=== PATIENT | male | born 1965 | race Caucasian/White ===

== ENCOUNTER 2018-08-28 20:44 | Emergency (ER) | payer MEDICAID, SELFPAY ==
[2018-08-28 20:45] VITALS: BP 171/98; PULSE 80; RESP 18; TEMP 36.4; O2SAT 99
--- NOTE | 2018-08-28 20:50 | W.ED.GENAD ---
Discharge Plan Disposition Patient Disposition: [facility] Condition: Fair Discharge Details Chief Complaint: AMS/LOC Clinical Impression: Acute alcohol intoxication, Suicidal ideation, Abrasion of knee Reason For Visit: APOORVA Primary Care Provider: Don Draper ED Provider: Jyoti Basilio Discharge Instructions Instructions: Depression (ED), Alcohol Intoxication (ED), Suicide Prevention for Adults (ED) Additional Instructions: You will be transferred to correctional facility tonight. You will be evaluated by mental health tomorrow morning. Please discuss your suicidal ideations and wish to stop alcohol intake. Keep your knee wound clean, dry, covered. Please follow up with your primary care for your chronic weakness and neuropathy. If you develop new/worsening symptoms please return to the emergency department. Referrals: Don Draper [Primary Care Provider] - Discharge Data Discharge Date/Time-TO BE ENTERED AT DEPARTURE: 08/29/18 00:45 Medical Decision Making Patient is a 53 year old male, presenting today after fall. Patient brought in via EMS for evaluation for left knee after fall as well as multiple chronic complaints. EMS reports that he was found after falling in the middle of the road and landing on his left knee. He appears intoxicated, appears to be drinking mouthwash, has bottle with him currently. States he has had EToh prior to arrival. Due to his mental capacity at this time, I am unable to understand all of his complaints. His thought process is not linear, his answers change frequently. He is very angry and aggressive in his speech pattern and has quick movements suggestive of physical aggression. He states that he has been seen by his PCP for peripheral neuropathy in his bilateral lower extremities which I believe is his chief complaint tonight. States he has been on Lyrica for this. Reports that I have been taking a fuck ton of Lyrica but it does nothing, what are you going to do?. He reports that I cant walk. States he has not been able to walk for several years. 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 As history is so fragmented and difficult to obtain, will العلي scan patient and obtain laboratory evaluation as he had report of fall. Patient reports that he has history of stroke which affected his right side. Unable to tell me when his stroke occurred but believes it was several years ago. Unclear what type of care, if any, he received at that time. Endorses pain everywhere. Has abrasion to the left knee but reports that the knee is fine, thats not why I am here. This story has changed multiple times as he told EMS he wanted his knee evaluated as well as nursing staff. On exam, patient appears intoxicated. He has abrasion to the left knee, not actively bleeding. He has no other signs of trauma. Is able to stand at bedside and remove his clothes on request. Exam is limited as he is uncooperative but no focal area of weakness is observed as he is moving all limbs . [facility] Patient reports his last tetanus was within the last 2 years. EKG reviewed by Dr. Harper. Patient is normal sinus rhythm with a rate of 76. No acute ischemic changes noted per her report Laboratory evaluation without significant abnormality. Potassium is minimally low at 3.3. Reevaluated the patient once he came back from imaging. He is now reporting that he wants to hang himself. He reports, I have a belt and knives at home and I think about killing myself all the time. Will consult with mental health. Reports he has been thinking of hanging himself for several years. He denies any hallucinations or thoughts of harming others. Will also add on acetamenophen, salicilate and UDS. At this time, patient is more cooperative, is willing to preform neuroexam. He is noted to have weakness in the right upper and lower extremity, neuro exam otherwise intact. HE reports that this is chronic. Chest CT reviewed by radiologist. Advised the lungs are normal, no consolidation or masses. No pneumothorax or pleural effusion. Heart is normal with no cardiomegaly or pericardial effusion. No aortic aneurysm. Lymph nodes are unremarkable no enlargement. There are acute fractures of the posterior right sixth and seventh ribs. Soft tissues are unremarkable. Emphysematous changes most prominent at the apices. Motion artifact degrading the images. Reevaluated the patient once again after noting the sixth and seventh rib fractures on posterior right side. I palpated over this area multiple times and patient is not exhibiting any discomfort. There is no deformity palpated. There is no swelling, discoloration. Questioning if this may be from previous falls and non acute as he is having no pain. CT of the abdomen and pelvis reviewed by radiologist. Advised the liver is normal no masses. Follow-up gallbladder and bile ducts are normal with no calcified stones or ductal dilation. Pancreas is normal no no ductal dilation. No spinal megaly. Adrenals are normal no mass. Kidneys and ureters are normal with no hydronephrosis. Stomach and bowel is normal with no obstruction or mucosal thickening. No evidence of appendicitis. Bladder is unremarkable with reproductive system unremarkable as visualized. Intraperitoneal space is normal no free air, no significant fluid collection. Patient is noted to have grade 1 anterolisthesis of L5 over S1. Extensive degenerative changes at L5-S1. Spinal listhesis of bilateral pars at L5. Soft tissue unremarkable. Also sclerotic calcification of the aorta. Lymph nodes are normal. CT of the patient's head concerning for encephalomalacia of the left frontal lobe. There is moderate periventricular and subcortical lucencies consistent with chronic microvascular ischemic changes. Christopher-white differentiation is maintained. No hemorrhage. No ventriculomegaly. Bones and joints are normal no acute fracture. Sinuses are normal as visualized no acute sinusitis. Mastoid air cells are normal as visualized with no mastoid effusion. Soft tissues unremarkable CT of the cervical spine reviewed by radiologist. Advised no acute fracture. Grade 1 anterolisthesis of C2 over C3, C3 over C4, C4 over C5. Grade 1 retrolisthesis of C5 over C7. Soft tissues are unremarkable multilevel facet hypertrophy with neuroforaminal narrowing emphysematous changes at bilateral lung apices. Mild to moderate spinal canal stenosis at C5-6 level. Central disc protrusion at C6-C7 indenting the thecal sac. Patient does report that he has pinched nerve affecting his left shoulder X-ray of the patient's left knee without acute fracture dislocation. No joint effusion. Soft tissue unremarkable Abrasion to the left knee cleansed and dressed by myself. Patient UDS negative, other blood work without significant abnormality. Alysa with [facility] evaluated the patient. She knows the patient well and reports that he is not typically this aggressive. States he has a known alcohol dependence issue but that she has not seen him this intoxicated. ETOh 177. Reports that he typically ambulates with the limp, her story is consistent with patient's self reported history of right sided weakness and difficulty with ambulation for the past several years. She also reports that he has reported weakness in his right hand historically. She evaluated the patient, feels that he needs to be monitored in safe place overnight so that he may be evaluated for his suicidal ideation once he has been able to sober. She recommends placement over night in correctional facility as he is medically cleared at this time. Discussed plan with the patient. At this point, his primary concern is for his suicidal ideation. Is in agreement wiht reevaluation tomorrow morning once he has been able ot clear his ETOH. Alcohol was taken from the patient. In regard to his chronic weakness and gait difficulty, he reports he has upcoming appointment with PCP. I do not see evidence of acute change in this tonight, patient prefers to follow [facility] regarding his chronic issues. Has calmed down, is no longer aggressive with staff. When officers came to transport the patient to the correctional facility for detox, he instantly became aggressive. I had discussed with the patient the need for going to their facility. He was initially in agreement and had been cooperative. However, as soon as he saw the officers he began swearing and became verbally aggressive including threatening the officers. He reported that he was goingt o forcefully fall so that he could kate you. The officers helped the patient to the wheelchair and he began to become physically aggressive. He attempted to knee and kick the officers. Was fighting with both upper extremities, officers were needing to restrain him forcefully. They needed to put the patient on the floor to be able to handcuff the patient to keep him from harming himself or them. Patient was fighting aggressively with all limbs. Brought to cruiser in wheelchair. HPI General Mode of arrival: EMS. Date/Time Provider Initiated Documentation: 08/28/18 20:50. Limitations to Documentation: altered mental status (patient intoxicated). Information obtained by: patient and EMS. History of Present Illness 53 year old M presents to the emergency department with the chief complaint of left knee pain, described as moderate, Quality is described as aching, and is localized to the left and lower extremity. Patient reports no radiation. Patient started experiencing this hour(s) (1) and it has been constant. Immobilization improves symptom(s), Movement worsens symptoms . Patient notes weakness (reports he has chronic weakness in his lower extremities). Patient did receive the following treatments prior to arrival, none Related Data Allergies Allergy/AdvReac Type Severity Reaction Status Date / Time carbamazepine [From Tegretol] Allergy Mild Skin Rash Unverified 08/28/18 21:17 Review of Systems Constitutional Reports as per HPI, Denies chills, Denies fatigue, Denies fever(s), Reports frequent falls (attributes to his chronic lower extremity weakness. Has RLE weakness after stroke. ), Reports headache(s) and Reports weakness Eyes Denies change in vision and Denies loss of vision ENT Denies vertigo, Denies dizziness and Reports headache(s) Cardiovascular Denies chest pain, Denies chest pain at rest, Denies syncope, Denies dyspnea and Denies dyspnea on exertion Respiratory Denies chest congestion, Denies cough, Denies dyspnea and Denies dyspnea on exertion Gastrointestinal Reports abdominal pain (reports pain along the entire right side), Denies change in stool character, Denies diarrhea, Denies nausea and Denies vomiting Genitourinary Reports system reviewed and no additional complaints, except as docu (denies change in urinary habits) Musculoskeletal Reports as per HPI, Reports abnormal gait (chronic gait abnormality, associates with RLE weakness from stroke), Denies back pain and Reports muscle weakness (right upper and lower extrmeity weakness, chornic from reported stroke) Integumentary/Breasts Reports wounds (patient has abrasion to the left knee) Neurologic Reports abnormal gait (chronic gait abnormality, associates with RLE weakness from stroke), Denies confusion, Denies vertigo, Denies dizziness, Denies syncope, Reports frequent falls (attributes to his chronic lower extremity weakness. Has RLE weakness after stroke. ), Reports headache(s), Reports focal weakness (chronic), Denies loss of vision and Reports weakness Psychiatric Denies confusion Endocrine Denies fatigue [facility] Social History Smoking/Tobacco Use Status: Never Exam Const General: comfortable, no acute distress, well developed, combative (patient is swearing and yelling at team upon entrance to the department) and intoxicated appearing Nutritional Appearance: average body habitus and well nourished Orientation: alert, awake and oriented x3 HENMT Head: normal to inspection, no palpable skull fracture, normocephalic and atraumatic Ears: hearing grossly normal bilaterally, external ears normal and TM's normal bilaterally General nose exam: external nose normal Face and sinus: normal facial exam and scar (new appearing scar to the right upper forehead, appears to have healed well) Mouth: oral mucosae normal, lip normal and tongue normal Eyes General: appearance normal, both eyes and all related structures Visual Myles: normal visual myles by confrontation Alignment and Position: alignment normal Periorbital: periorbital findings normal Eyelids: eyelids normal Conjunctivae: conjunctivae normal Pupils: PERRL and normal by confrontation EOM: EOM intact bilaterally Neck Neck: normal visual inspection, full ROM, no lymphadenopathy and nontender Chest Chest: normal inspection of the chest, normal palpation of entire chest wall, no crepitus, no localized rib tenderness, no tenderness and No rash Resp Effort & Inspection: normal respiratory effort, able to speak in complete sentences and no respiratory distress Auscultation: clear to auscultation bilaterally, no rales, no rhonchi and no wheezes Cardio Rate: regular rate Rhythm: regular rhythm Heart Sounds: S1 normal and S2 normal GI Inspection: normal to inspection, no abdominal wall ecchymosis, non-distended and no large pannus Palpation: soft, no hepatosplenomegaly, not firm, no guarding, not rigid and nontender (patient had been endorsing right sided abdominal pain, none was elicited. Patient was distracted at the time of the exam) Auscultation: normal bowel sounds Back/Spine/Pelvis Back: no CVA tenderness Cervical Spine: normal cervical lordosis and cervical ROM normal Thoracic/Lumbar Spine: thoracic and lumbar spine normal to inspection, No thoracic spinal tenderness and No lumbar spinal tenderness Pelvis: no pain with anterior-posterior compression and no pain with lateral compression Skin Lesions: lesion noted (patient has abrasion to the left knee, triangular in shape, 1cm in diameter. No surrouding erythema, discharge. No soft tissue swelling) Neuro General: alert, awake and oriented x3 Cranial Nerves: CN's II-XI intact bilaterally, PERRL, accommodation normal, EOM intact bilaterally and no nystagmus Speech: speech normal Gait: antalgic (reports that RLE is typically weak and he ambulates with antalgic gait at baseline) Motor: tone not normal throughout (patient has 4/5 strength in the RUE, 3/5 in the RLE on exam compared to the contralateral side) Sensory Exam: no sensory deficits noted Extrem General: abnormal to inspection (abrasion to the left knee as above. ), full ROM, normal capillary refill, no joint enlargement (no ligamentous laxity noted of the left knee. No effusion. No signs of infection. ), no clubbing, cyanosis or edema, no pedal edema, no calf tenderness and abnormal gait (antalgic as above) Psych Appearance: disheveled Mental Status: mental status grossly normal Speech and Movement: agitated and restless Mood: anxious mood, angry and irritable mood Affect: labile affect, hostile and irritable affect Attitude: belligerent (attitude waxes and wanes)
[2018-08-28 20:53] VITALS: RESP 18
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
[2018-08-28 21:24] LABS: Abs Immature Grans 0.02 k/cumm (0.0-0.09); Absolute Basophil Count 0.14 k/cumm (0.0-0.2); Absolute Eosinophil Count 0.43 k/cumm (0.0-0.7); Absolute Lymphocyte Count 3.73 k/cumm (1.2-3.4); Absolute Monocyte Count 0.92 k/cumm (0.11-0.7); Basophils % 1.4; Eosinophils % 4.2; HCT 42.6 % (40.0-50.0); HGB 14.6 g/dL (13.5-17.5); Immature Grans % 0.2; Lymphocytes % 36.4; Mean Corp. HGB Concentration 34.3 g/dL (32.0-36.0); Mean Corpuscular Hemoglobin 31.2 pg (27.0-33.0); Mean Platelet Volume 10.8 fL (8.0-11.0); Neutrophils % 48.8; Platelet Count 183 x1000/uL (130-400); RBC 4.68 m/cumm (4.50-6.00); RBC Distribution Width 13.5 % (11.8-14.1); White Blood Cell Count 10.24 k/cumm (4.4-10.8)
--- NOTE | 2018-08-28 21:30 | DI.COMBO_ITS ---
SYMPTOM/DIAGNOSIS: FELL, INTOXICATED NONCONTRAST HEAD CT: A noncontrast cranial CT was performed. Note is made of an apparent area of encephalomalacia of the left frontal lobe. Mild cortical atrophy is noted, unusual in this age group. No evidence of acute intracranial hemorrhage, mass effect or midline shift. The orbital and temporal bone structures appear intact. There is mucoperiosteal thickening of ethmoid and maxillary sinuses on the left. No calvarial fracture identified. CONCLUSION: No evidence of acute intracranial injury. CERVICAL SPINE CT: CT examination of the cervical spine was performed utilizing multi slice acquisition and multi planar reconstruction. There are severe degenerative changes of the cervical spine, unusual in this age group. There is a moderate cervical kyphosis. No evidence of acute cervical fracture or dislocation. Tracheal laryngeal structures appear intact. Visualized lung apices show severe emphysema and scarring. CONCLUSION: No evidence of acute cervical injury. Severe degenerative changes. LEFT KNEE: Four views were obtained. No fracture is seen. CHEST/ABDOMEN AND PELVIC CT: CT examination of the chest, abdomen and pelvis was performed with a bolus infusion of 100 c's of Omnipaque 350. There are marked pulmonary emphysematous changes with mild bullous emphysema. Tracheobronchial tree appears grossly intact. Some areas of apparent atelectasis or scarring are present, particularly in the left lung base. There is a trace pericardial effusion. No evidence of acute pneumothorax, pulmonary contusion of hemothorax. No mediastinal hematoma. No gross vascular injury although evaluation of the vascular structures is limited due to severe motion artifact. Partially healed fractures of right sixth and seventh ribs are noted. No other fracture is seen involving the bones of the thorax. No fracture is seen involving the lumbar spine or pelvis. No evidence of solid organ trauma involving liver, spleen, kidneys, adrenals or pancreas. Gallbladder and bile ducts are CT normal. No evidence of intra-abdominal or pelvic vascular injury although evaluation of vascular structures is limited due to motion artifact. No gross bowel injury or bowel obstruction. No gross abdominal or pelvic adenopathy is seen. Urinary bladder is distended. CONCLUSION: No evidence of acute injury of the chest, abdomen or pelvis. Trace pericardial effusion noted. Old partially healed rib fractures right sixth and seventh ribs.
[2018-08-28 21:42] LABS: ALT 23 U/L (12-78); AST 18 U/L (15-37); Albumin 4.1 g/dL (3.4-5.0); Alkaline Phosphatase 72 U/L (46-116); Anion Gap 11.9 mmol/L (3-11); BUN 13 mg/dL (7-18); Bilirubin, Total 0.2 mg/dL (0.2-1.0); CO2 26.1 mmol/L (21.0-32.0); CREATININE 0.66 mg/dL (0.70-1.30); Calcium 8.7 mg/dL (8.5-10.1); Chloride 101 mmol/L (98-107); ETHANOL BLOOD 177.7 mg/dL (<3); Glucose 80 mg/dL (70-100); Potassium 3.3 mmol/L (3.5-5.1); Sodium 139 mmol/L (136-145); Total Protein 7.6 g/dL (6.4-8.2)
[2018-08-28 21:43] LABS: Troponin I < 0.02 ng/mL (0.00-0.06)
[2018-08-28] MEDS: Omnipaque 350 MG/ML 100 ML BTL IJ (21:52)
[2018-08-28] MEDS: Normal Saline 1,000 ML 1000 ML IV (22:05)
[2018-08-28] MEDS: Normal Saline Flush 10 ML SYR IVP (22:05)
[2018-08-28 22:29] LABS: Salicylate 4.7 mg/dL (2.8-20.0)
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
[2018-08-28 22:39] LABS: TSH 2.59 uIU/mL (0.358-3.74)
[2018-08-28 22:40] LABS: Acetaminophen < 2 ug/mL (10-30)
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
--- NOTE | 2018-08-28 23:26 | DI.VRAD_ITS ---
EXAM: XR Left Knee, 4 or more Views EXAM DATE/TIME: 08/28/2018 9:03 PM CLINICAL HISTORY: 53 years old, male; Pain; Knee; Left; Patient HX: Left knee pain after fell into road. ; Additional info: Best images obtained due to patient intoxicated unable to follow instructions. TECHNIQUE: XR Left knee 4 or more views. COMPARISON: No relevant prior studies available. FINDINGS: Bones/joints: No acute fracture or dislocation. No joint effusion. Soft tissues: Soft tissues unremarkable. IMPRESSION: No acute findings. Dictated and Authenticated by: Marlen Ruiz MD. Ordering:HAILEY BEARDEN MD
[2018-08-28 23:54] LABS: Bilirubin Negative (Negative); Blood Negative (Negative); Clarity Clear; Glucose Negative (Negative); Ketones Negative (Negative); Leukocyte Esterase Negative (Negative); Nitrite Negative (Negative); Specific Gravity <= 1.005 (1.005-1.025); Urobilinogen 0.2 EU/dL (Up TO 0.2); pH 6.5 (5-8)
[2018-08-29 00:06] LABS: *AMPHETAMINES SCREEN URINE Negative (Negative); *BARBITURATES SCREEN URINE Negative (Negative); *BENZODIAZEPINES SCREEN URINE Negative (Negative); Cannabinoids THC Negative (Negative); Cocaine Screen,Urine Negative (Negative); METHADONE URINE SCREEN Negative (Negative); OPIATES URINE SCREEN Negative (Negative)
[2018-08-29 00:08] LABS: Tricyclic Antidepressants Negative (Negative)
== END 2018-08-29 00:45 | disposition home or self-care (01) ==
PROVIDERS: Emergency Provider Physician Assistant; PCP Physician Assistant
DX: F10.120 Alcohol abuse with intoxication, uncomplicated (principal); R45.851 Suicidal ideations; S80.02XA Contusion of left knee, initial encounter; W01.0XXA Fall on same level from slipping, tripping and stumbling without subsequent striking against object, initial encounter
CPT/HCPCS: 36415; 74177; 80053; 80307; 93005; 96360; 99285; 70450; 71260; 72125; 73564; 80320; 80329; 81003; 83735; 84443; 84484; 85025; 93010; J3490

== ENCOUNTER 2018-08-31 20:34 | Emergency (ER) | payer MEDICAID, SELFPAY ==
[2018-08-31] VITALS (21 sets, daily range): BP systolic 130–168; BP diastolic 74–103; PULSE 77–104; RESP 13–23; TEMP 36.4–36.7; O2SAT 95–97
--- NOTE | 2018-08-31 20:35 | W.ED.GENAD ---
Discharge Plan Disposition Patient Disposition: [facility]ILITY Condition: Stable Discharge Details Chief Complaint: Seizure Clinical Impression: Alcohol intoxication Reason For Visit: [facility]VA Primary Care Provider: Don Draper ED Provider: Arie Summers Home Meds and New Rx's Prescriptions: Continue bupropion HCl 75 mg Tablet 75 mg PO TID RF: 0 levothyroxine [Synthroid] 200 mcg Tablet 200 mcg PO DAILY RF: 0 lurasidone [Latuda] 20 mg Tablet 20 mg PO DAILY RF: 0 Discharge Instructions Instructions: Alcohol Intoxication (ED) Discharge Data Discharge Physician: Arie Summers Medical Decision Making 53 yo male with hx of alcoholism, seizure disorder, who comes in requesting to speak to mental health for a care bed on my exam. Per ems bystanders noted [place] so [place] were [place]. They got a bgfs of 91. He is currently caox4 and does smell of alcohol and on breathalyzer is 0.15. He denies other drug use and has no complaints at this time. He states he just wants to speak to mental health about a care bed because he is homeless and has no where to go. Will have mental health speak with him. He does note vague SI earlier but denies any now and has no plan pt seen by mental health and he will go to a community care bed for the night, pt has no complaints at this time Differential Diagnosis alcohol intoxication, seizure disorder HPI General Mode of arrival: EMS. Date/Time Provider Initiated Documentation: 08/31/18 20:35. Limitations to Documentation: no limitations. Information obtained by: patient. History of Present Illness 53 year old M presents to the emergency department with the chief complaint of wants a care bed, No relieving factors improve symptom(s), No exacerbating factors reported . Patient notes no other symptoms.. Patient did receive the following treatments prior to arrival, none Related Data Home Medications Medication Instructions Recorded Confirmed bupropion HCl 75 mg PO TID 08/31/18 08/31/18 levothyroxine [Synthroid] 200 mcg PO DAILY 08/31/18 08/31/18 lurasidone [Latuda] 20 mg PO DAILY 08/31/18 08/31/18 Allergies Allergy/AdvReac Type Severity Reaction Status Date / Time carbamazepine [From Tegretol] Allergy Mild Skin Rash Unverified 08/31/18 20:37 General Stated Complaint: Seizure YURIDIA: 4 Review of Systems Review of Systems All systems reviewed & are unremarkable except as noted in HPI and below Constitutional Denies chills, Denies fever(s) and Denies weakness Eyes Denies loss of vision ENT Denies change in voice Cardiovascular Denies chest pain and Denies dyspnea Respiratory Denies dyspnea Gastrointestinal Denies abdominal pain, Denies nausea and Denies vomiting Genitourinary Denies dysuria Musculoskeletal Denies joint swelling Integumentary/Breasts Denies rash Neurologic Denies loss of vision and Denies weakness Psychiatric Denies depression Endocrine Denies cold intolerance and Denies heat intolerance [facility] Social History Smoking/Tobacco Use Status: Never Exam Const General: no acute distress Orientation: alert HENMT Head: normal to inspection Ears: external ears normal General nose exam: external nose normal Mouth: moist mucous membranes Eyes General: appearance normal, both eyes and all related structures Neck Neck: normal visual inspection Resp Effort & Inspection: normal respiratory effort and able to speak in complete sentences Cardio Rate: regular rate Skin General skin exam: no rashes or lesions noted Neuro General: alert and oriented x3 Extrem General: normal to inspection Psych Mental Status: mental status grossly normal Course Vital Signs Temperature 36.7 C 08/31/18 20:29 Pulse 86 08/31/18 20:29 Respiratory Rate 16 08/31/18 20:29 Blood Pressure 168/103 H 08/31/18 20:29 Pulse Oximetry 96 08/31/18 20:29 Temperature 36.7 C 08/31/18 20:29 Temperature Source Skin 08/31/18 20:29 Pulse 86 08/31/18 20:29 Respiratory Rate 16 08/31/18 20:29 Blood Pressure 168/103 H 08/31/18 20:29 Pulse Oximetry 96 08/31/18 20:29 Pain Level 6 08/31/18 20:29
--- NOTE | 2018-08-31 20:38 | ED.GENADUL_ITS ---
Discharge Plan Disposition Patient Disposition: [facility]ILITY Condition: Stable Discharge Details Chief Complaint: Seizure Clinical Impression: Alcohol intoxication Reason For Visit: [facility] Primary Care Provider: Don Draper ED Provider: Arie Summers Home Meds and New Rx's Prescriptions: Continue bupropion HCl 75 mg Tablet 75 mg PO TID RF: 0 levothyroxine [Synthroid] 200 mcg Tablet 200 mcg PO DAILY RF: 0 lurasidone [Latuda] 20 mg Tablet 20 mg PO DAILY RF: 0 Discharge Instructions Instructions: Alcohol Intoxication (ED) Discharge Data Discharge Physician: Arie Summers Medical Decision Making 53 yo male with hx of alcoholism, seizure disorder, who comes in requesting to speak to mental health for a care bed on my exam. Per ems bystanders noted [place] the [place] and so they were called. They got a bgfs of 91. He is currently caox4 and does smell of alcohol and on breathalyzer is 0.15. He denies other drug use and has no complaints at this time. He states he just wants to speak to mental health about a care bed because he is homeless and has no where to go. Will have mental health speak with him. He does note vague SI earlier but denies any now and has no plan pt seen by mental health and he will go to a community care bed for the night, pt has no complaints at this time Differential Diagnosis alcohol intoxication, seizure disorder HPI General Mode of arrival: EMS . Date/Time Provider Initiated Documentation: 08/31/18 20:35 . Limitations to Documentation: no limitations . Information obtained by: patient . History of Present Illness 53 year old M presents to the emergency department with the chief complaint of wants a care bed, No relieving factors improve symptom(s), No exacerbating factors reported . Patient notes no other symptoms.. Patient did receive the following treatments prior to arrival, none Related Data Home Medications Medication Instructions Recorded Confirmed bupropion HCl 75 mg PO TID 08/31/18 08/31/18 levothyroxine [Synthroid] 200 mcg PO DAILY 08/31/18 08/31/18 lurasidone [Latuda] 20 mg PO DAILY 08/31/18 08/31/18 Allergies Allergy/AdvReac Type Severity Reaction Status Date / Time carbamazepine [From Tegretol] Allergy Mild Skin Rash Unverified 08/31/18 20:37 General Stated Complaint: Seizure YURIDIA: 4 Review of Systems Review of Systems All systems reviewed & are unremarkable except as noted in HPI and below Constitutional Denies chills, Denies fever(s) and Denies weakness Eyes Denies loss of vision ENT Denies change in voice Cardiovascular Denies chest pain and Denies dyspnea Respiratory Denies dyspnea Gastrointestinal Denies abdominal pain, Denies nausea and Denies vomiting Genitourinary Denies dysuria Musculoskeletal Denies joint swelling Integumentary/Breasts Denies rash Neurologic Denies loss of vision and Denies weakness Psychiatric Denies depression Endocrine Denies cold intolerance and Denies heat intolerance [facility] Social History Smoking/Tobacco Use Status: Never Exam Const General: no acute distress Orientation: alert HENMT Head: normal to inspection Ears: external ears normal General nose exam: external nose normal Mouth: moist mucous membranes Eyes General: appearance normal, both eyes and all related structures Neck Neck: normal visual inspection Resp Effort & Inspection: normal respiratory effort and able to speak in complete sentences Cardio Rate: regular rate Skin General skin exam: no rashes or lesions noted Neuro General: alert and oriented x3 Extrem General: normal to inspection Psych Mental Status: mental status grossly normal Course Vital Signs Temperature 36.7 C 08/31/18 20:29 Pulse 86 08/31/18 20:29 Respiratory Rate 16 08/31/18 20:29 Blood Pressure 168/103 H 08/31/18 20:29 Pulse Oximetry 96 08/31/18 20:29 Temperature 36.7 C 08/31/18 20:29 Temperature Source Skin 08/31/18 20:29 Pulse 86 08/31/18 20:29 Respiratory Rate 16 08/31/18 20:29 Blood Pressure 168/103 H 08/31/18 20:29 Pulse Oximetry 96 08/31/18 20:29 Pain Level 6 08/31/18 20:29
--- NOTE | 2018-08-31 20:49 | NUR.NOTE ---
Nursing Note: mental health called, Mercedes calls back and states she will respond to evaluate pt. Pt agrees to evaluation of breathalyzer by , 0.15 at approx 2029.
--- NOTE | 2018-08-31 21:13 | NUR.NOTE ---
Nursing Note: Pt seen by mental health- they will be arranging care bed placement.
--- NOTE | 2018-08-31 22:16 | NUR.NOTE ---
Nursing Note: Pt resting in bed, remains alert and oriented.
== END 2018-08-31 22:58 | disposition designated cancer center or children's hospital (05) ==
PROVIDERS: Emergency Provider Emergency Medicine; PCP Physician Assistant
DX: F10.229 Alcohol dependence with intoxication, unspecified (principal); Z59.0 Homelessness; G43.909 Migraine, unspecified, not intractable, without status migrainosus
CPT/HCPCS: 99285; 99284

== ENCOUNTER 2018-09-06 21:38 | Emergency (ER) | payer MEDICAID, SELFPAY ==
[2018-09-06 21:29] VITALS: PULSE 82; RESP 26
[2018-09-06 21:30] VITALS: PULSE 82; RESP 24
[2018-09-06 21:31] VITALS: BP 153/120; PULSE 82; RESP 14
[2018-09-06 21:32] VITALS: BP 127/99; PULSE 86; RESP 22; TEMP 36.5
--- NOTE | 2018-09-06 21:36 | ED.GENADUL_ITS ---
Discharge Plan Disposition Condition: Stable Discharge Details Chief Complaint: ETOHWithdr Clinical Impression: Alcohol intoxication Reason For Visit: APOORVA Primary Care Provider: Don Draper ED Provider: Juan Hickey Home Meds and New Rx's Prescriptions: Continue bupropion HCl 75 mg Tablet 75 mg PO TID RF: 0 levothyroxine [Synthroid] 200 mcg Tablet 200 mcg PO DAILY RF: 0 lurasidone [Latuda] 20 mg Tablet 20 mg PO DAILY RF: 0 Discharge Instructions Instructions: Alcohol Intoxication (ED) Additional Instructions: You are medically stable for discharge from the Emergency Room. Continue regular medications. Please do not abuse alcohol. Medical Decision Making 53-year-old male alcoholic who was found trying to sleep on a bench outside local bru. We will admit distant concomitant use of street pills. He currently appears clinically to be predominantly intoxicated from alcohol. He is not a danger to himself or others. Normal vital signs and no evidence of trauma. He requests placement at respite bed. [facility] contacted HPI General Mode of arrival: EMS . Date/Time Provider Initiated Documentation: 09/06/18 22:05 . Limitations to Documentation: no limitations . Information obtained by: patient and EMS . HPI Narrative: Alcohol intoxication: 53-year-old male states he is currently living in [place]. He was found [place] local [place] trying to sleep on a bench. He admits to using vodka, some mouthwash, and snorting pills on a daily basis. He does not want to kill himself or harm other people. He denies to me any acute pain or injury. Related Data Home Medications Medication Instructions Recorded Confirmed bupropion HCl 75 mg PO TID 08/31/18 08/31/18 levothyroxine [Synthroid] 200 mcg PO DAILY 08/31/18 08/31/18 lurasidone [Latuda] 20 mg PO DAILY 08/31/18 08/31/18 Allergies Allergy/AdvReac Type Severity Reaction Status Date / Time carbamazepine [From Tegretol] Allergy Mild Skin Rash Unverified 08/31/18 20:37 General YURIDIA: 4 Review of Systems Review of Systems 6 systems reviewed and otherwise negative [facility] Social History Smoking/Tobacco Use Status: Never Exam Narrative Exam Narrative: GEN: awake, alert, conversant, odor of alcohol HEAD: Normocephalic, atraumatic ENT: Mucous membranes moist, oropharynx unremarkable, External ear exam unremarkable EYES: PERRL, EOMI NECK: Full ROM, no RONIT, no menigismus CHEST/RESP: Nontender, clear to auscultation bilateral, no wheeze/rhonchi/rales CARDIOVASCULAR: RRR, no murmur, rub laila. 2+ Rad pulse bilateral ABDOMEN: Soft, nontender, no mass. +Bowel sounds EXT: Full ROM, no edema, no rash Neuro: Grossly normal neurologic exam, conversant, interactive. Psych: Speech fluent, thoughts congruent
[2018-09-06 21:40] VITALS: PULSE 98; RESP 26
== END 2018-09-06 23:01 | disposition other institution (70) ==
PROVIDERS: Emergency Provider Emergency Medicine; PCP Physician Assistant
DX: F10.229 Alcohol dependence with intoxication, unspecified (principal)
CPT/HCPCS: 99285; 99282

== ENCOUNTER 2019-08-18 16:46 | Emergency (ER) | payer MEDICAID, SELFPAY ==
[2019-08-18 16:47] VITALS: BP 127/75; PULSE 71; RESP 18; TEMP 36.3; O2SAT 98
--- NOTE | 2019-08-18 16:49 | ED.GENADUL_ITS ---
Discharge Plan Disposition Patient Disposition: [facility] Discharge Details Chief Complaint: ETOHWithdr Clinical Impression: Alcohol intoxication Primary Care Provider: Don Draper ED Provider: Mata Campos Home Meds and New Rx's Prescriptions: No Action levothyroxine [Synthroid] 200 mcg Tablet 175 mcg PO DAILY RF: 0 Latuda 20 mg Tablet 80 mg PO DAILY RF: 0 bupropion HCl 150 mg Tablet Sustained-Release 12 Hr 150 mg PO BID RF: 0 gabapentin 600 mg Tablet 1,200 mg PO TID RF: 0 metoprolol succinate 50 mg Tablet Extended Release 24 Hr 50 mg PO DAILY RF: 0 cyanocobalamin (vitamin B-12) [Vitamin B-12] 1,000 mcg Tablet 1,000 mcg PO DAILY RF: 0 amlodipine 5 mg Tablet 5 mg PO DAILY RF: 0 tramadol 50 mg Tablet 50 mg PO Q6H PRNRF: 0 folic acid 1 mg Tablet 1 mg PO DAILY RF: 0 duloxetine [Cymbalta] 30 mg Capsule,Delayed Release(Dr/Ec) 30 mg PO DAILY RF: 0 Vyvanse 50 mg Capsule 50 mg PO DAILY RF: 0 Discharge Instructions Instructions: Alcohol Intoxication (ED) Additional Instructions: Please take your medications as prescribed. Unfortunately an official medication reconciliation could not be performed today. Be sure to confirm your medications and dosing with your doctor. Please stop abusing alcohol. Please contact your primary care physician to arrange follow-up. Return to the ER for any worsening or new concerning symptoms. Referrals: Don Draper [Primary Care Provider] - Discharge Data Discharge Date/Time-TO BE ENTERED AT DEPARTURE: 08/18/19 19:30 Medical Decision Making 54-year-old male here with altered mental status secondary to alcohol intoxication. No signs of trauma. Screening labs reviewed: Ethyl alcohol level of 189. Other than intoxication, no acute medical condition identified. Patient suicidality seems conditional. I have discussed case with crisis screener who will evaluate the patient for public inebriation holding facility placement. HPI General Mode of arrival: ambulatory . Date/Time Provider Initiated Documentation: 08/18/19 16:49 . Limitations to Documentation: no limitations . Information obtained by: patient . HPI Narrative: 54-year-old male arrives with EMS and law enforcement [place]. Patient admits to drinking a few pints of mouthwash today. He was recently discharged from alcohol rehab at [facility]. Patient also notes that he is been feeling suicidal. He has no active plan. Patient denies toxic ingestion. History limited secondary to intoxication. No history of trauma. Related Data Home Medications Medication Instructions Recorded Confirmed Latuda 80 mg PO DAILY 08/31/18 08/19/19 levothyroxine [Synthroid] 175 mcg PO DAILY 08/31/18 08/19/19 amlodipine 5 mg PO DAILY 08/18/19 08/19/19 bupropion HCl 150 mg PO BID 08/18/19 08/19/19 cyanocobalamin (vitamin B-12) 1,000 mcg PO DAILY 08/18/19 08/19/19 [Vitamin B-12] duloxetine [Cymbalta] 30 mg PO DAILY 08/18/19 08/19/19 folic acid 1 mg PO DAILY 08/18/19 08/19/19 gabapentin 1,200 mg PO TID 08/18/19 08/19/19 lisdexamfetamine [Vyvanse] 50 mg PO DAILY 08/18/19 08/19/19 metoprolol succinate 50 mg PO DAILY 08/18/19 08/19/19 tramadol 50 mg PO Q6H PRN 08/18/19 08/19/19 Allergies Allergy/AdvReac Type Severity Reaction Status Date / Time carbamazepine [From Tegretol] Allergy Mild Skin Rash Unverified 08/19/19 05:44 General YURIDIA: 4 Review of Systems Constitutional Constitutional: Denies headache(s) ENT Ears, Nose, Mouth, and Throat: Denies headache(s) Cardiovascular Cardiovascular: Denies chest pain and Denies dyspnea Respiratory Respiratory: Denies dyspnea Gastrointestinal Gastrointestinal: Denies abdominal pain Neurologic Neurologic: Denies headache(s) [facility] Social History Smoking/Tobacco Use Status: Current every day Alcohol Intake: current Alcohol Intake frequency: 3 or more drinks per day Alcohol type: other Drug use: Never Substance use type: does not use Do you feel safe in your relationship?: Yes Exam Const General: cooperative and no acute distress HENMO Head: normocephalic and atraumatic Mouth: moist mucous membranes Eyes Conjunctivae: normal conjunctivae Sclera: normal sclerae Neck Neck: trachea midline and supple Resp Auscultation: clear to auscultation bilaterally, no rales, no rhonchi and no wheezes Cardio Jugular venous pressure: no JVD Rate: regular rate and not tachycardic Rhythm: regular rhythm GI Palpation: soft, not firm, no guarding, no masses, not rigid and nontender Skin General skin exam: no rashes or lesions noted Neuro General: alert, awake, tone normal and other (intoxicated) Speech: abnormal speech slurred Extrem General: no edema Psych Appearance: grossly normal Mental Status: mental status grossly normal
--- NOTE | 2019-08-18 17:22 | NUR.NOTE ---
Nursing Note: lab at bedside to draw blood
[2019-08-18 17:28] LABS: Abs Immature Grans 0.02 k/cumm (0.0-0.09); Absolute Basophil Count 0.09 k/cumm (0.0-0.2); Absolute Eosinophil Count 0.42 k/cumm (0.0-0.7); Absolute Lymphocyte Count 2.97 k/cumm (1.2-3.4); Absolute Monocyte Count 0.81 k/cumm (0.11-0.7); Absolute Neutrophil Count 4.48 k/cumm (1.2-6.7); Eosinophils % 4.8; HGB 15.1 g/dL (13.5-17.5); Immature Grans % 0.2; Lymphocytes % 33.8; Mean Corp. HGB Concentration 35.1 g/dL (32.0-36.0); Mean Corpuscular Hemoglobin 30.9 pg (27.0-33.0); Mean Corpuscular Volume 88.1 fL (80-95); Mean Platelet Volume 9.8 fL (8.0-11.0); Monocytes % 9.2; Platelet Count 212 x1000/uL (130-400); RBC 4.88 m/cumm (4.50-6.00); RBC Distribution Width 13.5 % (11.8-14.1); White Blood Cell Count 8.79 k/cumm (4.4-10.8)
[2019-08-18] MEDS: Normal Saline 1,000 ML 1000 ML IV (17:45)
[2019-08-18 17:48] LABS: ALT 10 U/L (16-63); AST 12 U/L (15-37); Albumin 4.5 g/dL (3.4-5.0); Alkaline Phosphatase 80 U/L (46-116); Anion Gap 12.6 mmol/L (3-11); BUN 7 mg/dL (7-18); Bilirubin, Total 0.3 mg/dL (0.2-1.0); CO2 23.4 mmol/L (21.0-32.0); CREATININE 0.75 mg/dL (0.70-1.30); Calcium 8.6 mg/dL (8.5-10.1); Chloride 97 mmol/L (98-107); ETHANOL BLOOD 189.8 mg/dL (<3); Glucose 83 mg/dL (70-100); Potassium 3.5 mmol/L (3.5-5.1); Sodium 133 mmol/L (136-145)
[2019-08-18 17:59] LABS: TSH (W/Ref FT4) 0.36 uIU/mL (0.36-3.74)
[2019-08-18 18:09] LABS: Salicylate 5.7 mg/dL (2.8-20.0)
[2019-08-18 18:10] LABS: Acetaminophen < 2 ug/mL (10-30)
[2019-08-18] MEDS: THIAMINE 100 MG in Normal Saline 100 ML 200 MG IVPB (18:23)
--- NOTE | 2019-08-18 18:55 | NUR.NOTE ---
Nursing Note: report given to Ron EMERY
[2019-08-18 19:17] VITALS: BP 127/75; PULSE 71; RESP 18; O2SAT 98
== END 2019-08-18 19:30 | disposition home or self-care (01) ==
PROVIDERS: Emergency Provider Student in an Organized Health Care Education/Training Program; PCP Physician Assistant
DX: F10.120 Alcohol abuse with intoxication, uncomplicated (principal)
CPT/HCPCS: 36415; 80053; 96361; 96365; 99285; 80320; 80329; 84443; 85025; 99284

== ENCOUNTER 2019-08-19 05:28 | Emergency (ER) | payer MEDICAID, SELFPAY ==
[2019-08-19 05:38] VITALS: BP 144/89; PULSE 85; RESP 16; TEMP 36.7; O2SAT 95
--- NOTE | 2019-08-19 05:50 | ED.GENADUL_ITS ---
Discharge Plan Disposition Patient Disposition: [facility] Condition: Stable Discharge Details Chief Complaint: PsychEval Clinical Impression: Depression, Suicidal ideations Primary Care Provider: Don Draper ED Provider: Catalina Harper Home Meds and New Rx's Prescriptions: No Action levothyroxine [Synthroid] 200 mcg Tablet 175 mcg PO DAILY RF: 0 Latuda 20 mg Tablet 80 mg PO DAILY RF: 0 bupropion HCl 150 mg Tablet Sustained-Release 12 Hr 150 mg PO BID RF: 0 gabapentin 600 mg Tablet 1,200 mg PO TID RF: 0 metoprolol succinate 50 mg Tablet Extended Release 24 Hr 50 mg PO DAILY RF: 0 cyanocobalamin (vitamin B-12) [Vitamin B-12] 1,000 mcg Tablet 1,000 mcg PO DAILY RF: 0 amlodipine 5 mg Tablet 5 mg PO DAILY RF: 0 tramadol 50 mg Tablet 50 mg PO Q6H PRNRF: 0 folic acid 1 mg Tablet 1 mg PO DAILY RF: 0 duloxetine [Cymbalta] 30 mg Capsule,Delayed Release(Dr/Ec) 30 mg PO DAILY RF: 0 Vyvanse 50 mg Capsule 50 mg PO DAILY RF: 0 Discharge Data Discharge Date/Time-TO BE ENTERED AT DEPARTURE: 08/19/19 15:30 Medical Decision Making <Axel Miller MD - Last Filed: 08/20/19 00:44> Patient here for mental health evaluation. Reporting alcohol problems as well as depression and suicidal thoughts. CPSO ordered. Repeat labs not performed as they were fine yesterday and he has been in custody overnight. Seen by mental health. He is here on a voluntary at this point. Medical Records Medical records reviewed: Yes I reviewed the patient's medical records. Lab Data Lab results reviewed: Yes I reviewed the patient's lab results. Lab results narrative: from yesterday's visit <Catalina Harper DO - Last Filed: 08/22/19 08:41> 0800 -- case endorsed to f/u with mental health this morning regarding final disposition and placement. 1245 -- case discussed with PA at [facility] - accepts pt for transfer - accepting physician Dr. Liu. No other acute events. Will give patient his morning medications. Pt to go by [facility]. HPI <Axel Miller MD - Last Filed: 08/20/19 00:44> General Mode of arrival: EMS . Date/Time Provider Initiated Documentation: 08/19/19 05:44 . Limitations to Documentation: no limitations . Information obtained by: patient, RN notes reviewed and old records reviewed . HPI Narrative: Patient is transported from holding cell where he was overnight sobering up for mental health eval. He had been seen here yesterday for alcohol intoxication. He was transported to the holding cell overnight to sober up. Subsequently evaluated by mental health and is complaining of being suicidal. Reports history of alcohol problems as well as psychiatric problems. Apparently was recently at [facility] for similar issues. Tells me that he is suicidal, I guess. Seems a little vague on his plan. Has no real physical complaint other than body aches. Related Data Home Medications Medication Instructions Recorded Confirmed Latuda 80 mg PO DAILY 08/31/18 08/19/19 levothyroxine [Synthroid] 175 mcg PO DAILY 08/31/18 08/19/19 amlodipine 5 mg PO DAILY 08/18/19 08/19/19 bupropion HCl 150 mg PO BID 08/18/19 08/19/19 cyanocobalamin (vitamin B-12) 1,000 mcg PO DAILY 08/18/19 08/19/19 [Vitamin B-12] duloxetine [Cymbalta] 30 mg PO DAILY 08/18/19 08/19/19 folic acid 1 mg PO DAILY 08/18/19 08/19/19 gabapentin 1,200 mg PO TID 08/18/19 08/19/19 lisdexamfetamine [Vyvanse] 50 mg PO DAILY 08/18/19 08/19/19 metoprolol succinate 50 mg PO DAILY 08/18/19 08/19/19 tramadol 50 mg PO Q6H PRN 08/18/19 08/19/19 Allergies Allergy/AdvReac Type Severity Reaction Status Date / Time carbamazepine [From Tegretol] Allergy Mild Skin Rash Unverified 08/19/19 05:44 General Stated Complaint: PsychEval YURIDIA: 2 Review of Systems <Axel Miller MD - Last Filed: 08/20/19 00:44> Review of Systems Narrative: 08/24 Review of Systems completed and is negative except as stated above in HPI (Systems reviewed: Const, ENT, Resp, CV, GI, , MSK, Skin, Neuro, Psych) PFSH <Axel Miller MD - Last Filed: 08/20/19 00:44> Medical History ADHD (Chronic) Alcoholism /alcohol abuse (Chronic) Bipolar disorder (Chronic) HTN (hypertension) (Chronic) Hypothyroid (Chronic) Surgical History H/O cervical spine surgery (Chronic) Social History Smoking/Tobacco Use Status: Current every day Alcohol Intake: current Alcohol Intake frequency: 3 or more drinks per day Alcohol type: other Drug use: Never Substance use type: does not use Do you feel safe in your relationship?: Yes Exam <Axel Miller MD - Last Filed: 08/20/19 00:44> Narrative Exam Narrative: Vitals: Afebrile. Mildly hypertensive. Otherwise normal vitals pulse oximetry. Const: WDWN male in NAD. HEENT: NC/AT. Normal facial exam. Eyes: Normal conjunctiva and sclera. Neck: Supple. Trachea midline. Lungs: Normal respiratory effort. Lungs are clear. Cor: RRR without murmur/gallop. Good radial pulses. GI: Soft. NT/ND. No guarding or rebound. Neuro: A+O x 3. CN grossly in tact. Good strength and no focal deficit. Ext: No C/C/E. Skin: Warm and dry without rash. Psych: Calm and cooperative here. Reports suicidal thoughts. No HI. Course <Axel Miller MD - Last Filed: 08/20/19 00:44> Vital Signs Vital signs: Vital Signs Temperature 98.1 F 08/19/19 05:38 Pulse 85 08/19/19 05:38 Respiratory Rate 16 08/19/19 05:38 Blood Pressure 144/89 H 08/19/19 05:38 Pulse Oximetry 95 08/19/19 05:38 Temperature 98.1 F 08/19/19 05:38 Temperature Source Skin 08/19/19 05:38 Pulse 85 08/19/19 05:38 Respiratory Rate 16 08/19/19 05:38 Respiratory Effort 08/19/19 05:43 Blood Pressure 144/89 H 08/19/19 05:38 Blood Pressure Position Supine 08/19/19 05:38 Pulse Oximetry 95 08/19/19 05:38 Oxygen Delivery Method Room Air 08/19/19 05:38 Oxygen Flow Rate 0 08/19/19 05:38 Pain Level 7 08/19/19 05:38 Comment 08/19/19 05:38 Sign Out <Axel Miller MD - Last Filed: 08/20/19 00:44> Sign Out Data: Sign Out Comment: Pending psych placement. Last updated by Axel Miller MD at 08/19/19 07:59
[2019-08-19 07:32] VITALS: BP 163/88; PULSE 78; RESP 16; TEMP 37.5; O2SAT 94
--- NOTE | 2019-08-19 07:36 | CMSP_ITS ---
- If Service Date Differs Date of service: 08/19/19 Time of Service: 07:36 Care Management Safety Plan CM met with Harshal at the bedside he states that he was discouraged yesterday and went out and used alcohol. He has been staying at [facility] and would like to return there after a short stay at [facility]. CM offered a investment recovery technician which Harshal agrees to meet with a support person. Harshal does not have local support per his report he states he has struggled with Alcohol use since he was 18 years old. He currently does not have therapy services. His family lives in out of state. He states that he wants to be sober but often self destructs and returns to alcohol. Harshal agrees with the safety plan reviewed with patient and huddle completed with and Primary nurse YULY Garcia. [facility], CM requested [facility] to come in to evaluate and look for placement. Bed update pending until [facility] arrives and updates. Anticipate Harshal will remain in the ED until placement can be identified per provider. VOLUNTARY FOR INPATIENT PSYCHIATRIC STABILIZATION. Patient is appropriate in all interactions since arriving at [facility]; Pt has demonstrated appropriate coping and communication skills, has articulated his or her needs and concerns and is fully engaged during staff interactions. Safety plan has been established with patient, and care team, to adhere to patient goals, identify restrictions based on behavioral status, address nutrition, and determine allowed personal belongings, tools for hygiene and personal care. Determine level of activity including ambulation, level of supervision, visitors, and determine privileges based on behaviors and level of engagement by pt. SAFETY PLAN: 1. Will remain on suicide precautions. In Paper Clothes 2. Will remain in room under direct supervision of one-on-one staff at all times provided by [employer]; LAKIA, CHANNEL BUSINESS MANAGER construction management instructor. 3. May have paper cups, plates, finger foods as well as a metal spoon with which to eat meals. [facility] staff will be responsible for accounting of utensils after meals. 4. Follow [facility] Management of the Admitted Behavioral Health Patient policy. 5. Comfort bath system only. 6. No personal belongings 7. Visitors-No visitors at this time 8. Activities: books, crayons and television if available. 9. Bathroom privileges accompanied by [employer] 10. Phone: No phone at this time 11. Due to VOLUNTARY status, if patient wishes to leave [facility], the [facility] pastoral worker must be contacted to re-evaluate patient prior to patient exiting the building. Patient is currently voluntarily at [facility] and seeking inpatient admission when a bed becomes available. [facility] [employer] will continue seeking placement. Please contact the [employer] Painter Manager [employer] ([phone]) and [facility] Drafter [employer] ([phone]) for any needed changes in the Safety Plan. Safety plan has been provided to interdepartmental care team.
[2019-08-19] MEDS: Acetaminophen 325 MG TAB (10:29)
--- NOTE | 2019-08-19 12:06 | PDOC.MHCN_ITS ---
Mental Health Crisis Note Presenting Issue How did you arrive at the ED and why did you come: Medina came to the ED after being housed [facility] for alcohol detox. The clt reported having SI and was transported to the [facility]. Precipitating Factors Client states that he has ongoing SI without any HI. Client feels he'll be safe in a supervised inpatient setting. If left unsupervised, he fears he'll try to overdose on medication and alcohol. The client was staying at the [facility] for SA but left and went out and started consuming alcohol again resulting in him being held in protective custody in [facility] for detox. Disposition BEHAVIOR: Cooperative EYE CONTACT: Good but did look away a lot. MOOD: Downcast AFFECT: Sad APPETITE: Good SLEEP(trouble falling/staying asleep: He has been using self-medication options to get sleep. Plan Client to go to psych unit as a voluntary admission.
--- NOTE | 2019-08-19 12:42 | NUR.NOTE ---
Nursing Note: pillowcase turner at bedside.
[2019-08-19] MEDS: amLODIPine 5 MG TAB PO (13:08)
[2019-08-19] MEDS: Metoprolol CR 50 MG TABCR PO (13:08)
[2019-08-19] MEDS: buPROPion 75 MG TAB 150 MG PO (13:10)
[2019-08-19] MEDS: Levothyroxine 175 MCG TAB PO (13:10)
[2019-08-19] MEDS: Gabapentin 600 MG TAB 1200 MG PO (13:10)
[2019-08-19 13:13] VITALS: BP 133/72; PULSE 86; RESP 16; O2SAT 96
--- NOTE | 2019-08-19 14:29 | NUR.NOTE ---
Nursing Note: report given to Deepa godoy [facility]
--- NOTE | 2019-08-19 15:24 | NUR.NOTE ---
Nursing Note: Nursing Techn at bedside to transport patient to [facility]. pt transported in blue scrubs with possessions given to ceo [place] at bedside.
== END 2019-08-19 15:30 | disposition short-term general hospital (02) ==
PROVIDERS: Emergency Provider Physician Assistant; PCP Physician Assistant
DX: F32.9 Major depressive disorder, single episode, unspecified (principal); R45.851 Suicidal ideations; I10 Essential (primary) hypertension
CPT/HCPCS: 99285; 99284

== ENCOUNTER 2019-09-17 06:09 | Inpatient (IN) | payer MEDICAID, SELFPAY ==
[2019-09-17] VITALS (126 sets, daily range): BP systolic 92–163; BP diastolic 55–98; PULSE 66–129; RESP 11–27; TEMP 34.4–38.4; O2SAT 86–100
[2019-09-17] MEDS: Lactated Ringers 1,000 ML 1000 ML IV ×3 (06:41→16:44)
[2019-09-17 06:45] LABS: BE (Venous) 1.8 mmol/L (-3-3); HCO3 (Venous) 28 mmol/L (22-28); O2 Sat (Venous) 43 % (70-80); TCO2 (Venous) 25 mmol/L (22-29); pCO2 (Venous) 58 mm/Hg (34-47); pO2 (Venous) 26 mm/Hg (28-44)
--- NOTE | 2019-09-17 06:47 | W.ED.GENAD ---
Discharge Plan Disposition Patient Disposition: [facility] INPATIENT Condition: Stable Discharge Details Chief Complaint: AMS/LOC Clinical Impression: Hypothermia, Diuresis excessive, Alcohol intoxication, Fall Primary Care Provider: Don Draper ED Provider: Ned Johnston Home Meds and New Rx's Prescriptions: No Action levothyroxine [Synthroid] 200 mcg Tablet 175 mcg PO DAILY RF: 0 Latuda 20 mg Tablet 80 mg PO DAILY RF: 0 bupropion HCl 150 mg Tablet Sustained-Release 12 Hr 150 mg PO BID RF: 0 gabapentin 600 mg Tablet 1,200 mg PO TID RF: 0 metoprolol succinate 50 mg Tablet Extended Release 24 Hr 50 mg PO DAILY RF: 0 cyanocobalamin (vitamin B-12) [Vitamin B-12] 1,000 mcg Tablet 1,000 mcg PO DAILY RF: 0 amlodipine 5 mg Tablet 5 mg PO DAILY RF: 0 tramadol 50 mg Tablet 50 mg PO Q6H PRNRF: 0 folic acid 1 mg Tablet 1 mg PO DAILY RF: 0 duloxetine [Cymbalta] 30 mg Capsule,Delayed Release(Dr/Ec) 30 mg PO DAILY RF: 0 Vyvanse 50 mg Capsule 50 mg PO DAILY RF: 0 Medical Decision Making This is a 54-year-old male with a notable past medical history of hypertension bipolar ADHD hypothyroidism and alcoholism. He was found outside to the [employer] mall this morning. EMS got there and his temperature was 90 ?F. He was brought to the ER for further evaluation. On arrival he was questioned and he stated that he did fall. He was immediately placed in c-collar. Extremities are extremely cool to the touch, core temperature appears to be 90 ?F. Notable bruising and contusion over the knees bilaterally. No other signs of significant trauma. There was both alcohol and Listerine bottle at bedside. We will order send out serum osmole's. We will vigorously rewarmed, rehydrate, CT scan of the head neck, x-ray of the knees, placed him Skinner, give banana bag, monitor closely. 8:17 AM Patient's laboratory work-up is returned, normal CBC, VBG pH is 7.3, anion gap is minimal at 11.5, electrolytes unremarkable. Renal function stable, troponin normal, alcohol 242, urine drug screen negative. Signs and symptoms appear clinically inconsistent with toxic alcohol syndrome. He is warming well. He is having evidence of hypothermic diuresis and has diuresed 1 L from the urine at this time. We will continue lactated Ringer boluses. He has 2 large-bore IVs bilaterally. CT scan of the head neck is negative per Dr. Stephenson. X-ray of the knees bilaterally is negative for acute process. Patient appears to demonstrate continued stability. I discussed the case with the hospitalist , she agrees with the assessment and plan. I have extensively reviewed the treatment plan with the patient. I have addressed all patient concerns at this time. I have also discussed the plan with the admitting physician and they agree with the current assessment and plan and have agreed to assume responsibility for the patient. All parties demonstrate verbal understanding and agreement with our assessment and plan at this time. EKG 6: 53 Rate 80, NE 189, QTc 448, QRS 95, sinus rhythm, no significant ST elevations or depressions, no Coates waves. No evidence of STEMI, notable artifact. FINDINGS: Brain: Left frontal enchephalomalacia No hemorrhage.Unremarkable white matter. No mass effect. Ventricles: Normal. No ventriculomegaly. Bones/joints: Chronic nasal bone fractures.No acute fracture. Sinuses: Mild mucosal thickening. No fluid levels. Mastoid air cells: Visualized mastoid air cells are well aerated. Soft tissues: Unremarkable. IMPRESSION: No acute intracranial abnormality. FINDINGS: Vertebrae: No acute fracture. Anterolisthesis of C4-C5 Discs/Spinal canal/Neural foramina: No spinal stenosis. Multivel neural foraminal narrowing. Soft tissues: Unremarkable. Lungs: Emphysema and scarring. IMPRESSION: No acute cervical fracture Thank you for allowing us to participate in the care of your patient. Dictated and Authenticated by: Keith Mcclain MD 09/17/2019 7:05 AM Eastern Time ([place] & [place]) HPI General Date/Time Provider Initiated Documentation: 09/17/19 06:14. HPI Narrative: This is a 54-year-old male with a past medical history of ADHD, bipolar, and chronic alcoholism who presents today for evaluation of intoxication. The patient was found outside to the [employer] earlier this morning surrounded by alcohol bottles and Listerine bottles. EMS was contacted, upon their arrival he was noted to be intoxicated, temperature was 90 ?F. Blood sugar was stable. He was brought to the ER for further evaluation. Upon evaluation he is intoxicated, however he does state that there were some falls. He states that he hit his head a few times. He is immediately placed in c-collar precautions. Patient is a notably poor historian, but otherwise does have surprisingly good insight. He denies any IV or illicit drug use. He denies any blood thinner use. He has no other complaints at this time. Related Data Home Medications Medication Instructions Recorded Confirmed Latuda 80 mg PO DAILY 08/31/18 09/17/19 levothyroxine [Synthroid] 175 mcg PO DAILY 08/31/18 09/17/19 amlodipine 5 mg PO DAILY 08/18/19 09/17/19 bupropion HCl 150 mg PO BID 08/18/19 09/17/19 cyanocobalamin (vitamin B-12) 1,000 mcg PO DAILY 08/18/19 09/17/19 [Vitamin B-12] duloxetine [Cymbalta] 30 mg PO DAILY 08/18/19 09/17/19 folic acid 1 mg PO DAILY 08/18/19 09/17/19 gabapentin 1,200 mg PO TID 08/18/19 09/17/19 lisdexamfetamine [Vyvanse] 50 mg PO DAILY 08/18/19 09/17/19 metoprolol succinate 50 mg PO DAILY 08/18/19 09/17/19 tramadol 50 mg PO Q6H PRN 08/18/19 09/17/19 Allergies Allergy/AdvReac Type Severity Reaction Status Date / Time carbamazepine [From Tegretol] Allergy Mild Skin Rash Unverified 09/17/19 07:23 General YURIDIA: 2 Review of Systems All systems reviewed & are unremarkable except as noted in HPI and below PFSH Social History Smoking/Tobacco Use Status: Current every day Tobacco Type: cigarettes Alcohol Intake: current Alcohol Intake frequency: 3 or more drinks per day Alcohol type: other Drug use: Never Substance use type: does not use Do you feel safe at home: Yes Do you feel safe in your relationship?: Yes Exam Narrative Exam Narrative: 1.Const: Well-nourished, Well-developed, appearing stated age 2.Eyes: PERRL, no conjunctival injection, and symmetrical lids. 3.ENT: Atraumatic external nose and ears. Moist MM. Neck: Symmetric, trachea midline, No thyromegaly. There is no evidence of raccoon eyes, murrieta sign, CSF rhinorrhea, mastoid tenderness, cranial crepitus, hemotympanum, exophthalmos, or hyphema. Patient demonstrates intact dentition with no signs of tooth avulsion or fracture, no signs of jaw deformity, no evidence of a LeFort's fracture, with an intact palate, nose and orbital region. There is no evidence of a nasal septal hematoma. No proptosis. Jaw closes symmetrically. Airway is clear. 4.CVS: +S1/S2, No murmurs or gallops. Peripheral pulses 2+ and equal in all extremities. Brisk capillary refill in all extremities. 5.RESP: Unlabored respiratory effort. Clear to auscultation bilaterally. No wheezes rales or rhonchi 6.GI: Soft, Nontender/Nondistended, No hepatosplenomegaly. No guarding or rebound. 7.MSK: Normocephalic, notable bruises and contusions over the knees bilaterally. Extremities w/o deformity or ttp. No cyanosis or clubbing. Extremely cool to touch throughout. Capillary refill delayed in all fingers and toes. However pulses are +2 for dorsalis pedis and radial pulses bilaterally. No gross deformities or discolorations or lesions. All compartments of upper and lower extremities are soft with no tenderness. Vascular exam demonstrates intact pulses in all extremities. Pelvic exam demonstrates a stable pelvis, nontender to lateral compression and palpation of symphysis pubis.. No clinical evidence of significant musculoskeletal trauma. 8.Skin: Notably cold to the touch in all extremities, contusions over the knees bilaterally. No evidence of other significant trauma or lacerations. 9.Neuro: sweat band sewer II-XII grossly intact. Sensation grossly intact, no focal neurologic deficits. 10.Psych: (AAO) x3. However the patient is notably intoxicated.
--- NOTE | 2019-09-17 06:50 | DI.CT_ITS ---
EXAM: CT HEAD CERVICAL SPINE WO CLINICAL HISTORY: hit head, altered mental status COMPARISON: CT HEAD CERVICAL SPINE WO from 08/28/2018 FINDINGS: Cranial CT was performed without contrast administration. Note is made of mucoperiosteal thickening of maxillary and ethmoid sinuses and to a minimal degree frontal sinuses. Mastoid air cells are luz r. The orbital and temporal bone structures appear intact. No calvarial fracture identified. Regio ns of right frontal encephalomalacia are noted consistent with old insult. No acute intracranial hem orrhage, mass effect or midline shift seen. Moderate generalized cerebral atrophy noted. CT examination of the cervical spine was performed utilizing multi slice acquisition and multiplanar reconstruction. Note is made of Suresh rods in place bilaterally in the posterior elements from C3 through T1. There is a laminectomy noted extending from C3 through C7. Cervical kyphosis noted. No acute fracture or dislocation identified. Severe degenerative changes noted, particularly in the mid cervical region. Hardware appears intact as visualized. Tracheolaryngeal structures appear inta ct. No cervical mass or adenopathy. IMPRESSION: No evidence of acute intracranial process. No evidence of acute cervical fracture or dislocation.
[2019-09-17 06:56] LABS: Lactate 2.7 mmol/L (0.6-1.4)
[2019-09-17 06:58] LABS: Abs Immature Grans 0.04 k/cumm (0.0-0.09); Absolute Basophil Count 0.08 k/cumm (0.0-0.2); Absolute Eosinophil Count 0.22 k/cumm (0.0-0.7); Absolute Lymphocyte Count 2.51 k/cumm (1.2-3.4); Absolute Monocyte Count 0.67 k/cumm (0.11-0.7); Absolute Neutrophil Count 6.41 k/cumm (1.2-6.7); Ammonia 14 umol/L (11-32); Basophils % 0.8; Eosinophils % 2.2; HCT 48.8 % (40.0-50.0); HGB 16.9 g/dL (13.5-17.5); INR 1.1 (0.9-1.1); Immature Grans % 0.4; Lymphocytes % 25.3; Mean Corp. HGB Concentration 34.6 g/dL (32.0-36.0); Mean Corpuscular Hemoglobin 30.9 pg (27.0-33.0); Mean Corpuscular Volume 89.2 fL (80-95); Monocytes % 6.7; Neutrophils % 64.6; PTT Activated 29.2 sec (21.0-31.4); Platelet Count 251 x1000/uL (130-400); RBC 5.47 m/cumm (4.50-6.00); RBC Distribution Width 13.3 % (11.8-14.1); White Blood Cell Count 9.93 k/cumm (4.4-10.8)
--- NOTE | 2019-09-17 07:05 | DI.VRAD_ITS ---
PROCEDURE INFORMATION: Exam: CT Head Without Contrast Exam date and time: 09/17/2019 6:19 AM Clinical history: 54 years old, male; Injury or trauma; Injury history: Possible fall trauma, PT unresponsive; Initial encounter; Blunt trauma (contusions or hematomas); With loss of consciousness; Injury date: 09/17/2019; Prior surgery; Surgery type: C-spine fusion TECHNIQUE: Imaging protocol: Computed tomography of the head without contrast. Radiation optimization: All CT scans at this facility use at least one of these dose optimization techniques: automated exposure control; mA and/or kV adjustment per patient size (includes targeted exams where dose is matched to clinical indication); or iterative reconstruction. COMPARISON: CT HEAD CERVICAL SPINE WO 08/28/2018 9:15 PM FINDINGS: Brain: Left frontal enchephalomalacia No hemorrhage.Unremarkable white matter. No mass effect. Ventricles: Normal. No ventriculomegaly. Bones/joints: Chronic nasal bone fractures.No acute fracture. Sinuses: Mild mucosal thickening. No fluid levels. Mastoid air cells: Visualized mastoid air cells are well aerated. Soft tissues: Unremarkable. IMPRESSION: No acute intracranial abnormality. PROCEDURE INFORMATION: Exam: CT Cervical Spine Without Contrast Exam date and time: 09/17/2019 6:19 AM Clinical history: 54 years old, male; Injury or trauma; Injury history: Possible fall trauma, PT unresponsive; Initial encounter; Blunt trauma (contusions or hematomas); With loss of consciousness; Injury date: 09/17/2019; Prior surgery; Surgery type: C-spine fusion TECHNIQUE: Imaging protocol: Computed tomography images of the cervical spine without contrast. Radiation optimization: All CT scans at this facility use at least one of these dose optimization techniques: automated exposure control; mA and/or kV adjustment per patient size (includes targeted exams where dose is matched to clinical indication); or iterative reconstruction. COMPARISON: CT HEAD CERVICAL SPINE WO 08/28/2018 9:15 PM FINDINGS: Vertebrae: No acute fracture. Anterolisthesis of C4-C5 Discs/Spinal canal/Neural foramina: No spinal stenosis. Multivel neural foraminal narrowing. Soft tissues: Unremarkable. Lungs: Emphysema and scarring. IMPRESSION: No acute cervical fracture Dictated and Authenticated by: Keith Mcclain MD. Ordering:WARREN Marino MD
[2019-09-17 07:08] LABS: ALT 23 U/L (16-63); AST 19 U/L (15-37); Albumin 4.6 g/dL (3.4-5.0); Alkaline Phosphatase 78 U/L (46-116); Anion Gap 11.5 mmol/L (3-11); BUN 8 mg/dL (7-18); Bilirubin, Total 0.2 mg/dL (0.2-1.0); CO2 26.5 mmol/L (21.0-32.0); CREATININE 0.56 mg/dL (0.70-1.30); Calcium 8.5 mg/dL (8.5-10.1); Chloride 96 mmol/L (98-107); ETHANOL BLOOD 242.7 mg/dL (<3); Glucose 108 mg/dL (70-100); Potassium 3.8 mmol/L (3.5-5.1); Sodium 134 mmol/L (136-145); TSH (W/Ref FT4) 0.21 uIU/mL (0.36-3.74); Total Protein 8.5 g/dL (6.4-8.2)
[2019-09-17 07:09] LABS: Troponin I < 0.05 ng/mL (0.00-0.06)
--- NOTE | 2019-09-17 07:13 | DI.RAD_ITS ---
EXAM: XR KNEE LT 2V AP,LAT CLINICAL HISTORY: multiple bruises on knees, trauma TECHNIQUE: COMPARISON: XR KNEE RT 2V AP,LAT from 09/17/2019 FINDINGS: Two portable views were obtained. No fracture identified on this limited series. IMPRESSION:
--- NOTE | 2019-09-17 07:13 | DI.RAD_ITS ---
EXAM: XR KNEE RT 2V AP,LAT CLINICAL HISTORY: multiple bruises on knees, trauma TECHNIQUE: COMPARISON: No exams were available for comparison FINDINGS: Two portable views of the knee were obtained. No fracture is seen on this limited series. IMPRESSION:
--- NOTE | 2019-09-17 07:21 | NUR.NOTE ---
cervical collar cleared/removed by Dr Johnston. Nursing Note:
[2019-09-17 07:26] LABS: FREE T4 1.63 ng/dL (0.76-1.46)
[2019-09-17 07:35] LABS: Bilirubin Negative (Negative); Blood Small (Negative); Clarity Clear (Clear); Glucose Negative (Negative); Ketones Negative (Negative); Leukocyte Esterase Negative (Negative); Nitrite Negative (Negative); Specific Gravity 1.015 (1.005-1.025); Urobilinogen 0.2 EU/dL (Up TO 0.2)
[2019-09-17 07:39] LABS: WBC Negative HPF (0-5)
[2019-09-17 07:40] LABS: Bacteria Rare HPF (Negative); C & S Indicated? No; Casts Negative LPF (Negative); Crystals Negative HPF (Negative); Epithelial Cells Few HPF (Negative); Mucus Negative (Negative)
[2019-09-17 07:52] LABS: *AMPHETAMINES SCREEN URINE Negative (Negative); *BARBITURATES SCREEN URINE Negative (Negative); *BENZODIAZEPINES SCREEN URINE Negative (Negative); Cannabinoids THC Negative (Negative); Cocaine Screen,Urine Negative (Negative); METHADONE URINE SCREEN Negative (Negative); OPIATES URINE SCREEN Negative (Negative)
[2019-09-17 08:01] LABS: Tricyclic Antidepressants Negative (Negative)
[2019-09-17] MEDS: MAGNESIUM SULFATE 8.12 MEQ, MULTIVITAMIN 10 ML, THIAMINE 100 MG, FOLIC ACID 1 MG in Nor... 168.867 MG IV (08:08)
--- NOTE | 2019-09-17 08:22 | NUR.NOTE ---
patient using bedside commode, scant amount of urine, reports 10/10 abdomen, requesting pain medication Nursing Note:
[2019-09-17] MEDS: Lactated Ringers 1,000 ML 125 ML IV ×2 (10:33→20:21)
[2019-09-17] MEDS: Heparin 5,000 UNITS/ML VIAL 5000 UNITS SC ×2 (10:40→18:41)
--- NOTE | 2019-09-17 10:55 | W.PM.HP.N ---
Date of service: 09/17/19 Time of Service: 08:30 Assessment and Plan Assessment and plan (1) Hypothermia: Status: Acute Assessment and plan: Mild. Will continue warming with elan hugger and warm IVF. Will monitor in ICU with serial labs including lactate and CPK. Monitor UOP, Cr, CPK, BP - may become hypotensive. No evidence of frostbite yet, but we will have to carefully monitor his extremities/ears, etc. (2) Alcohol intoxication: Status: Acute Assessment and plan: Banana bag cannot be warmed, and the patient can take PO - will provide MVI, thiamine. Check B12/folate levels. Meanwhile, give warm IVF in ICU. Monitor on CIWA with prn ativan. May require scheduled librium. (3) Hypothyroid: Status: Chronic Assessment and plan: The patient cannot tell us doses of his medications at the time of my exam - will clarify with his pharmacy. TSH was 0.21, but could be due to acute stress - we will recheck in am. (4) HTN (hypertension): Status: Chronic Assessment and plan: Hold antihypertensives at this time due to high risk of reflex hypotension during warming. Will verify meds with outpatient pharmacy. (5) Bipolar disorder: Status: Chronic Assessment and plan: Verify meds with outpatient pharmacy. Does not appear to be either manic or depressed at this time - monitor behaviors. (6) Closed head injury: Status: Acute Assessment and plan: Monitor for mental status changes in the ICU. CT head negative, but could develop post-concussive syndrome. (7) DVT prophylaxis: Status: Acute Assessment and plan: Heparin SC (8) Discharge planning issues: Status: Acute Assessment and plan: Full code Total critical care time 45 minutes. History of Present Illness History of Present Illness Chief Complaint: found unresponsive in the [facility] parking lot Narrative: Mr Juarez is a 54 year old male with PMHx of alcohol abuse with history of DTs and alcohol withdrawal seizures in the past, as well as bipolar d/o, hypertension, hypothyroidism, who was found unresponsive and hypothermic in the parking lot of the [facility]. His core temperature was 90.0 degrees F (32 celcius). The patient is not the best history provider and falls asleep after every sentences he speaks. He does appear to be under influence of alcohol. He admits to falling and hitting his head, but cannot tell me the details of the event and does not know how long he spent on the ground. He was drinking and apparently had a bottle of Listerine in his hand. His alcohol level was 242.7 in the ED, and UDS was negative. He was placed in a bear hugger and given warmed LR with temperature improvement to 35.6 at the time of me seeing the patient. He complained of a headache and bilateral leg pain. He was not noted to have any injuries that appeared like robins-bite and had +1 pedal pulses. He does not have any loss of sensation in either UE or LE's. Denies chest pain, shortness of breath, nausea. We were asked to admit the patient for further treatment of his hypothermia and likely impending alcohol withdrawal. Review of Systems Narrative: 12 systems attempted to be reviewed. Pertinent positives and negatives are as per HPI. [facility] Family History (Updated 09/17/19 @ 11:02 by Bobbi Tilley MD) Other Family history unobtainable due to patient's condition Social History Smoking/Tobacco Use Status: Current every day Tobacco Type: cigarettes Alcohol Intake: current Alcohol Intake frequency: 3 or more drinks per day Alcohol type: other Drug use: Never Substance use type: does not use Do you feel safe at home: Yes Do you feel safe in your relationship?: Yes Meds Home Medications and Allergies Home Medications Medication Instructions Recorded Confirmed Type Latuda 80 mg PO DAILY 08/31/18 09/17/19 History levothyroxine [Synthroid] 175 mcg PO DAILY 08/31/18 09/17/19 History amlodipine 5 mg PO DAILY 08/18/19 09/17/19 History bupropion HCl 150 mg PO BID 08/18/19 09/17/19 History cyanocobalamin (vitamin B-12) 1,000 mcg PO DAILY 08/18/19 09/17/19 History [Vitamin B-12] duloxetine [Cymbalta] 30 mg PO DAILY 08/18/19 09/17/19 History folic acid 1 mg PO DAILY 08/18/19 09/17/19 History gabapentin 1,200 mg PO TID 08/18/19 09/17/19 History lisdexamfetamine [Vyvanse] 50 mg PO DAILY 08/18/19 09/17/19 History metoprolol succinate 50 mg PO DAILY 08/18/19 09/17/19 History tramadol 50 mg PO Q6H PRN 08/18/19 09/17/19 History Allergies Allergy/AdvReac Type Severity Reaction Status Date / Time carbamazepine [From Tegretol] Allergy Mild Skin Rash Unverified 09/17/19 07:23 Exam Narrative Exam Narrative: General: Middle-aged male, awake, A&Ox2, answering most questions, but falls asleep after 1-2 sentences. Appears to be under influence of alcohol. Blood on right hand noted - dried. In a elan hugger. Not visibly shivering. Neurological: A&OX2, slurring words, able to move all extremities, sensation preserved in BLE and BUE's Psychiatric: exam limited based on patient's condition - appears to be anxious when awake, but falls asleep after 1-2 sentences Skin: Dried blood as described over R hand - what looks like a scabbed over abrasion on 2nd digit RUE. BLE with contusions over knees; B feet without lesions, warm, toes pink, not red. HEENT: Atraumatic, normocephalic; well healed old posterior cervical scar from spine surgery, EOMI, dry MM, clear oropharynx, no submandibular or cervical lymphadenopathy Cardiovascular: RRR, tachycardic to 90's, no m/r/g Lungs: subtle rhonchi B Gastrointestinal: abdomen is soft, nontender, nondistended Genitourinary: has a black - urine is light yellow Extremities: trace edema BLE's, warm BLE, no c/c; toes pink/not red, sensation preserved; knee contusions Results Imaging Additional studies: CT head/c-spine: No evidence of acute intracranial process. No evidence of acute cervical fracture or dislocation. XR R knee: Two portable views of the knee were obtained. No fracture is seen on this limited series. XR L knee: Two portable views were obtained. No fracture identified on this limited series. EKG: HR 80, NSR, coarse baseline - ?shivering Labs Result diagrams: 09/17/19 06:30 09/17/19 06:30 Labs: Laboratory Results - last 24 hr 09/17/19 09/17/1909/17/19 06:30 06:30 06:30 WBC RBC Hgb Hct MCV MCH MCHC RDW Plt Count MPV Immature Gran % Neutrophils % Lymphocytes % Monocytes % Eosinophils % Basophils % Absolute Neutrophils Absolute Lymphocytes Absolute Monocytes Absolute Eosinophils Absolute Basophils PT INR APTT VBG pH VBG pCO2 VBG pO2 VBG HCO3 VBG Total CO2 VBG O2 Saturation VBG Base Excess Sodium 134 L Potassium 3.8 Chloride 96 L Carbon Dioxide 26.5 Anion Gap 11.5 H BUN 8 Creatinine 0.56 L Estimated GFR/1.73 m2 >= 60.00 Glucose 108 H Lactate 2.7 H* Calcium 8.5 Total Bilirubin 0.2 AST 19 ALT 23 Alkaline Phosphatase 78 Ammonia 14 Troponin I < 0.05 Total Protein 8.5 H Albumin 4.6 TSH Free T4 Urine Color Urine Clarity Urine pH Ur Specific [place] Urine Protein Urine Ketones Urine Blood Urine Nitrite Urine Bilirubin Urine Urobilinogen Ur Leukocyte Esterase Urine RBC Urine WBC Ur Epithelial Cells Urine Crystals Urine Bacteria Urine Casts Urine Mucus Ur Culture Indicated? Urine Glucose Urine Opiates Screen Urine Methadone Screen Ur Barbiturates Screen Ur Tricyclics Screen Ur Amphetamines Screen U Benzodiazepines Scrn Urine Cocaine Screen Ur THC Screen Ethyl Alcohol 242.7 09/17/19 09/17/19 09/17/19 06:30 06:30 06:30 WBC 9.93 RBC 5.47 Hgb 16.9 Hct 48.8 MCV 89.2 MCH 30.9 MCHC 34.6 RDW 13.3 Plt Count 251 MPV 10.0 Immature Gran % 0.4 Neutrophils % 64.6 Lymphocytes % 25.3 Monocytes % 6.7 Eosinophils % 2.2 Basophils % 0.8 Absolute Neutrophils 6.41 Absolute Lymphocytes 2.51 Absolute Monocytes 0.67 Absolute Eosinophils 0.22 Absolute Basophils 0.08 PT INR APTT VBG pH 7.30 L VBG pCO2 58 H VBG pO2 26 L VBG HCO3 28 VBG Total CO2 25 VBG O2 Saturation 43 L VBG Base Excess 1.8 Sodium Potassium Chloride Carbon Dioxide Anion Gap BUN Creatinine Estimated GFR/1.73 m2 Glucose Lactate Calcium Total Bilirubin AST ALT Alkaline Phosphatase Ammonia Troponin I Total Protein Albumin TSH 0.21 L Free T4 1.63 H Urine Color Urine Clarity Urine pH Ur Specific [place] Urine Protein Urine Ketones Urine Blood Urine Nitrite Urine Bilirubin Urine Urobilinogen Ur Leukocyte Esterase Urine RBC Urine WBC Ur Epithelial Cells Urine Crystals Urine Bacteria Urine Casts Urine Mucus Ur Culture Indicated? Urine Glucose Urine Opiates Screen Urine Methadone Screen Ur Barbiturates Screen Ur Tricyclics Screen Ur Amphetamines Screen U Benzodiazepines Scrn Urine Cocaine Screen Ur THC Screen Ethyl Alcohol 09/17/19 09/17/19 09/17/19 06:30 07:20 07:20 WBC RBC Hgb Hct MCV MCH MCHC RDW Plt Count MPV Immature Gran % Neutrophils % Lymphocytes % Monocytes % Eosinophils % Basophils % Absolute Neutrophils Absolute Lymphocytes Absolute Monocytes Absolute Eosinophils Absolute Basophils PT 11.0 INR 1.1 APTT 29.2 VBG pH VBG pCO2 VBG pO2 VBG HCO3 VBG Total CO2 VBG O2 Saturation VBG Base Excess Sodium Potassium Chloride Carbon Dioxide Anion Gap BUN Creatinine Estimated GFR/1.73 m2 Glucose Lactate Calcium Total Bilirubin AST ALT Alkaline Phosphatase Ammonia Troponin I Total Protein Albumin TSH Free T4 Urine Color Yellow Urine Clarity Clear Urine pH 6.0 Ur Specific [place] 1.015 Urine Protein 100 H Urine Ketones Negative Urine Blood Small H Urine Nitrite Negative Urine Bilirubin Negative Urine Urobilinogen 0.2 Ur Leukocyte Esterase Negative Urine RBC 3-5 H Urine WBC Negative Ur Epithelial Cells Few Urine Crystals Negative Urine Bacteria Rare Urine Casts Negative Urine Mucus Negative Ur Culture Indicated? No Urine Glucose Negative Urine Opiates Screen Negative Urine Methadone Screen Negative Ur Barbiturates Screen Negative Ur Tricyclics Screen Negative Ur Amphetamines Screen Negative U Benzodiazepines Scrn Negative Urine Cocaine Screen Negative Ur THC Screen Negative Ethyl Alcohol Last Vital Signs Temp 36.2 C L 09/17/19 09:20 Pulse 78 09/17/19 10:16 Resp 15 09/17/19 10:16 BP 120/75 09/17/19 10:16 Pulse Ox 93 L 09/17/19 10:16
[2019-09-17] MEDS: Acetaminophen 325 MG TAB PO ×2 (10:57→14:23)
[2019-09-17] MEDS: Multivitamin TAB 1 TAB PO (10:58)
[2019-09-17] MEDS: Folic Acid 1 MG TAB PO (10:58)
[2019-09-17] MEDS: THIAMINE 100 MG in Normal Saline 100 ML 200 MG IVPB (10:58)
[2019-09-17] MEDS: Thiamine 100 MG TAB PO (10:58)
[2019-09-17] MEDS: LORazepam 1 MG TAB PO/SL ×3 (11:06→20:19)
[2019-09-17 11:59] LABS: Abs Immature Grans 0.02 k/cumm (0.0-0.09); Absolute Basophil Count 0.05 k/cumm (0.0-0.2); Absolute Eosinophil Count 0.17 k/cumm (0.0-0.7); Absolute Lymphocyte Count 2.21 k/cumm (1.2-3.4); Absolute Monocyte Count 1.03 k/cumm (0.11-0.7); Absolute Neutrophil Count 7.28 k/cumm (1.2-6.7); Basophils % 0.5; Eosinophils % 1.6; HCT 41.4 % (40.0-50.0); HGB 14.4 g/dL (13.5-17.5); Immature Grans % 0.2; Lymphocytes % 20.5; Mean Corp. HGB Concentration 34.8 g/dL (32.0-36.0); Mean Platelet Volume 9.6 fL (8.0-11.0); Monocytes % 9.6; Neutrophils % 67.6; Platelet Count 221 x1000/uL (130-400); RBC 4.65 m/cumm (4.50-6.00); RBC Distribution Width 13.3 % (11.8-14.1); White Blood Cell Count 10.76 k/cumm (4.4-10.8)
[2019-09-17 12:04] LABS: Lactate 2.7 mmol/L (0.6-1.4)
[2019-09-17 12:12] LABS: ALT 22 U/L (16-63); AST 20 U/L (15-37); Albumin 3.9 g/dL (3.4-5.0); Alkaline Phosphatase 63 U/L (46-116); Anion Gap 9.6 mmol/L (3-11); BUN 6 mg/dL (7-18); Bilirubin, Direct 0.09 mg/dL (0.00-0.20); Bilirubin, Total 0.2 mg/dL (0.2-1.0); CO2 25.4 mmol/L (21.0-32.0); CREATININE 0.59 mg/dL (0.70-1.30); Calcium 8.6 mg/dL (8.5-10.1); Chloride 102 mmol/L (98-107); Creatine Kinase 520 U/L (39-308); Glucose 98 mg/dL (70-100); Magnesium 1.6 mg/dL (1.8-2.4); Potassium 3.9 mmol/L (3.5-5.1); Sodium 137 mmol/L (136-145); Total Protein 6.9 g/dL (6.4-8.2)
[2019-09-17] MEDS: Normal Saline Flush 10 ML SYR ×3 (12:43→16:49)
[2019-09-17] MEDS: LORazepam 2 MG/ML VIAL IVP ×2 (16:39→22:37)
[2019-09-17 16:44] LABS: Abs Immature Grans 0.03 k/cumm (0.0-0.09); Absolute Basophil Count 0.07 k/cumm (0.0-0.2); Absolute Eosinophil Count 0.16 k/cumm (0.0-0.7); Absolute Lymphocyte Count 3.24 k/cumm (1.2-3.4); Absolute Monocyte Count 0.96 k/cumm (0.11-0.7); Absolute Neutrophil Count 7.69 k/cumm (1.2-6.7); Basophils % 0.6; Eosinophils % 1.3; HCT 41.6 % (40.0-50.0); HGB 14.5 g/dL (13.5-17.5); Immature Grans % 0.2; Lymphocytes % 26.7; Mean Corp. HGB Concentration 34.9 g/dL (32.0-36.0); Mean Corpuscular Hemoglobin 31.1 pg (27.0-33.0); Mean Corpuscular Volume 89.3 fL (80-95); Mean Platelet Volume 9.8 fL (8.0-11.0); Monocytes % 7.9; Neutrophils % 63.3; Platelet Count 231 x1000/uL (130-400); RBC 4.66 m/cumm (4.50-6.00); RBC Distribution Width 13.4 % (11.8-14.1); White Blood Cell Count 12.15 k/cumm (4.4-10.8)
[2019-09-17] MEDS: Pantoprazole 40 MG VIAL IVP (16:48)
[2019-09-17] MEDS: MAGNESIUM SULFATE 2 GM/50 ML BAG IVPB (16:50)
--- NOTE | 2019-09-17 17:01 | PHARADMIT ---
Addendum entered by Milka Hale 09/29/19 17:01: Pharmacy Note Subjective per CM patient is homeless, will need rehab, possibly SWINGBED, reported 2 falls in last 48 hours here, disconnects his own wheelchair alarm Had elective back surgery @[facility] [place] was cancelled by them because he didn't make pre-op appointment Objective VS good, CIWA 2, pain 7/10, lytes good Assessment Librium decreased to TID no other med changes Pt's own Larry is on HOLD Plan Watch for continued Librium taper Addendum entered by Sung Stern III 09/28/19 15:18: Pharmacy Note Subjective Was due to have surgery on L5-S1 at [facility] [place] today, (it was elective). rescheduled. Getting MRI today for right side weakness, (acute on chronic condition) Objective VS-OK CIWA-6 Labs-OK, Assessment Librium taper continues, still on Lorazepam. Patient was on Vraylaar as outpatient, (unavailable here) and Latuda was reinstituted here. Will switch back to Vraylar when available. Plan Patient will require a rehab stay upon discharge. Addendum entered by Marya Hammond 09/25/19 15:17: Pharmacy Note Subjective not back at baseline but improved per morning report Objective BP-114/96 other VS okay mag-1.9 tmax-38 overnight Assessment PO magnesium replacement ordered amlodipine and IVP lorazepam Q10M PRN discontinued afebrile so far today, urinalysis negative, chest xray done to check for infiltrate Plan watch for weaning of chlordiazepoxide and some med changes from IV to PO Addendum entered by Sung Stern III 09/24/19 15:09: Pharmacy Note Subjective MD reports patient not at baseline yet, still requiring significant doses of Lorazepam over night, due to worsening agitation & hallucinations. (CIWA: 10-11) Objective VS-OK current CIWA-5, Mag-1.6 (bolused) Labs-WNL, Wgt-65 kg BM today Assessment Mag & Potassium boluses, no other changes Plan Plan is to transfer to floor once at baseline. Addendum entered by Milka Hale 09/23/19 11:26: Pharmacy Note Subjective Objective VS ok, weight up 1.5kg overnight, K+ 3.7, Mag 1.7, CIWA 6 Assessment Oral Mag and Potassium replacement Taking oral Lorazepam now, starting to reach end of detox competed 7 days of Thiamine, Folic Acid, MVI...will need to ask MD if he wants to continue Plan Will need housing arrangements made prior to discharge Addendum entered by Marya Hammond 09/21/19 16:51: Pharmacy Note Subjective actively withdrawing today per morning report Objective BP-157/104 CIWA- 7 (was max 19) mag-1.6 Assessment magnesium and potassium replacement given lorazepam changed to large multidose vial due to amount being used vyvanse still on hold (interaction with chlordiazepoxide) Plan continue to watch VS, labs and for med changes. Addendum entered by Sung Stern III 09/19/19 10:33: Pharmacy Note Subjective CIWA Scores decreasing 12 to 6 now. Home meds ordered. Nursing reported patient had a bad night. Objective VS-OK K+3.4 Mag-1.5 Labs-WNL Wgt- dropped 10 kg ??? 64.5Kg now No BM Assessment Potassium & Magnesium replaced with IV Boluses. REQUIRING SCHEDULD LIBRIUM INCREASED FROM 25MG TO 50MG PO TID ATIVAN 1 MG PO Q15min prn ordered Plan Original Note: Admission Pharmacy Clinical Review Code Status Full Code Current Weight 74.8 kg Renally Cleared and Narrow Therapeutic Index Meds CrCl ~99 ml/min QTc Value / Action Taken QTc 448 BP Control, Fever BP 135/86 Electrolytes reviewed Na 137, K+ 3.9, Mag 1.6 DVT Prophylaxis Heparin SC q8 Opiate Usage / Scheduled Bowel Regimen Ordered Plt/SCr for Heparin / Enoxaparin Plt 231, Scr 0.59 INR for Warfarin H/H stable, WBC/Bands H/H 14.5/41.6 Antibiotic appropriateness Cultures and Sensitivities Surgical ABX d/c within 24 hr DM control / Insulin Dosing Heart Failure (Check EF%) (RUPALI's, B-Block, Diuretics) amlodipine, metoprolol IV to PO Switch Home Meds Reviewed Yes, multiple serotonergic agents Home Meds Not Ordered amlodipine, bupropion, vit b12, duloxetine, folic acid, gabapentin, levothyroxine, vyvanse, latuda, metoprolol, tramadol Comments Warm IV fluids, monitor BP - may become hypotensive
[2019-09-17 17:08] LABS: ALT 23 U/L (16-63); AST 27 U/L (15-37); Alkaline Phosphatase 70 U/L (46-116); Anion Gap 12.5 mmol/L (3-11); BUN 6 mg/dL (7-18); Bilirubin, Direct 0.11 mg/dL (0.00-0.20); Bilirubin, Total 0.4 mg/dL (0.2-1.0); CO2 23.5 mmol/L (21.0-32.0); CREATININE 0.74 mg/dL (0.70-1.30); Chloride 101 mmol/L (98-107); Creatine Kinase 653 U/L (39-308); Glucose 76 mg/dL (70-100); Magnesium 1.4 mg/dL (1.8-2.4); Sodium 137 mmol/L (136-145); Total Protein 7.1 g/dL (6.4-8.2)
[2019-09-17 17:31] LABS: Osmolality, Urine 303 mos/kg (150-1150)
[2019-09-17 18:09] LABS: Osmolality Serum 329 mos/kg (275-295)
[2019-09-17 18:17] LABS: Lactate 1.9 mmol/L (0.6-1.4)
[2019-09-17] MEDS: Normal Saline Flush 10 ML SYR IVP ×2 (23:13→23:38)
[2019-09-17] MEDS: ACETAMINOPHEN 1,000 MG/100 ML BTL 400 MG IVPB (23:39)
[2019-09-18] VITALS (38 sets, daily range): BP systolic 126–171; BP diastolic 70–142; PULSE 75–118; RESP 17–31; TEMP 36.9–37.4; O2SAT 90–97
[2019-09-18] MEDS: LORazepam 2 MG/ML VIAL IVP ×7 (00:30→13:47)
[2019-09-18 00:49] LABS: Abs Immature Grans 0.03 k/cumm (0.0-0.09); Absolute Basophil Count 0.09 k/cumm (0.0-0.2); Absolute Eosinophil Count 0.22 k/cumm (0.0-0.7); Absolute Lymphocyte Count 3.02 k/cumm (1.2-3.4); Absolute Monocyte Count 1.08 k/cumm (0.11-0.7); Absolute Neutrophil Count 5.97 k/cumm (1.2-6.7); Basophils % 0.9; Eosinophils % 2.1; HCT 39.4 % (40.0-50.0); HGB 13.8 g/dL (13.5-17.5); Immature Grans % 0.3; Mean Corpuscular Hemoglobin 31.2 pg (27.0-33.0); Mean Corpuscular Volume 89.1 fL (80-95); Mean Platelet Volume 9.9 fL (8.0-11.0); Monocytes % 10.4; Neutrophils % 57.3; Platelet Count 213 x1000/uL (130-400); RBC 4.42 m/cumm (4.50-6.00); RBC Distribution Width 13.3 % (11.8-14.1); White Blood Cell Count 10.41 k/cumm (4.4-10.8)
[2019-09-18 01:03] LABS: ALT 20 U/L (16-63); AST 26 U/L (15-37); Albumin 3.5 g/dL (3.4-5.0); Alkaline Phosphatase 66 U/L (46-116); Anion Gap 10.8 mmol/L (3-11); BUN 8 mg/dL (7-18); Bilirubin, Direct 0.16 mg/dL (0.00-0.20); Bilirubin, Total 0.7 mg/dL (0.2-1.0); CO2 26.2 mmol/L (21.0-32.0); CREATININE 0.75 mg/dL (0.70-1.30); Calcium 8.8 mg/dL (8.5-10.1); Chloride 101 mmol/L (98-107); Creatine Kinase 603 U/L (39-308); Glucose 90 mg/dL (70-100); Magnesium 1.8 mg/dL (1.8-2.4); Potassium 3.7 mmol/L (3.5-5.1); Sodium 138 mmol/L (136-145); Total Protein 6.4 g/dL (6.4-8.2)
[2019-09-18] MEDS: Normal Saline Flush 10 ML SYR IVP ×7 (02:56→20:17)
[2019-09-18] MEDS: Heparin 5,000 UNITS/ML VIAL 5000 UNITS SC ×3 (02:56→16:35)
[2019-09-18] MEDS: Lactated Ringers 1,000 ML 125 ML IV ×3 (04:50→21:17)
[2019-09-18] MEDS: ACETAMINOPHEN 1,000 MG/100 ML BTL 400 MG IVPB (05:25)
[2019-09-18 07:16] LABS: Lactate 0.9 mmol/L (0.6-1.4)
[2019-09-18 07:40] LABS: ALT 21 U/L (16-63); AST 26 U/L (15-37); Albumin 3.4 g/dL (3.4-5.0); Alkaline Phosphatase 64 U/L (46-116); Anion Gap 8.7 mmol/L (3-11); BUN 8 mg/dL (7-18); Bilirubin, Direct 0.15 mg/dL (0.00-0.20); Bilirubin, Total 0.8 mg/dL (0.2-1.0); CO2 26.3 mmol/L (21.0-32.0); CREATININE 0.75 mg/dL (0.70-1.30); Calcium 8.6 mg/dL (8.5-10.1); Chloride 102 mmol/L (98-107); Creatine Kinase 566 U/L (39-308); Glucose 98 mg/dL (70-100); Magnesium 1.8 mg/dL (1.8-2.4); Potassium 3.7 mmol/L (3.5-5.1); Sodium 137 mmol/L (136-145); Total Protein 6.2 g/dL (6.4-8.2)
--- NOTE | 2019-09-18 08:17 | PGE_ITS ---
Date of Service Date of service: 09/18/19 Time of Service: 15:01 Assessment and Plan Assessment and plan (1) Alcohol withdrawal: Status: Acute Assessment and plan: Requiring IV ativan; started on scheduled librium. Continue to monitor in ICU on CIWA, IVF, vitamins/thiamine. (2) Hypothermia: Status: Resolved Assessment and plan: Mild, resolved. Mild elevation of CPK is improving. I think we are out of danger window as far as arrhythmias or frostbite. (3) Alcohol intoxication: Status: Acute Assessment and plan: Continue IVF; patient can take PO - provide MVI, thiamine. Replete B12. As above (4) Hypothyroid: Status: Chronic Assessment and plan: Repeat TSH still low - will hold levothyroxine. (5) HTN (hypertension): Status: Chronic Assessment and plan: Hold antihypertensives at this time. (6) Bipolar disorder: Status: Chronic Assessment and plan: Continue outpatien therapy (cymbalta, GPN, latuda) (7) Closed head injury: Status: Acute Assessment and plan: Monitor for mental status changes (8) DVT prophylaxis: Status: Acute Assessment and plan: Heparin SC (9) Discharge planning issues: Status: Acute Assessment and plan: Full code Keep in ICU Subjective Subjective Interval history since last seen: Tc 37.0, T min in last 24 hrs 36.5, T max 38.4 (x1) Asleep right now - did recently require another dose of 3 mg of IV ativan. Desaturated overnight to 88% on while asleep - 1 L got him to 94%. Received 25 mg of IV ativan in 24 hr period - CIWA's have been in the range of 15. Agitated, confused, keeps trying to get out of bed when awake - initiated on scheduled librium. No signs of frostbite. Exam Narrative Exam Narrative: General: Middle-aged male, asleep when I came to blair luate him, having recently been medicated with ativan. I did not wake the patient up. HEENT: Atraumatic, normocephalic; eyes closed, MMM Cardiovascular: RRR, mildly tachycardic, no e/c/c Lungs: CTAB Gastrointestinal: abdomen is soft, nontender, nondistended Genitourinary: has a black - slightly pinkish tinged Extremities: trace edema BLE's, warm BLE, no c/c; toes pink, warm, pulses preserved, no robins bite Objective Objective Clinical Data: Abnormal lab results 09/17/19 09/17/19 09/17/19 Range/Units 06:30 11:57 11:57 WBC (4.4-10.8) k/cumm RBC (4.50-6.00) m/cumm Hct (40.0-50.0) % Absolute Neutrophils (1.2-6.7) k/cumm Absolute Monocytes (0.11-0.7) k/cumm Anion Gap (3-11) mmol/L BUN 6 L (7-18) mg/dL Creatinine 0.59 L (0.70-1.30) mg/dL Serum Osmolality 329 H (275-295) mOsm/kg Lactate 2.7 H* (0.6-1.4) mmol/L Magnesium 1.6 L (1.8-2.4) mg/dL Creatine Kinase 520 H (39-308) U/L Total Protein (6.4-8.2) g/dL TSH (0.36-3.74) uIU/mL 09/17/19 09/17/19 09/17/19 Range/Units 11:57 16:30 16:30 WBC 12.15 H (4.4-10.8) k/cumm RBC (4.50-6.00) m/cumm Hct (40.0-50.0) % Absolute Neutrophils 7.28 H 7.69 H (1.2-6.7) k/cumm Absolute Monocytes 1.03 H 0.96 H (0.11-0.7) k/cumm Anion Gap 12.5 H (3-11) mmol/L BUN 6 L (7-18) mg/dL Creatinine (0.70-1.30) mg/dL Serum Osmolality (275-295) mOsm/kg Lactate (0.6-1.4) mmol/L Magnesium 1.4 L (1.8-2.4) mg/dL Creatine Kinase 653 H (39-308) U/L Total Protein (6.4-8.2) g/dL TSH (0.36-3.74) uIU/mL 09/17/19 09/18/19 09/18/19 Range/Units 17:58 00:24 00:24 WBC (4.4-10.8) k/cumm RBC 4.42 L (4.50-6.00) m/cumm Hct 39.4 L (40.0-50.0) % Absolute Neutrophils (1.2-6.7) k/cumm Absolute Monocytes 1.08 H (0.11-0.7) k/cumm Anion Gap (3-11) mmol/L BUN (7-18) mg/dL Creatinine (0.70-1.30) mg/dL Serum Osmolality (275-295) mOsm/kg Lactate 1.9 H (0.6-1.4) mmol/L Magnesium (1.8-2.4) mg/dL Creatine Kinase 603 H (39-308) U/L Total Protein (6.4-8.2) g/dL TSH (0.36-3.74) uIU/mL 09/18/19 Range/Units 07:00 WBC (4.4-10.8) k/cumm RBC (4.50-6.00) m/cumm Hct (40.0-50.0) % Absolute Neutrophils (1.2-6.7) k/cumm Absolute Monocytes (0.11-0.7) k/cumm Anion Gap (3-11) mmol/L BUN (7-18) mg/dL Creatinine (0.70-1.30) mg/dL Serum Osmolality (275-295) mOsm/kg Lactate (0.6-1.4) mmol/L Magnesium (1.8-2.4) mg/dL Creatine Kinase 566 H (39-308) U/L Total Protein 6.2 L (6.4-8.2) g/dL TSH 0.10 L (0.36-3.74) uIU/mL Vital Signs Temperature 37.0 C 09/18/19 03:30 Temperature Source Tympanic 09/17/19 23:26 Pulse 90 09/18/19 07:48 Pulse 97 H 09/18/19 07:48 Respiratory Rate 24 09/18/19 07:48 Respiratory Effort 09/18/19 03:30 Respiratory Depth Normal 09/18/19 03:30 Respiratory Pattern Normal 09/18/19 03:30 Blood Pressure 155/82 H 09/18/19 07:48 Blood Pressure Mean 101 09/18/19 07:48 Blood Pressure Position Supine 09/17/19 20:28 Pulse Oximetry 95 09/18/19 07:48 Oxygen Delivery Method Nasal Cannula 09/18/19 03:30 Oxygen Flow Rate 1 09/18/19 03:30 Pain Level 0 09/17/19 20:28 Comment 09/17/19 14:02 Intake & Output 09/17/19 09/17/19 09/18/19 11:59 23:59 11:59 Intake Total 1999 / 4531 2531 / 4531 1150 / 1150 Output Total 1800 / 4050 2250 / 4050 750 / 750 Balance 200 / 481 281 / 481 400 / 400 Weight 74.8 kg 74.8 kg 74.8 kg Intake: IV 1999 / 4201 2201 / 4201 1000 / 1000 Oral 330 / 330 150 / 150 Output: Urine 1800 / 4050 2250 / 4050 750 / 750 Other: Urine Color Yellow Pale Yellow Yellow Urine Appearance Clear Clear Clear Comment black is patent and draining pale yellow urine black is patent and draining yellow urine Laboratory Results WBC 10.41 k/cumm (4.4-10.8) 09/18/19 00:24 RBC 4.42 m/cumm (4.50-6.00) L 09/18/19 00:24 Hgb 13.8 g/dL (13.5-17.5) 09/18/19 00:24 Hct 39.4 % (40.0-50.0) L 09/18/19 00:24 MCV 89.1 fL (80-95) 09/18/19 00:24 MCH 31.2 pg (27.0-33.0) 09/18/19 00:24 MCHC 35.0 g/dL (32.0-36.0) 09/18/19 00:24 RDW 13.3 % (11.8-14.1) 09/18/19 00:24 Plt Count 213 x1000/uL (130-400) 09/18/19 00:24 MPV 9.9 fL (8.0-11.0) 09/18/19 00:24 Immature Gran % 0.3 09/18/19 00:24 Neutrophils % 57.3 09/18/19 00:24 Lymphocytes % 29.0 09/18/19 00:24 Monocytes % 10.4 09/18/19 00:24 Eosinophils % 2.1 09/18/19 00:24 Basophils % 0.9 09/18/19 00:24 Absolute Neutrophils 5.97 k/cumm (1.2-6.7) 09/18/19 00:24 Absolute Lymphocytes 3.02 k/cumm (1.2-3.4) 09/18/19 00:24 Absolute Monocytes 1.08 k/cumm (0.11-0.7) H 09/18/19 00:24 Absolute Eosinophils 0.22 k/cumm (0.0-0.7) 09/18/19 00:24 Absolute Basophils 0.09 k/cumm (0.0-0.2) 09/18/19 00:24 PT 11.0 sec (9.3-11.0) 09/17/19 06:30 INR 1.1 (0.9-1.1) 09/17/19 06:30 APTT 29.2 sec (21.0-31.4) 09/17/19 06:30 VBG pH 7.30 (7.32-7.43) L 09/17/19 06:30 VBG pCO2 58 mm/Hg (34-47) H 09/17/19 06:30 VBG pO2 26 mm/Hg (28-44) L 09/17/19 06:30 VBG HCO3 28 mmol/L (22-28) 09/17/19 06:30 VBG Total CO2 25 mmol/L (22-29) 09/17/19 06:30 VBG O2 Saturation 43 % (70-80) L 09/17/19 06:30 VBG Base Excess 1.8 mmol/L (-3-3) 09/17/19 06:30 Sodium 137 mmol/L (136-145) 09/18/19 07:00 Potassium 3.7 mmol/L (3.5-5.1) 09/18/19 07:00 Chloride 102 mmol/L (98-107) 09/18/19 07:00 Carbon Dioxide 26.3 mmol/L (21.0-32.0) 09/18/19 07:00 Anion Gap 8.7 mmol/L (3-11) 09/18/19 07:00 BUN 8 mg/dL (7-18) 09/18/19 07:00 Creatinine 0.75 mg/dL (0.70-1.30) 09/18/19 07:00 Estimated GFR/1.73 m2 >= 60.00 (mL/min/1.73m2) 09/18/19 07:00 Glucose 98 mg/dL (70-100) 09/18/19 07:00 Serum Osmolality 329 mOsm/kg (275-295) H 09/17/19 06:30 Lactate 0.9 mmol/L (0.6-1.4) 09/18/19 07:00 Calcium 8.6 mg/dL (8.5-10.1) 09/18/19 07:00 Magnesium 1.8 mg/dL (1.8-2.4) 09/18/19 07:00 Total Bilirubin 0.8 mg/dL (0.2-1.0) 09/18/19 07:00 Conjugated Bilirubin 0.15 mg/dL (0.00-0.20) 09/18/19 07:00 AST 26 U/L (15-37) 09/18/19 07:00 ALT 21 U/L (16-63) 09/18/19 07:00 Alkaline Phosphatase 64 U/L (46-116) 09/18/19 07:00 Ammonia 14 umol/L (11-32) 09/17/19 06:30 Creatine Kinase 566 U/L (39-308) H 09/18/19 07:00 Troponin I < 0.05 ng/mL (0.00-0.06) 09/17/19 06:30 Total Protein 6.2 g/dL (6.4-8.2) L 09/18/19 07:00 Albumin 3.4 g/dL (3.4-5.0) 09/18/19 07:00 TSH 0.10 uIU/mL (0.36-3.74) L 09/18/19 07:00 Free T4 1.63 ng/dL (0.76-1.46) H 09/17/19 06:30 Urine Color Yellow (Yellow) 09/17/19 07:20 Urine Clarity Clear (Clear) 09/17/19 07:20 Urine pH 6.0 (5-8) 09/17/19 07:20 Ur Specific [place] 1.015 (1.005-1.025) 09/17/19 07:20 Urine Protein 100 mg/dL (Negative) H 09/17/19 07:20 Urine Ketones Negative mg/dL (Negative) 09/17/19 07:20 Urine Blood Small (Negative) H 09/17/19 07:20 Urine Nitrite Negative (Negative) 09/17/19 07:20 Urine Bilirubin Negative (Negative) 09/17/19 07:20 Urine Urobilinogen 0.2 EU/dL (Up TO 0.2) 09/17/19 07:20 Ur Leukocyte Esterase Negative (Negative) 09/17/19 07:20 Urine RBC 3-5 (0-2) H 09/17/19 07:20 Urine WBC Negative HPF (0-5) 09/17/19 07:20 Ur Epithelial Cells Few HPF (Negative) 09/17/19 07:20 Urine Crystals Negative HPF (Negative) 09/17/19 07:20 Urine Bacteria Rare HPF (Negative) 09/17/19 07:20 Urine Casts Negative LPF (Negative) 09/17/19 07:20 Urine Mucus Negative (Negative) 09/17/19 07:20 Ur Culture Indicated? No 09/17/19 07:20 Urine Osmolality 303 mosm/Kg (150-1150) 09/17/19 07:20 Urine Glucose Negative mg/dL (Negative) 09/17/19 07:20 Urine Opiates Screen Negative (Negative) 09/17/19 07:20 Urine Methadone Screen Negative (Negative) 09/17/19 07:20 Ur Barbiturates Screen Negative (Negative) 09/17/19 07:20 Ur Tricyclics Screen Negative (Negative) 09/17/19 07:20 Ur Amphetamines Screen Negative (Negative) 09/17/19 07:20 U Benzodiazepines Scrn Negative (Negative) 09/17/19 07:20 Urine Cocaine Screen Negative (Negative) 09/17/19 07:20 Ur THC Screen Negative (Negative) 09/17/19 07:20 Ethyl Alcohol 242.7 mg/dL (<3) 09/17/19 06:30
[2019-09-18 08:19] LABS: Folate 18.8 ng/mL (8.6-20.0); Vitamin B12 584 pg/mL (193-986)
[2019-09-18 08:44] LABS: FREE T4 1.29 ng/dL (0.76-1.46)
[2019-09-18] MEDS: buPROPion-CR 150 MG TABCR PO ×2 (09:14→20:10)
[2019-09-18] MEDS: Multivitamin TAB 1 TAB PO (09:14)
[2019-09-18] MEDS: Cyanocobalamin 500 MCG TAB 1000 MCG PO (09:14)
[2019-09-18] MEDS: Lurasidone 40 MG TAB 80 MG PO (09:15)
[2019-09-18] MEDS: LORazepam 1 MG TAB PO/SL ×3 (09:15→20:10)
[2019-09-18] MEDS: DULoxetine 30 MG CAP PO (09:16)
[2019-09-18] MEDS: Gabapentin 600 MG TAB 1200 MG PO ×3 (09:16→20:10)
[2019-09-18] MEDS: Metoprolol CR 50 MG TABCR PO (09:16)
[2019-09-18] MEDS: Thiamine 100 MG TAB PO (09:17)
[2019-09-18] MEDS: Folic Acid 1 MG TAB PO (09:17)
[2019-09-18] MEDS: chlordiazePOXIDE 25 MG CAP PO ×3 (10:31→20:10)
--- NOTE | 2019-09-18 10:37 | INITIAL_ITS ---
- If Service Date Differs Date of service: 09/18/19 Time of Service: 10:37 Care Management Initial Assess REASON FOR HOSPITALIZATION:: Hypothermia, alcohol intoxication. PAST MEDICAL HISTORY/PAST SURGICAL HISTORY:: Medical History: Hx of alcohol abuse with history of DTs and alcohol withdrawal seizures, bipolar disorder, hypertension, hypothyroidism. No surgical history of record and patient is unable to provide history at this time due to condition. PREVIOUS FUNCTIONAL STATUS/SOCIAL/FAMILY SUPPORTS:: Harshal is a 54 year old male with a long history of alcohol use. He has had intermittent periods of homelessness but has recently been living at [facility], a sober living facility in [facility]. Amairlys Hickey of [facility] has been providing Harshal with case management services for the past couple of months. Harshal is also receiving services through [facility]. Meghna Merlos is his [facility] medication provider and Moody (last name unknown) is his [facility] counselor. Harshal has no family supports in [place]. CURRENT FUNCTIONAL STATUS:: Harshal is lying in bed when CM meets with him. He appears confused, tries to get out of bed and mumbles something about making some coffee and going to the [place]. ADVANCE DIRECTIVES:: None on file. Has patient been provided with information about the portal?: No Did the patient sign up for the portal?: No CODE STATUS:: Full Code INSURANCE COVERAGE / FINANCIAL ISSUES:: [place] Medicaid. CURRENT HOME/COMMUNITY SERVICES/EQUIPMENT:: Harshal is receiving services through [facility] and his case investigator is Amarilys Hickey. He is also connected with [facility] for medication management and therapy. It is unknown if he uses any medical equipment at this time. PRIMARY CARE PHYSICIAN:: PRISCILLA Peterson, [facility] POTENTIAL DISCHARGE NEEDS:: Follow-up appointment with primary care physician. Other potential discharge needs to be determined once patient is alert. PATIENT/FAMILY EDUCATION NEEDS:: Discharge plan, limitations, follow up plan, Ask Me Three. ANTICIPATED BARRIERS TO DISCHARGE:: None identified at this time but will need to assess housing status once patient is alert and coherent. TRANSPORTATION:: Unknown at this time. PLAN:: Harshal will be discharged when medically cleared by provider. Need for services will be assessed once patient is alert. CM will continue to provide support and ongoing discharge planning.
[2019-09-18] MEDS: Pantoprazole 40 MG VIAL IVP (16:19)
[2019-09-19] VITALS (30 sets, daily range): BP systolic 116–161; BP diastolic 68–104; PULSE 63–111; RESP 14–29; TEMP 36.6–37; O2SAT 88–97
[2019-09-19] MEDS: Heparin 5,000 UNITS/ML VIAL 5000 UNITS SC ×3 (01:12→17:55)
[2019-09-19] MEDS: LORazepam 2 MG/ML VIAL IVP ×4 (01:30→22:59)
[2019-09-19] MEDS: Lactated Ringers 1,000 ML 125 ML IV ×3 (05:09→20:57)
[2019-09-19 06:58] LABS: Absolute Basophil Count 0.13 k/cumm (0.0-0.2); Absolute Eosinophil Count 0.42 k/cumm (0.0-0.7); Absolute Lymphocyte Count 2.55 k/cumm (1.2-3.4); Absolute Monocyte Count 0.82 k/cumm (0.11-0.7); Basophils % 1.5; HCT 39.1 % (40.0-50.0); HGB 13.4 g/dL (13.5-17.5); Lymphocytes % 30.3; Mean Corp. HGB Concentration 34.3 g/dL (32.0-36.0); Mean Corpuscular Hemoglobin 30.8 pg (27.0-33.0); Mean Corpuscular Volume 89.9 fL (80-95); Mean Platelet Volume 10.3 fL (8.0-11.0); Monocytes % 9.7; Neutrophils % 53.5; Platelet Count 194 x1000/uL (130-400); RBC 4.35 m/cumm (4.50-6.00); White Blood Cell Count 8.42 k/cumm (4.4-10.8)
[2019-09-19 07:17] LABS: Anion Gap 13.5 mmol/L (3-11); BUN 7 mg/dL (7-18); CO2 24.5 mmol/L (21.0-32.0); Calcium 8.7 mg/dL (8.5-10.1); Chloride 102 mmol/L (98-107); Creatine Kinase 324 U/L (39-308); Glucose 91 mg/dL (70-100); Magnesium 1.5 mg/dL (1.8-2.4); Potassium 3.4 mmol/L (3.5-5.1); Sodium 140 mmol/L (136-145)
[2019-09-19] MEDS: chlordiazePOXIDE 25 MG CAP PO ×2 (08:28→20:32)
[2019-09-19] MEDS: Gabapentin 600 MG TAB 1200 MG PO ×3 (08:28→20:32)
[2019-09-19] MEDS: DULoxetine 30 MG CAP PO (08:28)
[2019-09-19] MEDS: Multivitamin TAB 1 TAB PO (08:29)
[2019-09-19] MEDS: Cyanocobalamin 500 MCG TAB 1000 MCG PO (08:29)
[2019-09-19] MEDS: Thiamine 100 MG TAB PO (08:29)
[2019-09-19] MEDS: buPROPion-CR 150 MG TABCR PO ×2 (08:29→20:32)
[2019-09-19] MEDS: Metoprolol CR 50 MG TABCR PO (08:30)
[2019-09-19] MEDS: Acetaminophen 325 MG TAB PO (08:30)
[2019-09-19] MEDS: Folic Acid 1 MG TAB PO (08:31)
[2019-09-19] MEDS: LORazepam 1 MG TAB PO/SL ×3 (08:53→15:37)
[2019-09-19] MEDS: MAGNESIUM SULFATE 2 GM/50 ML BAG IVPB (11:01)
[2019-09-19] MEDS: Normal Saline Flush 10 ML SYR IVP ×5 (11:52→20:33)
[2019-09-19] MEDS: Normal Saline 500 ML 50 ML IV (11:55)
[2019-09-19] MEDS: POTASSIUM CHLORIDE 20 MEQ/100 ML BAG 50 MEQ IVPB ×2 (11:55→14:02)
--- NOTE | 2019-09-19 12:01 | PT.INIE ---
Date of service: 09/19/19 Time of Service: 08:33 PT Notes Inpatient Physical Therapy Evaluation Date: 09/19/2019 Referring Doctor: Bobbi Tilley MD PT Orders: PT CONSULT: Limited ability Precautions: Fall. Standard. Activity as tolerated. Patient Profile/Admitting Diagnosis: Patient is a 54-year-old male who was found outside the [facility] parking lot in the morning of 09/17/2019 due to a fall. Patient is diagnosed with hypothermia, alcohol intoxication, and closed head injury. CT of the head/neck showed no acute intracranial process and no acute cervical fracture. X-ray of the knee showed no bony abnormality/fracture. PMHX: Unobtainable at this time Social History/Home Situation: Patient lives with a group of people which he refers to as the covered [place] people and in a house with no stairs to enter. He has not used any assistive ambulatory device previously. He states that his family is in [place]. Equipment Owned/DME: None Subjective: Patient reports being fatigued from his recent fall. He is agreeable to a PT consult. Objective: General Observation: Patient seen lying in bed upon arrival of this PT. Telemetry monitoring in place. Skinner catheter in place. Contusion seen on bilateral knees. Mental Status: Decreased level of alertness, patient appeared to be mildly lethargic but was able to answer questions during this evaluation Pain: 0/10 ROM: Right Upper Extremity: Shoulder Flexion WFL. Shoulder abduction WFL. Elbow flexion WFL. Wrist flexion WFL. Opening and closing of hand WFL. Left Upper Extremity: Shoulder Flexion WFL. Shoulder abduction WFL. Elbow flexion WFL. Wrist flexion WFL. Opening and closing of hand WFL. Right Lower Extremity: Hip flexion WFL. Hip abduction WFL. Knee flexion WFL. Ankle dorsiflexion WFL. Ankle plantarflexion WFL. Left Lower Extremity: Hip flexion WFL. Hip abduction WFL. Knee flexion WFL. Ankle dorsiflexion WFL. Ankle plantarflexion WFL. Strength: Right Upper Extremity: Shoulder flexors 4/5. Shoulder abductors 4/5. Elbow flexors 4/5. Elbow extensors 4/5. Loom Technician strong. Left Upper Extremity: Shoulder flexors 4/5. Shoulder abductors 4/5. Elbow flexors 4/5. Elbow extensors 4/5. Loom Technician strong. Right Lower Extremity: Hip flexors 35. Hip abductors 3/5. Knee flexors 3/5. Knee extensors 3/5. Ankle dorsiflexors 3/5. Ankle plantarflexors 3/5. Left Lower Extremity: Hip flexors 35. Hip abductors 3/5. Knee flexors 3/5. Knee extensors 3/5. Ankle dorsiflexors 3/5. Ankle plantarflexors 3/5. Sensation: Intact as to pain and pressure on bilateral lower extremities. Bed Mobility/Transfers: Rolling CGA Supine to sit CGA Sit to supine CGA Sit to stand minimal assist Stand to sit minimal assist Bed to chair minimal assist Chair to bed minimal assist Gait: Patient was only able to tolerate short distance ambulation to transfer from bedside to chair inside his room only doing 3 steps +2 side steps +2 step backs using his front wheeled walker and minimal assist of this PT. Verbal cueing required as patient tends to be impulsive. Balance: Static Sitting: Good Dynamic Sitting: Good Static Standing: Fair Dynamic Standing: Fair Special Tests: Mobility Limitations Standardized Measure [facility] 6 clicks Basic Mobility Inpatient Short Form: Raw Score: 16 CMS Score: 54% deficit Informed Consent/Education: Patient instructed in purpose of PT consult and plan of care. Assessment: Patient is a 54-year-old male who was found outside the [facility] parking lot in the morning of 09/17/2019 due to a fall. Patient is diagnosed with hypothermia, alcohol intoxication, and closed head injury. Level of motivation is low with patient requiring encouragement to participate in therapy. Prognosis for achievement of mobility level is fair at this time. Patient may benefit from skilled home health physical therapy services in order to assess for safety at home. Patient presents with clinical signs and symptoms consistent with current/admitting diagnoses that have resulted to mobility limitations, gait instability, generalized weakness, and impairment of motor control as demonstrated by the following impairment level findings: 1. Decreased strength to B LE major muscle groups 2. Impaired sitting/standing balance 3. Impaired activity tolerance Impairments are contributing to the following functional limitations: 1. Dependent bed mobility skills 2. Increased dependence with transfers 3. Inability to safely ambulate without assistive device and physical assistance 4. Increase completion time for mobility ADL performance 5. Increased fall risk 6. Inability to negotiate steps alone safely Patient is assessed as a 94232 moderate complexity based on the following: History: Patient is a 54-year-old male who was found outside the [facility] parking lot in the morning of 09/17/2019 due to a fall. Patient is diagnosed with hypothermia, alcohol intoxication, and closed head injury. Examination: Demonstrable impairment in strength, balance, and range of motion with underlying impairments and functional limitations as documented above Presentation:Evolving Decision Makin moderate complexity Goals: Goals X1 week 1. Supine-Sit independent 2. Sit-Supine independent 3. Sit-Stand independent 4. Stand-Sit independent 5. Bed-Chair independent 6. Chair-Bed independent 7. Independent gait on level surface with use of least restrictive device for at least 300 feet without report of pain nor dyspnea 8. Independent with home exercise program 9. Good static and dynamic standing balance/tolerance Plan of Care/Treatment Plan: 1-2x/day, 7 days/week x 1 week. Plan of care has been reviewed with the [employer]URN ASSOCIATE providing the service under Physical Therapy direction. Initiate Physical Therapy intervention for strengthening, bed mobility, transfers, gait, stairs, balance training, use of assistive device. DISCHARGE RECOMMENDATIONS: Patient will benefit from home health PT services in order to progress mobility level using least restrictive assistive ambulatory device, assess home safety, identify additional equipment needs, and establish a functional maintenance program that will increase ability of patient to remain at home. TREATMENT CODE/TIME: 97298 x 20 minutes beginning at 8:33 AM. Thank you very much for this referral. Keisha Bar PT, DPT, CLT [facility]
[2019-09-19] MEDS: LORazepam 2 MG/ML VIAL 1 MG IVP (12:21)
[2019-09-19] MEDS: chlordiazePOXIDE 25 MG CAP 50 MG PO (14:02)
--- NOTE | 2019-09-19 14:04 | CMPROGNOTE_ITS ---
Care Management Progress Note S/O: Harshal was lying in bed and had received medication to ease his withdrawal symptoms that made him drowsy and interview could not take place at this time. Appeared comfortable and had several IV lines in place to receive fluids and medications. A: 54 y.o. male currently receiving ICU level of care. Admitted for hypothermia and alcohol intoxication. Actively withdrawing from alcohol. P: Housing status will need to be assessed before he is medically cleared for discharge. He had been staying at the [facility] sober living facility in [facility]. Not clear if he can return there at this time.
--- NOTE | 2019-09-19 14:42 | PGE_ITS ---
Date of Service Date of service: 09/19/19 Time of Service: 14:42 Assessment and Plan Assessment and plan (1) Alcohol withdrawal: Status: Acute Assessment and plan: Hx EtOH abuse - reports abstinence for a number of months, relapsed due to increased stressors. - Continue to maintain on CIWA protocol. - Additional IV Lorazepam if needed. - Continue MVI, thiamine, FA. - Currently without objective evidence of any significant withdrawl. Will continue to monitor closely. (2) Alcohol intoxication: Status: Acute Assessment and plan: Appears resolved. (3) Hypothermia: Status: Resolved Assessment and plan: Resolved. Mildly elevated CPK improving with hydration. (4) Hypothyroid: Status: Chronic Assessment and plan: TSH low at admission. Patient is on relatively high dose replacement therapy, with Levothyroxine on hold currently. Plan on resuming soon with lower dosage, and repeat TSH in the near future as an outpatient. (5) HTN (hypertension): Status: Chronic Assessment and plan: Continue BB therapy, and reinitiate CCB as well. (6) Bipolar disorder: Status: Chronic Assessment and plan: Continue home regimen of LatudaLora. Also on therapy for depression with SNRI and Bupropion. (7) DVT prophylaxis: Status: Acute Assessment and plan: Continue SC Heparin, PPI for GI Prophylaxis. Subjective Subjective Interval history since last seen: 54 year old alcohol man admitted from [facility] Emergency Department on 09/17 with a diagnosis of Hypothermia and altered mental status. Mr. Juarez has a past Medical History significant for EtOH Abuse with prior withdrawl and seizures, bipolar disorder, HTN, and Hypothyroidism. The patient was found unresponsive in a local parking lot, with bottles of alcohol and listerine in his possession. Work-up in the ED was significant for initial evidence of hypothermia, mildly elevated Lactate (2.7), mild hyponatremia, mildly elevated CPK (500-600 range), and a BAL of 242. UDS was also checked and negative, as were CT of the head and neck and knee xrays. He was admitted for fu rther evaluation and treatment. This morning Mr. Juarez appears oriented and appropriate - no evidence of hallucinations, non-diaphoretic, and non-tachycardic, with reported subjective tremor that is minimal on exam. No overnight events reported. Patient remains afebrile. Exam Narrative Exam Narrative: General: Patient appears comfortable, AAOX3, NAD Neck: Supple CV: Regular, nontachycardic, S1S2, No rubs, murmurs, or gallops. Pulmonary: Clear to auscultation bilaterally, no crackles, wheezing, or rhonchi Abdomen: + Bowel Sounds, soft, nontender, nondistended Vascular: No lower extremity edema Neuro: Minimal tremors of the outstretched hands Psych: Normal mood and affect. Objective Objective Clinical Data: Abnormal lab results 09/19/19 09/19/19 Range/Units 06:08 06:08 RBC 4.35 L (4.50-6.00) m/cumm Hgb 13.4 L (13.5-17.5) g/dL Hct 39.1 L (40.0-50.0) % Absolute Monocytes 0.82 H (0.11-0.7) k/cumm Potassium 3.4 L (3.5-5.1) mmol/L Anion Gap 13.5 H (3-11) mmol/L Creatinine 0.60 L (0.70-1.30) mg/dL Magnesium 1.5 L (1.8-2.4) mg/dL Creatine Kinase 324 H (39-308) U/L Vital Signs Temperature 37.0 C 09/19/19 07:45 Temperature Source Temporal Artery Scan 09/19/19 07:45 Pulse 88 09/19/19 07:45 Pulse 111 H 09/19/19 05:00 Respiratory Rate 24 09/19/19 07:45 Respiratory Effort Non-Labored 09/19/19 07:45 Respiratory Depth Normal 09/19/19 07:45 Respiratory Pattern Normal 09/19/19 07:45 Blood Pressure 149/99 H 09/19/19 07:45 Blood Pressure Mean 115 09/19/19 07:45 Blood Pressure Position Supine 09/19/19 07:45 Pulse Oximetry 96 09/19/19 07:45 Oxygen Delivery Method Room Air 09/19/19 07:45 Oxygen Flow Rate 0 09/19/19 07:45 Pain Level 4 09/19/19 08:30 Comment 09/17/19 14:02 Intake & Output 09/18/19 09/19/19 09/19/19 23:59 11:59 23:59 Intake Total 2370 / 4320 1383.333 / 1683.333 300 / 1683.333 Output Total 1300 / 4450 2049 Balance 1070 / -130 -666.667 / -366.667 300 / -366.667 Weight 64.5 kg Intake: IV 2000 / 3100 983.333 / 1083.333 100 / 1083.333 Oral 370 / 1220 400 / 600 200 / 600 Output: Urine 1300 / 4450 1800 / 1800 Stool 250 / 250 Other: Urine Color Yellow Chisana Dark Malaika Urine Appearance Clear Cloudy Comment indwelling black cath black Stool Occult Blood Negative Stool Size Large Stool Characteristics Liquid Laboratory Results WBC 8.42 k/cumm (4.4-10.8) 09/19/19 06:08 RBC 4.35 m/cumm (4.50-6.00) L 09/19/19 06:08 Hgb 13.4 g/dL (13.5-17.5) L 09/19/19 06:08 Hct 39.1 % (40.0-50.0) L 09/19/19 06:08 MCV 89.9 fL (80-95) 09/19/19 06:08 MCH 30.8 pg (27.0-33.0) 09/19/19 06:08 MCHC 34.3 g/dL (32.0-36.0) 09/19/19 06:08 RDW 13.0 % (11.8-14.1) 09/19/19 06:08 Plt Count 194 x1000/uL (130-400) 09/19/19 06:08 MPV 10.3 fL (8.0-11.0) 09/19/19 06:08 Immature Gran % 0.0 09/19/19 06:08 Neutrophils % 53.5 09/19/19 06:08 Lymphocytes % 30.3 09/19/19 06:08 Monocytes % 9.7 09/19/19 06:08 Eosinophils % 5.0 09/19/19 06:08 Basophils % 1.5 09/19/19 06:08 Absolute Neutrophils 4.50 k/cumm (1.2-6.7) 09/19/19 06:08 Absolute Lymphocytes 2.55 k/cumm (1.2-3.4) 09/19/19 06:08 Absolute Monocytes 0.82 k/cumm (0.11-0.7) H 09/19/19 06:08 Absolute Eosinophils 0.42 k/cumm (0.0-0.7) 09/19/19 06:08 Absolute Basophils 0.13 k/cumm (0.0-0.2) 09/19/19 06:08 PT 11.0 sec (9.3-11.0) 09/17/19 06:30 INR 1.1 (0.9-1.1) 09/17/19 06:30 APTT 29.2 sec (21.0-31.4) 09/17/19 06:30 VBG pH 7.30 (7.32-7.43) L 09/17/19 06:30 VBG pCO2 58 mm/Hg (34-47) H 09/17/19 06:30 VBG pO2 26 mm/Hg (28-44) L 09/17/19 06:30 VBG HCO3 28 mmol/L (22-28) 09/17/19 06:30 VBG Total CO2 25 mmol/L (22-29) 09/17/19 06:30 VBG O2 Saturation 43 % (70-80) L 09/17/19 06:30 VBG Base Excess 1.8 mmol/L (-3-3) 09/17/19 06:30 Sodium 140 mmol/L (136-145) 09/19/19 06:08 Potassium 3.4 mmol/L (3.5-5.1) L 09/19/19 06:08 Chloride 102 mmol/L (98-107) 09/19/19 06:08 Carbon Dioxide 24.5 mmol/L (21.0-32.0) 09/19/19 06:08 Anion Gap 13.5 mmol/L (3-11) H 09/19/19 06:08 BUN 7 mg/dL (7-18) 09/19/19 06:08 Creatinine 0.60 mg/dL (0.70-1.30) L 09/19/19 06:08 Estimated GFR/1.73 m2 >= 60.00 (mL/min/1.73m2) 09/19/19 06:08 Glucose 91 mg/dL (70-100) 09/19/19 06:08 Serum Osmolality 329 mOsm/kg (275-295) H 09/17/19 06:30 Lactate 0.9 mmol/L (0.6-1.4) 09/18/19 07:00 Calcium 8.7 mg/dL (8.5-10.1) 09/19/19 06:08 Magnesium 1.5 mg/dL (1.8-2.4) L 09/19/19 06:08 Total Bilirubin 0.8 mg/dL (0.2-1.0) 09/18/19 07:00 Conjugated Bilirubin 0.15 mg/dL (0.00-0.20) 09/18/19 07:00 AST 26 U/L (15-37) 09/18/19 07:00 ALT 21 U/L (16-63) 09/18/19 07:00 Alkaline Phosphatase 64 U/L (46-116) 09/18/19 07:00 Ammonia 14 umol/L (11-32) 09/17/19 06:30 Creatine Kinase 324 U/L (39-308) H 09/19/19 06:08 Troponin I < 0.05 ng/mL (0.00-0.06) 09/17/19 06:30 Total Protein 6.2 g/dL (6.4-8.2) L 09/18/19 07:00 Albumin 3.4 g/dL (3.4-5.0) 09/18/19 07:00 Vitamin B12 584 pg/mL (193-986) 09/18/19 07:00 Folate 18.8 ng/mL (8.6-20.0) 09/18/19 07:00 TSH 0.10 uIU/mL (0.36-3.74) L 09/18/19 07:00 Free T4 1.29 ng/dL (0.76-1.46) 09/18/19 07:00 Urine Color Yellow (Yellow) 09/17/19 07:20 Urine Clarity Clear (Clear) 09/17/19 07:20 Urine pH 6.0 (5-8) 09/17/19 07:20 Ur Specific [place] 1.015 (1.005-1.025) 09/17/19 07:20 Urine Protein 100 mg/dL (Negative) H 09/17/19 07:20 Urine Ketones Negative mg/dL (Negative) 09/17/19 07:20 Urine Blood Small (Negative) H 09/17/19 07:20 Urine Nitrite Negative (Negative) 09/17/19 07:20 Urine Bilirubin Negative (Negative) 09/17/19 07:20 Urine Urobilinogen 0.2 EU/dL (Up TO 0.2) 09/17/19 07:20 Ur Leukocyte Esterase Negative (Negative) 09/17/19 07:20 Urine RBC 3-5 (0-2) H 09/17/19 07:20 Urine WBC Negative HPF (0-5) 09/17/19 07:20 Ur Epithelial Cells Few HPF (Negative) 09/17/19 07:20 Urine Crystals Negative HPF (Negative) 09/17/19 07:20 Urine Bacteria Rare HPF (Negative) 09/17/19 07:20 Urine Casts Negative LPF (Negative) 09/17/19 07:20 Urine Mucus Negative (Negative) 09/17/19 07:20 Ur Culture Indicated? No 09/17/19 07:20 Urine Osmolality 303 mosm/Kg (150-1150) 09/17/19 07:20 Urine Glucose Negative mg/dL (Negative) 09/17/19 07:20 Urine Opiates Screen Negative (Negative) 09/17/19 07:20 Urine Methadone Screen Negative (Negative) 09/17/19 07:20 Ur Barbiturates Screen Negative (Negative) 09/17/19 07:20 Ur Tricyclics Screen Negative (Negative) 09/17/19 07:20 Ur Amphetamines Screen Negative (Negative) 09/17/19 07:20 U Benzodiazepines Scrn Negative (Negative) 09/17/19 07:20 Urine Cocaine Screen Negative (Negative) 09/17/19 07:20 Ur THC Screen Negative (Negative) 09/17/19 07:20 Ethyl Alcohol 242.7 mg/dL (<3) 09/17/19 06:30
[2019-09-19] MEDS: Pantoprazole 40 MG VIAL IVP (15:28)
[2019-09-19] MEDS: Potassium Chloride 20 MEQ TABCR PO (17:55)
[2019-09-20] VITALS (21 sets, daily range): BP systolic 121–150; BP diastolic 72–89; PULSE 57–90; RESP 13–30; TEMP 36.2–36.8; O2SAT 92–99
[2019-09-20] MEDS: LORazepam 2 MG/ML VIAL IVP ×10 (01:15→10:20)
[2019-09-20] MEDS: LORazepam 2 MG/ML VIAL 1 MG IVP ×4 (01:45→04:33)
[2019-09-20] MEDS: Heparin 5,000 UNITS/ML VIAL 5000 UNITS SC ×3 (01:56→17:53)
[2019-09-20] MEDS: Normal Saline Flush 10 ML SYR IVP ×10 (02:21→07:44)
[2019-09-20] MEDS: Lactated Ringers 1,000 ML 125 ML IV (03:32)
[2019-09-20] MEDS: LORazepam 1 MG TAB PO/SL ×2 (05:32→20:20)
[2019-09-20] MEDS: Normal Saline Flush 10 ML SYR (06:44)
[2019-09-20 06:56] LABS: Abs Immature Grans 0.01 k/cumm (0.0-0.09); Absolute Basophil Count 0.08 k/cumm (0.0-0.2); Absolute Eosinophil Count 0.57 k/cumm (0.0-0.7); Absolute Lymphocyte Count 2.26 k/cumm (1.2-3.4); Absolute Monocyte Count 0.88 k/cumm (0.11-0.7); Absolute Neutrophil Count 4.62 k/cumm (1.2-6.7); Eosinophils % 6.8; HCT 39.8 % (40.0-50.0); HGB 13.8 g/dL (13.5-17.5); Immature Grans % 0.1; Lymphocytes % 26.8; Mean Corp. HGB Concentration 34.7 g/dL (32.0-36.0); Mean Corpuscular Hemoglobin 31.1 pg (27.0-33.0); Mean Corpuscular Volume 89.6 fL (80-95); Mean Platelet Volume 10.1 fL (8.0-11.0); Monocytes % 10.5; Neutrophils % 54.8; Platelet Count 202 x1000/uL (130-400); RBC 4.44 m/cumm (4.50-6.00); RBC Distribution Width 13.2 % (11.8-14.1); White Blood Cell Count 8.42 k/cumm (4.4-10.8)
[2019-09-20 07:05] LABS: Anion Gap 9.9 mmol/L (3-11); BUN 9 mg/dL (7-18); CO2 26.1 mmol/L (21.0-32.0); CREATININE 0.73 mg/dL (0.70-1.30); Calcium 9.2 mg/dL (8.5-10.1); Chloride 106 mmol/L (98-107); Glucose 108 mg/dL (70-100); Magnesium 1.8 mg/dL (1.8-2.4); Potassium 4.2 mmol/L (3.5-5.1); Sodium 142 mmol/L (136-145)
[2019-09-20] MEDS: Lurasidone 40 MG TAB 80 MG PO (07:47)
[2019-09-20] MEDS: Cyanocobalamin 500 MCG TAB 1000 MCG PO (07:48)
[2019-09-20] MEDS: Folic Acid 1 MG TAB PO (07:48)
[2019-09-20] MEDS: Multivitamin TAB 1 TAB PO (07:48)
[2019-09-20] MEDS: Metoprolol CR 50 MG TABCR PO (07:48)
[2019-09-20] MEDS: DULoxetine 30 MG CAP PO (07:48)
[2019-09-20] MEDS: Gabapentin 600 MG TAB 1200 MG PO ×3 (07:48→23:30)
[2019-09-20] MEDS: amLODIPine 5 MG TAB PO (07:48)
[2019-09-20] MEDS: chlordiazePOXIDE 25 MG CAP 50 MG PO ×3 (07:49→23:30)
[2019-09-20] MEDS: Thiamine 100 MG TAB PO (07:49)
[2019-09-20] MEDS: buPROPion-CR 150 MG TABCR PO ×2 (07:49→23:30)
--- NOTE | 2019-09-20 10:20 | PT.INNT ---
Date of service: 09/20/19 Time of Service: 10:20 PT Notes 09/20/19 Patient unable to participate today, per nsg. Will attempt to resume PT services tomorrow morning.
[2019-09-20] MEDS: Magnesium Oxide 400 MG TAB PO (10:58)
--- NOTE | 2019-09-20 13:04 | CMPROGNOTE_ITS ---
Care Management Progress Note S/O: Harshal was sitting us in his bedside chait. Confused and agitated. Removed all of his clothing and required a patient observer to be at his side. Interview could not take place at this time. Appeared calm and still had several IV lines in place to receive fluids and medications. A: 54 y.o. male currently receiving ICU level of care. Admitted for hypothermia and alcohol intoxication. Actively withdrawing from alcohol. P: Housing status will need to be assessed before he is discharged. He had been staying at the [facility] sober living facility in [facility]. Not clear if he can return there at this time.
--- NOTE | 2019-09-20 13:13 | CMPROGNOTE_ITS ---
Care Management Progress Note S/O: Brian was resting. Still actively withdrawing from alcohol. Worked with PT today and stated to them he is starting to feel better. Did not engage in conversation at this time. A: 59 y.o. male admitted for Alcohol withdrawal and seizure activity. Remains at ICU Level of care today. P: Brian will return home when medically cleared for discharge. He does have a instructional coach in the community who will continue to follow him.
--- NOTE | 2019-09-20 13:14 | NUR.NOTE ---
Continues to awaken becoming restless. Removes monitoring equipmen. hospital gowns and sheets off of bed. Assumes a position of comfort sideways on bed with legs hanging over side rail. Up to chair at 11:15 with difficulty. Fed self 50% of lunch. Attempts to put on pillow case insisting it is his shirt. Assisted back to bed. sleeping at present.Nursing Note:
--- NOTE | 2019-09-20 15:20 | PGE_ITS ---
Date of Service Date of service: 09/20/19 Time of Service: 15:20 Assessment and Plan Assessment and plan (1) Alcohol withdrawal: Status: Acute Assessment and plan: Hx EtOH abuse - reports abstinence for a number of months, relapsed due to increased recent stressors. - Continue to maintain on CIWA protocol. - Additional IV Lorazepam if needed. - Continue MVI, thiamine, FA. - Previously without objective evidence of any significant withdrawl. Unsure if patient's altered status this morning reflects withdrawl symptoms or oversedation from high dose Lorazepam. Continue to monitor closely, with treatment as above. Also on standing Chlordiazepoxide. (2) Alcohol intoxication: Status: Acute Assessment and plan: Appears resolved. (3) Hypothermia: Status: Resolved Assessment and plan: Resolved. Mildly elevated CPK improved with hydration. (4) Hypothyroid: Status: Chronic Assessment and plan: TSH low at admission. Patient is on relatively high dose replacement therapy, with Levothyroxine on hold currently. Plan on resuming soon with lower dosage, and repeat TSH in the near future as an outpatient. (5) HTN (hypertension): Status: Chronic Assessment and plan: Continue BB therapy, and reinitiated CCB as well. Blood Pressure appears ideal. (6) Bipolar disorder: Status: Chronic Assessment and plan: Continue home regimen of Latuda, Vyvance. Also on therapy for depression with SNRI and Bupropion. (7) DVT prophylaxis: Status: Acute Assessment and plan: Continue SC Heparin, PPI for GI Prophylaxis. Subjective Subjective Interval history since last seen: 54 year old alcohol man admitted from [facility] Emergency Department on 09/17 with a diagnosis of Hypothermia and altered mental status. Mr. Juarez has a past Medical History significant for EtOH Abuse with prior withdrawl and seizures, bipolar disorder, HTN, and Hypothyroidism. The patient was found unresponsive in a local parking lot, with bottles of alcohol and listerine in his possession. Work-up in the ED was significant for initial evidence of hypothermia, mildly elevated Lactate (2.7), mild hyponatremia, mildly elevated CPK (500-600 range), and a BAL of 242. UDS was also checked and negative, as were CT of the head and neck and knee xrays. He was admitted for further evaluation and treatment. On prior exam Mr. Juarez had appeared oriented and appropriate - however, was noted to score high on CIWA overnight and received a significant amount of IV A tivan. Was found to be somnolent and confused this morning. Patient remains afebrile. Exam Narrative Exam Narrative: General: Patient appears somnolent, lying in bed, minimally responsive. Found later sitting out of bed and more awake. Neck: Supple CV: Regular, nontachycardic, S1S2, No rubs, murmurs, or gallops. Pulmonary: Clear to auscultation bilaterally, no crackles, wheezing, or rhonchi Abdomen: + Bowel Sounds, soft, nontender, nondistended Vascular: No lower extremity edema Psych: Normal mood and affect. Objective Objective Clinical Data: Abnormal lab results 09/20/19 09/20/19 Range/Units 06:25 06:25 RBC 4.44 L (4.50-6.00) m/cumm Hct 39.8 L (40.0-50.0) % Absolute Monocytes 0.88 H (0.11-0.7) k/cumm Glucose 108 H (70-100) mg/dL Vital Signs Temperature 36.2 C L 09/20/19 12:42 Temperature Source Temporal Artery Scan 09/20/19 12:42 Pulse 69 09/20/19 12:42 Pulse 66 09/20/19 11:00 Respiratory Rate 18 09/20/19 12:42 Respiratory Effort 09/20/19 12:42 Respiratory Depth Normal 09/20/19 08:00 Respiratory Pattern Normal 09/20/19 12:42 Blood Pressure 121/87 09/20/19 12:42 Blood Pressure Mean 98 09/20/19 12:42 Blood Pressure Position Supine 09/20/19 08:00 Pulse Oximetry 99 09/20/19 12:42 Oxygen Delivery Method Room Air 09/20/19 12:42 Oxygen Flow Rate 0 09/20/19 12:42 Pain Level 0 09/20/19 12:42 Comment 09/17/19 14:02 Intake & Output 09/19/19 09/20/19 09/20/19 23:59 11:59 23:59 Intake Total 2673.750 / 4057.083 1337.500 / 1337.500 Output Total 4050 / 6100 2300 / 2300 Balance -1376.250 / -2042.917 -962.500 / -962.500 Weight 64.5 kg Intake: IV 2223.750 / 3207.083 1137.500 / 1137.500 Oral 450 / 850 200 / 200 Output: Urine 4050 / 5850 2300 / 2300 Other: Urine Color Dark Malaika Light Malaika Urine Appearance Hematuria Cloudy Comment black is patent and draining. Urinary urgency with black. F. C. Stool Size Small Stool Characteristics Soft Brown Laboratory Results WBC 8.42 k/cumm (4.4-10.8) 09/20/19 06:25 RBC 4.44 m/cumm (4.50-6.00) L 09/20/19 06:25 Hgb 13.8 g/dL (13.5-17.5) 09/20/19 06:25 Hct 39.8 % (40.0-50.0) L 09/20/19 06:25 MCV 89.6 fL (80-95) 09/20/19 06:25 MCH 31.1 pg (27.0-33.0) 09/20/19 06:25 MCHC 34.7 g/dL (32.0-36.0) 09/20/19 06:25 RDW 13.2 % (11.8-14.1) 09/20/19 06:25 Plt Count 202 x1000/uL (130-400) 09/20/19 06:25 MPV 10.1 fL (8.0-11.0) 09/20/19 06:25 Immature Gran % 0.1 09/20/19 06:25 Neutrophils % 54.8 09/20/19 06:25 Lymphocytes % 26.8 09/20/19 06:25 Monocytes % 10.5 09/20/19 06:25 Eosinophils % 6.8 09/20/19 06:25 Basophils % 1.0 09/20/19 06:25 Absolute Neutrophils 4.62 k/cumm (1.2-6.7) 09/20/19 06:25 Absolute Lymphocytes 2.26 k/cumm (1.2-3.4) 09/20/19 06:25 Absolute Monocytes 0.88 k/cumm (0.11-0.7) H 09/20/19 06:25 Absolute Eosinophils 0.57 k/cumm (0.0-0.7) 09/20/19 06:25 Absolute Basophils 0.08 k/cumm (0.0-0.2) 09/20/19 06:25 PT 11.0 sec (9.3-11.0) 09/17/19 06:30 INR 1.1 (0.9-1.1) 09/17/19 06:30 APTT 29.2 sec (21.0-31.4) 09/17/19 06:30 VBG pH 7.30 (7.32-7.43) L 09/17/19 06:30 VBG pCO2 58 mm/Hg (34-47) H 09/17/19 06:30 VBG pO2 26 mm/Hg (28-44) L 09/17/19 06:30 VBG HCO3 28 mmol/L (22-28) 09/17/19 06:30 VBG Total CO2 25 mmol/L (22-29) 09/17/19 06:30 VBG O2 Saturation 43 % (70-80) L 09/17/19 06:30 VBG Base Excess 1.8 mmol/L (-3-3) 09/17/19 06:30 Sodium 142 mmol/L (136-145) 09/20/19 06:25 Potassium 4.2 mmol/L (3.5-5.1) D 09/20/19 06:25 Chloride 106 mmol/L (98-107) 09/20/19 06:25 Carbon Dioxide 26.1 mmol/L (21.0-32.0) 09/20/19 06:25 Anion Gap 9.9 mmol/L (3-11) 09/20/19 06:25 BUN 9 mg/dL (7-18) 09/20/19 06:25 Creatinine 0.73 mg/dL (0.70-1.30) 09/20/19 06:25 Estimated GFR/1.73 m2 >= 60.00 (mL/min/1.73m2) 09/20/19 06:25 Glucose 108 mg/dL (70-100) H 09/20/19 06:25 Serum Osmolality 329 mOsm/kg (275-295) H 09/17/19 06:30 Lactate 0.9 mmol/L (0.6-1.4) 09/18/19 07:00 Calcium 9.2 mg/dL (8.5-10.1) 09/20/19 06:25 Magnesium 1.8 mg/dL (1.8-2.4) 09/20/19 06:25 Total Bilirubin 0.8 mg/dL (0.2-1.0) 09/18/19 07:00 Conjugated Bilirubin 0.15 mg/dL (0.00-0.20) 09/18/19 07:00 AST 26 U/L (15-37) 09/18/19 07:00 ALT 21 U/L (16-63) 09/18/19 07:00 Alkaline Phosphatase 64 U/L (46-116) 09/18/19 07:00 Ammonia 14 umol/L (11-32) 09/17/19 06:30 Creatine Kinase 324 U/L (39-308) H 09/19/19 06:08 Troponin I < 0.05 ng/mL (0.00-0.06) 09/17/19 06:30 Total Protein 6.2 g/dL (6.4-8.2) L 09/18/19 07:00 Albumin 3.4 g/dL (3.4-5.0) 09/18/19 07:00 Vitamin B12 584 pg/mL (193-986) 09/18/19 07:00 Folate 18.8 ng/mL (8.6-20.0) 09/18/19 07:00 TSH 0.10 uIU/mL (0.36-3.74) L 09/18/19 07:00 Free T4 1.29 ng/dL (0.76-1.46) 09/18/19 07:00 Urine Color Yellow (Yellow) 09/17/19 07:20 Urine Clarity Clear (Clear) 09/17/19 07:20 Urine pH 6.0 (5-8) 09/17/19 07:20 Ur Specific [place] 1.015 (1.005-1.025) 09/17/19 07:20 Urine Protein 100 mg/dL (Negative) H 09/17/19 07:20 Urine Ketones Negative mg/dL (Negative) 09/17/19 07:20 Urine Blood Small (Negative) H 09/17/19 07:20 Urine Nitrite Negative (Negative) 09/17/19 07:20 Urine Bilirubin Negative (Negative) 09/17/19 07:20 Urine Urobilinogen 0.2 EU/dL (Up TO 0.2) 09/17/19 07:20 Ur Leukocyte Esterase Negative (Negative) 09/17/19 07:20 Urine RBC 3-5 (0-2) H 09/17/19 07:20 Urine WBC Negative HPF (0-5) 09/17/19 07:20 Ur Epithelial Cells Few HPF (Negative) 09/17/19 07:20 Urine Crystals Negative HPF (Negative) 09/17/19 07:20 Urine Bacteria Rare HPF (Negative) 09/17/19 07:20 Urine Casts Negative LPF (Negative) 09/17/19 07:20 Urine Mucus Negative (Negative) 09/17/19 07:20 Ur Culture Indicated? No 09/17/19 07:20 Urine Osmolality 303 mosm/Kg (150-1150) 09/17/19 07:20 Urine Glucose Negative mg/dL (Negative) 09/17/19 07:20 Urine Opiates Screen Negative (Negative) 09/17/19 07:20 Urine Methadone Screen Negative (Negative) 09/17/19 07:20 Ur Barbiturates Screen Negative (Negative) 09/17/19 07:20 Ur Tricyclics Screen Negative (Negative) 09/17/19 07:20 Ur Amphetamines Screen Negative (Negative) 09/17/19 07:20 U Benzodiazepines Scrn Negative (Negative) 09/17/19 07:20 Urine Cocaine Screen Negative (Negative) 09/17/19 07:20 Ur THC Screen Negative (Negative) 09/17/19 07:20 Ethyl Alcohol 242.7 mg/dL (<3) 09/17/19 06:30
[2019-09-20] MEDS: Pantoprazole 40 MG VIAL IVP (15:52)
--- NOTE | 2019-09-20 18:27 | NUR.NOTE ---
Improved cognition. Sat up in chair for supper and fed self. Following commands more consistantly with redirection. Continues to remove monitoring equipment and pull on IV line. IV fluids disconnected. PO fluids encouraged. Back to bed at 1830.Nursing Note:
[2019-09-21] VITALS (46 sets, daily range): BP systolic 85–172; BP diastolic 54–110; PULSE 54–88; RESP 13–24; TEMP 36.4–36.9; O2SAT 92–99
[2019-09-21] MEDS: LORazepam 2 MG/ML VIAL IVP ×25 (00:18→22:55)
[2019-09-21] MEDS: Normal Saline Flush 10 ML SYR IVP ×13 (00:18→21:02)
[2019-09-21] MEDS: traMADol 50 MG TAB PO ×2 (01:00→12:44)
[2019-09-21] MEDS: Lactated Ringers 1,000 ML 125 ML IV ×3 (01:29→20:59)
[2019-09-21 07:33] LABS: Abs Immature Grans 0.01 k/cumm (0.0-0.09); Absolute Eosinophil Count 0.56 k/cumm (0.0-0.7); Absolute Lymphocyte Count 2.69 k/cumm (1.2-3.4); Absolute Neutrophil Count 3.89 k/cumm (1.2-6.7); Basophils % 1.2; HCT 39.3 % (40.0-50.0); HGB 13.6 g/dL (13.5-17.5); Immature Grans % 0.1; Lymphocytes % 33.4; Mean Corp. HGB Concentration 34.6 g/dL (32.0-36.0); Mean Corpuscular Hemoglobin 31.3 pg (27.0-33.0); Mean Corpuscular Volume 90.3 fL (80-95); Monocytes % 9.9; Neutrophils % 48.4; Platelet Count 195 x1000/uL (130-400); RBC 4.35 m/cumm (4.50-6.00); RBC Distribution Width 13.3 % (11.8-14.1); White Blood Cell Count 8.05 k/cumm (4.4-10.8)
[2019-09-21 07:38] LABS: Anion Gap 7.7 mmol/L (3-11); BUN 6 mg/dL (7-18); CO2 28.3 mmol/L (21.0-32.0); CREATININE 0.65 mg/dL (0.70-1.30); Calcium 9.2 mg/dL (8.5-10.1); Chloride 104 mmol/L (98-107); Glucose 106 mg/dL (70-100); Magnesium 1.6 mg/dL (1.8-2.4); Potassium 3.9 mmol/L (3.5-5.1); Sodium 140 mmol/L (136-145)
[2019-09-21] MEDS: Lurasidone 40 MG TAB 80 MG PO (08:03)
[2019-09-21] MEDS: chlordiazePOXIDE 25 MG CAP 50 MG PO ×2 (08:03→14:23)
[2019-09-21] MEDS: Metoprolol CR 50 MG TABCR PO (08:03)
[2019-09-21] MEDS: Thiamine 100 MG TAB PO (08:04)
[2019-09-21] MEDS: buPROPion-CR 150 MG TABCR PO (08:04)
[2019-09-21] MEDS: Multivitamin TAB 1 TAB PO (08:04)
[2019-09-21] MEDS: Cyanocobalamin 500 MCG TAB 1000 MCG PO (08:04)
[2019-09-21] MEDS: Gabapentin 600 MG TAB 1200 MG PO ×2 (08:04→14:23)
[2019-09-21] MEDS: DULoxetine 30 MG CAP PO (08:04)
[2019-09-21] MEDS: amLODIPine 5 MG TAB PO (08:04)
[2019-09-21] MEDS: Folic Acid 1 MG TAB PO (08:05)
[2019-09-21] MEDS: Heparin 5,000 UNITS/ML VIAL 5000 UNITS SC ×2 (09:39→18:00)
[2019-09-21] MEDS: Potassium Chloride 10 MEQ TABCR PO (11:14)
[2019-09-21] MEDS: MAGNESIUM SULFATE 2 GM/50 ML BAG IVPB (11:34)
--- NOTE | 2019-09-21 11:38 | PT.INNT ---
Date of service: 09/21/19 Time of Service: 11:39 PT Notes 09/20/19 Patient unable to participate today, per nsg. Will attempt to resume PT services tomorrow morning.
[2019-09-21] MEDS: LORazepam 1 MG TAB PO/SL (13:12)
[2019-09-21] MEDS: LORazepam 20 MG/10 ML VIAL IVP ×7 (13:33→18:29)
--- NOTE | 2019-09-21 14:11 | W.PM.PROGNOT ---
Date of Service Date of service: 09/21/19 Time of Service: 14:12 Assessment and Plan Assessment and plan (1) Alcohol withdrawal: Status: Acute Assessment and plan: Hx EtOH abuse - reports abstinence for a number of months, relapsed due to increased recent stressors. - Continue to maintain on CIWA protocol. - Additional IV Lorazepam if needed. - Continue MVI, thiamine, FA. - Continue standing Chlordiazepoxide. - Consider benzo gtt if needed. - Continue to monitor closely, with treatment as above. Consider (2) Alcohol intoxication: Status: Acute Assessment and plan: Appears resolved. (3) Hypothermia: Status: Resolved Assessment and plan: Resolved. Mildly elevated CPK improved with hydration. (4) Hypothyroid: Status: Chronic Assessment and plan: TSH low at admission. Patient is on relatively high dose replacement therapy, with Levothyroxine on hold currently. Plan on resuming soon with lower dosage, and repeat TSH in the near future as an outpatient. (5) HTN (hypertension): Status: Chronic Assessment and plan: Continue BB therapy, and reinitiated CCB as well. Blood Pressure currently elevated in setting of acute withdrawl - initiate prn hydralazine. (6) Bipolar disorder: Status: Chronic Assessment and plan: Continue home regimen of Latuda, Vyvance. Also on therapy for depression with SNRI and Bupropion. (7) DVT prophylaxis: Status: Acute Assessment and plan: Continue SC Heparin, PPI for GI Prophylaxis. Subjective Subjective Interval history since last seen: 54 year old alcohol man admitted from [facility] Emergency Department on 09/17 with a diagnosis of Hypothermia and altered mental status. Mr. Juarez has a past Medical History significant for EtOH Abuse with prior withdrawl and seizures, bipolar disorder, HTN, and Hypothyroidism. The patient was found unresponsive in a local parking lot, with bottles of alcohol and listerine in his possession. Work-up in the ED was significant for initial evidence of hypothermia, mildly elevated Lactate (2.7), mild hyponatremia, mildly elevated CPK (500-600 range), and a BAL of 242. UDS was also checked and negative, as were CT of the head and neck and knee xrays. He was admitted for further evaluation and treatment. On prior exam Mr. Juarez had appeared oriented and appropriate - however, began having elevated CIWA scoring, worsening agitation, and hallucinations overnight on 11/10, and has required increasing doses of Ativan. He continues to exhibits signs of withdrawl this morning. Patient remains afebrile. Exam Narrative Exam Narrative: General: Patient appears somnolent, lying in bed, responsive to verbal stimuli but inappropriate. Neck: Supple CV: Regular, nontachycardic, S1S2, No rubs, murmurs, or gallops. Pulmonary: Clear to auscultation bilaterally, no crackles, wheezing, or rhonchi Abdomen: + Bowel Sounds, soft, nontender, nondistended Vascular: No lower extremity edema. Objective Objective Clinical Data: Abnormal lab results 09/21/19 09/21/19 Range/Units 06:29 06:29 RBC 4.35 L (4.50-6.00) m/cumm Hct 39.3 L (40.0-50.0) % Absolute Monocytes 0.80 H (0.11-0.7) k/cumm BUN 6 L (7-18) mg/dL Creatinine 0.65 L (0.70-1.30) mg/dL Glucose 106 H (70-100) mg/dL Magnesium 1.6 L (1.8-2.4) mg/dL Vital Signs Temperature 36.5 C 09/21/19 13:36 Temperature Source Temporal Artery Scan 09/21/19 13:36 Pulse 73 09/21/19 13:36 Pulse 68 09/21/19 13:26 Respiratory Rate 20 09/21/19 13:36 Respiratory Effort 09/21/19 13:09 Respiratory Depth Normal 09/21/19 13:09 Respiratory Pattern Normal 09/21/19 08:25 Blood Pressure 172/84 H 09/21/19 13:36 Blood Pressure Mean 103 09/21/19 13:26 Blood Pressure Position Sitting 09/21/19 08:25 Pulse Oximetry 97 09/21/19 13:36 Oxygen Delivery Method Room Air 09/21/19 13:36 Oxygen Flow Rate 0 09/21/19 13:36 Pain Level 0 09/21/19 11:03 Comment 09/17/19 14:02 Intake & Output 09/20/19 09/21/19 09/21/19 23:59 11:59 23:59 Intake Total 800 / 2137.500 1944.167 / 1993.167 50 1993.167 Output Total 480 / 2910 2560 / 3760 1200 / 3760 Balance 320 / -772.500 -615.833 / -1765.833 -1150 / -1765.833 Weight 61.8 kg Intake: IV 0 / 2206.630 2074.167 / 1704.167 Oral 800 / 1000 240 / 290 50 / 290 Output: Urine 480 / 2910 2560 / 3760 1200 / 3760 Other: Urine Color Yellow Pale Pale Yellow Straw Urine Appearance Hematuria Clear Clear Clots Comment Traumatic hematuria d/t patient pulling on black Traumatic hematuria d/t patient pulling on black Voiding Methods Urinal Indwelling Catheter Laboratory Results WBC 8.05 k/cumm (4.4-10.8) 09/21/19 06:29 RBC 4.35 m/cumm (4.50-6.00) L 09/21/19 06:29 Hgb 13.6 g/dL (13.5-17.5) 09/21/19 06:29 Hct 39.3 % (40.0-50.0) L 09/21/19 06:29 MCV 90.3 fL (80-95) 09/21/19 06:29 MCH 31.3 pg (27.0-33.0) 09/21/19 06:29 MCHC 34.6 g/dL (32.0-36.0) 09/21/19 06:29 RDW 13.3 % (11.8-14.1) 09/21/19 06:29 Plt Count 195 x1000/uL (130-400) 09/21/19 06:29 MPV 11.0 fL (8.0-11.0) 09/21/19 06:29 Immature Gran % 0.1 09/21/19 06:29 Neutrophils % 48.4 09/21/19 06:29 Lymphocytes % 33.4 09/21/19 06:29 Monocytes % 9.9 09/21/19 06:29 Eosinophils % 7.0 09/21/19 06:29 Basophils % 1.2 09/21/19 06:29 Absolute Neutrophils 3.89 k/cumm (1.2-6.7) 09/21/19 06:29 Absolute Lymphocytes 2.69 k/cumm (1.2-3.4) 09/21/19 06:29 Absolute Monocytes 0.80 k/cumm (0.11-0.7) H 09/21/19 06:29 Absolute Eosinophils 0.56 k/cumm (0.0-0.7) 09/21/19 06:29 Absolute Basophils 0.10 k/cumm (0.0-0.2) 09/21/19 06:29 PT 11.0 sec (9.3-11.0) 09/17/19 06:30 INR 1.1 (0.9-1.1) 09/17/19 06:30 APTT 29.2 sec (21.0-31.4) 09/17/19 06:30 VBG pH 7.30 (7.32-7.43) L 09/17/19 06:30 VBG pCO2 58 mm/Hg (34-47) H 09/17/19 06:30 VBG pO2 26 mm/Hg (28-44) L 09/17/19 06:30 VBG HCO3 28 mmol/L (22-28) 09/17/19 06:30 VBG Total CO2 25 mmol/L (22-29) 09/17/19 06:30 VBG O2 Saturation 43 % (70-80) L 09/17/19 06:30 VBG Base Excess 1.8 mmol/L (-3-3) 09/17/19 06:30 Sodium 140 mmol/L (136-145) 09/21/19 06:29 Potassium 3.9 mmol/L (3.5-5.1) 09/21/19 06:29 Chloride 104 mmol/L (98-107) 09/21/19 06:29 Carbon Dioxide 28.3 mmol/L (21.0-32.0) 09/21/19 06:29 Anion Gap 7.7 mmol/L (3-11) 09/21/19 06:29 BUN 6 mg/dL (7-18) L 09/21/19 06:29 Creatinine 0.65 mg/dL (0.70-1.30) L 09/21/19 06:29 Estimated GFR/1.73 m2 >= 60.00 (mL/min/1.73m2) 09/21/19 06:29 Glucose 106 mg/dL (70-100) H 09/21/19 06:29 Serum Osmolality 329 mOsm/kg (275-295) H 09/17/19 06:30 Lactate 0.9 mmol/L (0.6-1.4) 09/18/19 07:00 Calcium 9.2 mg/dL (8.5-10.1) 09/21/19 06:29 Magnesium 1.6 mg/dL (1.8-2.4) L 09/21/19 06:29 Total Bilirubin 0.8 mg/dL (0.2-1.0) 09/18/19 07:00 Conjugated Bilirubin 0.15 mg/dL (0.00-0.20) 09/18/19 07:00 AST 26 U/L (15-37) 09/18/19 07:00 ALT 21 U/L (16-63) 09/18/19 07:00 Alkaline Phosphatase 64 U/L (46-116) 09/18/19 07:00 Ammonia 14 umol/L (11-32) 09/17/19 06:30 Creatine Kinase 324 U/L (39-308) H 09/19/19 06:08 Troponin I < 0.05 ng/mL (0.00-0.06) 09/17/19 06:30 Total Protein 6.2 g/dL (6.4-8.2) L 09/18/19 07:00 Albumin 3.4 g/dL (3.4-5.0) 09/18/19 07:00 Vitamin B12 584 pg/mL (193-986) 09/18/19 07:00 Folate 18.8 ng/mL (8.6-20.0) 09/18/19 07:00 TSH 0.10 uIU/mL (0.36-3.74) L 09/18/19 07:00 Free T4 1.29 ng/dL (0.76-1.46) 09/18/19 07:00 Urine Color Yellow (Yellow) 09/17/19 07:20 Urine Clarity Clear (Clear) 09/17/19 07:20 Urine pH 6.0 (5-8) 09/17/19 07:20 Ur Specific [place] 1.015 (1.005-1.025) 09/17/19 07:20 Urine Protein 100 mg/dL (Negative) H 09/17/19 07:20 Urine Ketones Negative mg/dL (Negative) 09/17/19 07:20 Urine Blood Small (Negative) H 09/17/19 07:20 Urine Nitrite Negative (Negative) 09/17/19 07:20 Urine Bilirubin Negative (Negative) 09/17/19 07:20 Urine Urobilinogen 0.2 EU/dL (Up TO 0.2) 09/17/19 07:20 Ur Leukocyte Esterase Negative (Negative) 09/17/19 07:20 Urine RBC 3-5 (0-2) H 09/17/19 07:20 Urine WBC Negative HPF (0-5) 09/17/19 07:20 Ur Epithelial Cells Few HPF (Negative) 09/17/19 07:20 Urine Crystals Negative HPF (Negative) 09/17/19 07:20 Urine Bacteria Rare HPF (Negative) 09/17/19 07:20 Urine Casts Negative LPF (Negative) 09/17/19 07:20 Urine Mucus Negative (Negative) 09/17/19 07:20 Ur Culture Indicated? No 09/17/19 07:20 Urine Osmolality 303 mosm/Kg (150-1150) 09/17/19 07:20 Urine Glucose Negative mg/dL (Negative) 09/17/19 07:20 Urine Opiates Screen Negative (Negative) 09/17/19 07:20 Urine Methadone Screen Negative (Negative) 09/17/19 07:20 Ur Barbiturates Screen Negative (Negative) 09/17/19 07:20 Ur Tricyclics Screen Negative (Negative) 09/17/19 07:20 Ur Amphetamines Screen Negative (Negative) 09/17/19 07:20 U Benzodiazepines Scrn Negative (Negative) 09/17/19 07:20 Urine Cocaine Screen Negative (Negative) 09/17/19 07:20 Ur THC Screen Negative (Negative) 09/17/19 07:20 Ethyl Alcohol 242.7 mg/dL (<3) 09/17/19 06:30
[2019-09-21] MEDS: Pantoprazole 40 MG VIAL IVP (15:44)
--- NOTE | 2019-09-21 22:24 | CMPROGNOTE_ITS ---
- If Service Date Differs Date of service: 09/21/19 Time of Service: 09:30 Care Management Progress Note S/O: Harshal was agitated and confused when CM attempted t visit. Harshal continues to be treated for withdrawal symptoms, he has been introduced to a disaster recovery consultant at previous ED visit. CM will continue to assess and when he is able to engage contact the disaster recovery consultant to meet with him again. A: 54 y.o. male currently receiving ICU level of care. Admitted for hypothermia and alcohol intoxication. Actively withdrawing from alcohol. P: Housing status will need to be assessed before he is discharged Harshal may need [facility]. He had been staying at the [facility] sober living facility in [facility].Once he is able CM will assist in contacting Daryl the coordinator at [facility] to determine if this continues to be an option.
[2019-09-22] VITALS (41 sets, daily range): BP systolic 102–176; BP diastolic 62–117; PULSE 55–82; RESP 10–22; TEMP 36.5–37; O2SAT 18–98
[2019-09-22] MEDS: LORazepam 2 MG/ML VIAL IVP ×9 (00:10→05:31)
[2019-09-22] MEDS: Normal Saline Flush 10 ML SYR IVP ×15 (01:22→23:31)
[2019-09-22] MEDS: Heparin 5,000 UNITS/ML VIAL 5000 UNITS SC ×3 (01:23→17:29)
[2019-09-22] MEDS: Lactated Ringers 1,000 ML 125 ML IV ×3 (04:49→22:57)
[2019-09-22] MEDS: LORazepam 1 MG TAB PO/SL ×3 (05:38→10:25)
[2019-09-22] MEDS: LORazepam 20 MG/10 ML VIAL IVP ×15 (05:57→23:29)
[2019-09-22 06:25] LABS: Abs Immature Grans 0.02 k/cumm (0.0-0.09); Absolute Basophil Count 0.13 k/cumm (0.0-0.2); Absolute Eosinophil Count 0.56 k/cumm (0.0-0.7); Absolute Lymphocyte Count 2.46 k/cumm (1.2-3.4); Absolute Monocyte Count 0.83 k/cumm (0.11-0.7); Absolute Neutrophil Count 4.88 k/cumm (1.2-6.7); Basophils % 1.5; Eosinophils % 6.3; HCT 41.6 % (40.0-50.0); HGB 14.2 g/dL (13.5-17.5); Immature Grans % 0.2; Lymphocytes % 27.7; Mean Corp. HGB Concentration 34.1 g/dL (32.0-36.0); Mean Corpuscular Hemoglobin 30.9 pg (27.0-33.0); Mean Corpuscular Volume 90.6 fL (80-95); Mean Platelet Volume 10.4 fL (8.0-11.0); Monocytes % 9.3; Platelet Count 197 x1000/uL (130-400); RBC 4.59 m/cumm (4.50-6.00); RBC Distribution Width 13.3 % (11.8-14.1); White Blood Cell Count 8.88 k/cumm (4.4-10.8)
[2019-09-22 06:32] LABS: Anion Gap 9.3 mmol/L (3-11); BUN 5 mg/dL (7-18); CO2 28.7 mmol/L (21.0-32.0); Calcium 9.1 mg/dL (8.5-10.1); Chloride 103 mmol/L (98-107); Glucose 100 mg/dL (70-100); Magnesium 1.8 mg/dL (1.8-2.4); Potassium 3.9 mmol/L (3.5-5.1); Sodium 141 mmol/L (136-145)
--- NOTE | 2019-09-22 08:09 | PT.INNT ---
Date of service: 09/22/19 Time of Service: 08:09 PT Notes 09/22/19 Patient continues to be unable to participate in PT, and continues to be placed on a medical hold from PT. Patient will likely be discharged from PT services at this point.
[2019-09-22] MEDS: Multivitamin TAB 1 TAB PO (08:20)
[2019-09-22] MEDS: chlordiazePOXIDE 25 MG CAP 50 MG PO ×4 (08:20→23:23)
[2019-09-22] MEDS: buPROPion-CR 150 MG TABCR PO ×2 (08:20→22:57)
[2019-09-22] MEDS: Folic Acid 1 MG TAB PO (08:21)
[2019-09-22] MEDS: Metoprolol CR 50 MG TABCR PO (08:21)
[2019-09-22] MEDS: Lurasidone 40 MG TAB 80 MG PO (08:21)
[2019-09-22] MEDS: Cyanocobalamin 500 MCG TAB 1000 MCG PO (08:21)
[2019-09-22] MEDS: amLODIPine 5 MG TAB PO (08:21)
[2019-09-22] MEDS: Thiamine 100 MG TAB PO (08:22)
[2019-09-22] MEDS: Gabapentin 600 MG TAB 1200 MG PO ×2 (08:22→22:57)
[2019-09-22] MEDS: DULoxetine 30 MG CAP PO (08:22)
--- NOTE | 2019-09-22 08:54 | PT.INDS ---
Date of service: 09/22/19 Time of Service: 08:54 PT Notes Inpatient Physical Therapy Discharge Summary Dates: 09/22/2019 Dates of Service: 09/19/2019 only This is a clinical summary of care provided on the duration of dates listed above. No charge was made in the completion of this documentation. Referring Doctor: Bobbi Tilley MD PT Orders: PT CONSULT: Limited ability Precautions: Fall. Standard. Activity as tolerated. Patient Profile/Admitting Diagnosis:Patient has been withdrawing from alcohol intoxication and has been put on hold for physical therapy services since 09/20/2019 until today. Patient will be re-evaluated once he becomes appropriate for skilled services. Patient is a 54-year-old male who was found outside the [employer] parking lot in the morning of 09/17/2019 due to a fall. Patient is diagnosed with hypothermia, alcohol intoxication, and closed head injury. CT of the head/neck showed no acute intracranial process and no acute cervical fracture. X-ray of the knee showed no bony abnormality/fracture. PMHX: Unobtainable at this time Social History/Home Situation: Patient lives with a group of people which he refers to as the [place] people and in a house with no stairs to enter. He has not used any assistive ambulatory device previously. He states that his family is in [place]. Equipment Owned/DME: None Subjective: NT Objective: General Observation: NT Mental Status: NT Pain: NT ROM: As of time of evaluation only Right Upper Extremity: Shoulder Flexion WFL. Shoulder abduction WFL. Elbow flexion WFL. Wrist flexion WFL. Opening and closing of hand WFL. Left Upper Extremity: Shoulder Flexion WFL. Shoulder abduction WFL. Elbow flexion WFL. Wrist flexion WFL. Opening and closing of hand WFL. Right Lower Extremity: Hip flexion WFL. Hip abduction WFL. Knee flexion WFL. Ankle dorsiflexion WFL. Ankle plantarflexion WFL. Left Lower Extremity: Hip flexion WFL. Hip abduction WFL. Knee flexion WFL. Ankle dorsiflexion WFL. Ankle plantarflexion WFL. Strength: As of time of evaluation only Right Upper Extremity: Shoulder flexors 4/5. Shoulder abductors 4/5. Elbow flexors 4/5. Elbow extensors 4/5. [employer] strong. Left Upper Extremity: Shoulder flexors 4/5. Shoulder abductors 4/5. Elbow flexors 4/5. Elbow extensors 4/5. [employer] strong. Right Lower Extremity: Hip flexors 35. Hip abductors 3/5. Knee flexors 3/5. Knee extensors 3/5. Ankle dorsiflexors 3/5. Ankle plantarflexors 3/5. Left Lower Extremity: Hip flexors 35. Hip abductors 3/5. Knee flexors 3/5. Knee extensors 3/5. Ankle dorsiflexors 3/5. Ankle plantarflexors 3/5. Sensation: Intact as to pain and pressure on bilateral lower extremities. Bed Mobility/Transfers: As of time of evaluation only Rolling CGA Supine to sit CGA Sit to supine CGA Sit to stand minimal assist Stand to sit minimal assist Bed to chair minimal assist Chair to bed minimal assist Gait: On the day of evaluation, patient was only able to tolerate short distance ambulation to transfer from bedside to chair inside his room only doing 3 steps +2 side steps +2 step backs using his front wheeled walker and minimal assist of this PT. Verbal cueing required as patient tends to be impulsive. Balance: Static Sitting: Good Dynamic Sitting: Good Static Standing: Fair Dynamic Standing: Fair Assessment: Patient is a 54-year-old male who was found outside the [facility] parking lot in the morning of 09/17/2019 due to a fall. Patient is diagnosed with hypothermia, alcohol intoxication, and closed head injury. Level of motivation is low with patient requiring encouragement to participate in therapy. Patient has been withdrawing from alcohol intoxication and has been put on hold for physical therapy services since 09/20/2019 until today. Patient will be re-evaluated once he becomes appropriate for skilled services. Patient continues to present with clinical signs and symptoms consistent with current/admitting diagnoses that have resulted to mobility limitations, gait instability, generalized weakness, and impairment of motor control as demonstrated by the following impairment level findings: 1. Decreased strength to B LE major muscle groups 2. Impaired sitting/standing balance 3. Impaired activity tolerance Impairments continue to contribute to the following functional limitations: 1. Dependent bed mobility skills 2. Increased dependence with transfers 3. Inability to safely ambulate without assistive device and physical assistance 4. Increase completion time for mobility ADL performance 5. Increased fall risk 6. Inability to negotiate steps alone safely Goals: Goals X1 week 1. Supine-Sit independent NOT MET 2. Sit-Supine independent NOT MET 3. Sit-Stand independent NOT MET 4. Stand-Sit independent NOT MET 5. Bed-Chair independent NOT MET 6. Chair-Bed independent NOT MET 7. Independent gait on level surface with use of least restrictive device for at least 300 feet without report of pain nor dyspnea NOT MET 8. Independent with home exercise program NOT MET 9. Good static and dynamic standing balance/tolerance NOT MET DISCHARGE RECOMMENDATIONS: Patient will be re-evaluated once he becomes appropriate for session participation. Patient will benefit from home health PT services in order to progress mobility level using least restrictive assistive ambulatory device, assess home safety, identify additional equipment needs, and establish a functional maintenance program that will increase ability of patient to remain at home. TREATMENT CODE/TIME: NC. Thank you very much for this referral. Keisha Bar PT, DPT, CLT [facility]
--- NOTE | 2019-09-22 09:30 | CMPROGNOTE_ITS ---
Care Management Progress Note S/O: Harshal continues to be treated for withdrawal symptoms, he has been introduced to a silver recovery operator previously. CM will continue to assess and when he is able to engage contact the silver recovery operator to meet with him again. Julissa ARMSTRONG RN called to report she is scheduled to see him tomorrow at 1300. CM agreed to update Erika with Harshal's ability to meaningfully engage in the morning. Erika reported V[facility]ctor Viera was willing to have a conversation with Harshal prior to his discharge regarding the possibility of his returning; but are non-committal at this point. CM continues to follow. A: 54 y.o. male currently receiving ICU level of care. Admitted for hypothermia and alcohol intoxication. Actively withdrawing from alcohol. P: Housing status will be attended to prior to discharge. Harshal may need to utilize the warming custodial upon discharge. He had been staying at the [facility] sober living facility in [facility]; hopefully this can be revisited prior to discharge as NATHANIEL James RN reports returning may be an option. CM will assist in contacting [facility] Brito coordinator to determine if this continues to be an option.
--- NOTE | 2019-09-22 16:11 | PGE_ITS ---
Date of Service Date of service: 09/22/19 Time of Service: 16:11 Assessment and Plan Assessment and plan (1) Alcohol withdrawal: Status: Acute Assessment and plan: Hx EtOH abuse - reports abstinence for a number of months, relapsed due to increased recent stressors. - Continue to maintain on CIWA protocol. - Additional IV Lorazepam if needed. - Continue MVI, thiamine, FA. - Continue standing Chlordiazepoxide. - Consider benzo gtt if needed. - Continue to monitor closely, with treatment as above. Consider (2) Alcohol intoxication: Status: Acute Assessment and plan: Initial presentation - resolved. (3) Hypothermia: Status: Resolved Assessment and plan: Resolved. Mildly elevated CPK improved with hydration. (4) Hypothyroid: Status: Chronic Assessment and plan: TSH low at admission. Patient is on relatively high dose replacement therapy, with Levothyroxine on hold currently. Plan on resuming soon with lower dosage, and repeat TSH in the near future as an outpatient. (5) HTN (hypertension): Status: Chronic Assessment and plan: Continue BB therapy, and reinitiated CCB as well. Blood Pressure currently elevated in setting of acute withdrawl - initiated prn hydralazine as well. (6) Bipolar disorder: Status: Chronic Assessment and plan: Continue home regimen of Latuda, Vyvance. Also on therapy for depression with SNRI and Bupropion. (7) DVT prophylaxis: Status: Acute Assessment and plan: Continue SC Heparin, PPI for GI Prophylaxis. Subjective Subjective Interval history since last seen: 54 year old alcohol man admitted from [facility] Emergency Department on 09/17 with a diagnosis of Hypothermia and altered mental status. Mr. Juarez has a past Medical History significant for EtOH Abuse with prior withdrawl and seizures, bipolar disorder, HTN, and Hypothyroidism. The patient was found unresponsive in a local parking lot, with bottles of alcohol and listerine in his possession. Work-up in the ED was significant for initial evidence of hypothermia, mildly elevated Lactate (2.7), mild hyponatremia, mild ly elevated CPK (500-600 range), and a BAL of 242. UDS was also checked and negative, as were CT of the head and neck and knee xrays. He was admitted for further evaluation and treatment. On prior exam Mr. Juarez had appeared oriented and appropriate - however, began having elevated CIWA scoring, worsening agitation, and hallucinations overnight on 09/20, and has required increasing doses of Ativan. He is currently comfortable appearing, sedated but easily arousable - however requiring high doses of Ativan. Patient remains afebrile. Exam Narrative Exam Narrative: General: Patient appears somnolent, lying in bed, responsive to verbal stimuli. Vascular: No lower extremity edema. Objective Objective Clinical Data: Abnormal lab results 09/22/19 09/22/19 Range/Units 05:49 05:49 Absolute Monocytes 0.83 H (0.11-0.7) k/cumm BUN 5 L (7-18) mg/dL Vital Signs Temperature 37.0 C 09/22/19 11:45 Temperature Source Temporal Artery Scan 09/22/19 11:45 Pulse 64 09/22/19 12:01 Pulse 65 09/22/19 12:01 Respiratory Rate 18 09/22/19 12:01 Respiratory Effort 09/22/19 11:45 Respiratory Depth Normal 09/22/19 11:45 Respiratory Pattern Normal 09/22/19 07:45 Blood Pressure 127/74 09/22/19 12:01 Blood Pressure Mean 86 09/22/19 12:01 Blood Pressure Position Sitting 09/21/19 08:25 Pulse Oximetry 94 L 09/22/19 11:25 Oxygen Delivery Method Room Air 09/22/19 11:45 Oxygen Flow Rate 0 09/22/19 11:45 Pain Level 0 09/22/19 08:54 Comment 09/17/19 14:02 Intake & Output 09/21/19 09/22/19 09/22/19 23:59 11:59 23:59 Intake Total 1050 / 2994.167 1814.584 / 1814.584 0 / 1814.584 Output Total 1750 / 4310 2350 / 2575 225 / 2575 Balance -700 / -1315.833 -535.416 / -760.416 -225 / -760.416 Weight 64 kg Intake: IV 1000 / 2704.167 1814.584 / 1814.584 0 / 1814.584 Oral 50 / 290 Output: Urine 1750 / 4310 2350 / 2575 225 / 2575 Other: Urine Color Pale Yellow Yellow Yellow Urine Appearance Clear Clear Clear Comment black to gravity with light colored yellow urine Black in place Laboratory Results WBC 8.88 k/cumm (4.4-10.8) 09/22/19 05:49 RBC 4.59 m/cumm (4.50-6.00) 09/22/19 05:49 Hgb 14.2 g/dL (13.5-17.5) 09/22/19 05:49 Hct 41.6 % (40.0-50.0) 09/22/19 05:49 MCV 90.6 fL (80-95) 09/22/19 05:49 MCH 30.9 pg (27.0-33.0) 09/22/19 05:49 MCHC 34.1 g/dL (32.0-36.0) 09/22/19 05:49 RDW 13.3 % (11.8-14.1) 09/22/19 05:49 Plt Count 197 x1000/uL (130-400) 09/22/19 05:49 MPV 10.4 fL (8.0-11.0) 09/22/19 05:49 Immature Gran % 0.2 09/22/19 05:49 Neutrophils % 55.0 09/22/19 05:49 Lymphocytes % 27.7 09/22/19 05:49 Monocytes % 9.3 09/22/19 05:49 Eosinophils % 6.3 09/22/19 05:49 Basophils % 1.5 09/22/19 05:49 Absolute Neutrophils 4.88 k/cumm (1.2-6.7) 09/22/19 05:49 Absolute Lymphocytes 2.46 k/cumm (1.2-3.4) 09/22/19 05:49 Absolute Monocytes 0.83 k/cumm (0.11-0.7) H 09/22/19 05:49 Absolute Eosinophils 0.56 k/cumm (0.0-0.7) 09/22/19 05:49 Absolute Basophils 0.13 k/cumm (0.0-0.2) 09/22/19 05:49 PT 11.0 sec (9.3-11.0) 09/17/19 06:30 INR 1.1 (0.9-1.1) 09/17/19 06:30 APTT 29.2 sec (21.0-31.4) 09/17/19 06:30 VBG pH 7.30 (7.32-7.43) L 09/17/19 06:30 VBG pCO2 58 mm/Hg (34-47) H 09/17/19 06:30 VBG pO2 26 mm/Hg (28-44) L 09/17/19 06:30 VBG HCO3 28 mmol/L (22-28) 09/17/19 06:30 VBG Total CO2 25 mmol/L (22-29) 09/17/19 06:30 VBG O2 Saturation 43 % (70-80) L 09/17/19 06:30 VBG Base Excess 1.8 mmol/L (-3-3) 09/17/19 06:30 Sodium 141 mmol/L (136-145) 09/22/19 05:49 Potassium 3.9 mmol/L (3.5-5.1) 09/22/19 05:49 Chloride 103 mmol/L (98-107) 09/22/19 05:49 Carbon Dioxide 28.7 mmol/L (21.0-32.0) 09/22/19 05:49 Anion Gap 9.3 mmol/L (3-11) 09/22/19 05:49 BUN 5 mg/dL (7-18) L 09/22/19 05:49 Creatinine 0.80 mg/dL (0.70-1.30) 09/22/19 05:49 Estimated GFR/1.73 m2 >= 60.00 (mL/min/1.73m2) 09/22/19 05:49 Glucose 100 mg/dL (70-100) 09/22/19 05:49 Serum Osmolality 329 mOsm/kg (275-295) H 09/17/19 06:30 Lactate 0.9 mmol/L (0.6-1.4) 09/18/19 07:00 Calcium 9.1 mg/dL (8.5-10.1) 09/22/19 05:49 Magnesium 1.8 mg/dL (1.8-2.4) 09/22/19 05:49 Total Bilirubin 0.8 mg/dL (0.2-1.0) 09/18/19 07:00 Conjugated Bilirubin 0.15 mg/dL (0.00-0.20) 09/18/19 07:00 AST 26 U/L (15-37) 09/18/19 07:00 ALT 21 U/L (16-63) 09/18/19 07:00 Alkaline Phosphatase 64 U/L (46-116) 09/18/19 07:00 Ammonia 14 umol/L (11-32) 09/17/19 06:30 Creatine Kinase 324 U/L (39-308) H 09/19/19 06:08 Troponin I < 0.05 ng/mL (0.00-0.06) 09/17/19 06:30 Total Protein 6.2 g/dL (6.4-8.2) L 09/18/19 07:00 Albumin 3.4 g/dL (3.4-5.0) 09/18/19 07:00 Vitamin B12 584 pg/mL (193-986) 09/18/19 07:00 Folate 18.8 ng/mL (8.6-20.0) 09/18/19 07:00 TSH 0.10 uIU/mL (0.36-3.74) L 09/18/19 07:00 Free T4 1.29 ng/dL (0.76-1.46) 09/18/19 07:00 Urine Color Yellow (Yellow) 09/17/19 07:20 Urine Clarity Clear (Clear) 09/17/19 07:20 Urine pH 6.0 (5-8) 09/17/19 07:20 Ur Specific [place] 1.015 (1.005-1.025) 09/17/19 07:20 Urine Protein 100 mg/dL (Negative) H 09/17/19 07:20 Urine Ketones Negative mg/dL (Negative) 09/17/19 07:20 Urine Blood Small (Negative) H 09/17/19 07:20 Urine Nitrite Negative (Negative) 09/17/19 07:20 Urine Bilirubin Negative (Negative) 09/17/19 07:20 Urine Urobilinogen 0.2 EU/dL (Up TO 0.2) 09/17/19 07:20 Ur Leukocyte Esterase Negative (Negative) 09/17/19 07:20 Urine RBC 3-5 (0-2) H 09/17/19 07:20 Urine WBC Negative HPF (0-5) 09/17/19 07:20 Ur Epithelial Cells Few HPF (Negative) 09/17/19 07:20 Urine Crystals Negative HPF (Negative) 09/17/19 07:20 Urine Bacteria Rare HPF (Negative) 09/17/19 07:20 Urine Casts Negative LPF (Negative) 09/17/19 07:20 Urine Mucus Negative (Negative) 09/17/19 07:20 Ur Culture Indicated? No 09/17/19 07:20 Urine Osmolality 303 mosm/Kg (150-1150) 09/17/19 07:20 Urine Glucose Negative mg/dL (Negative) 09/17/19 07:20 Urine Opiates Screen Negative (Negative) 09/17/19 07:20 Urine Methadone Screen Negative (Negative) 09/17/19 07:20 Ur Barbiturates Screen Negative (Negative) 09/17/19 07:20 Ur Tricyclics Screen Negative (Negative) 09/17/19 07:20 Ur Amphetamines Screen Negative (Negative) 09/17/19 07:20 U Benzodiazepines Scrn Negative (Negative) 09/17/19 07:20 Urine Cocaine Screen Negative (Negative) 09/17/19 07:20 Ur THC Screen Negative (Negative) 09/17/19 07:20 Ethyl Alcohol 242.7 mg/dL (<3) 09/17/19 06:30
[2019-09-22] MEDS: Pantoprazole 40 MG VIAL IVP (17:27)
[2019-09-23] VITALS (32 sets, daily range): BP systolic 97–146; BP diastolic 68–109; PULSE 59–94; RESP 12–20; TEMP 36.6–38.6; O2SAT 94–98
[2019-09-23] MEDS: LORazepam 1 MG TAB PO/SL ×3 (00:48→23:15)
[2019-09-23] MEDS: Heparin 5,000 UNITS/ML VIAL 5000 UNITS SC ×3 (04:50→18:54)
[2019-09-23] MEDS: Lactated Ringers 1,000 ML 200 ML IV (05:24)
[2019-09-23 06:58] LABS: Abs Immature Grans 0.03 k/cumm (0.0-0.09); Absolute Basophil Count 0.09 k/cumm (0.0-0.2); Absolute Eosinophil Count 0.56 k/cumm (0.0-0.7); Absolute Lymphocyte Count 2.66 k/cumm (1.2-3.4); Absolute Neutrophil Count 5.79 k/cumm (1.2-6.7); Basophils % 0.9; Eosinophils % 5.5; HGB 14.1 g/dL (13.5-17.5); Immature Grans % 0.3; Lymphocytes % 26.3; Mean Corp. HGB Concentration 34.4 g/dL (32.0-36.0); Mean Corpuscular Hemoglobin 31.2 pg (27.0-33.0); Mean Corpuscular Volume 90.7 fL (80-95); Mean Platelet Volume 10.5 fL (8.0-11.0); Monocytes % 9.9; Neutrophils % 57.1; Platelet Count 196 x1000/uL (130-400); RBC 4.52 m/cumm (4.50-6.00); RBC Distribution Width 13.6 % (11.8-14.1); White Blood Cell Count 10.13 k/cumm (4.4-10.8)
[2019-09-23 07:11] LABS: Anion Gap 7.6 mmol/L (3-11); BUN 7 mg/dL (7-18); CO2 30.4 mmol/L (21.0-32.0); Calcium 8.9 mg/dL (8.5-10.1); Chloride 103 mmol/L (98-107); Glucose 93 mg/dL (70-100); Magnesium 1.7 mg/dL (1.8-2.4); Potassium 3.7 mmol/L (3.5-5.1); Sodium 141 mmol/L (136-145)
--- NOTE | 2019-09-23 07:23 | NUR.NOTE ---
Judy has roused during 6:30am rounds by this RN. He is restless and talkative. He has intent to get out of bed. He is slow to accept redirection. This RN chose to permit the pt to go without any sedating medications with regards to the expressed wishes of Dr. Escobar during his incoming phone call to the ICU at 2120 last night. Reported to oncoming nurses in the pt's room this am. The pt has been remaining pleasant and cooperative during report. The time is now 0720; the pt is now sleeping calmly. Note:
[2019-09-23] MEDS: Lurasidone 40 MG TAB 80 MG PO (08:16)
[2019-09-23] MEDS: chlordiazePOXIDE 25 MG CAP 50 MG PO ×3 (08:16→19:41)
[2019-09-23] MEDS: buPROPion-CR 150 MG TABCR PO ×2 (08:16→19:40)
[2019-09-23] MEDS: Gabapentin 600 MG TAB 1200 MG PO ×3 (08:16→19:40)
[2019-09-23] MEDS: DULoxetine 30 MG CAP PO (08:16)
[2019-09-23] MEDS: Thiamine 100 MG TAB PO (08:16)
[2019-09-23] MEDS: Multivitamin TAB 1 TAB PO (08:16)
[2019-09-23] MEDS: amLODIPine 5 MG TAB PO (08:17)
[2019-09-23] MEDS: Metoprolol CR 50 MG TABCR PO (08:17)
[2019-09-23] MEDS: Folic Acid 1 MG TAB PO (08:17)
[2019-09-23] MEDS: Cyanocobalamin 500 MCG TAB 1000 MCG PO (08:17)
[2019-09-23] MEDS: Magnesium Oxide 400 MG TAB 800 MG PO (09:51)
[2019-09-23] MEDS: POTASSIUM CHLORIDE 20 MEQ, POTASSIUM CHLORIDE 10 MEQ 30 MEQ PO (09:51)
[2019-09-23] MEDS: Docusate Sodium 100 MG CAP PO (10:36)
[2019-09-23] MEDS: Normal Saline Flush 10 ML SYR IVP ×2 (11:11→16:58)
[2019-09-23] MEDS: Lactated Ringers 1,000 ML 100 ML IV (13:09)
--- NOTE | 2019-09-23 13:12 | PGE_ITS ---
Date of Service Date of service: 09/23/19 Time of Service: 13:12 Assessment and Plan Assessment and plan (1) Alcohol withdrawal: Status: Acute Assessment and plan: Hx EtOH abuse - reports abstinence for a number of months, relapsed due to increased recent stressors. Reported history of withdrawl and seizures. - Continue to maintain on CIWA protocol. - Additional IV Lorazepam if needed. - Continue MVI, thiamine, FA. - Continue standing Chlordiazepoxide. - Consider benzo gtt if needed. - Continue to monitor closely, with treatment as above. Appears to be improving, with goals for lightening his benzo therapy through the day today for evaluation of mental status and withdrawl severity. (2) Alcohol intoxication: Status: Acute Assessment and plan: Initial presentation - resolved. (3) Hypothermia: Status: Resolved Assessment and plan: Resolved. Mildly elevated CPK improved with hydration. (4) Hypothyroid: Status: Chronic Assessment and plan: TSH low at admission. Patient is on relatively high dose replacement therapy, with Levothyroxine on hold currently. Plan on resuming soon with lower dosage, and repeat TSH in the near future as an outpatient. (5) HTN (hypertension): Status: Chronic Assessment and plan: Continue BB therapy, and reinitiated CCB as well. Blood Pressure previously elevated in setting of acute withdrawl, vastly improved. (6) Bipolar disorder: Status: Chronic Assessment and plan: Continue home regimen of Lora [place]. Also on therapy for depression with SNRI and Bupropion. (7) DVT prophylaxis: Status: Acute Assessment and plan: Continue SC Heparin, PPI for GI Prophylaxis. Subjective Subjective Interval history since last seen: 54 year old alcohol man admitted from [facility] Emergency Department on 09/17 with a diagnosis of Hypothermia and altered mental status. Mr. Juarez has a past Medical History significant for EtOH Abuse with prior withdrawl and seizures, bipolar disorder, HTN, and Hypothyroidism. The patient was found unresponsive in a local parking lot, with bottles of alcohol and listerine in his possession. Work-up in the ED was significant for initial evidence of hypothermia, mildly elevated Lactate (2.7), mild hyponatremia, mildly elevated CPK (500-600 range), and a BAL of 242. UDS was also checked and negative, as were CT of the head and neck and knee xrays. He was admitted for further evaluation and treatment. The patient had begun scoring high on CIWA, with worsening agitation and hallucinations overnight on 09/20. He required increasing and significant doses of Ativan, and was gently sedated to the point of appearing comfortable but remaining easily arousable - was able to tolerate his oral meds as well as some food per nursing. His blood pressure has improved significantly this morning, and he has not required further benzo therapy since last night. No overnight events reported. He remains afebrile. Exam Narrative Exam Narrative: General: Patient is awake, sitting up OOB in chair, eating breakfast. Not yet back to baseline, but answering questions appropriately. Neck: Supple CV: Regular, nontachycardic, S1S2, No rubs, murmurs, or gallops. Pulmonary: Clear to auscultation bilaterally, no crackles, wheezing, or rhonchi on exam limited by patient cooperation Abdomen: + Bowel Sounds, soft, nontender, nondistended Vascular: No lower extremity edema. Objective Objective Clinical Data: Abnormal lab results 09/23/19 09/23/19 Range/Units 06:18 06:18 Absolute Monocytes 1.00 H (0.11-0.7) k/cumm Magnesium 1.7 L (1.8-2.4) mg/dL Vital Signs Temperature 36.8 C 09/23/19 11:34 Temperature Source Temporal Artery Scan 09/23/19 11:34 Pulse 77 09/23/19 11:34 Pulse 63 09/23/19 09:01 Respiratory Rate 17 09/23/19 11:34 Respiratory Effort Incrsd Work of Breathing 09/23/19 11:34 Respiratory Depth Normal 09/23/19 08:54 Respiratory Pattern Normal 09/23/19 11:34 Blood Pressure 116/85 09/23/19 11:34 Blood Pressure Mean 95 09/23/19 11:34 Blood Pressure Position Sitting 09/23/19 11:34 Pulse Oximetry 96 09/23/19 11:34 Oxygen Delivery Method Room Air 09/23/19 11:34 Oxygen Flow Rate 0 09/23/19 11:34 Pain Level 0 09/23/19 08:54 Comment 09/17/19 14:02 Intake & Output 09/22/19 09/23/19 09/23/19 23:59 11:59 23:59 Intake Total 1137.916 / 2952.500 2600.0 / 2600.0 Output Total 225 / 2575 1730 / 1730 Balance 912.916 / 377.500 870.0 / 870.0 Weight 65.5 kg Intake: IV 897.916 / 2712.500 2000.0 / 2000.0 Oral 240 / 240 600 / 600 Output: Urine 225 / 2575 1730 / 1730 Other: Urine Color Yellow Pale Yellow Urine Appearance Clear Clear Comment Skinner is patent and draining clear yellow urine. Pump rate increased to 200ml/hr Laboratory Results WBC 10.13 k/cumm (4.4-10.8) 09/23/19 06:18 RBC 4.52 m/cumm (4.50-6.00) 09/23/19 06:18 Hgb 14.1 g/dL (13.5-17.5) 09/23/19 06:18 Hct 41.0 % (40.0-50.0) 09/23/19 06:18 MCV 90.7 fL (80-95) 09/23/19 06:18 MCH 31.2 pg (27.0-33.0) 09/23/19 06:18 MCHC 34.4 g/dL (32.0-36.0) 09/23/19 06:18 RDW 13.6 % (11.8-14.1) 09/23/19 06:18 Plt Count 196 x1000/uL (130-400) 09/23/19 06:18 MPV 10.5 fL (8.0-11.0) 09/23/19 06:18 Immature Gran % 0.3 09/23/19 06:18 Neutrophils % 57.1 09/23/19 06:18 Lymphocytes % 26.3 09/23/19 06:18 Monocytes % 9.9 09/23/19 06:18 Eosinophils % 5.5 09/23/19 06:18 Basophils % 0.9 09/23/19 06:18 Absolute Neutrophils 5.79 k/cumm (1.2-6.7) 09/23/19 06:18 Absolute Lymphocytes 2.66 k/cumm (1.2-3.4) 09/23/19 06:18 Absolute Monocytes 1.00 k/cumm (0.11-0.7) H 09/23/19 06:18 Absolute Eosinophils 0.56 k/cumm (0.0-0.7) 09/23/19 06:18 Absolute Basophils 0.09 k/cumm (0.0-0.2) 09/23/19 06:18 PT 11.0 sec (9.3-11.0) 09/17/19 06:30 INR 1.1 (0.9-1.1) 09/17/19 06:30 APTT 29.2 sec (21.0-31.4) 09/17/19 06:30 VBG pH 7.30 (7.32-7.43) L 09/17/19 06:30 VBG pCO2 58 mm/Hg (34-47) H 09/17/19 06:30 VBG pO2 26 mm/Hg (28-44) L 09/17/19 06:30 VBG HCO3 28 mmol/L (22-28) 09/17/19 06:30 VBG Total CO2 25 mmol/L (22-29) 09/17/19 06:30 VBG O2 Saturation 43 % (70-80) L 09/17/19 06:30 VBG Base Excess 1.8 mmol/L (-3-3) 09/17/19 06:30 Sodium 141 mmol/L (136-145) 09/23/19 06:18 Potassium 3.7 mmol/L (3.5-5.1) 09/23/19 06:18 Chloride 103 mmol/L (98-107) 09/23/19 06:18 Carbon Dioxide 30.4 mmol/L (21.0-32.0) 09/23/19 06:18 Anion Gap 7.6 mmol/L (3-11) 09/23/19 06:18 BUN 7 mg/dL (7-18) 09/23/19 06:18 Creatinine 0.80 mg/dL (0.70-1.30) 09/23/19 06:18 Estimated GFR/1.73 m2 >= 60.00 (mL/min/1.73m2) 09/23/19 06:18 Glucose 93 mg/dL (70-100) 09/23/19 06:18 Serum Osmolality 329 mOsm/kg (275-295) H 09/17/19 06:30 Lactate 0.9 mmol/L (0.6-1.4) 09/18/19 07:00 Calcium 8.9 mg/dL (8.5-10.1) 09/23/19 06:18 Magnesium 1.7 mg/dL (1.8-2.4) L 09/23/19 06:18 Total Bilirubin 0.8 mg/dL (0.2-1.0) 09/18/19 07:00 Conjugated Bilirubin 0.15 mg/dL (0.00-0.20) 09/18/19 07:00 AST 26 U/L (15-37) 09/18/19 07:00 ALT 21 U/L (16-63) 09/18/19 07:00 Alkaline Phosphatase 64 U/L (46-116) 09/18/19 07:00 Ammonia 14 umol/L (11-32) 09/17/19 06:30 Creatine Kinase 324 U/L (39-308) H 09/19/19 06:08 Troponin I < 0.05 ng/mL (0.00-0.06) 09/17/19 06:30 Total Protein 6.2 g/dL (6.4-8.2) L 09/18/19 07:00 Albumin 3.4 g/dL (3.4-5.0) 09/18/19 07:00 Vitamin B12 584 pg/mL (193-986) 09/18/19 07:00 Folate 18.8 ng/mL (8.6-20.0) 09/18/19 07:00 TSH 0.10 uIU/mL (0.36-3.74) L 09/18/19 07:00 Free T4 1.29 ng/dL (0.76-1.46) 09/18/19 07:00 Urine Color Yellow (Yellow) 09/17/19 07:20 Urine Clarity Clear (Clear) 09/17/19 07:20 Urine pH 6.0 (5-8) 09/17/19 07:20 Ur Specific [place] 1.015 (1.005-1.025) 09/17/19 07:20 Urine Protein 100 mg/dL (Negative) H 09/17/19 07:20 Urine Ketones Negative mg/dL (Negative) 09/17/19 07:20 Urine Blood Small (Negative) H 09/17/19 07:20 Urine Nitrite Negative (Negative) 09/17/19 07:20 Urine Bilirubin Negative (Negative) 09/17/19 07:20 Urine Urobilinogen 0.2 EU/dL (Up TO 0.2) 09/17/19 07:20 Ur Leukocyte Esterase Negative (Negative) 09/17/19 07:20 Urine RBC 3-5 (0-2) H 09/17/19 07:20 Urine WBC Negative HPF (0-5) 09/17/19 07:20 Ur Epithelial Cells Few HPF (Negative) 09/17/19 07:20 Urine Crystals Negative HPF (Negative) 09/17/19 07:20 Urine Bacteria Rare HPF (Negative) 09/17/19 07:20 Urine Casts Negative LPF (Negative) 09/17/19 07:20 Urine Mucus Negative (Negative) 09/17/19 07:20 Ur Culture Indicated? No 09/17/19 07:20 Urine Osmolality 303 mosm/Kg (150-1150) 09/17/19 07:20 Urine Glucose Negative mg/dL (Negative) 09/17/19 07:20 Urine Opiates Screen Negative (Negative) 09/17/19 07:20 Urine Methadone Screen Negative (Negative) 09/17/19 07:20 Ur Barbiturates Screen Negative (Negative) 09/17/19 07:20 Ur Tricyclics Screen Negative (Negative) 09/17/19 07:20 Ur Amphetamines Screen Negative (Negative) 09/17/19 07:20 U Benzodiazepines Scrn Negative (Negative) 09/17/19 07:20 Urine Cocaine Screen Negative (Negative) 09/17/19 07:20 Ur THC Screen Negative (Negative) 09/17/19 07:20 Ethyl Alcohol 242.7 mg/dL (<3) 09/17/19 06:30
--- NOTE | 2019-09-23 13:55 | NUR.NOTE ---
1353: Pt found on floor lying on his left side in front of his chair where he had been sitting in just prior. No visible injuries. No complaints of pain. Pt denies any pain. Pt reports he was attempting to leave and his feet got tangled. 2 RNs assisted patient to stand without difficulty and assisted patient back to his chair. Dr Escobar and Maria Elena Mcpherson RN boat cleaning supervisor updated via text message. Maria Elena Mcpherson RN checked in with this RN and patient in his room 220. Temp 37.1, Hr 81, RR 18, 02 sat 98% BP 104/68 OMAR.
--- NOTE | 2019-09-23 14:07 | NUR.NOTE ---
1407: Neuro's assessed. Pupils 4mm equal and reactive. Pt was questioned if any hurts pt reports his head hurts he locates in the back of his head. Pt reports his left elbow hurts. Pt reports his left wrist hurts. Pt also reports his right hand hurts. Pt has equal movements in all extremities. Pt is otherwise sitting up in his chair quietly.
--- NOTE | 2019-09-23 14:23 | NUR.NOTE ---
1420: Ate 1/2 egg salad sandwich and 240cc of milk with some assistance. Scheduled Gabapentin and Librium given as ordered. No complaints or signs of discomfort while sitting up eating lunch with RN assist. Asking to take an walk to smoke a cigarette. Able to redirect, although patient does not retain redirection given. RN has remained in the room since incident of patient being found on the floor.
--- NOTE | 2019-09-23 14:37 | NUR.NOTE ---
1437: Text sent to Dr. Escobar requesting him to call this RN regarding patient. Currently patient is sitting up in a chair without any complaints and no signs of distress. Pt is alert to self and occasionally remembers he is in the hospital, continues to ask to leave for a smoke and or a beer.
--- NOTE | 2019-09-23 15:45 | DI.CT_ITS ---
EXAM: CT HEAD WO CLINICAL HISTORY: Found on floor in his room 220 TECHNIQUE: WO CONTRAST COMPARISON: CT HEAD AND CERVICAL SPINE WO from 09/17/2019 FINDINGS: There is patient motion artifact. No acute intracranial hemorrhage or skull fracture is present. The ventricles are intact. The basilar cisterns are patent. There is an area of encephalomalacia involving the left frontal lobe. There is mucosal thickening in the maxillary sinuses. The remaining visualized paranasal sinuses are clear. No fluid levels are seen in the sinuses. The mastoid air cells are well pneumatized. IMPRESSION: No acute intracranial process.
[2019-09-23] MEDS: Pantoprazole 40 MG VIAL IVP (16:58)
--- NOTE | 2019-09-23 17:18 | CMPROGNOTE_ITS ---
Care Management Progress Note S/O: Harshal continues to be treated for withdrawal symptoms, and will have work up for a fall in the ICU today. CM will continue to assess and when Harshal is able to engage, CM will contact reading recovery teacher to meet with him again. Julissa ARMSTRONG RN called to report she plans to follow him in the community. CM agreed to update Erika with Harshal's ability to meaningfully engage in the morning. Erika reported Víctor Viera was willing to have a conversation with Harshal prior to his discharge regarding the possibility of his returning; but are non-committal at this point. CM continues to follow. A: 54 y.o. male currently receiving ICU level of care. Admitted for hypothermia and alcohol intoxication. Actively withdrawing from alcohol. P: Housing status will be attended to prior to discharge. Harshal may need to utilize the warming long term upon discharge. He had been staying at the [facility] facility in [facility]; hopefully this can be revisited prior to discharge as NATHANIEL James RN reports returning may be an option. CM will assist in contacting Víctor Brito coordinator to determine if this continues to be an option.
[2019-09-23] MEDS: traMADol 50 MG TAB PO (19:40)
[2019-09-24] VITALS (32 sets, daily range): BP systolic 104–161; BP diastolic 59–103; PULSE 71–100; RESP 14–25; TEMP 36.9–38; O2SAT 91–96
[2019-09-24] MEDS: Lactated Ringers 1,000 ML 100 ML IV ×3 (00:15→20:08)
[2019-09-24] MEDS: LORazepam 1 MG TAB PO/SL ×2 (04:49→21:43)
[2019-09-24] MEDS: Heparin 5,000 UNITS/ML VIAL 5000 UNITS SC ×3 (04:50→17:46)
[2019-09-24 06:57] LABS: Abs Immature Grans 0.02 k/cumm (0.0-0.09); Absolute Basophil Count 0.09 k/cumm (0.0-0.2); Absolute Eosinophil Count 0.46 k/cumm (0.0-0.7); Absolute Neutrophil Count 5.28 k/cumm (1.2-6.7); Basophils % 0.9; Eosinophils % 4.8; HCT 38.1 % (40.0-50.0); HGB 12.9 g/dL (13.5-17.5); Immature Grans % 0.2; Lymphocytes % 27.2; Mean Corp. HGB Concentration 33.9 g/dL (32.0-36.0); Mean Corpuscular Hemoglobin 30.9 pg (27.0-33.0); Mean Corpuscular Volume 91.4 fL (80-95); Mean Platelet Volume 10.7 fL (8.0-11.0); Monocytes % 11.5; Neutrophils % 55.4; Platelet Count 205 x1000/uL (130-400); RBC 4.17 m/cumm (4.50-6.00); RBC Distribution Width 13.4 % (11.8-14.1); White Blood Cell Count 9.55 k/cumm (4.4-10.8)
[2019-09-24 07:06] LABS: Anion Gap 8.3 mmol/L (3-11); BUN 8 mg/dL (7-18); CO2 28.7 mmol/L (21.0-32.0); CREATININE 0.85 mg/dL (0.70-1.30); Calcium 8.7 mg/dL (8.5-10.1); Chloride 103 mmol/L (98-107); Glucose 93 mg/dL (70-100); Magnesium 1.6 mg/dL (1.8-2.4); Potassium 3.8 mmol/L (3.5-5.1); Sodium 140 mmol/L (136-145)
[2019-09-24] MEDS: Lurasidone 40 MG TAB 80 MG PO (07:44)
[2019-09-24] MEDS: buPROPion-CR 150 MG TABCR PO ×2 (07:45→19:40)
[2019-09-24] MEDS: DULoxetine 30 MG CAP PO (07:45)
[2019-09-24] MEDS: Cyanocobalamin 500 MCG TAB 1000 MCG PO (07:45)
[2019-09-24] MEDS: chlordiazePOXIDE 25 MG CAP 50 MG PO ×3 (07:45→19:40)
[2019-09-24] MEDS: Gabapentin 600 MG TAB 1200 MG PO ×3 (07:45→19:40)
[2019-09-24] MEDS: Metoprolol CR 50 MG TABCR PO (07:48)
[2019-09-24] MEDS: amLODIPine 5 MG TAB PO (07:48)
[2019-09-24] MEDS: Folic Acid 1 MG TAB PO (07:48)
--- NOTE | 2019-09-24 08:38 | PDOC.CMPRO ---
- If Service Date Differs Date of service: 09/24/19 Time of Service: 08:38 Care Management Progress Note S/O: Harshal is currently receiving ICU level of care as he continues to actively withdraw from alcohol. 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 His level of alertness is improving but he remains confused, requiring frequent re-orientation to location. CM will continue to follow. A: Harshal is a 54 year old male who was admitted to [facility] on 09/17/2019 for hypothermia and alcohol intoxication. P: Harshal will be discharged when medically cleared by provider. He will resume case management services with NATHANIEL James RN, upon discharge. His housing status will be addressed prior to his discharge from [facility]. Harshal had been staying at the [facility] sober living facility but it is currently unclear if he will be able to return. - MH Services (Omit if N/A) Current MH Services: [facility] (Psychiatric medication management and therapy.)
[2019-09-24] MEDS: Potassium Chloride 20 MEQ TABCR PO ×2 (10:49→11:30)
[2019-09-24] MEDS: MAGNESIUM SULFATE 2 GM/50 ML BAG IVPB (11:10)
--- NOTE | 2019-09-24 14:22 | PGE_ITS ---
Date of Service Date of service: 09/24/19 Time of Service: 14:22 Assessment and Plan Assessment and plan (1) Alcohol withdrawal: Status: Acute Assessment and plan: Hx EtOH abuse - reports abstinence for a number of months, relapsed due to increased recent stressors. Reported history of withdrawl and seizures. Alcohol intake prior to admission was significant. - Continue to maintain on CIWA protocol. - Additional IV Lorazepam if needed, but attempting to decrease dosing. - Continue MVI, thiamine, FA. - Continue standing Chlordiazepoxide. - Continue to monitor closely, with treatment as above. Appears to be improving, with goals for lightening his benzo therapy through the day today for evaluation of mental status and withdrawl severity. Not back to baseline currently. (2) Alcohol intoxication: Status: Acute Assessment and plan: Initial presentation - resolved. (3) Hypothermia: Status: Resolved Assessment and plan: Resolved. Mildly elevated CPK improved with hydration. (4) Hypothyroid: Status: Chronic Assessment and plan: TSH low at admission. Patient is on relatively high dose replacement therapy, with Levothyroxine on hold since time of admission. Resume at lower dose today, and repeat TSH in the near future as an outpatient. (5) HTN (hypertension): Status: Chronic Assessment and plan: Continue BB therapy, and reinitiated CCB as well. Blood Pressure previously elevated in setting of acute withdrawl, vastly improved. (6) Bipolar disorder: Status: Chronic Assessment and plan: Continue home regimen of Latuda, Vyvance. Also on therapy for depression with SNRI and Bupropion. (7) DVT prophylaxis: Status: Acute Assessment and plan: Continue SC Heparin, PPI for GI Prophylaxis. Subjective Subjective Interval history since last seen: 54 year old alcohol man admitted from [facility] Emergency Department on 09/17 with a diagnosis of Hypothermia and altered mental status. Mr. Juarez has a past Medical History significant for EtOH Abuse with prior withdrawl and seizures, bipolar disorder, HTN, and Hypothyroidism. The patient was found unresponsive in a local parking lot, with bottles of alcohol and listerine in his possession. Work-up in the ED was significant for initial evidence of hypothermia, mildly elevated Lactate (2.7), mild hyponatremia, mildly elevated CPK (500-600 range), and a BAL of 242. UDS was also checked and negative, as were CT of the head and neck and knee xrays. He was admitted for further evaluation and treatment. The patient had begun scoring high on CIWA, with worsening agitation and hallucinations overnight on 09/20. He required increasing and significant doses of Ativan, and was gently sedated to the point of appearing comfortable but remaining easily arousable - was able to tolerate his oral meds as well as intake of food during that time per nursing. His blood pressure has improved significantly, and he has not required as high of benzo therapy as previously. He does continue to appear altered and not at baseline, but is awake, interactive, and without diaphoresis, significant tremors, or hypertension. He suffered a fall yesterday, with a negative CT Head. No overnight events reported. He remains afebrile. Exam Narrative Exam Narrative: General: Patient is awake, sitting up in bed,. Mental status not back to baseline, but answering questions appropriately. Neck: Supple CV: Regular, nontachycardic, S1S2, No rubs, murmurs, or gallops. Pulmonary: Clear to auscultation bilaterally, no crackles, wheezing, or rhonchi on exam limited by patient cooperation Abdomen: + Bowel Sounds, soft, nontender, nondistended Vascular: No lower extremity edema. Objective Objective Clinical Data: Abnormal lab results 09/24/19 09/24/19 Range/Units 06:10 06:10 RBC 4.17 L (4.50-6.00) m/cumm Hgb 12.9 L (13.5-17.5) g/dL Hct 38.1 L (40.0-50.0) % Absolute Monocytes 1.10 H (0.11-0.7) k/cumm Magnesium 1.6 L (1.8-2.4) mg/dL Vital Signs Temperature 36.9 C 09/24/19 11:41 Temperature Source Temporal Artery Scan 09/24/19 11:41 Pulse 73 09/24/19 11:00 Pulse 73 09/24/19 11:00 Respiratory Rate 14 09/24/19 11:00 Respiratory Effort 09/24/19 11:41 Respiratory Depth Normal 09/24/19 11:41 Respiratory Pattern Normal 09/24/19 11:41 Blood Pressure 117/73 09/24/19 11:00 Blood Pressure Mean 83 09/24/19 11:00 Blood Pressure Position Supine 09/24/19 07:36 Pulse Oximetry 95 11/14/19 07:36 Oxygen Delivery Method Room Air 09/24/19 11:41 Oxygen Flow Rate 0 09/24/19 11:41 Pain Level 0 09/24/19 06:51 Comment 09/17/19 14:02 Intake & Output 09/23/19 09/24/19 09/24/19 23:59 11:59 23:59 Intake Total 1390 / 3990.0 1500 / 1500 Output Total 800 / 2530 2200 / 2200 Balance 590 / 1460.0 -700 / -700 Weight 65 kg Intake: IV 1000 / 3000.0 1000 / 1000 Oral 390 / 990 500 / 500 Output: Urine 800 / 2530 2200 / 2200 Other: Urine Color Pale Yellow Yellow Urine Appearance Clear Clear Comment Indwelling Skinner catheter. Skinner draining clear, yellow urine Stool Occult Blood Negative Stool Size Large Stool Characteristics Soft Formed Brown Laboratory Results WBC 9.55 k/cumm (4.4-10.8) 09/24/19 06:10 RBC 4.17 m/cumm (4.50-6.00) L 09/24/19 06:10 Hgb 12.9 g/dL (13.5-17.5) L 09/24/19 06:10 Hct 38.1 % (40.0-50.0) L 09/24/19 06:10 MCV 91.4 fL (80-95) 09/24/19 06:10 MCH 30.9 pg (27.0-33.0) 09/24/19 06:10 MCHC 33.9 g/dL (32.0-36.0) 09/24/19 06:10 RDW 13.4 % (11.8-14.1) 09/24/19 06:10 Plt Count 205 x1000/uL (130-400) 09/24/19 06:10 MPV 10.7 fL (8.0-11.0) 09/24/19 06:10 Immature Gran % 0.2 09/24/19 06:10 Neutrophils % 55.4 09/24/19 06:10 Lymphocytes % 27.2 09/24/19 06:10 Monocytes % 11.5 09/24/19 06:10 Eosinophils % 4.8 09/24/19 06:10 Basophils % 0.9 09/24/19 06:10 Absolute Neutrophils 5.28 k/cumm (1.2-6.7) 09/24/19 06:10 Absolute Lymphocytes 2.60 k/cumm (1.2-3.4) 09/24/19 06:10 Absolute Monocytes 1.10 k/cumm (0.11-0.7) H 09/24/19 06:10 Absolute Eosinophils 0.46 k/cumm (0.0-0.7) 09/24/19 06:10 Absolute Basophils 0.09 k/cumm (0.0-0.2) 09/24/19 06:10 PT 11.0 sec (9.3-11.0) 09/17/19 06:30 INR 1.1 (0.9-1.1) 09/17/19 06:30 APTT 29.2 sec (21.0-31.4) 09/17/19 06:30 VBG pH 7.30 (7.32-7.43) L 09/17/19 06:30 VBG pCO2 58 mm/Hg (34-47) H 09/17/19 06:30 VBG pO2 26 mm/Hg (28-44) L 09/17/19 06:30 VBG HCO3 28 mmol/L (22-28) 09/17/19 06:30 VBG Total CO2 25 mmol/L (22-29) 09/17/19 06:30 VBG O2 Saturation 43 % (70-80) L 09/17/19 06:30 VBG Base Excess 1.8 mmol/L (-3-3) 09/17/19 06:30 Sodium 140 mmol/L (136-145) 09/24/19 06:10 Potassium 3.8 mmol/L (3.5-5.1) 09/24/19 06:10 Chloride 103 mmol/L (98-107) 09/24/19 06:10 Carbon Dioxide 28.7 mmol/L (21.0-32.0) 09/24/19 06:10 Anion Gap 8.3 mmol/L (3-11) 09/24/19 06:10 BUN 8 mg/dL (7-18) 09/24/19 06:10 Creatinine 0.85 mg/dL (0.70-1.30) 09/24/19 06:10 Estimated GFR/1.73 m2 >= 60.00 (mL/min/1.73m2) 09/24/19 06:10 Glucose 93 mg/dL (70-100) 09/24/19 06:10 Serum Osmolality 329 mOsm/kg (275-295) H 09/17/19 06:30 Lactate 0.9 mmol/L (0.6-1.4) 09/18/19 07:00 Calcium 8.7 mg/dL (8.5-10.1) 09/24/19 06:10 Magnesium 1.6 mg/dL (1.8-2.4) L 09/24/19 06:10 Total Bilirubin 0.8 mg/dL (0.2-1.0) 09/18/19 07:00 Conjugated Bilirubin 0.15 mg/dL (0.00-0.20) 09/18/19 07:00 AST 26 U/L (15-37) 09/18/19 07:00 ALT 21 U/L (16-63) 09/18/19 07:00 Alkaline Phosphatase 64 U/L (46-116) 09/18/19 07:00 Ammonia 14 umol/L (11-32) 09/17/19 06:30 Creatine Kinase 324 U/L (39-308) H 09/19/19 06:08 Troponin I < 0.05 ng/mL (0.00-0.06) 09/17/19 06:30 Total Protein 6.2 g/dL (6.4-8.2) L 09/18/19 07:00 Albumin 3.4 g/dL (3.4-5.0) 09/18/19 07:00 Vitamin B12 584 pg/mL (193-986) 09/18/19 07:00 Folate 18.8 ng/mL (8.6-20.0) 09/18/19 07:00 TSH 0.10 uIU/mL (0.36-3.74) L 09/18/19 07:00 Free T4 1.29 ng/dL (0.76-1.46) 09/18/19 07:00 Urine Color Yellow (Yellow) 09/17/19 07:20 Urine Clarity Clear (Clear) 09/17/19 07:20 Urine pH 6.0 (5-8) 09/17/19 07:20 Ur Specific [place] 1.015 (1.005-1.025) 09/17/19 07:20 Urine Protein 100 mg/dL (Negative) H 09/17/19 07:20 Urine Ketones Negative mg/dL (Negative) 09/17/19 07:20 Urine Blood Small (Negative) H 09/17/19 07:20 Urine Nitrite Negative (Negative) 09/17/19 07:20 Urine Bilirubin Negative (Negative) 09/17/19 07:20 Urine Urobilinogen 0.2 EU/dL (Up TO 0.2) 09/17/19 07:20 Ur Leukocyte Esterase Negative (Negative) 09/17/19 07:20 Urine RBC 3-5 (0-2) H 09/17/19 07:20 Urine WBC Negative HPF (0-5) 09/17/19 07:20 Ur Epithelial Cells Few HPF (Negative) 09/17/19 07:20 Urine Crystals Negative HPF (Negative) 09/17/19 07:20 Urine Bacteria Rare HPF (Negative) 09/17/19 07:20 Urine Casts Negative LPF (Negative) 09/17/19 07:20 Urine Mucus Negative (Negative) 09/17/19 07:20 Ur Culture Indicated? No 09/17/19 07:20 Urine Osmolality 303 mosm/Kg (150-1150) 09/17/19 07:20 Urine Glucose Negative mg/dL (Negative) 09/17/19 07:20 Urine Opiates Screen Negative (Negative) 09/17/19 07:20 Urine Methadone Screen Negative (Negative) 09/17/19 07:20 Ur Barbiturates Screen Negative (Negative) 09/17/19 07:20 Ur Tricyclics Screen Negative (Negative) 09/17/19 07:20 Ur Amphetamines Screen Negative (Negative) 09/17/19 07:20 U Benzodiazepines Scrn Negative (Negative) 09/17/19 07:20 Urine Cocaine Screen Negative (Negative) 09/17/19 07:20 Ur THC Screen Negative (Negative) 09/17/19 07:20 Ethyl Alcohol 242.7 mg/dL (<3) 09/17/19 06:30
[2019-09-24] MEDS: Pantoprazole 40 MG VIAL IVP (17:45)
[2019-09-24] MEDS: Normal Saline Flush 10 ML SYR IVP (17:46)
[2019-09-24] MEDS: traMADol 50 MG TAB PO (19:40)
[2019-09-24] MEDS: LORazepam 2 MG/ML VIAL IVP (19:51)
[2019-09-25] VITALS (61 sets, daily range): BP systolic 86–135; BP diastolic 57–96; PULSE 58–87; RESP 12–28; TEMP 36.4–36.9; O2SAT 92–98
[2019-09-25] MEDS: Lidocaine 2% Jelly 6 ML SYR (05:53)
[2019-09-25] MEDS: Levothyroxine 150 MCG TAB PO (06:04)
[2019-09-25 06:51] LABS: Abs Immature Grans 0.02 k/cumm (0.0-0.09); Absolute Basophil Count 0.12 k/cumm (0.0-0.2); Absolute Eosinophil Count 0.53 k/cumm (0.0-0.7); Absolute Lymphocyte Count 2.61 k/cumm (1.2-3.4); Absolute Monocyte Count 1.11 k/cumm (0.11-0.7); Absolute Neutrophil Count 4.82 k/cumm (1.2-6.7); Basophils % 1.3; Eosinophils % 5.8; HCT 41.2 % (40.0-50.0); HGB 13.9 g/dL (13.5-17.5); Immature Grans % 0.2; Lymphocytes % 28.3; Mean Corp. HGB Concentration 33.7 g/dL (32.0-36.0); Mean Corpuscular Hemoglobin 30.8 pg (27.0-33.0); Mean Corpuscular Volume 91.4 fL (80-95); Mean Platelet Volume 10.1 fL (8.0-11.0); Monocytes % 12.1; Neutrophils % 52.3; Platelet Count 232 x1000/uL (130-400); RBC 4.51 m/cumm (4.50-6.00); RBC Distribution Width 13.5 % (11.8-14.1); White Blood Cell Count 9.21 k/cumm (4.4-10.8)
[2019-09-25 06:56] LABS: Anion Gap 8.6 mmol/L (3-11); BUN 11 mg/dL (7-18); CO2 28.4 mmol/L (21.0-32.0); CREATININE 0.83 mg/dL (0.70-1.30); Calcium 9.4 mg/dL (8.5-10.1); Chloride 101 mmol/L (98-107); Glucose 98 mg/dL (70-100); Magnesium 1.9 mg/dL (1.8-2.4); Potassium 3.7 mmol/L (3.5-5.1); Sodium 138 mmol/L (136-145)
[2019-09-25] MEDS: POTASSIUM CHLORIDE 20 MEQ, POTASSIUM CHLORIDE 10 MEQ 30 MEQ PO (08:43)
[2019-09-25] MEDS: Metoprolol CR 50 MG TABCR PO (08:43)
[2019-09-25] MEDS: chlordiazePOXIDE 25 MG CAP 50 MG PO ×3 (08:43→19:58)
[2019-09-25] MEDS: Folic Acid 1 MG TAB PO (08:44)
[2019-09-25] MEDS: Gabapentin 600 MG TAB 1200 MG PO ×3 (08:44→19:57)
[2019-09-25] MEDS: DULoxetine 30 MG CAP PO (08:44)
[2019-09-25] MEDS: Lurasidone 40 MG TAB 80 MG PO (08:44)
[2019-09-25] MEDS: buPROPion-CR 150 MG TABCR PO ×2 (08:44→19:58)
[2019-09-25] MEDS: Cyanocobalamin 500 MCG TAB 1000 MCG PO (08:44)
[2019-09-25] MEDS: amLODIPine 5 MG TAB PO (08:45)
[2019-09-25] MEDS: Heparin 5,000 UNITS/ML VIAL 5000 UNITS SC ×2 (09:20→19:33)
--- NOTE | 2019-09-25 09:56 | CMPROGNOTE_ITS ---
- If Service Date Differs Date of service: 09/25/19 Time of Service: 09:56 Care Management Progress Note S/O: Harshal continues to require ICU level of care due to active alcohol withdrawal. His mental status is improving but is not back to baseline yet. He is also struggling with his fine motor skills. Harshal expresses concerns around an upcoming surgical appointment at the [facility] on Sunday, September 29, 2019. CM assists patient in confirming the status of that appointment which has been cancelled by the [facility]ine [facility] due to Harshal missing his pre-op appointments. CM will continue to follow. A: Harshal is a 54 year old male admitted to [facility] on 09/17/2019 for hypothermia and alcohol intoxication. P: Harshal will be discharged when medically cleared by provider. His housing status will be attended to prior to discharge. He had been staying at the [facility] in [facility] but whether he can return to the facility is unclear at this time. Harshal may need to utilize the warming fci upon discharge. CM will continue to follow.
[2019-09-25] MEDS: Lactated Ringers 1,000 ML 999 ML IV (11:15)
[2019-09-25 12:10] LABS: Bilirubin Small (Negative); Blood Moderate (Negative); Clarity Clear (Clear); Glucose Negative (Negative); Ketones Negative (Negative); Leukocyte Esterase Negative (Negative); Nitrite Negative (Negative); Specific Gravity >= 1.030 (1.005-1.025); Urobilinogen 0.2 EU/dL (Up TO 0.2); pH 5.5 (5-8)
[2019-09-25 12:24] LABS: Bacteria Rare HPF (Negative); C & S Indicated? No; Casts Negative LPF (Negative); Crystals Negative HPF (Negative); Epithelial Cells Rare HPF (Negative); Mucus Negative (Negative); WBC 0-2 HPF (0-5)
--- NOTE | 2019-09-25 12:46 | PGE_ITS ---
Date of Service Date of service: 09/25/19 Time of Service: 12:47 Assessment and Plan Assessment and plan (1) Fever: Status: Acute Assessment and plan: One time occurance of fever overnight, in patient with black in place and altered from a mental status standpoint. - No evidence of leukocytosis, and has remained afebrile so far today. - Urinalysis checked and negative for infection. - Check CXR to ensure lack of infiltrate. (2) Alcohol withdrawal: Status: Acute Assessment and plan: Hx EtOH abuse - reports abstinence for a number of months, relapsed due to increased recent stressors. Reported history of withdrawl and seizures. Alcohol intake prior to admission was significant. - Continue to maintain on CIWA protocol. - Additional IV Lorazepam now discontinued. - Continue MVI, thiamine, FA. - Continue standing Chlordiazepoxide, but wean as able. - Continue to monitor closely, with treatment as above. Appears to be improving, with goals for lightening his benzo therapy, and continued monitoring of mental status and withdrawl severity. Not back to baseline currently, but appears improved. (3) Alcohol intoxication: Status: Acute Assessment and plan: Initial presentation - resolved. (4) Hypothermia: Status: Resolved Assessment and plan: Resolved. Mildly elevated CPK improved with hydration. (5) Hypothyroid: Status: Chronic Assessment and plan: TSH low at admission. Patient was on relatively high dose replacement therapy, with Levothyroxine on hold since time of admission. Resume at lower dose yesterday, and repeat TSH in the near future as an outpatient. (6) HTN (hypertension): Status: Chronic Assessment and plan: Continue BB therapy, and reinitiated CCB as well. Blood Pressure previously elevated in setting of acute withdrawl, vastly improved, now mildly low. Will hold CCB again, and continue IVFs. (7) Bipolar disorder: Status: Chronic Assessment and plan: Continue home regimen of Latuda, Vyvance. Also on therapy for depression with SNRI and Bupropion. (8) DVT prophylaxis: Status: Acute Assessment and plan: Continue SC Heparin, PPI for GI Prophylaxis. Subjective Subjective Interval history since last seen: 54 year old alcohol man admitted from [facility] Emergency Department on 09/17 with a diagnosis of Hypothermia and altered mental status. Mr. Juarez has a past Medical History significant for EtOH Abuse with prior withdrawl and seizures, bipolar disorder, HTN, and Hypothyroidism. The patient was found unresponsive in a local parking lot, with bottles of alcohol and listerine in his possession. Work-up in the ED was significant for initial evidence of hypothermia, mildly elevated Lactate (2.7), mild hyponatremia, mildly elevated CPK (500-600 range), and a BAL of 242. UDS was also checked and negative, as were CT of the head and neck and knee xrays. He was admitted for further evaluation and treatment. The patient had begun scoring high on CIWA, with worsening agitation and hallucinations overnight on 09/20. He required increasing and significant doses of Ativan, and was gently sedated to the point of appearing comfortable but remaining easily arousable - was able to tolerate his oral meds as well as intake of food during that time per nursing. His blood pressure improved significantly, and he has not required as high of benzo therapy as previously. His ativan was decreased, and patient appears more awake and interactive this morning. He does continue to appear altered and not at baseline, but is awake, interactive, and without diaphoresis, significant tremors, or hypertension. He suffered a fall previously while in the ICU, with a negative CT Head. One time low grade fever of 38 overnight. No other events reported. Exam Narrative Exam Narrative: General: Patient is awake, sitting up in bed,. Mental status not back to baseline, but answering questions appropriately. Neck: Supple CV: Regular, nontachycardic, S1S2, No rubs, murmurs, or gallops. Pulmonary: Clear to auscultation bilaterally, no crackles, wheezing, or rhonchi on exam limited by patient cooperation Abdomen: + Bowel Sounds, soft, nontender, nondistended Vascular: No lower extremity edema. Objective Objective Clinical Data: Abnormal lab results 09/25/19 09/25/19 Range/Units 06:05 11:01 Absolute Monocytes 1.11 H (0.11-0.7) k/cumm Ur Specific [place] >= 1.030 H (1.005-1.025) Urine Protein 30 H (Negative) mg/dL Urine Blood Moderate H (Negative) Urine Bilirubin Small H (Negative) Urine RBC 10-20 H (0-2) HPF Vital Signs Temperature 36.6 C 09/25/19 11:30 Temperature Source Temporal Artery Scan 09/25/19 11:30 Pulse 66 09/25/19 11:19 Pulse 68 09/25/19 11:19 Respiratory Rate 15 09/25/19 11:19 Respiratory Effort Non-Labored 09/25/19 11:30 Respiratory Depth Normal 09/25/19 11:30 Respiratory Pattern Normal 09/25/19 11:30 Blood Pressure 92/59 L 09/25/19 11:19 Blood Pressure Mean 67 09/25/19 11:19 Blood Pressure Position Supine 09/24/19 07:36 Pulse Oximetry 97 09/25/19 08:20 Oxygen Delivery Method Room Air 09/25/19 08:20 Oxygen Flow Rate 0 09/25/19 08:20 Pain Level 0 09/24/19 23:40 Comment 09/17/19 14:02 Intake & Output 09/24/19 09/25/19 09/25/19 23:59 11:59 23:59 Intake Total 1513.334 / 3013.334 300 / 300 Output Total 3550 / 5750 750 / 750 Balance -2036.666 / -2736.666 -450 / -450 Weight 64.4 kg Intake: IV 898.334 / 1898.334 Oral 615 / 1115 300 / 300 Output: Urine 3550 / 5750 750 / 750 Other: Urine Color Pale Dark Malaika Urine Appearance Clear Clear Comment Black in place. Clear yellow urine Dr. Escobar notified of poor urine output (60ml in past 6 hours). Bladder scanner showed 15ml in bladder with black in place. U/A sent Laboratory Results WBC 9.21 k/cumm (4.4-10.8) 09/25/19 06:05 RBC 4.51 m/cumm (4.50-6.00) 09/25/19 06:05 Hgb 13.9 g/dL (13.5-17.5) 09/25/19 06:05 Hct 41.2 % (40.0-50.0) 09/25/19 06:05 MCV 91.4 fL (80-95) 09/25/19 06:05 MCH 30.8 pg (27.0-33.0) 09/25/19 06:05 MCHC 33.7 g/dL (32.0-36.0) 09/25/19 06:05 RDW 13.5 % (11.8-14.1) 09/25/19 06:05 Plt Count 232 x1000/uL (130-400) 09/25/19 06:05 MPV 10.1 fL (8.0-11.0) 09/25/19 06:05 Immature Gran % 0.2 09/25/19 06:05 Neutrophils % 52.3 09/25/19 06:05 Lymphocytes % 28.3 09/25/19 06:05 Monocytes % 12.1 09/25/19 06:05 Eosinophils % 5.8 09/25/19 06:05 Basophils % 1.3 09/25/19 06:05 Absolute Neutrophils 4.82 k/cumm (1.2-6.7) 09/25/19 06:05 Absolute Lymphocytes 2.61 k/cumm (1.2-3.4) 09/25/19 06:05 Absolute Monocytes 1.11 k/cumm (0.11-0.7) H 09/25/19 06:05 Absolute Eosinophils 0.53 k/cumm (0.0-0.7) 09/25/19 06:05 Absolute Basophils 0.12 k/cumm (0.0-0.2) 09/25/19 06:05 PT 11.0 sec (9.3-11.0) 09/17/19 06:30 INR 1.1 (0.9-1.1) 09/17/19 06:30 APTT 29.2 sec (21.0-31.4) 09/17/19 06:30 VBG pH 7.30 (7.32-7.43) L 09/17/19 06:30 VBG pCO2 58 mm/Hg (34-47) H 09/17/19 06:30 VBG pO2 26 mm/Hg (28-44) L 09/17/19 06:30 VBG HCO3 28 mmol/L (22-28) 09/17/19 06:30 VBG Total CO2 25 mmol/L (22-29) 09/17/19 06:30 VBG O2 Saturation 43 % (70-80) L 09/17/19 06:30 VBG Base Excess 1.8 mmol/L (-3-3) 09/17/19 06:30 Sodium 138 mmol/L (136-145) 09/25/19 06:05 Potassium 3.7 mmol/L (3.5-5.1) 09/25/19 06:05 Chloride 101 mmol/L (98-107) 09/25/19 06:05 Carbon Dioxide 28.4 mmol/L (21.0-32.0) 09/25/19 06:05 Anion Gap 8.6 mmol/L (3-11) 09/25/19 06:05 BUN 11 mg/dL (7-18) 09/25/19 06:05 Creatinine 0.83 mg/dL (0.70-1.30) 09/25/19 06:05 Estimated GFR/1.73 m2 >= 60.00 (mL/min/1.73m2) 09/25/19 06:05 Glucose 98 mg/dL (70-100) 09/25/19 06:05 Serum Osmolality 329 mOsm/kg (275-295) H 09/17/19 06:30 Lactate 0.9 mmol/L (0.6-1.4) 09/18/19 07:00 Calcium 9.4 mg/dL (8.5-10.1) 09/25/19 06:05 Magnesium 1.9 mg/dL (1.8-2.4) 09/25/19 06:05 Total Bilirubin 0.8 mg/dL (0.2-1.0) 09/18/19 07:00 Conjugated Bilirubin 0.15 mg/dL (0.00-0.20) 09/18/19 07:00 AST 26 U/L (15-37) 09/18/19 07:00 ALT 21 U/L (16-63) 09/18/19 07:00 Alkaline Phosphatase 64 U/L (46-116) 09/18/19 07:00 Ammonia 14 umol/L (11-32) 09/17/19 06:30 Creatine Kinase 324 U/L (39-308) H 09/19/19 06:08 Troponin I < 0.05 ng/mL (0.00-0.06) 09/17/19 06:30 Total Protein 6.2 g/dL (6.4-8.2) L 09/18/19 07:00 Albumin 3.4 g/dL (3.4-5.0) 09/18/19 07:00 Vitamin B12 584 pg/mL (193-986) 09/18/19 07:00 Folate 18.8 ng/mL (8.6-20.0) 09/18/19 07:00 TSH 0.10 uIU/mL (0.36-3.74) L 09/18/19 07:00 Free T4 1.29 ng/dL (0.76-1.46) 09/18/19 07:00 Urine Color Yellow (Yellow) 09/25/19 11:01 Urine Clarity Clear (Clear) 09/25/19 11:01 Urine pH 5.5 (5-8) 09/25/19 11:01 Ur Specific [place] >= 1.030 (1.005-1.025) H 09/25/19 11:01 Urine Protein 30 mg/dL (Negative) H 09/25/19 11:01 Urine Ketones Negative mg/dL (Negative) 09/25/19 11:01 Urine Blood Moderate (Negative) H 09/25/19 11:01 Urine Nitrite Negative (Negative) 09/25/19 11:01 Urine Bilirubin Small (Negative) H 09/25/19 11:01 Urine Urobilinogen 0.2 EU/dL (Up TO 0.2) 09/25/19 11:01 Ur Leukocyte Esterase Negative (Negative) 09/25/19 11:01 Urine RBC 10-20 HPF (0-2) H 09/25/19 11:01 Urine WBC 0-2 HPF (0-5) 09/25/19 11:01 Ur Epithelial Cells Rare HPF (Negative) 09/25/19 11:01 Urine Crystals Negative HPF (Negative) 09/25/19 11:01 Urine Bacteria Rare HPF (Negative) 09/25/19 11:01 Urine Casts Negative LPF (Negative) 09/25/19 11:01 Urine Mucus Negative (Negative) 09/25/19 11:01 Ur Culture Indicated? No 09/25/19 11:01 Urine Osmolality 303 mosm/Kg (150-1150) 09/17/19 07:20 Urine Glucose Negative mg/dL (Negative) 09/25/19 11:01 Urine Opiates Screen Negative (Negative) 09/17/19 07:20 Urine Methadone Screen Negative (Negative) 09/17/19 07:20 Ur Barbiturates Screen Negative (Negative) 09/17/19 07:20 Ur Tricyclics Screen Negative (Negative) 09/17/19 07:20 Ur Amphetamines Screen Negative (Negative) 09/17/19 07:20 U Benzodiazepines Scrn Negative (Negative) 09/17/19 07:20 Urine Cocaine Screen Negative (Negative) 09/17/19 07:20 Ur THC Screen Negative (Negative) 09/17/19 07:20 Ethyl Alcohol 242.7 mg/dL (<3) 09/17/19 06:30
[2019-09-25] MEDS: Normal Saline 1,000 ML 100 ML IV ×2 (13:00→22:12)
--- NOTE | 2019-09-25 13:19 | DI.RAD_ITS ---
EXAM: XR PORTABLE CHEST AP INDICATION: Fever. COMPARISON: No exams were available for comparison TECHNIQUE: 2D digital imaging was performed. FINDINGS: The heart size and pulmonary vasculature are within normal limits. The lungs are clear. No effusion or pneumothorax is identified. There is elevation of the left hemidiaphragm. Degenerative changes are seen in the spine. There are old right rib fractures. IMPRESSION: No acute pulmonary process.
[2019-09-25] MEDS: Magnesium Oxide 400 MG TAB PO (16:40)
[2019-09-25] MEDS: Pantoprazole 40 MG VIAL IVP (16:40)
[2019-09-25] MEDS: LORazepam 1 MG TAB PO/SL ×2 (16:40→19:56)
--- NOTE | 2019-09-25 19:47 | NUR.NOTE ---
Patient was scheduled to have a back fusion at [facility] on 09/29. However this was cancelled by [facility] because the patient did not have his pre-op done. The patient needs to have an appointment scheduled with his PCP at [facility]/C if he is of the [facility] to have the procedure done soon. Cami from the [facility] in [facility] will be in contact as to how the patient is doing at D/ for offering him housing. Nursing Note:
[2019-09-25] MEDS: traMADol 50 MG TAB PO (19:57)
[2019-09-25] MEDS: Nystatin 500000 UNITS/5 ML SUSP 5ML CUP PO (20:01)
[2019-09-26] VITALS (30 sets, daily range): BP systolic 88–127; BP diastolic 57–81; PULSE 55–82; RESP 12–19; TEMP 36.6–36.8; O2SAT 91–94
[2019-09-26] MEDS: Heparin 5,000 UNITS/ML VIAL 5000 UNITS SC ×3 (02:14→22:16)
[2019-09-26] MEDS: LORazepam 1 MG TAB PO/SL (02:24)
[2019-09-26] MEDS: Normal Saline 1,000 ML 125 ML IV ×3 (05:55→23:13)
[2019-09-26] MEDS: Levothyroxine 150 MCG TAB PO (06:00)
[2019-09-26 06:49] LABS: Abs Immature Grans 0.03 k/cumm (0.0-0.09); Absolute Basophil Count 0.08 k/cumm (0.0-0.2); Absolute Lymphocyte Count 2.68 k/cumm (1.2-3.4); Absolute Monocyte Count 1.04 k/cumm (0.11-0.7); Absolute Neutrophil Count 4.89 k/cumm (1.2-6.7); Basophils % 0.9; Eosinophils % 6.4; HGB 13.2 g/dL (13.5-17.5); Immature Grans % 0.3; Lymphocytes % 28.8; Mean Corpuscular Hemoglobin 30.7 pg (27.0-33.0); Mean Platelet Volume 10.4 fL (8.0-11.0); Monocytes % 11.2; Neutrophils % 52.4; Platelet Count 212 x1000/uL (130-400); RBC Distribution Width 13.7 % (11.8-14.1); White Blood Cell Count 9.32 k/cumm (4.4-10.8)
[2019-09-26 07:15] LABS: Anion Gap 8.3 mmol/L (3-11); BUN 12 mg/dL (7-18); CO2 28.7 mmol/L (21.0-32.0); CREATININE 0.98 mg/dL (0.70-1.30); Calcium 8.9 mg/dL (8.5-10.1); Chloride 104 mmol/L (98-107); Glucose 92 mg/dL (70-100); Magnesium 1.8 mg/dL (1.8-2.4); Potassium 4.6 mmol/L (3.5-5.1); Sodium 141 mmol/L (136-145)
--- NOTE | 2019-09-26 08:15 | CMPROGNOTE_ITS ---
- If Service Date Differs Date of service: 09/26/19 Time of Service: 08:15 Care Management Progress Note S/O: Harshal remains in ICU as he continues to actively withdraw from alcohol. He is sitting up in bed eating breakfast when CM meets with him. His speech is improved but he continues to struggle with fine motor skills. He shares that walking is also challenging for him and says he fell this morning but was not injured. He is oriented to person and place but is unable to say why he is in the hospital. CM continues to follow. A: Harshal is a 54 year old male admitted to [facility] on 09/17/2019 for hypothermia and alcohol intoxication. P: Harshal's housing status will need to be addressed prior to his discharge from [facility]. NATHANIEL Wood logistics engineering manager, can assist in exploring whether he can return to the [facility] facility in [facility] where he was staying prior to this hospitalization. If returning to [facility] is not an option, Harshal will need to utilize the warming longterm. CM continues to follow.
--- NOTE | 2019-09-26 08:24 | W.PM.PROGNOT ---
Date of Service Date of service: 09/26/19 Time of Service: 14:56 Assessment and Plan Assessment and plan (1) Spinal stenosis of lumbar region: Status: Acute Assessment and plan: My worry is that this problem has progressed to the point of requiring more urgent intervention - I am worried about cord impingement. Will obtain a STAT CT of the lumbar spine. Will discuss results with [facility] spine surgery. I suspect the patient would have to have his surgery on inpatient basis rather than routine outpatient. (2) Alcohol withdrawal: Status: Acute Assessment and plan: Not requiring any additional ativan on top of his scheduled librium today. If remains stable overnight as well, would start weaning librium. Continue thiamine, MVI (3) Alcohol intoxication: Status: Resolved Assessment and plan: Initial presentation - resolved. (4) Hypothermia: Status: Resolved Assessment and plan: Resolved. Mildly elevated CPK improved with hydration. No sign of frostbite. (5) Hypothyroid: Status: Chronic Assessment and plan: TSH low at admission. Continue lower dose synthroid. (6) HTN (hypertension): Status: Chronic Assessment and plan: Continue BB, CCB. D/c IVF. (7) Bipolar disorder: Status: Chronic Assessment and plan: Continue home regimen of Latuda, Vyvance. Also on therapy for depression with SNRI and Bupropion. (8) Discharge planning issues: Status: Acute Assessment and plan: Full code depending on workup of LE weakness/back pain, may require transfer to [facility] for inpatient back surgery. (9) DVT prophylaxis: Status: Acute Assessment and plan: Heparin SC Subjective Subjective Interval history since last seen: A&Ox2, semi controlled fall this morning when trying to get out of bed - sat on his buttocks on the floor. Describes severe lower back pain and BLE numbness/tingling. Now admits to having had difficulty with urination. Lower back problems are known to [facility] orthopedics and, in fact, he was supposed to have lower back surgery on 09/29/19, which got cancelled because he did not have PCP clearance. The symptoms are worse now, and he is requring 2 assist. He has a black, so we cannot confirm urinary retention. 3 mg of PO ativan since 8 pm; none since this morning. CIWA 8 - 10 - 14 overnight; 4 during the day, not requiring medication. No fevers x 24 hrs. On NS @ 125 cc/hr. 1300 cc out/8 hrs. Denies dizziness, chest pain, shortness of breath, nausea. Exam Narrative Exam Narrative: General: middle-aged male, A&Ox2, flat affect and hypotonic responses, awake, following commands HEENT: EOMI, MMM Heart: RRR, no m/r/g Lungs: CTAB GI: abdomen is soft, nontender, nondistended Extremities: 3/5 RLE strength, 4/5 LLE strength, no e/c/c Objective Objective Clinical Data: Abnormal lab results 09/25/19 09/26/19 Range/Units 11:01 06:00 RBC 4.30 L (4.50-6.00) m/cumm Hgb 13.2 L (13.5-17.5) g/dL Absolute Monocytes 1.04 H (0.11-0.7) k/cumm Ur Specific [place] >= 1.030 H (1.005-1.025) Urine Protein 30 H (Negative) mg/dL Urine Blood Moderate H (Negative) Urine Bilirubin Small H (Negative) Urine RBC 10-20 H (0-2) HPF Vital Signs Temperature 36.9 C 09/25/19 20:00 Temperature Source Temporal Artery Scan 09/25/19 20:00 Pulse 74 09/25/19 20:00 Pulse 70 09/25/19 19:00 Respiratory Rate 18 09/25/19 20:00 Respiratory Effort Non-Labored 09/25/19 20:00 Respiratory Depth Normal 09/25/19 20:00 Respiratory Pattern Normal 09/25/19 20:00 Blood Pressure 111/76 09/25/19 20:00 Blood Pressure Mean 87 09/25/19 20:00 Blood Pressure Position Sitting 09/25/19 20:00 Pulse Oximetry 98 09/25/19 20:00 Oxygen Delivery Method Room Air 09/25/19 20:00 Oxygen Flow Rate 0 09/25/19 20:00 Pain Level 0 09/25/19 20:00 Comment 09/17/19 14:02 Intake & Output 09/25/19 09/25/19 09/26/19 11:59 23:59 11:59 Intake Total 300 / 2620 2320 / 2620 771.667 / 771.667 Output Total 750 / 1500 750 / 1500 Balance -450 / 1120 1570 / 1120 771.667 / 771.667 Weight 64.4 kg Intake: IV 1920 / 1920 771.667 / 771.667 Oral 300 / 700 400 / 700 Output: Urine 750 / 1500 750 / 1500 Other: Urine Color Dark Malaika Light Malaika Urine Appearance Clear Clear Comment Dr. Escobar notified of poor urine output (60ml in past 6 hours). Bladder scanner showed 15ml in bladder with black in place. U/A sent pt has indweling black cath Laboratory Results WBC 9.32 k/cumm (4.4-10.8) 09/26/19 06:00 RBC 4.30 m/cumm (4.50-6.00) L 09/26/19 06:00 Hgb 13.2 g/dL (13.5-17.5) L 09/26/19 06:00 Hct 40.0 % (40.0-50.0) 09/26/19 06:00 MCV 93.0 fL (80-95) 09/26/19 06:00 MCH 30.7 pg (27.0-33.0) 09/26/19 06:00 MCHC 33.0 g/dL (32.0-36.0) 09/26/19 06:00 RDW 13.7 % (11.8-14.1) 09/26/19 06:00 Plt Count 212 x1000/uL (130-400) 09/26/19 06:00 MPV 10.4 fL (8.0-11.0) 09/26/19 06:00 Immature Gran % 0.3 09/26/19 06:00 Neutrophils % 52.4 09/26/19 06:00 Lymphocytes % 28.8 09/26/19 06:00 Monocytes % 11.2 09/26/19 06:00 Eosinophils % 6.4 09/26/19 06:00 Basophils % 0.9 09/26/19 06:00 Absolute Neutrophils 4.89 k/cumm (1.2-6.7) 09/26/19 06:00 Absolute Lymphocytes 2.68 k/cumm (1.2-3.4) 09/26/19 06:00 Absolute Monocytes 1.04 k/cumm (0.11-0.7) H 09/26/19 06:00 Absolute Eosinophils 0.60 k/cumm (0.0-0.7) 09/26/19 06:00 Absolute Basophils 0.08 k/cumm (0.0-0.2) 09/26/19 06:00 PT 11.0 sec (9.3-11.0) 09/17/19 06:30 INR 1.1 (0.9-1.1) 09/17/19 06:30 APTT 29.2 sec (21.0-31.4) 09/17/19 06:30 VBG pH 7.30 (7.32-7.43) L 09/17/19 06:30 VBG pCO2 58 mm/Hg (34-47) H 09/17/19 06:30 VBG pO2 26 mm/Hg (28-44) L 09/17/19 06:30 VBG HCO3 28 mmol/L (22-28) 09/17/19 06:30 VBG Total CO2 25 mmol/L (22-29) 09/17/19 06:30 VBG O2 Saturation 43 % (70-80) L 09/17/19 06:30 VBG Base Excess 1.8 mmol/L (-3-3) 09/17/19 06:30 Sodium 141 mmol/L (136-145) 09/26/19 06:00 Potassium 4.6 mmol/L (3.5-5.1) D 09/26/19 06:00 Chloride 104 mmol/L (98-107) 09/26/19 06:00 Carbon Dioxide 28.7 mmol/L (21.0-32.0) 09/26/19 06:00 Anion Gap 8.3 mmol/L (3-11) 09/26/19 06:00 BUN 12 mg/dL (7-18) 09/26/19 06:00 Creatinine 0.98 mg/dL (0.70-1.30) 09/26/19 06:00 Estimated GFR/1.73 m2 >= 60.00 (mL/min/1.73m2) 09/26/19 06:00 Glucose 92 mg/dL (70-100) 09/26/19 06:00 Serum Osmolality 329 mOsm/kg (275-295) H 09/17/19 06:30 Lactate 0.9 mmol/L (0.6-1.4) 09/18/19 07:00 Calcium 8.9 mg/dL (8.5-10.1) 09/26/19 06:00 Magnesium 1.8 mg/dL (1.8-2.4) 09/26/19 06:00 Total Bilirubin 0.8 mg/dL (0.2-1.0) 09/18/19 07:00 Conjugated Bilirubin 0.15 mg/dL (0.00-0.20) 09/18/19 07:00 AST 26 U/L (15-37) 09/18/19 07:00 ALT 21 U/L (16-63) 09/18/19 07:00 Alkaline Phosphatase 64 U/L (46-116) 09/18/19 07:00 Ammonia 14 umol/L (11-32) 09/17/19 06:30 Creatine Kinase 324 U/L (39-308) H 09/19/19 06:08 Troponin I < 0.05 ng/mL (0.00-0.06) 09/17/19 06:30 Total Protein 6.2 g/dL (6.4-8.2) L 09/18/19 07:00 Albumin 3.4 g/dL (3.4-5.0) 09/18/19 07:00 Vitamin B12 584 pg/mL (193-986) 09/18/19 07:00 Folate 18.8 ng/mL (8.6-20.0) 09/18/19 07:00 TSH 0.10 uIU/mL (0.36-3.74) L 09/18/19 07:00 Free T4 1.29 ng/dL (0.76-1.46) 09/18/19 07:00 Urine Color Yellow (Yellow) 09/25/19 11:01 Urine Clarity Clear (Clear) 09/25/19 11:01 Urine pH 5.5 (5-8) 09/25/19 11:01 Ur Specific [place] >= 1.030 (1.005-1.025) H 09/25/19 11:01 Urine Protein 30 mg/dL (Negative) H 09/25/19 11:01 Urine Ketones Negative mg/dL (Negative) 09/25/19 11:01 Urine Blood Moderate (Negative) H 09/25/19 11:01 Urine Nitrite Negative (Negative) 09/25/19 11:01 Urine Bilirubin Small (Negative) H 09/25/19 11:01 Urine Urobilinogen 0.2 EU/dL (Up TO 0.2) 09/25/19 11:01 Ur Leukocyte Esterase Negative (Negative) 09/25/19 11:01 Urine RBC 10-20 HPF (0-2) H 09/25/19 11:01 Urine WBC 0-2 HPF (0-5) 09/25/19 11:01 Ur Epithelial Cells Rare HPF (Negative) 09/25/19 11:01 Urine Crystals Negative HPF (Negative) 09/25/19 11:01 Urine Bacteria Rare HPF (Negative) 09/25/19 11:01 Urine Casts Negative LPF (Negative) 09/25/19 11:01 Urine Mucus Negative (Negative) 09/25/19 11:01 Ur Culture Indicated? No 09/25/19 11:01 Urine Osmolality 303 mosm/Kg (150-1150) 09/17/19 07:20 Urine Glucose Negative mg/dL (Negative) 09/25/19 11:01 Urine Opiates Screen Negative (Negative) 09/17/19 07:20 Urine Methadone Screen Negative (Negative) 09/17/19 07:20 Ur Barbiturates Screen Negative (Negative) 09/17/19 07:20 Ur Tricyclics Screen Negative (Negative) 09/17/19 07:20 Ur Amphetamines Screen Negative (Negative) 09/17/19 07:20 U Benzodiazepines Scrn Negative (Negative) 09/17/19 07:20 Urine Cocaine Screen Negative (Negative) 09/17/19 07:20 Ur THC Screen Negative (Negative) 09/17/19 07:20 Ethyl Alcohol 242.7 mg/dL (<3) 09/17/19 06:30
[2019-09-26] MEDS: DULoxetine 30 MG CAP PO (08:33)
[2019-09-26] MEDS: Metoprolol CR 50 MG TABCR PO (08:33)
[2019-09-26] MEDS: buPROPion-CR 150 MG TABCR PO ×2 (08:33→22:16)
[2019-09-26] MEDS: Folic Acid 1 MG TAB PO (08:34)
[2019-09-26] MEDS: Nystatin 500000 UNITS/5 ML SUSP 5ML CUP PO ×3 (08:34→22:16)
[2019-09-26] MEDS: Lurasidone 40 MG TAB 80 MG PO (08:34)
[2019-09-26] MEDS: Gabapentin 600 MG TAB 1200 MG PO ×3 (08:34→22:16)
[2019-09-26] MEDS: chlordiazePOXIDE 25 MG CAP 50 MG PO ×3 (08:34→22:16)
[2019-09-26] MEDS: Cyanocobalamin 500 MCG TAB 1000 MCG PO (08:34)
[2019-09-26] MEDS: Nicotine 14 MG/24 HR PATCH TD (08:35)
--- NOTE | 2019-09-26 11:51 | IN_ITS ---
Date of service: 09/26/19 Time of Service: 11:20 PT Notes Inpatient Physical Therapy Evaluation Date: 09/26/19 Referring Doctor: Dr. Escobar PT Orders: PT CONSULT: extended stay; weakness Precautions: fall Patient Profile/Admitting Diagnosis: Patient admitted for medical management of hypothermia and alcohol withdrawal. PMHX: Alcoholism; closed head injury; bipolar disorder; hypothyroidism; ADHD; spinal fusion C7-T1. Patient reports that he is awaiting fusion of L5-S1, which was supposed to be happening later this week Social History/Home Situation: Patient has been most recently been living at [facility]. He reports that he had been ambulating independently, although had suffered multiple falls in recent months. Denies utilization of assistive device at any point. Equipment Owned/DME: None Subjective: Patient provides limited subjective history. Reports low back pain, which he states is at his baseline. He personally reports that he has not ambulated during his hospital stay, although nursing reports that he was able to walk this morning with a walker and significant amount of help. He has apparently been able to sit up to the chair for brief periods. Objective: General Observation: Resting in bed with eyes closed. Skinner catheter in place. IV in LUE. Mental Status: Semi-alert. Patient provides limited responses, with quiet, slurred speech. He maintains eyes closed through the majority of the session. Pain: Chronic low back pain, unchanged from baseline ROM: Right Upper Extremity: Grossly WFL Left Upper Extremity: Grossly WFL Right Lower Extremity: WFL Left Lower Extremity: WFL Strength: Right Upper Extremity: Active shoulder flexion allows 80 degrees, with deviation into scapular plane. External rotation 3-/5. Biceps strength 4/5. Triceps 4- /5. Patient demonstrates only partial opening of the hand. I am able to fully open passively, although he is unable to maintain this position. Digit AB and adduction are each 3-/5. Left Upper Extremity: Active shoulder flexion allows 100 degrees, with deviation into scapular plane. External rotation 3-/5. Biceps strength 4/5. Triceps 4- /5. Patient demonstrates only partial opening of the hand. I am able to fully open passively, although he is unable to maintain this position. Digit AB and adduction are each 3-/5. Right Lower Extremity: Hip flexion 3-/5. Quads 3/5. Hamstrings 3-/5. Ankle dorsiflexion 3-/5. Left Lower Extremity: Hip flexion 3-/5. Quads 3/5. Hamstrings 3-/5. Ankle dorsiflexion 3-/5. Bed Mobility/Transfers: Supine?sit: Mod assist Sit?supine: Mod assist Sit?stand: Unable at this time, due to inability to demonstrate independent sitting balance (see below) Gait: Unable Neuro: Coordination significantly impaired for both upper and lower extremities. Patient is unable to perform rapid alternating movements of upper or lower extremities. Fine motor impaired, with patient unable to perform thumb to digit tapping. Balance: Static Sitting: Poor. Patient requires mod assist during static and dynamic sitting activities. He has multiple losses of balance both anteriorly and posteriorly directed. Dynamic Sitting: Poor Static Standing: Unable Dynamic Standing: Unable Special Tests: Mobility Limitations Standardized Measure [facility] AM-PAC 6 clicks Basic Mobility Inpatient Short Form: Raw Score: 8 CMS Score: 87% deficit Informed Consent/Education: Patient instructed in purpose of PT consult and plan of care. Patient was instructed in a supine and seated exercise program. He requires mod assist at the trunk for all seated exercises, and demonstrates increasingly forward flexed trunk positioning during completion. He requires cues to open eyes and participate throughout session. Assessment: Patient is a 54 year old male referred to physical therapy services with the diagnosis of weakness during extended hospital stay. Patient presents with clinical signs and symptoms consistent with diagnosis, with multiple contributing factors, including what appears to be a cervical myelopathy with significant upper and lower extremity weakness and balance and coordination impairments. It is difficult to assess at this time what exactly his baseline level of function is, however patient certainly requires PT intervention in acute care setting to address his marked limitations in mobility and safety. He currently demonstrates the following impairment level findings: 1. Decreased upper extremity strength 2. Decreased lower extremity strength 3. Decreased level of alertness 4. Decreased coordination 5. Chronic pain 6. History of falls Impairments are contributing to the following functional limitations: AMPAC score. 1. High fall risk 2. Unable to ambulate 3. Decreased independence with bed mobility 4. Decreased activity tolerance Patient is assessed [place] [id number] complexity based on the following: History: 54-year-old male with chronic alcoholism, currently in acute care for medical management of acute alcohol withdrawal and hypothermia. Complicating factors include unstable living situation, long-standing back and neck dysfunction, with what appears to be a cervical myelopathy, and limited ability to participate in PT intervention due to level of alertness. Examination: Functional limitations as noted above Presentation: Unstable as patient continues to acutely withdraw from alcohol Decision Making: High complexity Goals: Goals X1 week 1. Supine-Sit : Supervision 2. Sit-Supine: Supervision 3. Sit-Stand: Min assist 4. Stand-Sit : min A 5. Bed-Chair min A with FWW 6. Chair-Bed : min A with FW 7. Gait : min A with FWW x 50' Plan of Care/Treatment Plan: 1-2x/day, 7 days/week x 1 week. Plan of care has been reviewed with the HEAD CASHIER providing the service under Physical Therapy direction. Initiate Physical Therapy intervention for strengthening, bed mobility, transfers, gait, stairs, balance training, use of assistive device. DISCHARGE RECOMMENDATIONS: TBD as patient progresses. He may require short-term rehab versus long-term care due to his level of severe weakness and balance and coordination impairments. TREATMENT CODE/TIME: 11:20-11:50 ([id number]) Yessica Rene, PT, DPT [facility]
--- NOTE | 2019-09-26 15:00 | DI.CT_ITS ---
EXAM: CT LUMBAR SPINE WO CLINICAL HISTORY: concern for cord impingement; h/o spinal stenosis TECHNIQUE: Noncontrast. FINDINGS: There is sacralization of L5. There is again noted to be L4 spondylolysis and mild L4-5 spondylolist hesis as well as severe degenerative disc changes at L4-5. This causes severe bilateral neural zach inal narrowing. No acute fracture is identified. There are mild declivities in the inferior endplate s of T12 and L1, consistent with Schmorl's nodes. There is disc space narrowing at T11-12 and T12-L1 . There is a small left paracentral disc herniation at T11. This mildly narrows the AP dimension of the central canal. A catheter is noted in the bladder. The aorta shows calcification but is normal in diameter. IMPRESSION: No evidence of acute fracture. Degenerative disc changes in the lower thoracic spine. Chronic L4 sp ondylolysis, spondylolisthesis and degenerative disc changes causing severe bilateral neural foramina l narrowing.
[2019-09-26] MEDS: Normal Saline Flush 10 ML SYR IVP (15:57)
[2019-09-26] MEDS: Pantoprazole 40 MG VIAL IVP (15:57)
--- NOTE | 2019-09-26 17:40 | DI.VRAD_ITS ---
PROCEDURE INFORMATION: Exam: CT Lumbar Spine Without Contrast Exam date and time: 09/26/2019 4:52 PM Clinical history: 54 years old, male; Other: Concern for cord impingement; H/o spinal stenosis TECHNIQUE: Imaging protocol: Computed tomography images of the lumbar spine without contrast. Radiation optimization: All CT scans at this facility use at least one of these dose optimization techniques: automated exposure control; mA and/or kV adjustment per patient size (includes targeted exams where dose is matched to clinical indication); or iterative reconstruction. COMPARISON: No relevant prior studies available. FINDINGS: Tubes, catheters and devices: Skinner catheter in the bladder Vertebrae: There is a bilateral spondylolysis defect of the L5-S1 level, with grade I/II spondylolisthesis. Discs/Spinal canal/Neural foramina: Central Focal disc herniation at T12-L1 (3:17). Broad-based disc bulge, facet hypertrophy, and ligament hypertrophy at L3/L4 and L4/L5 consistent with spinal stenosis. Recommend MRI for further evaluation. Bladder: Mild distention of the bladder. Clinical correlation is recommended. Soft tissues: Unremarkable. IMPRESSION: 1. Central Focal disc herniation at T12-L1 (3:17). Recommend MRI if clinically indicated 2. Broad-based disc bulge, facet hypertrophy, and ligament hypertrophy at L3/L4 and L4/L5 consistent with spinal stenosis. Recommend MRI for further evaluation. 3. There is a bilateral spondylolysis defect of the L5-S1 level, with grade I/II spondylolisthesis. 4. Mild distention of the bladder. Clinical correlation is recommended. Dictated and Authenticated by: Main Mckeon MD. Ordering:FRANCOISE Martines MD
[2019-09-26] MEDS: Acetaminophen 325 MG TAB PO (17:55)
[2019-09-26] MEDS: traMADol 50 MG TAB PO (17:55)
[2019-09-27] VITALS (25 sets, daily range): BP systolic 92–153; BP diastolic 63–91; PULSE 55–74; RESP 11–19; TEMP 36.5–37.6; O2SAT 94–99
[2019-09-27] MEDS: Levothyroxine 150 MCG TAB PO (06:05)
[2019-09-27] MEDS: Heparin 5,000 UNITS/ML VIAL 5000 UNITS SC ×3 (06:06→22:48)
[2019-09-27 06:44] LABS: Abs Immature Grans 0.02 k/cumm (0.0-0.09); Absolute Basophil Count 0.12 k/cumm (0.0-0.2); Absolute Eosinophil Count 0.63 k/cumm (0.0-0.7); Absolute Lymphocyte Count 2.81 k/cumm (1.2-3.4); Absolute Monocyte Count 0.99 k/cumm (0.11-0.7); Absolute Neutrophil Count 3.06 k/cumm (1.2-6.7); Basophils % 1.6; Eosinophils % 8.3; HCT 38.4 % (40.0-50.0); HGB 12.7 g/dL (13.5-17.5); Immature Grans % 0.3; Lymphocytes % 36.8; Mean Corp. HGB Concentration 33.1 g/dL (32.0-36.0); Mean Corpuscular Hemoglobin 31.1 pg (27.0-33.0); Mean Corpuscular Volume 93.9 fL (80-95); Mean Platelet Volume 10.5 fL (8.0-11.0); Platelet Count 209 x1000/uL (130-400); RBC 4.09 m/cumm (4.50-6.00); RBC Distribution Width 13.9 % (11.8-14.1); White Blood Cell Count 7.63 k/cumm (4.4-10.8)
[2019-09-27 06:59] LABS: Anion Gap 4.9 mmol/L (3-11); BUN 11 mg/dL (7-18); CO2 30.1 mmol/L (21.0-32.0); CREATININE 0.91 mg/dL (0.70-1.30); Calcium 8.7 mg/dL (8.5-10.1); Chloride 106 mmol/L (98-107); Glucose 90 mg/dL (70-100); Magnesium 1.8 mg/dL (1.8-2.4); Potassium 4.5 mmol/L (3.5-5.1); Sodium 141 mmol/L (136-145)
--- NOTE | 2019-09-27 07:34 | CMPROGNOTE_ITS ---
- If Service Date Differs Date of service: 09/27/19 Time of Service: 07:35 Care Management Progress Note S/O: Harshal was sitting up in bed when CM met with him. He was lucid and stated that he was feeling better. He did have a controlled fall to the floor when working with PT as his lower extremities gave out. Harshal was moved out to the Medical surgical unit this afternoon. A: Harshal is a 54 year old male admitted to [facility] on 09/17/2019 for hypothermia and alcohol intoxication. P: Harshal's housing status will need to be addressed prior to his discharge from [facility]. Amarilys Hickey CARRIE sales communications manager, can assist in exploring whether he can return to the [facility] facility in [facility] where he was staying prior to this hospitalization. If returning to [facility] is not an option, Harshal will need to utilize the warming fpc. CM continues to follow.
[2019-09-27] MEDS: buPROPion-CR 150 MG TABCR PO ×2 (08:20→19:30)
[2019-09-27] MEDS: DULoxetine 30 MG CAP PO (08:21)
[2019-09-27] MEDS: Cyanocobalamin 500 MCG TAB 1000 MCG PO (08:21)
[2019-09-27] MEDS: Gabapentin 600 MG TAB 1200 MG PO ×3 (08:21→19:30)
[2019-09-27] MEDS: chlordiazePOXIDE 25 MG CAP 50 MG PO ×2 (08:21→14:11)
--- NOTE | 2019-09-27 08:21 | W.PM.PROGNOT ---
Date of Service Date of service: 09/27/19 Time of Service: 16:07 Assessment and Plan Assessment and plan (1) Spinal stenosis of lumbar region: Status: Acute Assessment and plan: Images [place] with [facility] [place] Seymour feels that the CT is unchanged from the one done on 09/03/19. Given development of new neurological symptoms, however, we will obtain an MRI. There is no evidence of cauda equina at this time, and MRI can wait until tomorrow. Previously scheduled surgery is was supposed to be for his L5-S1 spondylolisthesis, which is congenital, and the surgery he was supposed to have was deemed elective and nonurgent. Dr Seymour will discuss the case with Dr Mcdaniel, who knows the patient. MRI Thoracic and lumbar spine ordered for tomorrow. (2) Alcohol withdrawal: Status: Acute Assessment and plan: Not requiring any additional ativan. Start to taper librium. Transfer out of ICU. Keep on tele. Continue thiamine, MVI (3) Alcohol intoxication: Status: Resolved Assessment and plan: Initial presentation - resolved. (4) Hypothermia: Status: Resolved Assessment and plan: Resolved. Mildly elevated CPK improved with hydration. No sign of frostbite. (5) Hypothyroid: Status: Chronic Assessment and plan: TSH low at admission. Continue lower dose synthroid. (6) HTN (hypertension): Status: Chronic Assessment and plan: Continue BB, CCB. (7) Bipolar disorder: Status: Chronic Assessment and plan: Patient states he is no longer on latuda, but on vraylar as outpatient. We do not have this medication in our pharmacy, to my knowledge. Would not change current latuda until vraylar can be obtained. Also on therapy for depression with SNRI and Bupropion. (8) Discharge planning issues: Status: Acute Assessment and plan: Full code Transfer to med surg floor depending on workup of LE weakness/back pain, may require transfer [place] [facility]. (9) DVT prophylaxis: Status: Acute Assessment and plan: Heparin SC Subjective Subjective Interval history since last seen: Not requiring any ativan overnight or during the day. Cooperative, per nursing. Denies dizziness, chest pain, shortness of breath, nausea. Continues to report back pain. Exam Narrative Exam Narrative: General: middle-aged male, A&Ox2, more animated today, awake, following commands HEENT: EOMI, MMM Heart: RRR, no m/r/g Lungs: CTAB GI: abdomen is soft, nontender, nondistended Extremities: 3/5 RLE strength, 4/5 LLE strength, no e/c/c Objective Objective Clinical Data: Abnormal lab results 09/27/19 Range/Units 06:05 RBC 4.09 L (4.50-6.00) m/cumm Hgb 12.7 L (13.5-17.5) g/dL Hct 38.4 L (40.0-50.0) % Absolute Monocytes 0.99 H (0.11-0.7) k/cumm Vital Signs Temperature 36.8 C 09/27/19 03:44 Temperature Source Temporal Artery Scan 09/27/19 03:44 Pulse 66 09/27/19 04:01 Pulse 55 L 09/27/19 05:00 Respiratory Rate 14 09/27/19 05:00 Respiratory Effort Non-Labored 09/27/19 03:44 Respiratory Depth Normal 09/27/19 03:44 Respiratory Pattern Normal 09/27/19 03:44 Blood Pressure 92/73 L 09/27/19 04:01 Blood Pressure Mean 78 09/27/19 04:01 Blood Pressure Position Supine 09/27/19 03:44 Pulse Oximetry 94 L 09/26/19 20:10 Oxygen Delivery Method Room Air 09/27/19 03:44 Oxygen Flow Rate 0 09/27/19 03:44 Pain Level 7 09/27/19 03:44 Comment 09/17/19 14:02 Intake & Output 09/26/19 09/26/19 09/27/19 11:59 23:59 11:59 Intake Total 971.667 / 3391.667 2420.000 / 3391.667 Output Total 2775 / 2775 1000 / 1000 Balance 971.667 / 616.667 -355.000 / 616.667 -1000 / -1000 Weight 64.4 kg Intake: IV 771.667 / 2791.667 2020.000 / 2791.667 Oral 200 / 600 400 / 600 Output: Urine 2775 / 2775 1000 / 1000 Other: Urine Color Yellow Yellow Urine Appearance Clear Clear Comment Skinner catheter intact and draining clear yellow urine. Skinner catheter intact and draining clear yellow urine. Skinner catheter intact and draining clear yellow urine. Laboratory Results WBC 7.63 k/cumm (4.4-10.8) 09/27/19 06:05 RBC 4.09 m/cumm (4.50-6.00) L 09/27/19 06:05 Hgb 12.7 g/dL (13.5-17.5) L 09/27/19 06:05 Hct 38.4 % (40.0-50.0) L 09/27/19 06:05 MCV 93.9 fL (80-95) 09/27/19 06:05 MCH 31.1 pg (27.0-33.0) 09/27/19 06:05 MCHC 33.1 g/dL (32.0-36.0) 09/27/19 06:05 RDW 13.9 % (11.8-14.1) 09/27/19 06:05 Plt Count 209 x1000/uL (130-400) 09/27/19 06:05 MPV 10.5 fL (8.0-11.0) 09/27/19 06:05 Immature Gran % 0.3 09/27/19 06:05 Neutrophils % 40.0 09/27/19 06:05 Lymphocytes % 36.8 09/27/19 06:05 Monocytes % 13.0 09/27/19 06:05 Eosinophils % 8.3 09/27/19 06:05 Basophils % 1.6 09/27/19 06:05 Absolute Neutrophils 3.06 k/cumm (1.2-6.7) 09/27/19 06:05 Absolute Lymphocytes 2.81 k/cumm (1.2-3.4) 09/27/19 06:05 Absolute Monocytes 0.99 k/cumm (0.11-0.7) H 09/27/19 06:05 Absolute Eosinophils 0.63 k/cumm (0.0-0.7) 09/27/19 06:05 Absolute Basophils 0.12 k/cumm (0.0-0.2) 09/27/19 06:05 PT 11.0 sec (9.3-11.0) 09/17/19 06:30 INR 1.1 (0.9-1.1) 09/17/19 06:30 APTT 29.2 sec (21.0-31.4) 09/17/19 06:30 VBG pH 7.30 (7.32-7.43) L 09/17/19 06:30 VBG pCO2 58 mm/Hg (34-47) H 09/17/19 06:30 VBG pO2 26 mm/Hg (28-44) L 09/17/19 06:30 VBG HCO3 28 mmol/L (22-28) 09/17/19 06:30 VBG Total CO2 25 mmol/L (22-29) 09/17/19 06:30 VBG O2 Saturation 43 % (70-80) L 09/17/19 06:30 VBG Base Excess 1.8 mmol/L (-3-3) 09/17/19 06:30 Sodium 141 mmol/L (136-145) 09/27/19 06:05 Potassium 4.5 mmol/L (3.5-5.1) 09/27/19 06:05 Chloride 106 mmol/L (98-107) 09/27/19 06:05 Carbon Dioxide 30.1 mmol/L (21.0-32.0) 09/27/19 06:05 Anion Gap 4.9 mmol/L (3-11) 09/27/19 06:05 BUN 11 mg/dL (7-18) 09/27/19 06:05 Creatinine 0.91 mg/dL (0.70-1.30) 09/27/19 06:05 Estimated GFR/1.73 m2 >= 60.00 (mL/min/1.73m2) 09/27/19 06:05 Glucose 90 mg/dL (70-100) 09/27/19 06:05 Serum Osmolality 329 mOsm/kg (275-295) H 09/17/19 06:30 Lactate 0.9 mmol/L (0.6-1.4) 09/18/19 07:00 Calcium 8.7 mg/dL (8.5-10.1) 09/27/19 06:05 Magnesium 1.8 mg/dL (1.8-2.4) 09/27/19 06:05 Total Bilirubin 0.8 mg/dL (0.2-1.0) 09/18/19 07:00 Conjugated Bilirubin 0.15 mg/dL (0.00-0.20) 09/18/19 07:00 AST 26 U/L (15-37) 09/18/19 07:00 ALT 21 U/L (16-63) 09/18/19 07:00 Alkaline Phosphatase 64 U/L (46-116) 09/18/19 07:00 Ammonia 14 umol/L (11-32) 09/17/19 06:30 Creatine Kinase 324 U/L (39-308) H 09/19/19 06:08 Troponin I < 0.05 ng/mL (0.00-0.06) 09/17/19 06:30 Total Protein 6.2 g/dL (6.4-8.2) L 09/18/19 07:00 Albumin 3.4 g/dL (3.4-5.0) 09/18/19 07:00 Vitamin B12 584 pg/mL (193-986) 09/18/19 07:00 Folate 18.8 ng/mL (8.6-20.0) 09/18/19 07:00 TSH 0.10 uIU/mL (0.36-3.74) L 09/18/19 07:00 Free T4 1.29 ng/dL (0.76-1.46) 09/18/19 07:00 Urine Color Yellow (Yellow) 09/25/19 11:01 Urine Clarity Clear (Clear) 09/25/19 11:01 Urine pH 5.5 (5-8) 09/25/19 11:01 Ur Specific [place] >= 1.030 (1.005-1.025) H 09/25/19 11:01 Urine Protein 30 mg/dL (Negative) H 09/25/19 11:01 Urine Ketones Negative mg/dL (Negative) 09/25/19 11:01 Urine Blood Moderate (Negative) H 09/25/19 11:01 Urine Nitrite Negative (Negative) 09/25/19 11:01 Urine Bilirubin Small (Negative) H 09/25/19 11:01 Urine Urobilinogen 0.2 EU/dL (Up TO 0.2) 09/25/19 11:01 Ur Leukocyte Esterase Negative (Negative) 09/25/19 11:01 Urine RBC 10-20 HPF (0-2) H 09/25/19 11:01 Urine WBC 0-2 HPF (0-5) 09/25/19 11:01 Ur Epithelial Cells Rare HPF (Negative) 09/25/19 11:01 Urine Crystals Negative HPF (Negative) 09/25/19 11:01 Urine Bacteria Rare HPF (Negative) 09/25/19 11:01 Urine Casts Negative LPF (Negative) 09/25/19 11:01 Urine Mucus Negative (Negative) 09/25/19 11:01 Ur Culture Indicated? No 09/25/19 11:01 Urine Osmolality 303 mosm/Kg (150-1150) 09/17/19 07:20 Urine Glucose Negative mg/dL (Negative) 09/25/19 11:01 Urine Opiates Screen Negative (Negative) 09/17/19 07:20 Urine Methadone Screen Negative (Negative) 09/17/19 07:20 Ur Barbiturates Screen Negative (Negative) 09/17/19 07:20 Ur Tricyclics Screen Negative (Negative) 09/17/19 07:20 Ur Amphetamines Screen Negative (Negative) 09/17/19 07:20 U Benzodiazepines Scrn Negative (Negative) 09/17/19 07:20 Urine Cocaine Screen Negative (Negative) 09/17/19 07:20 Ur THC Screen Negative (Negative) 09/17/19 07:20 Ethyl Alcohol 242.7 mg/dL (<3) 09/17/19 06:30 CT lumbar spine 09/26/19: 1. Central Focal disc herniation at T12-L1 (3:17). Recommend MRI if clinically indicated 2. Broad-based disc bulge, facet hypertrophy, and ligament hypertrophy at L3/L4 and L4/L5 consistent with spinal stenosis. Recommend MRI for further evaluation. 3. There is a bilateral spondylolysis defect of the L5-S1 level, with grade I/II spondylolisthesis. 4. Mild distention of the bladder. Clinical correlation is recommended.
[2019-09-27] MEDS: Metoprolol CR 50 MG TABCR PO (08:22)
[2019-09-27] MEDS: Nicotine 14 MG/24 HR PATCH TD (08:22)
[2019-09-27] MEDS: Folic Acid 1 MG TAB PO (08:22)
[2019-09-27] MEDS: Nystatin 500000 UNITS/5 ML SUSP 5ML CUP PO ×3 (08:22→19:30)
--- NOTE | 2019-09-27 11:57 | PT.INTREAT ---
Date of service: 09/27/19 PT Notes Inpatient Physical Therapy Treatment Note [facility] Date: 09/27/19 SUBJECTIVE: I need to get out of this bed. Nurse thought he was transferring to [facility] for spine surgery which is set for the of this month. OBJECTIVE: [] BED MOBILITY/TRANSFERS Supine-sit: SBA Sit-stand: CGA Stand-sit: CGA GAIT Assistive Device: FWW Weight bearing: full Assist: CGA/min A Distance: 3' Deviation: LE gave out and I needed to assist to prevent fall. THEREX: global strengthening routine while seated. See flowsheet for details. ASSESSMENT: pt not safe on his feet due to LE giving way. His transfers and mvmt patterns are unsafe. I did explain to him the concerns about safety with him, however he felt he would be fine as long as he took it slowly. PLAN: continue to advance per established goals. TREATMENT CODE/TIME: 25 min. [id number], [id number].
[2019-09-27] MEDS: Pantoprazole 40 MG VIAL IVP (16:18)
--- NOTE | 2019-09-27 18:14 | NUR.NOTE ---
Nursing Note: Patient transfers from unit to floor at approximately 1700 via wheelchair. Patient alert and oriented x 2. Patient off date by 1 day. Positive pedal and radial pulses bilaterally. HR regular. Apical HR 72. Lungs diminished throughout. Normal bowel sounds. Patient unsteady with transferring. Ax2 for safety. Skinner in place and draining. Patient eats dinner sitting at bedside. Slightly delayed speech noted.
[2019-09-27] MEDS: Normal Saline Flush 10 ML SYR IVP (19:29)
[2019-09-27] MEDS: chlordiazePOXIDE 25 MG CAP PO (19:30)
[2019-09-27] MEDS: traMADol 50 MG TAB PO (22:48)
[2019-09-28] VITALS (11 sets, daily range): BP systolic 106–147; BP diastolic 72–84; PULSE 50–69; RESP 17–21; TEMP 36.1–37.1; O2SAT 94–96
[2019-09-28] MEDS: LORazepam 1 MG TAB PO/SL ×2 (03:17→10:09)
[2019-09-28] MEDS: Heparin 5,000 UNITS/ML VIAL 5000 UNITS SC ×3 (06:03→21:05)
[2019-09-28] MEDS: Levothyroxine 150 MCG TAB PO (06:03)
[2019-09-28 07:39] LABS: Abs Immature Grans 0.02 k/cumm (0.0-0.09); Absolute Basophil Count 0.14 k/cumm (0.0-0.2); Absolute Eosinophil Count 0.56 k/cumm (0.0-0.7); Absolute Lymphocyte Count 3.31 k/cumm (1.2-3.4); Absolute Monocyte Count 0.89 k/cumm (0.11-0.7); Basophils % 1.7; Eosinophils % 6.7; HCT 39.2 % (40.0-50.0); HGB 12.8 g/dL (13.5-17.5); Immature Grans % 0.2; Lymphocytes % 39.3; Mean Corp. HGB Concentration 32.7 g/dL (32.0-36.0); Mean Corpuscular Hemoglobin 30.6 pg (27.0-33.0); Mean Corpuscular Volume 93.8 fL (80-95); Mean Platelet Volume 10.6 fL (8.0-11.0); Monocytes % 10.6; Neutrophils % 41.5; Platelet Count 254 x1000/uL (130-400); RBC 4.18 m/cumm (4.50-6.00); RBC Distribution Width 13.9 % (11.8-14.1); White Blood Cell Count 8.42 k/cumm (4.4-10.8)
[2019-09-28 07:49] LABS: Anion Gap 7.8 mmol/L (3-11); BUN 11 mg/dL (7-18); CO2 32.2 mmol/L (21.0-32.0); Calcium 9.5 mg/dL (8.5-10.1); Chloride 100 mmol/L (98-107); Glucose 91 mg/dL (70-100); Magnesium 1.8 mg/dL (1.8-2.4); Potassium 4.5 mmol/L (3.5-5.1); Sodium 140 mmol/L (136-145)
--- NOTE | 2019-09-28 08:00 | DI.MRI_ITS ---
EXAM: MR LUMBAR SPINE WO CLINICAL HISTORY: progressive BLE weakness, spinal stenosis. TECHNIQUE: Multiplanar multisequence MRI was performed. XR PORTABLE CHEST AP from 09/25/2019 CT LUMBAR SPINE WO from 09/26/2019 FINDINGS: There is sacralization of L5. There are chronic bilateral L4 pars defects and L4-5 spondylolisthes is as well as severe degenerative disc changes. There is again noted be bony fragmentation anteriorl y at the L4-5 disc space. Findings appear stable when compared with the previous chest abdomen and p elvic CT from 2018. There is no significant central canal stenosis at this level however there is se wisam bilateral neural foraminal narrowing, right greater than left. The L2 3 and L3 levels are unrem arkable. There is moderate loss of disc height at L 1 2 and mild concentric disc bulging. There is no significant central canal stenosis or neural foraminal narrowing. At T12-L1 there are similar mil d degenerative disc changes. At T11, there is a left paracentral disc protrusion which effaces the a nterior CSF space but does not definitely impinge on the conus medullaris or exiting nerve root. The re is no neural foraminal narrowing. IMPRESSION: Left paracentral disc protrusion at T11-12 causing mild narrowing of the AP dimension of the central canal. Stable L4-5 spondylolisthesis, with chronic L4 spondylolysis and severe degenerative disc ch anges causing severe bilateral neural foraminal narrowing.
--- NOTE | 2019-09-28 08:40 | DI.MRI_ITS ---
EXAM: MR THORACIC SPINE WO CLINICAL HISTORY: spinal stenosis, progressive weakness. TECHNIQUE: Multiplanar multisequence MRI was performed. CT LUMBAR SPINE WO from 09/26/2019 FINDINGS: Hardware is again noted in the lower cervical spine. There is an upper to midthoracic scoliosis. There are stable mild anterior wedging of the T6 and T7 vertebral bodies. There is no abnormal segme nts to indicate an acute or subacute fracture. There are minimal endplate osteophytes at C6-7. The small left paracentral disc protrusion is seen at T11-12. Mild concentric disc bulging is seen at T1 2-L1. The cord signal appears normal. IMPRESSION: Small left paracentral disc protrusion at T11-12 and mild disc bulging at T12-L1.
--- NOTE | 2019-09-28 09:58 | OT.INNT ---
Date of service: 09/28/19 Time of Service: 07:45 Occupational Therapy Notes 09/28/19 OT consult received and pt's chart was reviewed. Pt was leaving to go for an MRI, OT will attempt consult tomorrow morning. Adriana Ozuna OTR/[facility]
[2019-09-28] MEDS: Nystatin 500000 UNITS/5 ML SUSP 5ML CUP PO ×3 (10:08→21:06)
[2019-09-28] MEDS: Nicotine 14 MG/24 HR PATCH TD (10:08)
[2019-09-28] MEDS: Lurasidone 40 MG TAB 80 MG PO (10:09)
[2019-09-28] MEDS: Folic Acid 1 MG TAB PO (10:10)
[2019-09-28] MEDS: DULoxetine 30 MG CAP PO (10:10)
[2019-09-28] MEDS: chlordiazePOXIDE 25 MG CAP PO ×3 (10:10→21:06)
[2019-09-28] MEDS: Cyanocobalamin 500 MCG TAB 1000 MCG PO (10:10)
[2019-09-28] MEDS: Gabapentin 600 MG TAB 1200 MG PO ×3 (10:10→21:06)
[2019-09-28] MEDS: Metoprolol CR 50 MG TABCR PO (10:10)
[2019-09-28] MEDS: buPROPion-CR 150 MG TABCR PO ×2 (10:10→21:06)
--- NOTE | 2019-09-28 10:34 | PGE_ITS ---
Date of Service Date of service: 09/28/19 Time of Service: 10:34 Assessment and Plan Assessment and plan (1) Spinal stenosis of lumbar region: Status: Acute Assessment and plan: Previously scheduled surgery is was supposed to be for his L5-S1 spondylolisthesis has been postponed, which is congenital, and the surgery he was supposed to have was deemed elective and nonurgent. Dr Seymour will discuss the case with Dr Mcdaniel, who knows the patient. MRI Thoracic and lumbar spine with no acute findings. will follow up outpatient (2) Alcohol withdrawal: Status: Acute Assessment and plan: stable prn ativan. continue taper librium. Keep on tele one more day. Continue thiamine, MVI (3) Hypothyroid: Status: Chronic Assessment and plan: TSH low at admission. Continue lower dose synthroid (4) HTN (hypertension): Status: Chronic Assessment and plan: continue beta krzysztof and calcium channel krzysztof (5) Bipolar disorder: Status: Chronic Assessment and plan: Patient states he is no longer on latuda, but on vraylar as outpatient. We do not have this medication in our pharmacy, to my knowledge. Would not change current latuda until vraylar can be obtained. Also on therapy for depression with SNRI and Bupropion (6) DVT prophylaxis: Status: Acute Assessment and plan: heparin (7) Discharge planning issues: Status: Acute Assessment and plan: case management following, will likely need rehabilitation prior to discharge Subjective Subjective Patient reports: no new complaints and tolerating a regular diet Interval history since last seen: patient reports ongoing right lower extremity weakness and numbness. no fevers, max ciwa score 5 overnight, continues to wean librium. has been eating and drinking. no new c/o. still with black catheter in place. had a fall from his chair this afternoon while trying to reach for a personal belongings bag. unwitnessed. denies hitting his head, states he landed on left shoulder and elbow. denies injury or pain. has full range of motion. no obvious signs of trauma or dislocation. denies cspine tenderness. Exam Const General: disheveled and ill appearing (older than stated age) chronically Nutritional Appearance: average body habitus Orientation: alert, awake and oriented x3 HENMT Head: normal to inspection, normocephalic and atraumatic Mouth: oral mucosae normal Resp Effort & Inspection: normal respiratory effort Auscultation: clear to auscultation bilaterally Cardio Jugular venous pressure: no JVD Rate: regular rate Rhythm: regular rhythm GI Inspection: normal to inspection Other: black intact, draining clear yellow urine Skin General skin exam: ecchymosis (old areas on bilateral forearms, small scabs scattered over fingers healing) Rashes: no rashes Neuro General: alert, awake and oriented x3 Speech: speech normal Gait: ataxic and gait assisted Method: walker Motor: strength abnormal (right lower) Objective Objective Clinical Data: Abnormal lab results 09/28/19 09/28/19 Range/Units 07:00 07:00 RBC 4.18 L (4.50-6.00) m/cumm Hgb 12.8 L (13.5-17.5) g/dL Hct 39.2 L (40.0-50.0) % Absolute Monocytes 0.89 H (0.11-0.7) k/cumm Carbon Dioxide 32.2 H (21.0-32.0) mmol/L Vital Signs Temperature 36.4 C L 09/28/19 07:15 Temperature Source Tympanic 09/28/19 07:15 Pulse 50 L 09/28/19 07:15 Pulse Rhythm Regular 09/27/19 23:59 Pulse 66 09/27/19 10:01 Respiratory Rate 20 09/28/19 07:15 Respiratory Effort Non-Labored 09/27/19 23:59 Respiratory Depth Normal 09/27/19 23:59 Respiratory Pattern Normal 09/27/19 23:59 Blood Pressure 116/76 09/28/19 07:15 Blood Pressure Mean 92 09/27/19 15:37 Blood Pressure Position Supine 09/27/19 15:37 Pulse Oximetry 95 09/28/19 07:15 Oxygen Delivery Method Room Air 09/28/19 07:15 Oxygen Flow Rate 0 09/28/19 07:15 Pain Level 6 09/28/19 07:15 Comment 09/17/19 14:02 Intake & Output 09/27/19 09/27/19 09/28/19 11:59 23:59 11:59 Intake Total 360 / 2029 1669 / 2030 780 / 780 Output Total 2350 / 3250 900 / 3250 925 / 925 Balance -1990 / -1220 770 / -1220 -145 / -145 Weight 64.4 kg 65.8 kg Intake: IV 1010 / 1010 Oral 360 / 1020 660 / 1020 780 / 780 Output: Urine 2350 / 3250 900 / 3250 925 / 925 Other: Urine Color Yellow Yellow Urine Appearance Clear Clear Clear Comment [facility] Laboratory Results WBC 8.42 k/cumm (4.4-10.8) 09/28/19 07:00 RBC 4.18 m/cumm (4.50-6.00) L 09/28/19 07:00 Hgb 12.8 g/dL (13.5-17.5) L 09/28/19 07:00 Hct 39.2 % (40.0-50.0) L 09/28/19 07:00 MCV 93.8 fL (80-95) 09/28/19 07:00 MCH 30.6 pg (27.0-33.0) 09/28/19 07:00 MCHC 32.7 g/dL (32.0-36.0) 09/28/19 07:00 RDW 13.9 % (11.8-14.1) 09/28/19 07:00 Plt Count 254 x1000/uL (130-400) 09/28/19 07:00 MPV 10.6 fL (8.0-11.0) 09/28/19 07:00 Immature Gran % 0.2 09/28/19 07:00 Neutrophils % 41.5 09/28/19 07:00 Lymphocytes % 39.3 09/28/19 07:00 Monocytes % 10.6 09/28/19 07:00 Eosinophils % 6.7 09/28/19 07:00 Basophils % 1.7 09/28/19 07:00 Absolute Neutrophils 3.50 k/cumm (1.2-6.7) 09/28/19 07:00 Absolute Lymphocytes 3.31 k/cumm (1.2-3.4) 09/28/19 07:00 Absolute Monocytes 0.89 k/cumm (0.11-0.7) H 09/28/19 07:00 Absolute Eosinophils 0.56 k/cumm (0.0-0.7) 09/28/19 07:00 Absolute Basophils 0.14 k/cumm (0.0-0.2) 09/28/19 07:00 PT 11.0 sec (9.3-11.0) 09/17/19 06:30 INR 1.1 (0.9-1.1) 09/17/19 06:30 APTT 29.2 sec (21.0-31.4) 09/17/19 06:30 VBG pH 7.30 (7.32-7.43) L 09/17/19 06:30 VBG pCO2 58 mm/Hg (34-47) H 09/17/19 06:30 VBG pO2 26 mm/Hg (28-44) L 09/17/19 06:30 VBG HCO3 28 mmol/L (22-28) 09/17/19 06:30 VBG Total CO2 25 mmol/L (22-29) 09/17/19 06:30 VBG O2 Saturation 43 % (70-80) L 09/17/19 06:30 VBG Base Excess 1.8 mmol/L (-3-3) 09/17/19 06:30 Sodium 140 mmol/L (136-145) 09/28/19 07:00 Potassium 4.5 mmol/L (3.5-5.1) 09/28/19 07:00 Chloride 100 mmol/L (98-107) 09/28/19 07:00 Carbon Dioxide 32.2 mmol/L (21.0-32.0) H 09/28/19 07:00 Anion Gap 7.8 mmol/L (3-11) 09/28/19 07:00 BUN 11 mg/dL (7-18) 09/28/19 07:00 Creatinine 0.90 mg/dL (0.70-1.30) 09/28/19 07:00 Estimated GFR/1.73 m2 >= 60.00 (mL/min/1.73m2) 09/28/19 07:00 Glucose 91 mg/dL (70-100) 09/28/19 07:00 Serum Osmolality 329 mOsm/kg (275-295) H 09/17/19 06:30 Lactate 0.9 mmol/L (0.6-1.4) 09/18/19 07:00 Calcium 9.5 mg/dL (8.5-10.1) 09/28/19 07:00 Magnesium 1.8 mg/dL (1.8-2.4) 09/28/19 07:00 Total Bilirubin 0.8 mg/dL (0.2-1.0) 09/18/19 07:00 Conjugated Bilirubin 0.15 mg/dL (0.00-0.20) 09/18/19 07:00 AST 26 U/L (15-37) 09/18/19 07:00 ALT 21 U/L (16-63) 09/18/19 07:00 Alkaline Phosphatase 64 U/L (46-116) 09/18/19 07:00 Ammonia 14 umol/L (11-32) 09/17/19 06:30 Creatine Kinase 324 U/L (39-308) H 09/19/19 06:08 Troponin I < 0.05 ng/mL (0.00-0.06) 09/17/19 06:30 Total Protein 6.2 g/dL (6.4-8.2) L 09/18/19 07:00 Albumin 3.4 g/dL (3.4-5.0) 09/18/19 07:00 Vitamin B12 584 pg/mL (193-986) 09/18/19 07:00 Folate 18.8 ng/mL (8.6-20.0) 09/18/19 07:00 TSH 0.10 uIU/mL (0.36-3.74) L 09/18/19 07:00 Free T4 1.29 ng/dL (0.76-1.46) 09/18/19 07:00 Urine Color Yellow (Yellow) 09/25/19 11:01 Urine Clarity Clear (Clear) 09/25/19 11:01 Urine pH 5.5 (5-8) 09/25/19 11:01 Ur Specific [place] >= 1.030 (1.005-1.025) H 09/25/19 11:01 Urine Protein 30 mg/dL (Negative) H 09/25/19 11:01 Urine Ketones Negative mg/dL (Negative) 09/25/19 11:01 Urine Blood Moderate (Negative) H 09/25/19 11:01 Urine Nitrite Negative (Negative) 09/25/19 11:01 Urine Bilirubin Small (Negative) H 09/25/19 11:01 Urine Urobilinogen 0.2 EU/dL (Up TO 0.2) 09/25/19 11:01 Ur Leukocyte Esterase Negative (Negative) 09/25/19 11:01 Urine RBC 10-20 HPF (0-2) H 09/25/19 11:01 Urine WBC 0-2 HPF (0-5) 09/25/19 11:01 Ur Epithelial Cells Rare HPF (Negative) 09/25/19 11:01 Urine Crystals Negative HPF (Negative) 09/25/19 11:01 Urine Bacteria Rare HPF (Negative) 09/25/19 11:01 Urine Casts Negative LPF (Negative) 09/25/19 11:01 Urine Mucus Negative (Negative) 09/25/19 11:01 Ur Culture Indicated? No 09/25/19 11:01 Urine Osmolality 303 mosm/Kg (150-1150) 09/17/19 07:20 Urine Glucose Negative mg/dL (Negative) 09/25/19 11:01 Urine Opiates Screen Negative (Negative) 09/17/19 07:20 Urine Methadone Screen Negative (Negative) 09/17/19 07:20 Ur Barbiturates Screen Negative (Negative) 09/17/19 07:20 Ur Tricyclics Screen Negative (Negative) 09/17/19 07:20 Ur Amphetamines Screen Negative (Negative) 09/17/19 07:20 U Benzodiazepines Scrn Negative (Negative) 09/17/19 07:20 Urine Cocaine Screen Negative (Negative) 09/17/19 07:20 Ur THC Screen Negative (Negative) 09/17/19 07:20 Ethyl Alcohol 242.7 mg/dL (<3) 09/17/19 06:30
--- NOTE | 2019-09-28 11:02 | PT.INTREAT ---
Date of service: 09/28/19 Time of Service: 11:02 PT Notes Inpatient Physical Therapy Treatment Note [facility] Date: 09/28/2019 PRECAUTIONS: Fall SUBJECTIVE: Harshal is agreeable to participating in PT, stating I want to get up and walk for a while, not just for a few minutes. Harshal also reports that his Skinner catheter is bothering him and he'd like to ask to have it removed today. OBJECTIVE: PAIN: Patient c/o back pain in both a.m. and p.m.; patient complained of B UE pain with use of FWW in p.m. BED MOBILITY/TRANSFERS Sit-stand: CGA Stand-sit: CGA GAIT Assistive Device: FWW Weight bearing: Full Assist: CGA x2 Distance: 75' + 125' in a.m.; 250' +100' +50' in p.m. Deviation: Cueing for increased ANA and improved posture, tactile cueing for FWW mechanics, wheelchair follow in both a.m. and p.m.; seated rest x1 in a.m.; seated rest x2 in p.m. STAIRS: Up/down 3?4 and 2?6 using B rails and a step to pattern with CGA x2 ASSESSMENT: Patient tolerated session with complaints of back pain and B UE pain with gait training. He was able to tolerate a progression in gait distance requiring CGA x2 and wheelchair follow for safety. He also requires constant cueing for increased ANA and improved posture as well as tactile cueing for FWW mechanics. Patient would benefit from continued gait and transfer training for improved mobility and safety with daily functional activities. PLAN: Continue with PTs POC TREATMENT CODE/TIME: Session 1: 25 minutes; 53071 x2 Session 2: 30 minutes; [id number] x2
--- NOTE | 2019-09-28 13:51 | DI.RAD_ITS ---
EXAM: XR SHOULDER LT COMPLETE 2+V INDICATION: trauma, shoulder injury. COMPARISON: No exams were available for comparison TECHNIQUE: 2D digital imaging was performed. FINDINGS: No acute fracture or dislocation is seen. The AC joint shows degenerative changes but no widening. V isualized portions of the left ribs appear intact. No pneumothorax is seen. There is deformity of t he mid humeral shaft partially included on the exam which appears to represent an old fracture deform ity. IMPRESSION: No acute abnormality.
--- NOTE | 2019-09-28 13:51 | DI.RAD_ITS ---
EXAM: XR ELBOW LT COMPLETE INDICATION: trauma, fall injury. COMPARISON: No exams were available for comparison TECHNIQUE: 2D digital imaging was performed. FINDINGS: No acute fracture or joint effusion is seen. An old fracture deformity of the distal third of the hu meral shaft is partially included on the exam. IMPRESSION: No acute abnormality.
--- NOTE | 2019-09-28 14:05 | CHAPLAIN ---
This was my first visit with Harshal. He was sitting in a chair in his room. He'd just met with a recover field hockey coach. Harshal said his main concern today is to find out if he's having back [place] that was [place] [facility] [place] He said there may be some delay and he's not sure why. I like to have my ducks in a row, so I'd like to know what to expect for tomorrow, he told me. Harshal talked about drinking again while he was living at the [facility]. He said the rules are strict there, and he knows he messed up, but it may not be the place for him to stay. He believes he could go to [facility] if he needs a place to go. Harshal has attended AA meetings in the past and worked the 12-step AA program before. The 12 steps have worked for him in the past, and he know connecting with a higher power helps him, he said. He was very clear about how to use the AA system to himself stay sober, and he was very clear about how he knows when and why he goes off the program. Harshal asked me to pray for him. I will plan to visit again tomorrow if he hasn't been transferred [place] [facility] [place].
--- NOTE | 2019-09-28 16:14 | PDOC.CMPRO ---
- If Service Date Differs Date of service: 09/28/19 Time of Service: 16:14 Care Management Progress Note S/O:Harshal was sitting up in a chair with a CPSO in attendance when CM met with him. He expressed concerns about his inability to safely ambulate. He states he fell again this morning. He is upset because he is unable to have his back surgery at [facility] [place] tomorrow as scheduled. Today Harshal had an MRI of his thoracic and lumbar spine. Those images will be sent to Dr. Ayers at [facility] [place] and tomorrow attempts will be made to help Harshal reschedule the procedure. A: Harshal is a 54 year old male admitted to [facility] on 09/17/2019 for hypothermia and alcohol intoxication. P: Harshal's housing status will need to be addressed prior to his discharge from [facility]. NATHANIEL Wood global marketing operations manager, can assist in exploring whether he can return to the [facility] in [facility] where he was staying prior to this hospitalization. If returning to [facility] is not an option, Harshal will need to utilize the warming fpc. CM continues to follow.
[2019-09-28] MEDS: Pantoprazole 40 MG VIAL IVP (16:37)
[2019-09-29] MEDS: Heparin 5,000 UNITS/ML VIAL 5000 UNITS SC ×3 (05:54→21:02)
[2019-09-29] MEDS: Levothyroxine 150 MCG TAB PO (05:54)
[2019-09-29 07:27] LABS: Anion Gap 7.3 mmol/L (3-11); BUN 12 mg/dL (7-18); CO2 30.7 mmol/L (21.0-32.0); Calcium 9.7 mg/dL (8.5-10.1); Chloride 100 mmol/L (98-107); Glucose 97 mg/dL (70-100); Magnesium 1.8 mg/dL (1.8-2.4); Potassium 4.2 mmol/L (3.5-5.1); Sodium 138 mmol/L (136-145)
[2019-09-29 07:35] VITALS: BP 139/90; PULSE 65; RESP 17; TEMP 37; O2SAT 97
[2019-09-29 07:45] VITALS: PULSE 76
[2019-09-29] MEDS: Nystatin 500000 UNITS/5 ML SUSP 5ML CUP PO ×3 (08:26→21:02)
[2019-09-29] MEDS: Nicotine 14 MG/24 HR PATCH TD (08:26)
[2019-09-29] MEDS: Normal Saline Flush 10 ML SYR IVP ×2 (08:27→15:39)
[2019-09-29] MEDS: Acetaminophen 325 MG TAB PO (08:28)
[2019-09-29] MEDS: traMADol 50 MG TAB PO ×2 (08:29→15:43)
[2019-09-29] MEDS: Cyanocobalamin 500 MCG TAB 1000 MCG PO (08:29)
[2019-09-29] MEDS: buPROPion-CR 150 MG TABCR PO ×2 (08:29→21:02)
[2019-09-29] MEDS: Gabapentin 600 MG TAB 1200 MG PO ×3 (08:29→21:01)
[2019-09-29] MEDS: Folic Acid 1 MG TAB PO (08:29)
[2019-09-29] MEDS: Metoprolol CR 50 MG TABCR PO (08:29)
[2019-09-29] MEDS: chlordiazePOXIDE 25 MG CAP PO ×3 (08:29→21:01)
--- NOTE | 2019-09-29 08:49 | CMPROGNOTE_ITS ---
Care Management Progress Note S/O: Harshal was sitting up in his chair, speaking on the telephone. Patient support person present in room. Per MD, Harshal will either transfer to tertiary center or require conservative treatment until back surgery at [facility] can be scheduled; likely requiring SNF level of care as he is currently unable to ambulate and is experiencing urinary retention; thought to be related to need for surgical intervention. CM spoke with Amarilys Hickey; NATHANIEL senior research consultant to update as to current status and planning and to inform Harshal will still require housing support in the future. Later in the day, Harshal was ambulating through the hallway with PT. reported Harshal would like a referral sent to [facility] as he has improved drastically over the last twenty four hours. CM faxed referral and continues to follow. A: Harshal is a 54 year old male admitted to [facility] on 09/17/2019 for hypothermia and alcohol intoxication. P: Harshal had an MRI of his thoracic and lumbar spine yesterday. Those images will be sent to Dr. Ayers at [facility] and attempts will be made to help Harshal reschedule back surgery at [facility], in the event he is not transferred; per MD. Harshal's housing status will need to be addressed, NATHANIEL Wood meat manager, is willing to assist in exploring whether he can return to the [facility] facility in [facility] where he was staying prior to this hospitalization. If returning to [facility] is not an option, Harshal may need to explore other options. CM continues to follow.
--- NOTE | 2019-09-29 09:54 | PT.INTREAT ---
Date of service: 09/29/19 Time of Service: 09:54 PT Notes Inpatient Physical Therapy Treatment Note [facility] Date: 09/29/2019 PRECAUTIONS: Fall SUBJECTIVE: Harshal is agreeable to participating in PT. He is upset that his surgery is not happening today, which he believes was the original plan. OBJECTIVE: PAIN: No c/o pain BED MOBILITY/TRANSFERS Sit-stand: SBA with cues to push from chair Stand-sit: SBA with cues to reach for chair GAIT Assistive Device: FWW Weight bearing: Full Assist: CGA/SBA Distance: 300' + 50' in a.m.; 300' in p.m. Deviation: Cueing for increased ANA and improved posture, tactile cueing for FWW mechanics; seated rest x1 in a.m.; cueing for safety with turns to R in p.m. ASSESSMENT: Patient tolerated session without complaint. He was able to tolerate a progression in gait distance requiring CGA x1 and SBA x1. He also requires constant cueing for increased ANA and improved posture as well as tactile cueing for FWW mechanics. Patient would benefit from continued gait and transfer training for improved mobility and safety with daily functional activities. PLAN: Continue with PTs POC TREATMENT CODE/TIME: Session 1: 30 minutes; [id number] x2 Session 2: 15 minutes; [id number]
--- NOTE | 2019-09-29 10:14 | OT.INIE ---
Occupational Therapy Notes Inpatient Occupational Therapy Evaluation Date: 09/29/19 Referring Doctor: Bobbi Tilley MD OT Orders: Non Urgent Limited Ability Precautions: Fall, Standard PATIENT PROFILE/ADMITTING DIAGNOSIS: Patient admitted for medical management of hypothermia and alcohol withdrawal. Past Medical History: Alcoholism; closed head injury; bipolar disorder; hypothyroidism; ADHD; spinal fusion C7-T1. Patient reports that he is awaiting fusion of L5-S1, which was supposed to be happening later this week Social History/Home Situation: Pt prior to hospitalization has been most recently been living at [facility]. He reports that he had been ambulating independently, although had suffered multiple falls in recent months.He refers to himself as disabled due to neck and back pain. Equipment owned/DME: Cane SUBJECTIVE: Pt states that he is frustrated that he is not at [facility] for surgery today. He states that he wants his surgery done and he is not going to stop asking questions until it is. OBJECTIVE: General Observation: Pt is able to answer questions, agitated with pain Mental Status: A&Ox3 Pain: c/o pain in neck and LBP ROM: RUE AROM WFL L UE AROM WFL STRENGTH: RUE 5/5 throughout LUE 5/5 throughout SENSATION: Numbness and tingling in (R) hands/(R) LE FUNCTIONAL MOBILITY/ADLS: Sit-Stand FWW, Mod (A) Stand-sit FWW, Mod (A) BATHING Pt denies. DRESSING Dressing UE Able to (I) don and doff t-shirt with increased performance time and min vc provided throughout Dressing LE Able to (I) don and doff (B) socks with increased performance time and min vc throughout BALANCE: Static sitting Good Dynamic Sitting Good Static Standing Fair Dynamic Standing Poor SPECIAL TESTS: Daily Activity Limitations Standardized Measure [facility] AM -PAC ?6 clicks? Daily Activity Inpatient Short Form: Raw score: 11 Standardized score: 29.04 CMS score: 70.42% INFORMED CONSENT/EDUCATION: Pt instructed in purpose of OT Consult and plan of care. ASSESSMENT: Patient is a 54-year-old male referred to occupational therapy services with diagnosis of []. Patient presents with clinical signs and symptoms consistent with dx, as demonstrated by the following impairment level findings: Pain with functional mobility, numbness and tingling in (B) UE, decreased (R) UE hand control, decreased ability to perform ADLs in standing position. Impairments are contributing to the following functional limitations: Decreased safety awareness, Fall risk, decreased LE dressing, increased performance time per ADLs, decreased functional activity tolerance. AMPAC score 11 Patient is assessed as a Moderate 27761 complexity based on the following: History: See above Examination: see functional limitations as noted above Presentation: Evolving Decision Making: AMPAC score 11 GOALS Goals x1 week 1. Transfers SBA, FWW 2. Dressing in seated position (I) UE/LE with use of adaptive equipment 3. Bathing in seated position (I) 4. Toileting on toilet (I) 5. Eating (I) PLAN OF CARE/TREATMENT PLAN: 1x/day, 5 days/ week x 1week Initiate Occupational Therapy Services for bathing, dressing, grooming, toileting, eating, transfer training. DISCHARGE RECOMMENDATIONS Short term SNF vs. LTC facility due to pts functional decline, decreased (I) and inability to perform ADLs/IADLs TREATMENT TIME/MINUTES/CODES 10214, [id number], 25 minutes (07:50) Adriana Ozuna OTR/L [facility]
[2019-09-29] MEDS: Pantoprazole 40 MG VIAL IVP (15:38)
[2019-09-29 15:46] VITALS: BP 127/74; PULSE 63; PULSE 74; RESP 16; TEMP 37; O2SAT 98
--- NOTE | 2019-09-29 17:32 | PGE_ITS ---
Date of Service Date of service: 09/29/19 Time of Service: 17:32 Assessment and Plan Assessment and plan (1) Spinal stenosis of lumbar region: Status: Acute Assessment and plan: MRI unchanged from prior, and the patient is clinically improving. Previously scheduled surgery is was supposed to be for his L5-S1 spondylolisthesis, which is congenital, and the surgery he was supposed to have was deemed elective and nonurgent. At this point, will plan for discharge to SNF with outpatient follow up with orthopedics for surgery. (2) Alcohol withdrawal: Status: Acute Assessment and plan: Continue to taper librium. Keep on tele. Continue thiamine, MVI (3) Alcohol intoxication: Status: Resolved Assessment and plan: Initial presentation - resolved. (4) Hypothermia: Status: Resolved Assessment and plan: Resolved. Mildly elevated CPK improved with hy dration. No sign of frostbite. (5) Hypothyroid: Status: Chronic Assessment and plan: TSH low at admission. Continue lower dose synthroid. (6) HTN (hypertension): Status: Chronic Assessment and plan: Continue BB, CCB. (7) Bipolar disorder: Status: Chronic Assessment and plan: Patient states he is no longer on latuda, but on vraylar as outpatient. We do not have this medication in our pharmacy, to my knowledge. Would not change current latuda until vraylar can be obtained. Also on therapy for depression with SNRI and Bupropion. (8) Discharge planning issues: Status: Acute Assessment and plan: Full code Plan to discharge to SNF with outpatient ortho follow up. (9) DVT prophylaxis: Status: Acute Assessment and plan: Heparin SC Subjective Subjective Interval history since last seen: Mr Juarez has been walking with a walker and a contact guard today - doing much better. Denies dizziness, chest pain, shortness of breath, nausea. Complains of back pain and requests that his ultram be increased. Exam Narrative Exam Narrative: General: middle-aged male, A&Ox2, seen ambulating in a hallway with a walker, turning successfully, looks much better HEENT: EOMI, MMM Heart: not auscultated - seen ambulating in the hallway Lungs: nonlabored breathing GI: abdomen is soft, nontender, nondistended Extremities: 5/5 strength BLE, no e/c/c Objective Objective Clinical Data: Vital Signs Temperature 37 C 09/29/19 15:46 Temperature Source Temporal Artery Scan 09/29/19 15:46 Pulse 63 09/29/19 15:46 Pulse Rhythm Regular 09/29/19 15:59 Pulse 66 09/27/19 10:01 Respiratory Rate 16 09/29/19 15:46 Respiratory Effort 09/29/19 15:59 Respiratory Depth Normal 09/29/19 15:59 Respiratory Pattern Normal 09/29/19 15:59 Blood Pressure 127/74 09/29/19 15:46 Blood Pressure Mean 92 09/27/19 15:37 Blood Pressure Position Supine 09/27/19 15:37 Pulse Oximetry 98 09/29/19 15:46 Oxygen Delivery Method Room Air 09/29/19 15:46 Oxygen Flow Rate 0 09/29/19 15:46 Pain Level 7 09/29/19 15:46 Comment 09/17/19 14:02 Intake & Output 09/28/19 09/29/19 09/29/19 23:59 11:59 23:59 Intake Total 240 / 1020 500 / 500 Output Total 900 / 1825 1200 / 1200 Balance -660 / -805 -700 / -700 Weight 66.5 kg Intake: Oral 240 / 1020 500 / 500 Output: Urine 900 / 1825 1200 / 1200 Other: Urine Color Yellow Yellow Urine Appearance Clear Clear Urine Odor None Comment pt refuses straight cath. Stool Size Large Stool Characteristics Soft Formed Voiding Methods Urinal Laboratory Results WBC 8.42 k/cumm (4.4-10.8) 09/28/19 07:00 RBC 4.18 m/cumm (4.50-6.00) L 09/28/19 07:00 Hgb 12.8 g/dL (13.5-17.5) L 09/28/19 07:00 Hct 39.2 % (40.0-50.0) L 09/28/19 07:00 MCV 93.8 fL (80-95) 09/28/19 07:00 MCH 30.6 pg (27.0-33.0) 09/28/19 07:00 MCHC 32.7 g/dL (32.0-36.0) 09/28/19 07:00 RDW 13.9 % (11.8-14.1) 09/28/19 07:00 Plt Count 254 x1000/uL (130-400) 09/28/19 07:00 MPV 10.6 fL (8.0-11.0) 09/28/19 07:00 Immature Gran % 0.2 09/28/19 07:00 Neutrophils % 41.5 09/28/19 07:00 Lymphocytes % 39.3 09/28/19 07:00 Monocytes % 10.6 09/28/19 07:00 Eosinophils % 6.7 09/28/19 07:00 Basophils % 1.7 09/28/19 07:00 Absolute Neutrophils 3.50 k/cumm (1.2-6.7) 09/28/19 07:00 Absolute Lymphocytes 3.31 k/cumm (1.2-3.4) 09/28/19 07:00 Absolute Monocytes 0.89 k/cumm (0.11-0.7) H 09/28/19 07:00 Absolute Eosinophils 0.56 k/cumm (0.0-0.7) 09/28/19 07:00 Absolute Basophils 0.14 k/cumm (0.0-0.2) 09/28/19 07:00 PT 11.0 sec (9.3-11.0) 09/17/19 06:30 INR 1.1 (0.9-1.1) 09/17/19 06:30 APTT 29.2 sec (21.0-31.4) 09/17/19 06:30 VBG pH 7.30 (7.32-7.43) L 09/17/19 06:30 VBG pCO2 58 mm/Hg (34-47) H 09/17/19 06:30 VBG pO2 26 mm/Hg (28-44) L 09/17/19 06:30 VBG HCO3 28 mmol/L (22-28) 09/17/19 06:30 VBG Total CO2 25 mmol/L (22-29) 09/17/19 06:30 VBG O2 Saturation 43 % (70-80) L 09/17/19 06:30 VBG Base Excess 1.8 mmol/L (-3-3) 09/17/19 06:30 Sodium 138 mmol/L (136-145) 09/29/19 06:35 Potassium 4.2 mmol/L (3.5-5.1) 09/29/19 06:35 Chloride 100 mmol/L (98-107) 09/29/19 06:35 Carbon Dioxide 30.7 mmol/L (21.0-32.0) 09/29/19 06:35 Anion Gap 7.3 mmol/L (3-11) 09/29/19 06:35 BUN 12 mg/dL (7-18) 09/29/19 06:35 Creatinine 0.90 mg/dL (0.70-1.30) 09/29/19 06:35 Estimated GFR/1.73 m2 >= 60.00 (mL/min/1.73m2) 09/29/19 06:35 Glucose 97 mg/dL (70-100) 09/29/19 06:35 Serum Osmolality 329 mOsm/kg (275-295) H 09/17/19 06:30 Lactate 0.9 mmol/L (0.6-1.4) 09/18/19 07:00 Calcium 9.7 mg/dL (8.5-10.1) 09/29/19 06:35 Magnesium 1.8 mg/dL (1.8-2.4) 09/29/19 06:35 Total Bilirubin 0.8 mg/dL (0.2-1.0) 09/18/19 07:00 Conjugated Bilirubin 0.15 mg/dL (0.00-0.20) 09/18/19 07:00 AST 26 U/L (15-37) 09/18/19 07:00 ALT 21 U/L (16-63) 09/18/19 07:00 Alkaline Phosphatase 64 U/L (46-116) 09/18/19 07:00 Ammonia 14 umol/L (11-32) 09/17/19 06:30 Creatine Kinase 324 U/L (39-308) H 09/19/19 06:08 Troponin I < 0.05 ng/mL (0.00-0.06) 09/17/19 06:30 Total Protein 6.2 g/dL (6.4-8.2) L 09/18/19 07:00 Albumin 3.4 g/dL (3.4-5.0) 09/18/19 07:00 Vitamin B12 584 pg/mL (193-986) 09/18/19 07:00 Folate 18.8 ng/mL (8.6-20.0) 09/18/19 07:00 TSH 0.10 uIU/mL (0.36-3.74) L 09/18/19 07:00 Free T4 1.29 ng/dL (0.76-1.46) 09/18/19 07:00 Urine Color Yellow (Yellow) 09/25/19 11:01 Urine Clarity Clear (Clear) 09/25/19 11:01 Urine pH 5.5 (5-8) 09/25/19 11:01 Ur Specific [place] >= 1.030 (1.005-1.025) H 09/25/19 11:01 Urine Protein 30 mg/dL (Negative) H 09/25/19 11:01 Urine Ketones Negative mg/dL (Negative) 09/25/19 11:01 Urine Blood Moderate (Negative) H 09/25/19 11:01 Urine Nitrite Negative (Negative) 09/25/19 11:01 Urine Bilirubin Small (Negative) H 09/25/19 11:01 Urine Urobilinogen 0.2 EU/dL (Up TO 0.2) 09/25/19 11:01 Ur Leukocyte Esterase Negative (Negative) 09/25/19 11:01 Urine RBC 10-20 HPF (0-2) H 09/25/19 11:01 Urine WBC 0-2 HPF (0-5) 09/25/19 11:01 Ur Epithelial Cells Rare HPF (Negative) 09/25/19 11:01 Urine Crystals Negative HPF (Negative) 09/25/19 11:01 Urine Bacteria Rare HPF (Negative) 09/25/19 11:01 Urine Casts Negative LPF (Negative) 09/25/19 11:01 Urine Mucus Negative (Negative) 09/25/19 11:01 Ur Culture Indicated? No 09/25/19 11:01 Urine Osmolality 303 mosm/Kg (150-1150) 09/17/19 07:20 Urine Glucose Negative mg/dL (Negative) 09/25/19 11:01 Urine Opiates Screen Negative (Negative) 09/17/19 07:20 Urine Methadone Screen Negative (Negative) 09/17/19 07:20 Ur Barbiturates Screen Negative (Negative) 09/17/19 07:20 Ur Tricyclics Screen Negative (Negative) 09/17/19 07:20 Ur Amphetamines Screen Negative (Negative) 09/17/19 07:20 U Benzodiazepines Scrn Negative (Negative) 09/17/19 07:20 Urine Cocaine Screen Negative (Negative) 09/17/19 07:20 Ur THC Screen Negative (Negative) 09/17/19 07:20 Ethyl Alcohol 242.7 mg/dL (<3) 09/17/19 06:30
[2019-09-29 19:42] VITALS: BP 134/78; PULSE 85; RESP 16; TEMP 36.7; O2SAT 96
[2019-09-29] MEDS: traMADol 50 MG TAB 100 MG PO (21:01)
[2019-09-29 23:46] VITALS: BP 97/58; PULSE 55; RESP 19; TEMP 35.8; O2SAT 93
[2019-09-30] VITALS (8 sets, daily range): BP systolic 95–106; BP diastolic 66–76; PULSE 57–73; RESP 16–19; TEMP 35.7–37; O2SAT 95–97
[2019-09-30] MEDS: Heparin 5,000 UNITS/ML VIAL 5000 UNITS SC ×3 (06:33→21:26)
[2019-09-30] MEDS: Levothyroxine 150 MCG TAB PO (06:33)
[2019-09-30 07:01] LABS: HCT 40.7 % (40.0-50.0); HGB 13.5 g/dL (13.5-17.5); Mean Corp. HGB Concentration 33.2 g/dL (32.0-36.0); Mean Corpuscular Hemoglobin 31.3 pg (27.0-33.0); Mean Corpuscular Volume 94.2 fL (80-95); Platelet Count 298 x1000/uL (130-400); RBC 4.32 m/cumm (4.50-6.00); White Blood Cell Count 8.92 k/cumm (4.4-10.8)
[2019-09-30] MEDS: Nicotine 14 MG/24 HR PATCH TD (08:37)
[2019-09-30] MEDS: Nystatin 500000 UNITS/5 ML SUSP 5ML CUP PO ×3 (08:38→20:00)
[2019-09-30] MEDS: Cyanocobalamin 500 MCG TAB 1000 MCG PO (08:38)
[2019-09-30] MEDS: Gabapentin 600 MG TAB 1200 MG PO ×3 (08:39→20:01)
[2019-09-30] MEDS: traMADol 50 MG TAB 100 MG PO ×2 (08:39→20:01)
[2019-09-30] MEDS: chlordiazePOXIDE 25 MG CAP PO ×2 (08:39→20:01)
[2019-09-30] MEDS: buPROPion-CR 150 MG TABCR PO ×2 (08:39→20:01)
[2019-09-30] MEDS: Acetaminophen 325 MG TAB PO ×2 (08:39→13:23)
[2019-09-30] MEDS: Metoprolol CR 50 MG TABCR PO (08:40)
[2019-09-30] MEDS: Folic Acid 1 MG TAB PO (08:40)
--- NOTE | 2019-09-30 09:53 | CMPROGNOTE_ITS ---
Care Management Progress Note S/O: Harshal ambulated through the hallways throughout the day with Sarah BAIGO. Amarilys ARMSTRONG tar kettle runner continues to follow with CM providing updates to disposition developments as Harshal will still require housing support in the future. CM met with Harshal who was sitting up in his chair and fully engaged with this physician underwriter. CM facilitated goal making with Harshal and listed them on his white board 1. Surgery: CM will call [facility] to reschedule. Pre-OP clearance will be required. 2. Mobility: Continued work with PT; possible SNF-may require SWB1 3. Disposition/Housing: Harshal will reconnect with Amarilys to discuss returning to [facility]. [facility] declined Harshal for admission due to [facility] being able to offer the same level of care. CM faxed referral to [facility] as well. CM called [facility] P#[phone], F#[phone] to request rescheduling of surgery, CM left -09/30/19@1600. A: Harshal is a 54 year old male admitted to [facility] on 09/17/2019 for hypothermia and alcohol intoxication. P: Harshal will need support in rescheduling back surgery at [facility]; per MD. CM called Spine Clinic and left requesting new appt. CM provided contact information for Harshal Betancourt's oil recovery unit operator and Kostas Caputo's telephonic case manager. Harshal's housing status will need to be addressed, NATHANIEL Wood client operations manager, is willing to assist in exploring whether he can return to the [facility] in [facility] where he was staying prior to this hospitalization. If returning to [facility] is not an option, Harshal may need to explore other options such as the warming long-term. His continued progression in mobility and coordination of needed surgical intervention remains priority at this time. CM continues to follow.
--- NOTE | 2019-09-30 09:53 | PDOC.CMPRO ---
Care Management Progress Note S/O: Harshal ambulated through the hallways throughout the day with Sarah BAIGO. Amarilys ARMSTRONG manager loan continues to follow with CM providing updates to disposition developments as Harshal will still require housing support in the future. CM met with Harshal who was sitting up in his chair and fully engaged with this designer/writer. CM facilitated goal making with Harshal and listed them on his white board 1. Surgery: CM will call [facility] to reschedule. Pre-OP clearance will be required. 2. Mobility: Continued work with PT; possible SNF-may require SWB1 3. Disposition/Housing: Harshal will reconnect with Amarilys to discuss returning to [facility]. [facility] declined Harshal for admission due to [facility] being able to offer the same level of care. CM faxed referral to [facility] as well. CM called [facility] Sp[facility] P#[phone], F#[phone] to request rescheduling of surgery, CM left -09/30/19@1600. A: Harshal is a 54 year old male admitted to [facility] on 09/17/2019 for hypothermia and alcohol intoxication. P: Harshal will need support in rescheduling back surgery at [facility]; per MD. CM called Spine Clinic and left requesting new appt. CM provided contact information for Harshal Betancourt's manager of disaster recovery and Kostas Caputo's returned case inspector. Harshal's housing status will need to be addressed, NATHANIEL Wood country manager, is willing to assist in exploring whether he can return to the [facility] in [facility] where he was staying prior to this hospitalization. If returning to [facility] is not an option, Harshal may need to explore other options such as the warming custodial. His continued progression in mobility and coordination of needed surgical intervention remains priority at this time. CM continues to follow.
--- NOTE | 2019-09-30 09:58 | OT.INTREAT ---
Date of service: 09/30/19 Time of Service: 08:20 Occupational Therapy Notes Occupational Therapy Inpatient Treatment Note Date: 09/30/19 PRECAUTIONS: Fall, Standard SUBJECTIVE: Pt was sitting in chair when OT arrived. He was agreeable to OT session. OBJECTIVE: PAIN:no c/o pain FUNCTIONAL MOBILITY Sit-stand: SBa, FWW Stand-sit: SBA, FWW Bed-Chair: SBA, FWW Chair-bed: SBA, FWW BATHING: Upper Body: Standing at sink with FWW, (I) with washing (B) UE and face, min vc for body positioning. GROOMING: Standing at sink (I) with brushing hair and teeth with min vc for weight shifting. EATING: (I) in seated position PLAN: Monitor pts response to todays session, continue to progress towards goals established at IE. TREATMENT CODES/TIME: 23085, 15 minutes (08:20) Adriana Ozuna OTR/L [facility] [place]
--- NOTE | 2019-09-30 12:26 | PT.INTREAT ---
Date of service: 09/30/19 Time of Service: 12:26 PT Notes Inpatient Physical Therapy Treatment Note [facility] Date: 09/30/2019 PRECAUTIONS: Fall SUBJECTIVE: Harshal is agreeable to participating in PT. He feels that his continues to make progress each day. He expresses concern regarding discharge plan and potential upcoming back surgery at [facility]. OBJECTIVE: PAIN: No c/o pain BED MOBILITY/TRANSFERS Sit-stand: SBA Stand-sit: SBA GAIT Assistive Device: FWW Weight bearing: Full Assist: CGA Distance: 400'+ Deviation: Cueing for FWW mechanics, improved ability with turns to R THEREX: Patient completed a lower extremity strengthening program, in a standing position with FWW support and SBA, as per flow sheet. STAIRS: Up/down 12?4 and 8?6 using B rails and a step over pattern with CGA ASSESSMENT: Patient tolerated session without complaint. He was able to tolerate a progression in gait distance requiring CGA. Patient continues to require cueing for FWW mechanics, although demonstrates improved ability and safety with turns to R. Patient would benefit from continued gait and transfer training for improved mobility and safety with daily functional activities. PLAN: Continue with PTs POC TREATMENT CODE/TIME: 30 minutes; 35934, [id number]
[2019-09-30] MEDS: Pantoprazole 40 MG VIAL IVP (16:29)
[2019-09-30] MEDS: Normal Saline Flush 10 ML SYR IVP (16:30)
--- NOTE | 2019-09-30 17:24 | PGE_ITS ---
Date of Service Date of service: 09/30/19 Time of Service: 17:24 Assessment and Plan Assessment and plan (1) Spinal stenosis of lumbar region: Status: Acute Assessment and plan: MRI unchanged from prior, and the patient is clinically improving. Able to walk with a walker. Previously scheduled surgery is was supposed to be for his L5-S1 spondylolisthesis, which is congenital, and the surgery he was supposed to have was deemed elective and nonurgent. Plan to discharge to SNF with outpatient follow up with orthopedics for surgery. (2) Alcohol withdrawal: Status: Acute Assessment and plan: Continue to taper librium. D/c tele. Continue thiamine, MVI (3) Alcohol intoxication: Status: Resolved Assessment and plan: Initial presentation - resolved. (4) Hypothermia: Status: Resolved Assessment and plan: Resolved. Mildly elevated CPK improved with hydration. No sign of frostbite. (5) Hypothyroid: Status: Chronic Assessment and plan: TSH low at admission. Continue lower dose synthroid. (6) HTN (hypertension): Status: Chronic Assessment and plan: Continue BB, CCB. (7) Bipolar disorder: Status: Chronic Assessment and plan: Patient states he is no longer on latuda, but on vraylar as outpatient. Will attempt to get information from his outpatient prescriber as to what doses of his medications he was supposed to be on. We do not have this medication in our pharmacy, to my knowledge. Would not change current latuda until vraylar can be obtained. Also on therapy for depression with SNRI and Bupropion. (8) Discharge planning issues: Status: Acute Assessment and plan: Full code Plan to discharge to SNF with outpatient ortho follow up. (9) DVT prophylaxis: Status: Acute Assessment and plan: Heparin SC Subjective Subjective Interval history since last seen: Mr Juarez states that he is on board with the plan to go to rehab, then follow up with [facility] as outpatient for his back surgery, then go back to rehab. Denies dizziness, chest pain, shortness of breath, nausea, vomiting. Exam Narrative Exam Narrative: General: middle-aged male, A&Ox3, seen ambulating in a hallway with a walker, looks even more steady on his feet HEENT: EOMI, MMM Heart: RRR, no m/r/g Lungs: CTAB GI: abdomen is soft, nontender, nondistended Extremities: 5/5 strength BLE, no e/c/c Objective Objective Clinical Data: Abnormal lab results 09/30/19 Range/Units 06:30 RBC 4.32 L (4.50-6.00) m/cumm Vital Signs Temperature 36.6 C 09/30/19 11:20 Temperature Source Tympanic 09/30/19 11:20 Pulse 62 09/30/19 11:20 Pulse Rhythm Regular 09/30/19 17:06 Pulse 66 09/27/19 10:01 Respiratory Rate 17 09/30/19 11:20 Respiratory Effort Non-Labored 09/30/19 17:06 Respiratory Depth Normal 09/30/19 17:06 Respiratory Pattern Normal 09/30/19 17:06 Blood Pressure 106/71 09/30/19 11:20 Blood Pressure Mean 92 09/27/19 15:37 Blood Pressure Position Supine 09/27/19 15:37 Pulse Oximetry 97 09/30/19 11:20 Oxygen Delivery Method Room Air 09/30/19 11:20 Oxygen Flow Rate 0 09/30/19 11:20 Pain Level 5 09/30/19 13:23 Comment 09/17/19 14:02 Intake & Output 09/29/19 09/30/19 09/30/19 23:59 11:59 23:59 Intake Total 300 / 800 240 / 360 120 / 360 Output Total 498 / 498 Balance 300 / -400 240 / -138 -378 / -138 Weight 68 kg Intake: Oral 300 / 800 240 / 360 120 / 360 Output: Urine 450 / 450 Post Void Residual 48 / 48 Other: Urine Color Yellow Yellow Urine Appearance Clear Clear Urine Odor None Comment pt refused to be straight cath Voiding Methods Toilet Urinal Laboratory Results WBC 8.92 k/cumm (4.4-10.8) 09/30/19 06:30 RBC 4.32 m/cumm (4.50-6.00) L 09/30/19 06:30 Hgb 13.5 g/dL (13.5-17.5) 09/30/19 06:30 Hct 40.7 % (40.0-50.0) 09/30/19 06:30 MCV 94.2 fL (80-95) 09/30/19 06:30 MCH 31.3 pg (27.0-33.0) 09/30/19 06:30 MCHC 33.2 g/dL (32.0-36.0) 09/30/19 06:30 RDW 14.0 % (11.8-14.1) 09/30/19 06:30 Plt Count 298 x1000/uL (130-400) 09/30/19 06:30 MPV 10.0 fL (8.0-11.0) 09/30/19 06:30 Immature Gran % 0.2 09/28/19 07:00 Neutrophils % 41.5 09/28/19 07:00 Lymphocytes % 39.3 09/28/19 07:00 Monocytes % 10.6 09/28/19 07:00 Eosinophils % 6.7 09/28/19 07:00 Basophils % 1.7 09/28/19 07:00 Absolute Neutrophils 3.50 k/cumm (1.2-6.7) 09/28/19 07:00 Absolute Lymphocytes 3.31 k/cumm (1.2-3.4) 09/28/19 07:00 Absolute Monocytes 0.89 k/cumm (0.11-0.7) H 09/28/19 07:00 Absolute Eosinophils 0.56 k/cumm (0.0-0.7) 09/28/19 07:00 Absolute Basophils 0.14 k/cumm (0.0-0.2) 09/28/19 07:00 PT 11.0 sec (9.3-11.0) 09/17/19 06:30 INR 1.1 (0.9-1.1) 09/17/19 06:30 APTT 29.2 sec (21.0-31.4) 09/17/19 06:30 VBG pH 7.30 (7.32-7.43) L 09/17/19 06:30 VBG pCO2 58 mm/Hg (34-47) H 09/17/19 06:30 VBG pO2 26 mm/Hg (28-44) L 09/17/19 06:30 VBG HCO3 28 mmol/L (22-28) 09/17/19 06:30 VBG Total CO2 25 mmol/L (22-29) 09/17/19 06:30 VBG O2 Saturation 43 % (70-80) L 09/17/19 06:30 VBG Base Excess 1.8 mmol/L (-3-3) 09/17/19 06:30 Sodium 138 mmol/L (136-145) 09/29/19 06:35 Potassium 4.2 mmol/L (3.5-5.1) 09/29/19 06:35 Chloride 100 mmol/L (98-107) 09/29/19 06:35 Carbon Dioxide 30.7 mmol/L (21.0-32.0) 09/29/19 06:35 Anion Gap 7.3 mmol/L (3-11) 09/29/19 06:35 BUN 12 mg/dL (7-18) 09/29/19 06:35 Creatinine 0.90 mg/dL (0.70-1.30) 09/29/19 06:35 Estimated GFR/1.73 m2 >= 60.00 (mL/min/1.73m2) 09/29/19 06:35 Glucose 97 mg/dL (70-100) 09/29/19 06:35 Serum Osmolality 329 mOsm/kg (275-295) H 09/17/19 06:30 Lactate 0.9 mmol/L (0.6-1.4) 09/18/19 07:00 Calcium 9.7 mg/dL (8.5-10.1) 09/29/19 06:35 Magnesium 1.8 mg/dL (1.8-2.4) 09/29/19 06:35 Total Bilirubin 0.8 mg/dL (0.2-1.0) 09/18/19 07:00 Conjugated Bilirubin 0.15 mg/dL (0.00-0.20) 09/18/19 07:00 AST 26 U/L (15-37) 09/18/19 07:00 ALT 21 U/L (16-63) 09/18/19 07:00 Alkaline Phosphatase 64 U/L (46-116) 09/18/19 07:00 Ammonia 14 umol/L (11-32) 09/17/19 06:30 Creatine Kinase 324 U/L (39-308) H 09/19/19 06:08 Troponin I < 0.05 ng/mL (0.00-0.06) 09/17/19 06:30 Total Protein 6.2 g/dL (6.4-8.2) L 09/18/19 07:00 Albumin 3.4 g/dL (3.4-5.0) 09/18/19 07:00 Vitamin B12 584 pg/mL (193-986) 09/18/19 07:00 Folate 18.8 ng/mL (8.6-20.0) 09/18/19 07:00 TSH 0.10 uIU/mL (0.36-3.74) L 09/18/19 07:00 Free T4 1.29 ng/dL (0.76-1.46) 09/18/19 07:00 Urine Color Yellow (Yellow) 09/25/19 11:01 Urine Clarity Clear (Clear) 09/25/19 11:01 Urine pH 5.5 (5-8) 09/25/19 11:01 Ur Specific [place] >= 1.030 (1.005-1.025) H 09/25/19 11:01 Urine Protein 30 mg/dL (Negative) H 09/25/19 11:01 Urine Ketones Negative mg/dL (Negative) 09/25/19 11:01 Urine Blood Moderate (Negative) H 09/25/19 11:01 Urine Nitrite Negative (Negative) 09/25/19 11:01 Urine Bilirubin Small (Negative) H 09/25/19 11:01 Urine Urobilinogen 0.2 EU/dL (Up TO 0.2) 09/25/19 11:01 Ur Leukocyte Esterase Negative (Negative) 09/25/19 11:01 Urine RBC 10-20 HPF (0-2) H 09/25/19 11:01 Urine WBC 0-2 HPF (0-5) 09/25/19 11:01 Ur Epithelial Cells Rare HPF (Negative) 09/25/19 11:01 Urine Crystals Negative HPF (Negative) 09/25/19 11:01 Urine Bacteria Rare HPF (Negative) 09/25/19 11:01 Urine Casts Negative LPF (Negative) 09/25/19 11:01 Urine Mucus Negative (Negative) 09/25/19 11:01 Ur Culture Indicated? No 09/25/19 11:01 Urine Osmolality 303 mosm/Kg (150-1150) 09/17/19 07:20 Urine Glucose Negative mg/dL (Negative) 09/25/19 11:01 Urine Opiates Screen Negative (Negative) 09/17/19 07:20 Urine Methadone Screen Negative (Negative) 09/17/19 07:20 Ur Barbiturates Screen Negative (Negative) 09/17/19 07:20 Ur Tricyclics Screen Negative (Negative) 09/17/19 07:20 Ur Amphetamines Screen Negative (Negative) 09/17/19 07:20 U Benzodiazepines Scrn Negative (Negative) 09/17/19 07:20 Urine Cocaine Screen Negative (Negative) 09/17/19 07:20 Ur THC Screen Negative (Negative) 09/17/19 07:20 Ethyl Alcohol 242.7 mg/dL (<3) 09/17/19 06:30
[2019-10-01] MEDS: traMADol 50 MG TAB 100 MG PO ×3 (02:22→14:58)
[2019-10-01 03:35] VITALS: BP 119/76; PULSE 69; RESP 17; TEMP 36.6; O2SAT 95
[2019-10-01] MEDS: Heparin 5,000 UNITS/ML VIAL 5000 UNITS SC ×2 (05:54→14:22)
[2019-10-01] MEDS: Levothyroxine 150 MCG TAB PO (05:54)
[2019-10-01 07:40] VITALS: BP 107/77; PULSE 73; RESP 16; TEMP 36.5; O2SAT 94
[2019-10-01] MEDS: Cyanocobalamin 500 MCG TAB 1000 MCG PO (08:46)
[2019-10-01] MEDS: Metoprolol CR 50 MG TABCR PO (08:46)
[2019-10-01] MEDS: Nicotine 14 MG/24 HR PATCH TD (08:46)
[2019-10-01] MEDS: chlordiazePOXIDE 25 MG CAP PO (08:46)
[2019-10-01] MEDS: Acetaminophen 325 MG TAB PO (08:46)
[2019-10-01] MEDS: Folic Acid 1 MG TAB PO (08:46)
[2019-10-01] MEDS: Gabapentin 600 MG TAB 1200 MG PO ×2 (08:47→14:21)
[2019-10-01] MEDS: Nystatin 500000 UNITS/5 ML SUSP 5ML CUP PO ×2 (08:47→14:21)
[2019-10-01] MEDS: buPROPion-CR 150 MG TABCR PO (08:47)
[2019-10-01 09:25] VITALS: O2SAT 95
--- NOTE | 2019-10-01 09:33 | CMPROGNOTE_ITS ---
Care Management Progress Note Harshal will enter SWB1 for continued rehab. Goals: 1. Coordinate outpatient surgery at [facility] with Spine Clinic: [facility] P#[phone], F#[phone] 2. Coordinate disposition with the support of Kostas ARMSTRONG RNCM and [place]: Credit Products Officer 3. Continue rehabilitation prior to surgery and post surgically to ensure baseli ne functioning prior to discharge.
--- NOTE | 2019-10-01 09:33 | PDOC.CMPRO ---
Care Management Progress Note Harshal will enter SWB1 for continued rehab. Goals: 1. Coordinate outpatient surgery at [facility] with Spine Clinic: [facility] P#[phone], F#[phone] 2. Coordinate disposition with the support of Kostas ARMSTRONG RNCM and [place]: Curtain Mender 3. Continue rehabilitation prior to surgery and post surgically to ensure baseline functioning prior to discharge.
--- NOTE | 2019-10-01 13:02 | PT.INDS ---
Date of service: 10/01/19 Time of Service: 10:31 PT Notes Inpatient Physical Therapy Discharge Summary Dates: 10/01/2019 Dates of Service: 09/26/2019 through 10/01/2019 Referring Doctor: Blake Escobar MD PT Orders: PT CONSULT: extended stay; weakness Precautions: Fall Patient Profile/Admitting Diagnosis: Patient admitted for medical management of hypothermia and alcohol withdrawal. PMHX: Alcoholism; closed head injury; bipolar disorder; hypothyroidism; ADHD; spinal fusion C7-T1. Patient reports that he is awaiting fusion of L5-S1, which was supposed to be happening later this week Social History/Home Situation: Patient has been most recently been living at [facility]. He reports that he had been ambulating independently, although had suffered multiple falls in recent months. Denies utilization of assistive device at any point. Equipment Owned/DME: None Subjective: Patient states that he feels a lot more stable now and better able to tolerate med surg floor ambulation using his front-wheeled walker. He feels that he will be okay with having no sitter as he states he is well aware enough to call for help whenever he needs to get up. He is agreeable to converting to swing bed level 1 Objective: General Observation: Resting in bed with eyes closed. Skinner catheter in place. IV in LUE. Mental Status: Semi-alert. Patient provides limited responses, with quiet, slurred speech. He maintains eyes closed through the majority of the session. Pain: Chronic low back pain, unchanged from baseline ROM: Right Upper Extremity: Active shoulder flexion allows 80 degrees, with deviation into scapular plane. Hardboard Supervisor weak but and functional. Left Upper Extremity: Active shoulder flexion allows 100 degrees, with deviation into scapular plane. Hardboard Supervisor weak but and functional. Right Lower Extremity: WFL Left Lower Extremity: WFL Strength: Right Upper Extremity: External rotation 4-/5. Biceps strength 4/5. Triceps 4-/5. Patient demonstrates only partial opening of the hand. Digit AB and adduction are each 4--/5. Left Upper Extremity: External rotation 4-/5. Biceps strength 4/5. Triceps 4-/5. Patient demonstrates only partial opening of the hand. Digit AB and adduction are each 4--/5. Right Lower Extremity: Hip flexion 4-+/5. Quads 4-/5. Hamstrings 4-/5. Ankle dorsiflexion 3-/5. Left Lower Extremity: Hip flexion 4-/5. Quads 4-/5. Hamstrings 4-/5. Ankle dorsiflexion 3-/5. Bed Mobility/Transfers: Rolling SBA Supine to sit SBA Sit to supine SBA Sit to stand SBA Stand to sit SBA Bed to chair SBA Chair to bed SBA Gait: Patient is not able to consistently negotiate level surface ambulation of 120 feet x 5 with SBA and minimal verbal cues for overall safety and posture as well this obstacle negotiation. Patient is able to manage to well for steps and eight 6 inch steps while holding onto bilateral rails with step over step pattern requiring only SBA. Balance: Static Sitting: Normal Dynamic Sitting: Normal Static Standing: Fair Dynamic Standing: Fair Tinetti/HANG score of 17/28 and Timed Up and Go score of 25 seconds without FWW and 20 seconds with front-wheeled walker signifying high fall risk. Assessment: Patient is a 54-year-old male referred to physical therapy services with the diagnosis of weakness during extended hospital stay. Patient presents with clinical signs and symptoms consistent with diagnosis, with multiple contributing factors, including what appears to be a cervical myelopathy with significant upper and lower extremity weakness and balance and coordination impairments. Patient has demonstrated significant mobility gains since this episode of care and will continue to benefit from mobility progression under SB1. He currently demonstrates the following impairment level findings: 1. Decreased upper extremity strength 2. Decreased lower extremity strength 3. Chronic pain 4. History of falls Impairments are contributing to the following functional limitations: 1. High fall risk 2. Inability to ambulate without an assistive device 3. Decreased activity tolerance Goals: Goals X1 week 1. Supine-Sit : Supervision NOT MET 2. Sit-Supine: Supervision NOT MET 3. Sit-Stand: Min assist NOT MET 4. Stand-Sit : min A MET 5. Bed-Chair min A with FWW MET 6. Chair-Bed : min A with FW MET 7. Gait : min A with FWW x 50' MET DISCHARGE RECOMMENDATIONS: Patient is discharged from physical therapy services under acute care level and will be evaluated under swing bed level 1 tomorrow, 10/02/2019. Goals well to be upgraded as needed. TREATMENT CODE/TIME: 64146 x 34 minutes beginning at 10:31 AM. Thank you very much for this referral. Keisha Bar PT, DPT, CLT [facility]
--- NOTE | 2019-10-01 13:46 | OT.INDS ---
Date of service: 10/01/19 Time of Service: 13:46 Occupational Therapy Notes Occupational Therapy Inpatient Discharge Summary Date: 10/01/19 Dates of Service: 09/29/19-10/01/19 Referring Doctor: Bobbi Tilley MD OT Orders: Non Urgent Limited Ability Precautions: Fall, Standard PATIENT PROFILE/ADMITTING DIAGNOSIS: Patient admitted for medical management of hypothermia and alcohol withdrawal. Past Medical History: Alcoholism; closed head injury; bipolar disorder; hypothyroidism; ADHD; spinal fusion C7-T1. Patient reports that he is awaiting fusion of L5-S1, which was supposed to be happening later this week Social History/Home Situation: Pt prior to hospitalization has been most recently been living at [facility]. He reports that he had been ambulating independently, although had suffered multiple falls in recent months.He refers to himself as disabled due to neck and back pain. Equipment owned/DME: Cane SUBJECTIVE: NT *This document serves as a summary of care, no skilled OT services provided for this documentation. OBJECTIVE- ROM: RUE AROM WFL L UE AROM WFL STRENGTH: RUE 5/5 throughout LUE 5/5 throughout SENSATION: Numbness and tingling in (R) hands/(R) LE FUNCTIONAL MOBILITY/ADLS: Sit-stand: SBa, FWW Stand-sit: SBA, FWW Bed-Chair: SBA, FWW Chair-bed: SBA, FWW BATHING: Upper Body: Standing at sink with FWW, (I) with washing (B) UE and face, min vc for body positioning. GROOMING: Standing at sink (I) with brushing hair and teeth with min vc for weight shifting. EATING: (I) in seated position BALANCE: Static sitting Normal Dynamic Sitting Normal Static Standing Good Dynamic Standing Good ASSESSMENT: Patient is a 54-year-old male referred to occupational therapy services with diagnosis of medical management of hypothermia and alcohol withdrawal. Pt was seen for 2 skilled OT sessions and had made good progress towards his goals established at initial evaluation. Pt is being transitioned to B 1 level of care at this time. OT will discharge pt from acute services and will require a new referral in order to continue care with pt at this time. GOALS 1. Transfers SBA, FWW- met 2. Dressing in seated position (I) UE/LE with use of adaptive equipment- not met 3. Bathing in seated position (I)- met 4. Toileting on toilet (I)- met 5. Eating (I)- met PLAN OF CARE/TREATMENT PLAN: Pt is transitioning to Swing Bed 1 level of care. OT will plan to discharge pt from skilled OT services and will require a new referral if MD feels that pt is still appropriate for further OT services. DISCHARGE RECOMMENDATIONS Short term SNF vs. LTC facility due to pts functional decline, decreased (I) and inability to perform ADLs/IADLs TREATMENT TIME/MINUTES/CODES N/A Adriana Ozuna, OTR/L [facility]
[2019-10-01 15:30] VITALS: BP 116/82; PULSE 67; RESP 16; TEMP 36.5; O2SAT 97
[2019-10-01] MEDS: Normal Saline Flush 10 ML SYR IVP (15:48)
[2019-10-01] MEDS: Pantoprazole 40 MG VIAL IVP (15:48)
[2019-10-01 19:13] VITALS: BP 130/92; PULSE 83; RESP 16; TEMP 36.9; O2SAT 95
--- NOTE | 2019-10-01 19:20 | DSE_ITS ---
Date of service: 10/01/19 Time of Service: 19:20 DS: Diagnosis Discharge Diagnosis (1) Spinal stenosis of lumbar region: Status: Acute (2) Alcohol withdrawal: Status: Acute (3) Alcohol intoxication: Status: Resolved (4) Hypothermia: Status: Resolved (5) Hypothyroid: Status: Chronic (6) HTN (hypertension): Status: Chronic (7) Bipolar disorder: Status: Chronic Discharge Plan Disposition Patient Disposition: [facility] SWING BED LEVEL 1 Condition: Stable Discharge Details Chief Complaint: AMS/LOC Clinical Impression: Hypothermia, Diuresis excessive, Alcohol intoxication, Fall Reason For Visit: HYPOTHERMIA, ALCOHOL INTOXICATION Admit Date/Time: 09/17/19 07:50 Admit Provider: Bobbi Tilley Attending Provider: Bobbi Tilley Primary Care Provider: Don Draper ED Provider: Ned Johnston Hospital Course Hospital Course: Mr Juarez is a 54 year old male with PMHx of alcohol abuse, h/o DT's and alcohol withdrawal seizures, as well as hypertension, hypothyroidism, chronic back pain due to lumbar spinal stenosis with spondylosis and spondylolisthesis at L5-S1, and bipolar d/o, who was admitted to [facility] ICU on 09/17/19 with hypothermia after being found intoxicated in a parking lot of the [employer]. He was monitored in the ICU while he was gradually warmed up, and he luckily did not suffer any frostbite injury from his exposure to the cold. He did go through severe alcohol withdrawal, but did not have any alcohol withdrawal seizures on this admission. He ended up being placed on scheduled librium in addition to having prn ativan PO and IV per NELI. He was transferred out of the ICU on 09/27/19 to medical surgical floor with tele. His librium was continued to be tapered. At the same time, the patient does have significant ambulatory dysfunction, which is improving with physical therapy. CT of the lumbar spine as well as MRI of the same region did not reveal any worsening of his chronic spinal stenosis findings. The images were sent to [facility], where the patient had previously had outpatient surgery scheduled for 09/29/19 - at this point, the surgery had been postponed, and he was not felt to require it on inpatient basis. He is being discharged to swing bed level 1 today where he will continue to work with physical therapy, will finish his librium taper, and orthopedic surgery follow up at [facility] can be arranged. 45 minutes were spent on care for patient as well as completion of his transfer summary on this date. Home Meds and New Rx's Prescriptions: No Action levothyroxine [Synthroid] 200 mcg Tablet 175 mcg PO DAILY RF: 0 Latuda 20 mg Tablet 80 mg PO DAILY RF: 0 bupropion HCl 150 mg Tablet Sustained-Release 12 Hr 150 mg PO BID RF: 0 gabapentin 600 mg Tablet 1,200 mg PO TID RF: 0 metoprolol succinate 50 mg Tablet Extended Release 24 Hr 50 mg PO DAILY RF: 0 cyanocobalamin (vitamin B-12) [Vitamin B-12] 1,000 mcg Tablet 1,000 mcg PO DAILY RF: 0 amlodipine 5 mg Tablet 5 mg PO DAILY RF: 0 tramadol 50 mg Tablet 50 mg PO Q6H PRNRF: 0 folic acid 1 mg Tablet 1 mg PO DAILY RF: 0 duloxetine [Cymbalta] 30 mg Capsule,Delayed Release(Dr/Ec) 30 mg PO DAILY RF: 0 Vyvanse 50 mg Capsule 50 mg PO DAILY RF: 0 Discharge Instructions Activity:: Activity as Tolerated Equipment/Supplies:: Walker Diet:: As Tolerated Discharge Orders Discharge Orders: Discharge Order (Routine); Ordered 10/01/19 Ordered By: Bobbi Tilley DS: Summary Status at Discharge Functional status at discharge: uses cane/walker Overall status at discharge: patient is back to baseline Mental Status: mental status grossly normal Speech and Movement: speech and movement normal Mood: congruent mood Affect: normal affect Exam Narrative Exam Narrative: General: middle-aged male, A&Ox3, seen ambulating in a hallway with a walker, looks even more steady on his feet HEENT: EOMI, MMM Heart: RRR, no m/r/g Lungs: CTAB GI: abdomen is soft, nontender, nondistended Extremities: 5/5 strength BLE, no e/c/c Psych Mental Status: mental status grossly normal Speech and Movement: speech and movement normal Mood: congruent mood Affect: normal affect DS: Data Vitals/I&O Vitals and I&O: Vital Signs Temperature 36.9 C 10/01/19 19:13 Temperature Source Tympanic 10/01/19 19:13 Pulse 83 10/01/19 19:13 Pulse Rhythm Regular 10/01/19 15:13 Pulse 66 09/27/19 10:01 Respiratory Rate 16 10/01/19 19:13 Respiratory Effort 10/01/19 15:13 Respiratory Depth Normal 10/01/19 15:13 Respiratory Pattern Normal 10/01/19 15:13 Blood Pressure 130/92 H 10/01/19 19:13 Blood Pressure Mean 92 09/27/19 15:37 Blood Pressure Position Supine 09/27/19 15:37 Pulse Oximetry 95 10/01/19 19:13 Oxygen Delivery Method Room Air 10/01/19 19:13 Oxygen Flow Rate 0 10/01/19 19:13 Pain Level 7 10/01/19 14:58 Comment 10/01/19 03:35 Intake & Output 09/30/19 10/01/19 10/01/19 23:59 11:59 23:59 Intake Total 1200 / 1440 360 / 1080 720 / 1080 Output Total 498 / 498 Balance 702 / 942 360 / 1080 720 / 1080 Weight 67.1 kg Intake: Oral 1200 / 1440 360 / 1080 720 / 1080 Output: Urine 450 / 450 Post Void Residual 48 / 48 Other: Urine Color Yellow Yellow Urine Appearance Clear Clear Clear Urine Odor Normal Normal Stool Size Moderate Stool Characteristics Brown Voiding Methods Toilet Toilet Data Completed and Pending Completed studies during hospitalization [Text1]: CT cervical spine w/o contrast 09/17/19: No evidence of acute intracranial process. No evidence of acute cervical fracture or dislocation. XR R knee 09/17/19: two portable views of the knee were obtained. No fracture is seen on this limited series. CT head w/o contrast 09/23/19 post fall: No acute intracranial process. CXR 09/25/19: No acute pulmonary process. CT lumbar spine w/o contrast 09/26/19: No evidence of acute fracture. Degenerative disc changes in the lower thoracic spine. Chronic L4 spondylolysis, spondylolisthesis and degenerative disc changes causing severe bilateral neural foraminal narrowing. Lumbar spine MRI 09/28/19: Left paracentral disc protrusion at T11-12 causing mild narrowing of the AP dimension of the central canal. Stable L4-5 spondylolisthesis, with chronic L4 spondylolysis and severe degenerative disc changes causing severe bilateral neural foraminal narrowing. Thoracic spine MRI 09/28/19: Small left paracentral disc protrusion at T11-12 and mild disc bulging at T12-L1. XR L elbow 09/28/19: No acute abnormality. XR shoulder L 09/28/19: No acute abnormality. PFSH Family History (Updated 09/17/19 @ 11:02 by Bobbi Tilley MD) Other Family history unobtainable due to patient's condition Social History Smoking/Tobacco Use Status: Current every day Tobacco Type: cigarettes Alcohol Intake: current Alcohol Intake frequency: 3 or more drinks per day Alcohol type: other Drug use: Never Substance use type: does not use Do you feel safe at home: Yes Do you feel safe in your relationship?: Yes
== END 2019-10-01 20:20 | disposition swing bed (61) | DRG 923 ==
LOC: ER 08:50 → ICU 09:23 → MS 10-01 19:30 → ICU 10-02 11:24
PROVIDERS: General Practice; Internal Medicine; Admitting Provider Internal Medicine; Emergency Provider Student in an Organized Health Care Education/Training Program; PCP Physician Assistant; Visit Provider Internal Medicine
DX: T68.XXXA Hypothermia, initial encounter (principal); F10.232 Alcohol dependence with withdrawal with perceptual disturbance; F10.239 Alcohol dependence with withdrawal, unspecified; X31.XXXA Exposure to excessive natural cold, initial encounter; Y92.481 Parking lot as the place of occurrence of the external cause; M48.061 Spinal stenosis, lumbar region without neurogenic claudication; S09.90XA Unspecified injury of head, initial encounter; F10.229 Alcohol dependence with intoxication, unspecified; Y90.8 Blood alcohol level of 240 mg/100 ml or more; E03.9 Hypothyroidism, unspecified; I10 Essential (primary) hypertension; F31.9 Bipolar disorder, unspecified; W19.XXXA Unspecified fall, initial encounter; R50.9 Fever, unspecified; R26.2 Difficulty in walking, not elsewhere classified; R35.8 Other polyuria
CPT/HCPCS: 36410; 36415; 51702; 80048; 80053; 80076; 80307; 82550; 82805; 83935; 85027; 87040; 96360; 97110; 97162; 97163; 97166; 97530; 97535; 99232; 99233; 99239; 99291; 70450; 71045; 72125; 72131; 72146; 72148; 73030; 73080; 73560; 80320; 81003; 81015; 82140; 82607; 82746; 83605; 83735; 83930; 84439; 84443; 84484; 85025; 85610; 85730; 99225; J0131; J1644; J2060; J3480; J3490; L0172

== ENCOUNTER 2019-10-01 19:35 | Inpatient (IN) | payer MEDICAID, SELFPAY ==
--- NOTE | 2019-10-01 13:30 | CMSCP_ITS ---
Swingbed Plan of Care Plan of care: SWING BED PROGRAM ACTIVITIES/DISCHARGE PLAN OF CARE ACTIVITIES PLAN Date: 10/01/19 Identified Need: Enrichment activities while in [facility] for continued rehab. Attachment and resumption of community based supports including sober housing, [facility] RNCM and baseball coach. Intervention/Plan: Harshal will be offered CART activities while inpatient. He will meet with his community based team members to coordinate resumption and attachment of services prior to discharge. Initials: [facility] DISCHARGE PLAN Date: 10/01/19 Identified Need: Surgical intervention, rehabilitation, disposition and discharge planning Intervention/Plan: CM will support coordination of surgical intervention with [facility] while Harshal remains in [facility] for continued rehab until surgery, and post surgical rehab after. Harshal will reconnect with community based providers prior to discharging back to the community. Initials: [facility]
--- NOTE | 2019-10-01 13:30 | CM.SWINGPC ---
Swingbed Plan of Care Plan of care: SWING BED PROGRAM ACTIVITIES/DISCHARGE PLAN OF CARE ACTIVITIES PLAN Date: 10/01/19 Identified Need: Enrichment activities while in [facility] for continued rehab. Attachment and resumption of community based supports including sober housing, [facility] RNCM and rn recovery. Intervention/Plan: Harshal will be offered CART activities while inpatient. He will meet with his community based team members to coordinate resumption and attachment of services prior to discharge. Initials: [facility] DISCHARGE PLAN Date: 10/01/19 Identified Need: Surgical intervention, rehabilitation, disposition and discharge planning Intervention/Plan: CM will support coordination of surgical intervention with [facility] while Harshal remains in [facility] for continued rehab until surgery, and post surgical rehab after. Harshal will reconnect with community based providers prior to discharging back to the community. Initials: [facility]
--- NOTE | 2019-10-01 13:36 | INITIAL_ITS ---
Care Management Initial Assess REASON FOR HOSPITALIZATION:: [facility] for continued rehab, surgical intervention coordination, disposition and service planning. PAST MEDICAL HISTORY/PAST SURGICAL HISTORY:: ADHD, Alcoholism/abuse, Bipolar disorder, HTN, Hypothyroid, cervical spine surgery PREVIOUS FUNCTIONAL STATUS/SOCIAL/FAMILY SUPPORTS:: Harshal is a 54 year old male with a long history of alcohol use. He has had intermittent periods of homelessness but has recently been living at [facility], a sober living facility in [place] [facility]. Amarilys Hickey of [facility] has been providing Harshal with case management services for the past couple of months. Harshal is also receiving services through [facility]. Meghna Merlos is his [facility] medication provider and Moody (last name unknown) is his [facility] counselor. Harshal has no family supports in [place]. CURRENT FUNCTIONAL STATUS:: Harshal is sitting up in his chair, agreeable to [facility] rehab. He engages fully in creation of goals and planning for surgical intervention and discharge planning. ADVANCE DIRECTIVES:: None on file at [facility]. Has patient been provided with information about the portal?: Yes Did the patient sign up for the portal?: No CODE STATUS:: Full Code INSURANCE COVERAGE / FINANCIAL ISSUES:: Medicaid CURRENT HOME/COMMUNITY SERVICES/EQUIPMENT:: [facility] RNCM: Amarilys. Trademark Affixer: Asia. [facility]; [facility]. Reports he is approved for disability to begin 11/11/19. PRIMARY CARE PHYSICIAN:: Don Draper POTENTIAL DISCHARGE NEEDS:: Harshal will resume services and reconnect with [place] and Amarilys. Attempts will be made to support Harshal finding supportive housing pr ior to discharge. Goal for Harshal to go to [facility] for surgical intervention while in [facility].
--- NOTE | 2019-10-01 13:36 | PDOC.CMIN ---
Care Management Initial Assess REASON FOR HOSPITALIZATION:: [facility] for continued rehab, surgical intervention coordination, disposition and service planning. PAST MEDICAL HISTORY/PAST SURGICAL HISTORY:: ADHD, Alcoholism/abuse, Bipolar disorder, HTN, Hypothyroid, cervical spine surgery PREVIOUS FUNCTIONAL STATUS/SOCIAL/FAMILY SUPPORTS:: Harshal is a 54 year old male with a long history of alcohol use. He has had intermittent periods of homelessness but has recently been living at [facility] a sober living facility in [facility]. Amarilys Hickey of [facility] has been providing Harshal with case management services for the past couple of months. Harshal is also receiving services through [facility]. Meghna Merlos is his [facility] medication provider and Moody (last name unknown) is his [facility] counselor. Harshal has no family supports in [place]. CURRENT FUNCTIONAL STATUS:: Harshal is sitting up in his chair, agreeable to [facility] rehab. He engages fully in creation of goals and planning for surgical intervention and discharge planning. ADVANCE DIRECTIVES:: None on file at [facility]. Has patient been provided with information about the portal?: Yes Did the patient sign up for the portal?: No CODE STATUS:: Full Code INSURANCE COVERAGE / FINANCIAL ISSUES:: Medicaid CURRENT HOME/COMMUNITY SERVICES/EQUIPMENT:: [facility] RNCM: Amarilys. Senior Coldfusion Developer: [place]. Previously resided at [facility]; [facility]. Reports he is approved for disability to begin 11/11/19. PRIMARY CARE PHYSICIAN:: Don Draper POTENTIAL DISCHARGE NEEDS:: Harshal will resume services and reconnect with [place] and Amarilys. Attempts will be made to support Harshal finding supportive housing prior to discharge. Goal for Harshal to go to [facility] for surgical intervention while in [facility].
--- NOTE | 2019-10-01 13:44 | CMSA_ITS ---
SB Psychosocial/Act.Assessment - Hospital Admission Admission Date: 09/17/19 Admission From:: Community Diagnosis:: Hypothermia, Alcohol Intoxication - Swing Bed Admission Swing Bed Admit Date:: 10/01/19 Swing Bed Level of Care: Level 1/SNF - Social Supports PREVIOUS FUNCTIONAL STATUS/SOCIAL/FAMILY SUPPORTS:: Harshal is a 54 year old male with a long history of alcohol use. He has had intermittent periods of homelessness but has recently been living at [facility], a sober living facility in [place] [facility]. Amarilys Hickey of [facility] has been providing Harshal with case management services for the past couple of months. Harshal is also receiving services through [facility]. Meghna Merlos is his [facility] medication provider and Moody (last name unknown) is his [facility] counselor. Harshal has no family supports in [place]. - Prior to Admission Living Arrangements/Environment Prior to Admission:: [facility]: leni based sober living - : No [place]'s Spouse: No - Benefits Financial: Social Security - Mandaen Active Denominational Member:: Yes - Advance Directives for Healthcare If no AD, do you want more information:: No - [facility] Supports/Involvement: AA, [facility] RNCM, [facility] - Present Functional Status Physical Abilities:: Deteriorated due to hypothermia, found down outside, extended hospitalization. Cognitive:: Appears to have some short term memory deficits. Communication:: Pleasant and fully engaged - Medical History PAST MEDICAL HISTORY/PAST SURGICAL HISTORY:: ADHD, Alcoholism/abuse, Bipolar disorder, HTN, Hypothyroid, cervical spine surgery Past Psychiatric Treatment:: Bipolar disorder and ADHD; Med Management with Mavis Merlos at [facility]. - Admission Data Reason for Swing Bed Admission:: [facility] for continued rehab, surgical intervention coordination, disposition and service planning. Discharge Plan:: [facility] RNCM: Amarilys. Laborer Sawmill: Asia. Previously resided at [facility]; [facility]. Reports he is approved for disability to begin 11/11/19. Harshal will resume services and reconnect with [place] and Amarilys. Atte mpts will be made to support Harshal finding supportive housing prior to discharge. Goal for Harshal to go to [facility] for surgical intervention while in [facility]. Assessment: [facility] for Surgery and Rehab Bottle Gauger: Chrystal Irizarry Date Assessment was completed:: 10/01/19
--- NOTE | 2019-10-01 13:44 | CM.SBPSYCH ---
SB Psychosocial/Act.Assessment - Hospital Admission Admission Date: 09/17/19 Admission From:: Community Diagnosis:: Hypothermia, Alcohol Intoxication - Swing Bed Admission Swing Bed Admit Date:: 10/01/19 Swing Bed Level of Care: Level 1/SNF - Social Supports PREVIOUS FUNCTIONAL STATUS/SOCIAL/FAMILY SUPPORTS:: Harshal is a 54 year old male with a long history of alcohol use. He has had intermittent periods of homelessness but has recently been living at [facility], a sober living facility in [place]. Amarilys Hickey of [facility] has been providing Harshal with case management services for the past couple of months. Harshal is also receiving services through [facility]. Meghna Merlos is his [facility] medication provider and Moody (last name unknown) is his [facility] counselor. Harshal has no family supports in [place]. - Prior to Admission Living Arrangements/Environment Prior to Admission:: [facility]: leni based sober living - : No [place]'s Spouse: No - Benefits Financial: Social Security - Zoroastrianism Active Orthodox Member:: Yes - Advance Directives for Healthcare If no AD, do you want more information:: No - [facility] Supports/Involvement: AA, [facility] RNCM, [facility] - Present Functional Status Physical Abilities:: Deteriorated due to hypothermia, found down outside, extended hospitalization. Cognitive:: Appears to have some short term memory deficits. Communication:: Pleasant and fully engaged - Medical History PAST MEDICAL HISTORY/PAST SURGICAL HISTORY:: ADHD, Alcoholism/abuse, Bipolar disorder, HTN, Hypothyroid, cervical spine surgery Past Psychiatric Treatment:: Bipolar disorder and ADHD; Med Management with Mavis Merlos at [facility]. - Admission Data Reason for Swing Bed Admission:: [facility] for continued rehab, surgical intervention coordination, disposition and service planning. Discharge Plan:: [facility] RNCM: Amarilys. Baker Helper: Asia. Previously resided at [facility]; [facility]. Reports he is approved for disability to begin 11/11/19. Harshal will resume services and reconnect with Ray. Attempts will be made to support Harshal finding supportive housing prior to discharge. Goal for Harshal to go to [facility] for surgical intervention while in [facility]. Assessment: [facility] for Surgery and Rehab Hvac/R Instructor: Chrystal Irizarry Date Assessment was completed:: 10/01/19
--- NOTE | 2019-10-01 19:38 | HPE_ITS ---
Date of service: 10/01/19 Time of Service: 19:38 Assessment and Plan Assessment and plan (1) Spinal stenosis of lumbar region: Status: Acute Assessment and plan: arranging outpatient follow up with [facility]. (2) Ambulatory dysfunction: Status: Acute Assessment and plan: PT/OT consults (3) Alcohol withdrawal: Status: Acute Assessment and plan: Continue librium taper. Stable. (4) Hypothyroid: Status: Chronic Assessment and plan: Continue lowered dose of synthroid (5) HTN (hypertension): Status: Chronic Assessment and plan: Continue home meds (6) Bipolar disorder: Status: Chronic Assessment and plan: Continue Vraylar (7) Discharge planning issues: Status: Acute Assessment and plan: Full code History of Present Illness History of Present Illness Chief Complaint: Difficulty walking Narrative: Mr Juarez is a 54 year old male with PMHx of alcohol abuse, h/o DT's and alcohol withdrawal seizures, as well as hypertension, hypothyroidism, chronic back pain due to lumbar spinal stenosis with spondylosis and spondylolisthesis at L5-S1, and bipolar d/o, who was admitted to [facility] ICU on 09/17/19 with hypothermia after being found intoxicated in a parking lot of the [employer]. He was monitored in the ICU while he was gradually warmed up, and he luckily did not suffer any frostbite injury from his exposure to the cold. He did go through severe alcohol withdrawal, but did not have any alcohol withdrawal seizures on this admission. He ended up being placed on scheduled librium in addition to having prn ativan PO and IV per CIWA. He was transferred out of the ICU on 09/27/19 to medical surgical floor with tele. His librium was continued to be tapered. At the same time, the patient does have significant ambulatory dysfunction with several falls on his inpatient admission, but is improving with physical therapy. CT of the lumbar spine as well as MRI of the same region did not reveal any worsening of his chronic spinal stenosis findings. The images were sent to [facility] orthoped[facility], where the patient had previously had outpatient surgery scheduled for 09/29/19 - at this point, the surgery had been postponed, and he was not felt to require it on inpatient basis. He is being discharged to swing bed level 1 today where he will continue to work with physical therapy, will finish his librium taper, and orthopedic surgery follow up at [facility] can be arranged. Review of Systems Narrative: 12 systems reviewed. Complains of chronic back pain. Otherwise, no complaints. [facility], [facility] Family History (Updated 09/17/19 @ 11:02 by Bobbi Tilley MD) Other Family history unobtainable due to patient's condition Social History Smoking/Tobacco Use Status: Current every day Tobacco Type: cigarettes Alcohol Intake: current Alcohol Intake frequency: 3 or more drinks per day Alcohol type: other Drug use: Never Substance use type: does not use Do you feel safe at home: Yes Do you feel safe in your relationship?: Yes Meds Home Medications and Allergies Home Medications Medication Instructions Recorded Confirmed Type Latuda 80 mg PO DAILY 08/31/18 09/17/19 History levothyroxine [Synthroid] 175 mcg PO DAILY 08/31/18 09/17/19 History amlodipine 5 mg PO DAILY 08/18/19 09/17/19 History bupropion HCl 150 mg PO BID 08/18/19 09/17/19 History cyanocobalamin (vitamin B-12) 1,000 mcg PO DAILY 08/18/19 09/17/19 History [Vitamin B-12] duloxetine [Cymbalta] 30 mg PO DAILY 08/18/19 09/17/19 History folic acid 1 mg PO DAILY 08/18/19 09/17/19 History gabapentin 1,200 mg PO TID 08/18/19 09/17/19 History lisdexamfetamine [Vyvanse] 50 mg PO DAILY 08/18/19 09/17/19 History metoprolol succinate 50 mg PO DAILY 08/18/19 09/17/19 History tramadol 50 mg PO Q6H PRN 08/18/19 09/17/19 History Allergies Allergy/AdvReac Type Severity Reaction Status Date / Time carbamazepine [From Tegretol] Allergy Mild Skin Rash Unverified 09/17/19 07:23 Exam Narrative Exam Narrative: General: Very pleasant middle-aged male, able to have a really good conversation about art, A&Ox3 Neurological: A&Ox3, RLE foot drop, but able to walk Psychiatric: mildly anxious Skin: intact HEENT: Atraumatic, normocephalic, EOMI, MMM Cardiovascular: RRR, no m/r/g Lungs: CTAB Gastrointestinal: Abdomen is soft, nontender, nondistended Genitourinary: deferred Extremities: no e/c/c/ BLE's, able to walk
[2019-10-01] MEDS: buPROPion-CR 150 MG TABCR PO (20:47)
[2019-10-01] MEDS: Nystatin 500000 UNITS/5 ML SUSP 5ML CUP PO (20:47)
[2019-10-01] MEDS: Gabapentin 600 MG TAB 1200 MG PO (20:47)
[2019-10-01] MEDS: Heparin 5,000 UNITS/ML VIAL 5000 UNITS SC (20:47)
[2019-10-01] MEDS: chlordiazePOXIDE 25 MG CAP PO (20:47)
[2019-10-01 21:33] VITALS: BP 130/92; PULSE 83; RESP 16; TEMP 36.9; O2SAT 95
[2019-10-01 23:19] VITALS: BP 121/81; PULSE 74; RESP 17; TEMP 36.7; O2SAT 95
[2019-10-01] MEDS: traMADol 50 MG TAB 100 MG PO (23:26)
[2019-10-01] MEDS: Normal Saline Flush 10 ML SYR IVP (23:26)
[2019-10-02 04:13] VITALS: BP 137/88; PULSE 77; RESP 16; TEMP 35.9; O2SAT 96
[2019-10-02] MEDS: traMADol 50 MG TAB 100 MG PO ×3 (05:16→21:48)
[2019-10-02] MEDS: Acetaminophen 325 MG TAB PO ×3 (05:16→21:48)
[2019-10-02] MEDS: Levothyroxine 150 MCG TAB PO (05:17)
[2019-10-02] MEDS: Heparin 5,000 UNITS/ML VIAL 5000 UNITS SC (05:17)
[2019-10-02 06:56] LABS: HCT 41.4 % (40.0-50.0); HGB 13.8 g/dL (13.5-17.5); Mean Corp. HGB Concentration 33.3 g/dL (32.0-36.0); Mean Corpuscular Hemoglobin 31.2 pg (27.0-33.0); Mean Corpuscular Volume 93.7 fL (80-95); Mean Platelet Volume 10.3 fL (8.0-11.0); Platelet Count 361 x1000/uL (130-400); RBC 4.42 m/cumm (4.50-6.00); RBC Distribution Width 13.8 % (11.8-14.1); White Blood Cell Count 12.49 k/cumm (4.4-10.8)
[2019-10-02 07:20] VITALS: BP 127/73; PULSE 70; RESP 17; TEMP 36.5; O2SAT 96
--- NOTE | 2019-10-02 08:43 | OT.INIE ---
Occupational Therapy Notes Inpatient Occupational Therapy Evaluation Date: 10/02/19 Referring Doctor: Bobbi Tilley MD OT Orders: Non Urgent Limited Ability Precautions: Fall, Standard PATIENT PROFILE/ADMITTING DIAGNOSIS: Patient admitted for medical management of hypothermia and alcohol withdrawal. He was recently transitioned to [facility] bed 1 status on 10/01/19. Past Medical History: Alcoholism; closed head injury; bipolar disorder; hypothyroidism; ADHD; spinal fusion C7-T1. Patient reports that he is awaiting fusion of L5-S1, which was supposed to be happening later this week Social History/Home Situation: Pt prior to hospitalization has been most recently been living at [facility]. He reports that he had been ambulating independently, although had suffered multiple falls in recent months.He refers to himself as disabled due to neck and back pain. He states that he is going to work with an Alcohol counselor after discharge. Equipment owned/DME: Cane SUBJECTIVE: Pt states that he is currently Swing bed 1 status he states that he is awaiting surgery in [facility]. He is agreeable to OT session. OBJECTIVE: General Observation: Pt is able to answer questions, he is calm and cooperative to performance of LE dressing with adaptive equipment today. IV in (L) UE not connected. Mental Status: A&Ox3 Pain: no c/o pain ROM: RUE AROM WFL L UE AROM WFL STRENGTH: RUE 5/5 throughout LUE 5/5 throughout SENSATION: Numbness and tingling in (R) hands/(R) LE FUNCTIONAL MOBILITY/ADLS: Sit-Stand FWW, (S) Stand-sit FWW, (S) DRESSING Dressing UE Able to (I) don and doff t-shirt with increased performance time Dressing LE OT educated and trained pt in adaptive equipment including a sock aid, facility assistant and shoe horn. OT provided pt with the adaptive equipment and pt was able to demonstrate with good technique and min vc throughout. OT provided pt with vc throughout for performance of ADLs with adaptive equipment. BALANCE: Static sitting Normal Dynamic Sitting Normal Static Standing Good Dynamic Standing Good SPECIAL TESTS: Daily Activity Limitations Standardized Measure [facility] AM -PAC ?6 clicks? Daily Activity Inpatient Short Form: Raw score: 23 Standardized score: 51.12 CMS score: 15.86% INFORMED CONSENT/EDUCATION: Pt instructed in purpose of OT Consult and plan of care. ASSESSMENT: Patient is a 54-year-old male referred to occupational therapy services with diagnosis of medical management of hypothermia and alcohol withdrawal. Patient presents with clinical signs and symptoms consistent with dx, as demonstrated by the following impairment level findings: Pain with functional mobility, numbness and tingling in (B) UE, decreased (R) UE hand control, decreased ability to perform ADLs in standing position. Impairments are contributing to the following functional limitations: Decreased safety awareness, Fall risk, decreased LE dressing, increased performance time per ADLs, decreased functional activity tolerance. Pt transitioned on 10/01/19 to Swing bed 1 status. OT will plan to see pt for use of adaptive equipment to increase functional (I) in ADL/IADL routines. AMPAC score 23 Patient is assessed as a Low 97119 complexity based on the following: History: See above Examination: see functional limitations as noted above Presentation: Evolving Decision Making: AMPAC score 23 GOALS Goals x1 week 1. Dressing in seated position (I) UE/LE with use of adaptive equipment with ideal technique. PLAN OF CARE/TREATMENT PLAN: 1x/day, 5 days/ week x 1week Initiate Occupational Therapy Services for bathing, dressing, grooming, toileting, eating, transfer training. DISCHARGE RECOMMENDATIONS Short term SNF vs. LTC facility TREATMENT TIME/MINUTES/CODES 73162, [id number], 25 minutes (08:10) [facility]
[2019-10-02] MEDS: buPROPion-CR 150 MG TABCR PO ×2 (09:10→20:30)
[2019-10-02] MEDS: Folic Acid 1 MG TAB PO (09:11)
[2019-10-02] MEDS: chlordiazePOXIDE 25 MG CAP PO (09:11)
[2019-10-02] MEDS: Gabapentin 600 MG TAB 1200 MG PO ×3 (09:11→20:30)
[2019-10-02] MEDS: Nicotine 14 MG/24 HR PATCH TD (09:12)
[2019-10-02] MEDS: Cyanocobalamin 500 MCG TAB 1000 MCG PO (09:12)
[2019-10-02] MEDS: Metoprolol CR 50 MG TABCR PO (09:12)
[2019-10-02] MEDS: Nystatin 500000 UNITS/5 ML SUSP 5ML CUP PO ×3 (09:16→20:30)
--- NOTE | 2019-10-02 10:52 | PT.INIE ---
Date of service: 10/02/19 Time of Service: 09:30 PT Notes Physical Inpatient Initial Evaluation Date: 10/02/19 Referring Doctor: Bobbi Tilley MD PT Orders: PT CONSULT: Limited ability Precautions: Fall. Standard. Activity as tolerated. Patient Profile/Admitting Diagnosis: Patient converted to swing bed level 1 as of 10/01/2019 and is being re-evaluated as of today for continued skilled physical therapy services. Patient is a 54-year-old male admitted for medical management of hypothermia and alcohol withdrawal. PMHX: Alcoholism; closed head injury; bipolar disorder; hypothyroidism; ADHD; spinal fusion C7-T1. Patient reports that he is awaiting fusion of L5-S1, which was supposed to be happening later this week Social History/Home Situation: Patient has been most recently been living at [facility]. He reports that he had been ambulating independently, although had suffered multiple falls in recent months. Denies utilization of assistive device at any point. Equipment Owned/DME: None Subjective: Patient reports that he did not sleep well last night. He said he got lightheaded upon standing up from his bedside chair and slowly lowered himself to the floor. Nurse aware of said incident. He continues to report low back pain, which he states is at his baseline. Objective: General Observation: Resting in bedside chair. Mental Status: Semi-alert. Alert and oriented x4 Pain: Chronic low back pain at 4-5/10 ROM: Right Upper Extremity: Active shoulder flexion allows 80 degrees, with deviation into scapular plane. Forestry Biology Specialist weak but and functional. Left Upper Extremity: Active shoulder flexion allows 100 degrees, with deviation into scapular plane. Forestry Biology Specialist weak but and functional. Right Lower Extremity: WFL Left Lower Extremity: WFL Strength: Right Upper Extremity: External rotation 4-/5. Biceps strength 4/5. Triceps 4-/5. Patient demonstrates only partial opening of the hand. Digit AB and adduction are each 4--/5. Left Upper Extremity: External rotation 4-/5. Biceps strength 4/5. Triceps 4-/5. Patient demonstrates only partial opening of the hand. Digit AB and adduction are each 4--/5. Right Lower Extremity: Hip flexion 4-+/5. Quads 4-/5. Hamstrings 4-/5. Ankle dorsiflexion 3-/5. Left Lower Extremity: Hip flexion 4-/5. Quads 4-/5. Hamstrings 4-/5. Ankle dorsiflexion 3-/5. Bed Mobility/Transfers: Rolling SBA Supine to sit SBA Sit to supine SBA Sit to stand SBA Stand to sit SBA Bed to chair SBA Chair to bed SBA Gait: Patient is not able to consistently negotiate level surface ambulation of 120 feet x 5 with SBA and minimal verbal cues for overall safety and posture as well this obstacle negotiation. Patient is able to manage to well for steps and eight 6 inch steps while holding onto bilateral rails with step over step pattern requiring only SBA. Balance: Static Sitting: Normal Dynamic Sitting: Normal Static Standing: Fair Dynamic Standing: Fair Tinetti/HANG Balance Test: Patient scored 17/28 signifying at high risk for falls. Timed up and go test: With the use of a front wheeled walker the patient was able to perform test within 20 seconds and without the front wheeled walker the patient was able to finish and 25 seconds both signifying at risk for falls. Special Tests: Mobility Limitations Standardized Measure [facility] AM-PAC 6 clicks Basic Mobility Inpatient Short Form: Raw Score: 23 CMS Score: 11% deficit Informed Consent/Education: Patient instructed in purpose of PT consult and plan of care. Results of balance tests were shared with patient and the use of a front wheeled walker as well as pressing his call chapman every time he stands up from bed or chair were all emphasized in order to reduce fall risk. Results have also been shared to nurse manager linux. Assessment: Patient continues to require skilled physical therapy services under swing bed level 1 in order to achieve highest mobility level with the use of least restrictive device and to maximize balance skills to reduce fall risk at [facility]. Patient is a 54 year old male referred to physical therapy services with the diagnosis of weakness during extended hospital stay. Patient presents with clinical signs and symptoms consistent with diagnosis, with multiple contributing factors, including what appears to be a cervical myelopathy with significant upper and lower extremity weakness and balance and coordination impairments. He currently demonstrates the following impairment level findings: 1. Decreased upper extremity strength 2. Decreased lower extremity strength 3. Decreased level of alertness 4. Decreased coordination 5. Chronic pain 6. History of falls Impairments are contributing to the following functional limitations: AMPAC score. 1. High fall risk 2. Unable to ambulate 3. Decreased independence with bed mobility 4. Decreased [place] [address] moderate complexity based on the following: History: 54-year-old male with chronic alcoholism, currently in acute care for medical management of acute alcohol withdrawal and hypothermia. Complicating factors include unstable living situation, long-standing back and neck dysfunction, with what appears to be a cervical myelopathy, and limited ability to participate in PT intervention due to level of alertness. Examination: Functional limitations as noted above Presentation: Unstable as patient continues to acutely withdraw from alcohol Decision Makin moderate complexity Goals: Goals X1 week 1. Supine-Sit independent 2. Sit-Supine independent 3. Sit-Stand independent 4. Stand-Sit independent 5. Bed-Chair independent 6. Chair-Bed independent 7. Independent gait on level surface with use of least restrictive device for at least 300 feet without report of pain nor dyspnea 8. Independent stair negotiation while holding onto bilateral rails for at least 10 steps without report of pain nor dyspnea 9. Independent with home exercise program 10. Patient will score 25/28 on the Tinetti/HANG test in order to maximize independence with mobility ADL performance and reduce fall risk 11. Patient will score 10 seconds on the timed up and go test in order to maximize independence with mobility ADL performance and reduce fall risk Plan of Care/Treatment Plan: 1-2x/day, 7 days/week x 1 week. Plan of care has been reviewed with the CHIEF DATA OFFICER providing the service under Physical Therapy direction. Initiate Physical Therapy intervention for strengthening, bed mobility, transfers, gait, stairs, balance training, use of assistive device. DISCHARGE RECOMMENDATIONS: Patient will benefit from home health PT services in order to progress mobility level using least restrictive assistive ambulatory device, assess home safety, identify additional equipment needs, and establish a functional maintenance program that will increase ability of patient to remain at home. TREATMENT CODE/TIME: 00541 x 26 minutes beginning at 9:30 AM. Thank you very much for this referral. Keisha Bar PT, DPT, CLT [facility]
--- NOTE | 2019-10-02 14:28 | CHAPLAIN ---
Harshal working on a laptop when I visited. He said he is a swing bed patient now and waiting to hear about scheduling his surgery at [facility]. Harshal said his Social Security money will begin coming in regularly at the beginning of the year, so I won't be homeless again and he talked about how important that is to him. Harshal was interested in hearing [employer] music, so I asked the volunteer nadirast on the second floor to play for him.
--- NOTE | 2019-10-02 14:50 | CMPROGNOTE_ITS ---
Care Management Progress Note Harshal has an appointment at [facility] with his Spine Surgeon, 10/05/19@1125 arrival for 1140 appointment. This is a preliminary appointment to determine planning for surgical intervention. CM coordinated transport through [facility] private courtesy car driver. Sho will be arriving at 0945 on 10/05/19 [address] main entrance of [facility]. CM notified community center coordinator of transport confirmation. - MH Services (Omit if N/A) Current MH Services: [facility] (Medical Management with Mavis Mojica)
--- NOTE | 2019-10-02 14:50 | PDOC.CMPRO ---
Care Management Progress Note Harshal has an appointment at [facility] Bread Panner Desk 3D with his Spine Surgeon, 10/05/19@1125 arrival for 1140 appointment. This is a preliminary appointment to determine planning for surgical intervention. CM coordinated transport through [facility] private caterpillar driver. Sho will be arriving at 0945 on 10/05/19 at the main entrance of [facility]. CM notified natural gas treating unit operator of transport confirmation. - MH Services (Omit if N/A) Current MH Services: [facility] (Medical Management with Mavis Mojica)
[2019-10-02 16:05] VITALS: BP 147/67; PULSE 68; RESP 18; TEMP 36.9; O2SAT 95
--- NOTE | 2019-10-02 16:29 | PHARADMIT ---
Addendum entered by Sung Stern III 10/16/19 12:33: VS-OK, Pain:04/20 HR-53 No Labs No change Addendum entered by Marya Hammond 10/12/19 11:01: VS okay, no labs pt. staying here until surgery at [facility] on 10/21 per CM has enough pt's own vyvanse for remainder of stay no med changes Addendum entered by Milka Hale 10/11/19 11:18: There are #19 Vyvanse 50mg capsules remaining in patient's own bottle-ENOUGH for the remainder of his stay (sending one each morning) Be sure to send meds home with patient day of discharge to [facility] for surgery on 10/21/19 He will be staying here until 10/21/19 NPO after midnight on 10/20/19 Addendum entered by Milka Hale 10/10/19 11:01: Status changed from SB-1 to SB-2, discharge was cancelled Staying the weekend, CM still trying to help with housing until scheduled back surgery 10/21 @ [facility] Adding Flomax today Addendum entered by Marya Hammond 10/08/19 09:31: VS okay, no labs no med changes possible d/c tomorrow to [facility] if no placement/housing acquired Addendum entered by Milka Hale 10/07/19 14:37: Placement issue, spinal surgery scheduled for 10/21 @ [facility] CM checking [facility] for potential discharge 10/09/19 Discharged from PT, walks with supervision/unsteady gait note due 10/08/19 Bringing up Pt's own Vyvanse daily Addendum entered by Marya Hammond 10/05/19 11:23: VS okay, no labs pt has appt at [facility] today per morning report chlordiazepoxide dose decreased to 5 mg bid today Addendum entered by Galina Shukla 10/03/19 13:53: CM working on housing, fell yesterday Original Note: Admission Pharmacy Clinical Review SWING BED: AMBULATORY DYSFUNCTION DUE TO SPINAL STENOSIS Patient placed on Swing Bed, CIWA protocol complete MD tapering Librium over next couple of days. Has Lorazepam as prn if needed. Continues to have issues falling/sliding on floor, sitter has been requested. H&H-OK WBC-12.49 No other changes
[2019-10-02] MEDS: Pantoprazole 40 MG VIAL IVP (16:41)
[2019-10-02] MEDS: Normal Saline Flush 10 ML SYR IVP ×2 (16:42→20:30)
[2019-10-02] MEDS: chlordiazePOXIDE 25 MG CAP 10 MG PO (20:30)
[2019-10-02 23:23] VITALS: BP 108/73; PULSE 61; RESP 17; TEMP 36.6; O2SAT 95
[2019-10-03] MEDS: Levothyroxine 150 MCG TAB PO (05:05)
[2019-10-03] MEDS: Acetaminophen 325 MG TAB PO ×2 (05:14→23:53)
[2019-10-03] MEDS: traMADol 50 MG TAB 100 MG PO ×2 (05:14→23:53)
[2019-10-03 07:45] VITALS: BP 111/74; PULSE 65; RESP 17; TEMP 36; O2SAT 98
--- NOTE | 2019-10-03 08:27 | PTTR_ITS ---
Date of service: 10/03/19 Time of Service: 08:27 PT Notes 10/03/19 SUBJECTIVE: Harshal stating he has been up since 4:00 am and is bored. Notes right hip discomfort and he always has back and neck pain. OBJECTIVE: Seated in recliner. Agreeable to PT. TRANSFERS Sit to stand: S Stand to sit: S GAIT Device: FWW Weight bearing: Full Distance: 120'+200' Assist: SBA Deviation: Forward flexed at the trunk THEREX: Balance re-training exercises, light UE/LE strengthening as noted on flow sheet. Min A required for all balance activities. See flow sheet. ASSESSMENT: Progressing with functional mobility and gait. He continues to require use of FWW due to balance impairments. He is sometimes impulsive and leaves the walker behind. PLAN: Continue current POC. Treatment time: 25 minutes [id number], [id number] Haydee Abbott PTA Clinic location: [facility] [place], [place]
[2019-10-03] MEDS: Nicotine 14 MG/24 HR PATCH TD (08:41)
[2019-10-03] MEDS: Cyanocobalamin 500 MCG TAB 1000 MCG PO (08:41)
[2019-10-03] MEDS: Gabapentin 600 MG TAB 1200 MG PO ×3 (08:41→21:00)
[2019-10-03] MEDS: buPROPion-CR 150 MG TABCR PO ×2 (08:41→21:00)
[2019-10-03] MEDS: Nystatin 500000 UNITS/5 ML SUSP 5ML CUP PO ×3 (08:41→21:01)
[2019-10-03] MEDS: Patch Removal 1 EACH TD (08:42)
[2019-10-03] MEDS: Metoprolol CR 50 MG TABCR PO (08:42)
[2019-10-03] MEDS: Folic Acid 1 MG TAB PO (08:42)
[2019-10-03] MEDS: DULoxetine 30 MG CAP PO (08:42)
[2019-10-03] MEDS: Pantoprazole 40 MG VIAL IVP (15:09)
[2019-10-03] MEDS: Normal Saline Flush 10 ML SYR IVP (15:09)
[2019-10-03 15:27] VITALS: BP 123/84; PULSE 70; RESP 16; TEMP 36.7; O2SAT 97
[2019-10-03 23:39] VITALS: BP 114/77; PULSE 67; RESP 18; TEMP 36.5; O2SAT 98
[2019-10-04] MEDS: Levothyroxine 150 MCG TAB PO (05:08)
[2019-10-04 08:17] VITALS: BP 106/62; PULSE 73; RESP 17; TEMP 36.7; O2SAT 98
--- NOTE | 2019-10-04 08:25 | PT.INTREAT ---
Date of service: 10/04/19 Time of Service: 08:25 PT Notes 10/04/19 SUBJECTIVE: Harshal stating he is fatigued. He needs a cigarette and he wants to go back to bed. OBJECTIVE: Agreeable to PT treatment. TRANSFERS Sit to stand: S Stand to sit: S GAIT Device: FWW Assist: SBA Weight bearing: Full Distance: 300' Deviation: Forward flexed THEREX: Light balance activities performed on uneven surfaces today with eyes closed. Light UE/LE strengthening. See flow sheet. ASSESSMENT: Pt with minimal motivation today due to fatigue. He requires moderate amount of verbal cueing for upright posturing with his gait. PLAN: Continue current POC. Treatment time: 25 minutes [id number], [id number] Haydee Abbott PTA Clinic location: [facility] [place], [place]
[2019-10-04] MEDS: Gabapentin 600 MG TAB 1200 MG PO ×3 (08:32→20:23)
[2019-10-04] MEDS: Nicotine 14 MG/24 HR PATCH TD (08:32)
[2019-10-04] MEDS: Nystatin 500000 UNITS/5 ML SUSP 5ML CUP PO ×3 (08:32→20:23)
[2019-10-04] MEDS: Folic Acid 1 MG TAB PO (08:33)
[2019-10-04] MEDS: Metoprolol CR 50 MG TABCR PO (08:33)
[2019-10-04] MEDS: DULoxetine 30 MG CAP PO (08:33)
[2019-10-04] MEDS: Cyanocobalamin 500 MCG TAB 1000 MCG PO (08:33)
[2019-10-04] MEDS: buPROPion-CR 150 MG TABCR PO ×2 (08:33→20:23)
[2019-10-04] MEDS: Patch Removal 1 EACH TD (08:34)
[2019-10-04] MEDS: Acetaminophen 325 MG TAB PO ×2 (13:45→20:23)
[2019-10-04 15:31] VITALS: BP 125/77; PULSE 75; RESP 16; TEMP 36.5; O2SAT 97
[2019-10-04] MEDS: Pantoprazole 40 MG VIAL IVP (16:15)
[2019-10-04] MEDS: Normal Saline Flush 10 ML SYR IVP (16:15)
[2019-10-04] MEDS: traMADol 50 MG TAB 100 MG PO (20:24)
[2019-10-05 00:33] VITALS: BP 125/80; PULSE 67; RESP 16; TEMP 36.8; O2SAT 98
[2019-10-05] MEDS: Levothyroxine 150 MCG TAB PO (05:19)
[2019-10-05 07:12] VITALS: BP 123/81; PULSE 66; RESP 16; TEMP 36.9; O2SAT 96
--- NOTE | 2019-10-05 07:21 | OT.INNT ---
Date of service: 10/05/19 Time of Service: 07:15 Occupational Therapy Notes 10/05/19 OT attemped to see pt. When OT arrived pt was sitting in chair, he reports that his back is in a lot of pain today and that he doesn't want to perform OT this morning because he is going to [facility] for an appt today. Pt reports that he would like to hold and resume OT services tomorrow. Adriana Ozuna, OTR/[facility]
[2019-10-05] MEDS: Nystatin 500000 UNITS/5 ML SUSP 5ML CUP PO ×3 (07:52→19:51)
[2019-10-05] MEDS: Nicotine 14 MG/24 HR PATCH TD (07:52)
[2019-10-05] MEDS: Cyanocobalamin 500 MCG TAB 1000 MCG PO (07:52)
[2019-10-05] MEDS: buPROPion-CR 150 MG TABCR PO ×2 (07:52→19:51)
[2019-10-05] MEDS: Metoprolol CR 50 MG TABCR PO (07:52)
[2019-10-05] MEDS: DULoxetine 30 MG CAP PO (07:53)
[2019-10-05] MEDS: Gabapentin 600 MG TAB 1200 MG PO ×3 (07:53→19:51)
[2019-10-05] MEDS: Folic Acid 1 MG TAB PO (07:53)
[2019-10-05] MEDS: traMADol 50 MG TAB 100 MG PO (14:23)
[2019-10-05] MEDS: Pantoprazole 40 MG VIAL IVP (16:04)
[2019-10-05] MEDS: Normal Saline Flush 10 ML SYR IVP (16:05)
[2019-10-05 16:16] VITALS: BP 124/78; PULSE 70; RESP 16; TEMP 37; O2SAT 97
--- NOTE | 2019-10-05 16:19 | PT.INTREAT ---
Date of service: 10/05/19 Time of Service: 15:29 PT Notes Physical Therapy Inpatient Treatment Note 10/05/19 SUBJECTIVE: Harshal reports that he had quite the day at [facility] He was told by surgeon that he has his back surgery scheduled on 10/21/2019. He continues to comlain about the tremors that he has when his R foot is placed in a partially plantarflexed position. He did bring up the bruises he has from all the tummy pill shots that he has been getting. OBJECTIVE: Multiple bruised areas in the abdominal area from pill injections he has been getting. Seat alarm on before and after PT session. TRANSFERS Sit to stand: S Stand to sit: S Bed to chair: S Chair to bed: S GAIT Device: FWW. Patient also tolerated unsupported/unassisted ambulation as well as sidestepping for up to 10 feet x 2 sets requiring SBA of PT Assist: SBA Weight bearing: Full Distance: 300' Deviation: Trunk forward flexed, knee flexion on L drecreased THEREX: Using 4 lb AW, patient tolerated a 12-inch step up x 10 reps and a 6-inch step down x 10 reps while holding onto bilateral rails. Stand up>sidestep> sit down> stand up with arms across chest with 4 lb AW on each LE and blue TB tied around distal thighs x 10 reps for 2 sets. Resisted knee flexion ASSESSMENT: Patient motivated to be independent without an assistive device as his personal goal. He is demonstrating increasing tolerance for strengthening and balance exercises without undue complaint of back pain. PLAN: Continue current POC. Treatment time: 15 minutes for [id number] and 12 minutes for [id number] Keisha Bar PT, DPT, CLT [facility] [place], [place]
--- NOTE | 2019-10-05 17:51 | PDOC.CMPRO ---
- If Service Date Differs Date of service: 10/05/19 Time of Service: 17:51 Care Management Progress Note Harshal went to [facility] today for a preoperative appointment for back surgery. Upon his return he stated that his surgery is scheduled for October 21, 2019. Harshal also shared that the doctor told him that the surgery will likely not cure the problem with his right leg. He was disappointed that he may continue to have difficulty walking indefinitely.
[2019-10-06] MEDS: traMADol 50 MG TAB 100 MG PO ×3 (00:50→20:11)
[2019-10-06 03:49] VITALS: BP 112/74; PULSE 58; RESP 18; TEMP 36.1; O2SAT 98
[2019-10-06] MEDS: Levothyroxine 150 MCG TAB PO (06:30)
[2019-10-06 07:20] VITALS: BP 110/68; PULSE 69; RESP 18; TEMP 36.7; O2SAT 96
[2019-10-06] MEDS: Nystatin 500000 UNITS/5 ML SUSP 5ML CUP PO ×3 (08:25→20:12)
[2019-10-06] MEDS: Gabapentin 600 MG TAB 1200 MG PO ×3 (08:26→20:12)
[2019-10-06] MEDS: Metoprolol CR 50 MG TABCR PO (08:26)
[2019-10-06] MEDS: Folic Acid 1 MG TAB PO (08:26)
[2019-10-06] MEDS: Nicotine 14 MG/24 HR PATCH TD (08:26)
[2019-10-06] MEDS: Cyanocobalamin 500 MCG TAB 1000 MCG PO (08:26)
[2019-10-06] MEDS: DULoxetine 30 MG CAP PO (08:26)
[2019-10-06] MEDS: buPROPion-CR 150 MG TABCR PO ×2 (08:27→20:12)
[2019-10-06] MEDS: Patch Removal 1 EACH TD (08:27)
--- NOTE | 2019-10-06 10:27 | OTDS_ITS ---
Date of service: 10/06/19 Time of Service: 09:10 Occupational Therapy Notes Occupational Therapy Inpatient Discharge Summary Date: 10/06/19 Dates of Service: 10/02/19-10/06/19 Referring Doctor: Bobbi Tilley MD OT Orders: Non Urgent Limited Ability Precautions: Fall, Standard PATIENT PROFILE/ADMITTING DIAGNOSIS: Patient admitted for medical management of hypothermia and alcohol withdrawal. He was recently transitioned to [facility] bed 1 status on 10/01/19. Past Medical History: Alcoholism; closed head injury; bipolar disorder; hypothyroidism; ADHD; spinal fusion C7-T1. Patient reports that he is awaiting fusion of L5-S1, which was supposed to be happening later this week Social History/Home Situation: Pt prior to hospitalization has been most recently been living at [facility]. He reports that he had been ambulating independently, although had suffered multiple falls in recent months.He refers to himself as disabled due to neck and back pain. He states that he is going to work with an Alcohol counselor after discharge. Equipment owned/DME: Cane SUBJECTIVE: Pt states that he has surgery scheduled in [facility] on October 21, 2019. He states that he wishes it was sooner but will take it. He states that he is starting to feel a little better. OBJECTIVE- ROM: RUE AROM WFL L UE AROM WFL STRENGTH: RUE 5/5 throughout LUE 5/5 throughout SENSATION: Numbness and tingling in (R) hands/(R) LE FUNCTIONAL MOBILITY/ADLS: Sit-Stand FWW, (S) Stand-sit FWW, (S) DRESSING Dressing UE Able to (I) don and doff t-shirt Dressing LE (I) with don and doffing (B) socks, shoes, pants with good technique. He is able to demonstrate (I) with use of adaptive equipment to decrease strain on his back. BALANCE: Static sitting Normal Dynamic Sitting Normal Static Standing Good Dynamic Standing Good ASSESSMENT: Patient is a 54-year-old male referred to occupational therapy services with diagnosis of medical management of hypothermia and alcohol withdrawal. Patient presents with clinical signs and symptoms consistent with dx. OT and pt discuss pts progress today. Pt states that he feels that he is (I) and back to his baseline level of function in terms of his ADL/IADL. OT does feel that pt presents with decreased safety awareness and decreased functional mobility. However he is able to demonstrate his ADL routines with good-ideal technique and (I). OT will plan to discharge pt from skilled OT services at this time. GOALS Goals x1 week 1. Dressing in seated position (I) UE/LE with use of adaptive equipment with ideal technique.- Met PLAN OF CARE/TREATMENT PLAN: Based on pts progress OT will plan to discharge pt from skilled OT services at this time. DISCHARGE RECOMMENDATIONS Short term SNF vs. LTC facility TREATMENT TIME/MINUTES/CODES N/A Adriana Ozuna OTR/L [facility]
--- NOTE | 2019-10-06 12:09 | PT.INTREAT ---
Date of service: 10/06/19 Time of Service: 10:05 PT Notes Physical Therapy Inpatient Treatment Note Date: 10/06/19 SUBJECTIVE: Harshal is agreeable to a tentative discharge on 10/09/2019 with a functional maintenance program in place with nursing staff. He is hopeful that care management will be able to figure something so that that he can have a place to stay in coordination with his community medical care administrator. He reports 6-05/20 which he states he has learned to manage and endure with medications he has been getting. OBJECTIVE: Multiple bruised areas in the abdominal area from pill injections he has been getting. Seat alarm on before and after PT session. TRANSFERS Sit to stand: S Stand to sit: S Bed to chair: S Chair to bed: S GAIT Device: FWW. Patient also tolerated unsupported/unassisted ambulation as well as sidestepping for up to 10 feet x 2 sets requiring SBA of PT Assist: S Weight bearing: Full Distance: 120' Deviation: Trunk forward flexed, knee flexion on L decreased THEREX: Stand up>sidestep> sit down> stand up with arms across chest with 4 lb AW on each LE and blue TB tied around distal thighs x 10 reps for 2 sets. Using 4 lb AW, patient tolerated a 12-inch step up x 10 reps and a 6-inch step down x 10 reps while holding onto bilateral rails. Patient also managed NUStep x 5 minutes with a load/resistance of 6 without any difficulty. ASSESSMENT: Patient is demonstrating increasing tolerance for strengthening and balance exercises without undue complaint of back pain. At this time, patient's progression is limited by pending surgery on the low back area scheduled on 10/21/2019 at [facility] [place]. It was explained to client that PT services are geared towards general conditioning, balance retraining, and staff training for functional maintenance program while trying to avoid any activities that may exacerbate back symptoms. PLAN: Continue current POC. Tentative D/C on 10/09/2019 with a functional maintenance progrm to be put in place with nursing staff. Treatment time: 15 minutes for [id number] and 25 minutes for [id number] beginning at 10:05 AM. Keisha Bar PT, DPT, CLT [facility] [place], [place]
[2019-10-06 23:31] VITALS: BP 123/82; PULSE 63; RESP 18; TEMP 35.6; O2SAT 97
[2019-10-07] MEDS: traMADol 50 MG TAB 100 MG PO ×3 (05:20→19:58)
[2019-10-07] MEDS: Levothyroxine 150 MCG TAB PO (05:20)
[2019-10-07 07:27] VITALS: BP 105/69; PULSE 65; RESP 17; TEMP 36.7; O2SAT 97
[2019-10-07] MEDS: Pantoprazole 40 MG TABCR PO (07:32)
[2019-10-07] MEDS: Gabapentin 600 MG TAB 1200 MG PO ×3 (08:33→19:58)
[2019-10-07] MEDS: Nicotine 14 MG/24 HR PATCH TD (08:33)
[2019-10-07] MEDS: DULoxetine 30 MG CAP PO (08:34)
[2019-10-07] MEDS: Folic Acid 1 MG TAB PO (08:34)
[2019-10-07] MEDS: buPROPion-CR 150 MG TABCR PO ×2 (08:34→19:58)
[2019-10-07] MEDS: Cyanocobalamin 500 MCG TAB 1000 MCG PO (08:34)
[2019-10-07] MEDS: Metoprolol CR 50 MG TABCR PO (08:34)
[2019-10-07] MEDS: Nystatin 500000 UNITS/5 ML SUSP 5ML CUP PO ×3 (08:35→19:58)
[2019-10-07] MEDS: Patch Removal 1 EACH TD (08:36)
--- NOTE | 2019-10-07 08:42 | CMPROGNOTE_ITS ---
Care Management Progress Note Harshal attended surgical appt at [facility] earlier this week. He reports surgery is scheduled now scheduled at [facility] on October 21, 2019. MERARI called [facility] Spine Clinic P#[phone], F#[phone], and spoke with Rossana to request sooner surgical appointment. Rossana reported Sabrina Gomez will call this teletypewriter installer back. Anticipate Harshal will remain in [id number] until surgery.
--- NOTE | 2019-10-07 08:42 | PDOC.CMPRO ---
Care Management Progress Note Harshal attended surgical appt at [facility] earlier this week. He reports surgery is scheduled now scheduled at [facility] on October 21, 2019. MERARI called [facility] Spine Clinic P#[phone], F#[phone], and spoke with Rossana to request sooner surgical appointment. Rossana reported Sabrina Gomez will call this mortgage or loan underwriter back. Anticipate Harshal will remain in [id number] until surgery.
--- NOTE | 2019-10-07 09:46 | PTTR_ITS ---
Date of service: 10/07/19 Time of Service: 09:46 PT Notes Visit Reasons: AMBULATORY DYSFUNTION DUE TO SPINAL STENOSIS Inpatient Physical Therapy Treatment Note Date: 10/07/19 SUBJECTIVE: Harshal continues to be agreeable to a tentative discharge on 10/09/2019 with a functional maintenance program in place with nursing staff. He verbalized his need for a pair of winter boots which this PT assured patient that will be brought up to care management. OBJECTIVE: Seat alarm on before and after PT session. TRANSFERS Sit to stand: S Stand to sit: S Bed to chair: S Chair to bed: S GAIT Device: FWW Assist: S Weight bearing: Full Distance: 360' + 25' + 25' Deviation: Trunk forward flexion diminishing and patient is able to assume a much more erect posture, knee flexion on L now increasing THEREX: Stand up>sidestep> sit down> stand up with arms across chest with 4 lb AW on each LE and buckley TB tied around distal thighs x 10 reps for 2 sets. Standing hip extension with same ankle weights and TB x 10. Seated clam shell exercises agains buckley TB x 25 reps. Patient also managed NUStep x 5 minutes with a load/resistance of 10 without any difficulty. ASSESSMENT: Patient contiuing to demonstrate increasing tolerance for strengthening and balance exercises without undue complaint of back pain. At this time, patient's progression is limited by pending surgery on the low back area scheduled on 10/21/2019 at [facility]. It was explained to client that PT services are geared towards general conditioning, balance retraining, and staff training for functional maintenance program while trying to avoid any activities that may exacerbate back symptoms. RECOMMENDED FUNCTIONAL MAINTENANCE PROGRAM TO BE DONE WITH NURSING STAFF: Level surface ambulation of up to 450 feet (big loop x 3)using the FWW with SBA. NUStep x 5 minutes with a resistance/load of 10 to be done 1-2x/day. PLAN: Continue current POC. Tentative D/C on 10/09/2019 with a functional maintenance program to be put in place with nursing staff. Treatment time: 25 minutes for [id number] and 24 minutes for [id number] beginning at 9:46 AM. Keisha Bar PT, DPT, CLT [facility] [place], [place]
--- NOTE | 2019-10-07 11:01 | PT.INDS ---
Date of service: 10/07/19 Time of Service: 09:46 PT Notes Visit Reasons: AMBULATORY DYSFUNTION DUE TO SPINAL STENOSIS Inpatient Physical Therapy Treatment Note Date: 10/07/19 SUBJECTIVE: Harshal continues to be agreeable to a tentative discharge on 10/09/2019 with a functional maintenance program in place with nursing staff. He verbalized his need for a pair of winter boots which this PT assured patient that will be brought up to care management. OBJECTIVE: Seat alarm on before and after PT session. TRANSFERS Sit to stand: S Stand to sit: S Bed to chair: S Chair to bed: S GAIT Device: FWW Assist: S Weight bearing: Full Distance: 360' + 25' + 25' Deviation: Trunk forward flexion diminishing and patient is able to assume a much more erect posture, knee flexion on L now increasing THEREX: Stand up>sidestep> sit down> stand up with arms across chest with 4 lb AW on each LE and buckley TB tied around distal thighs x 10 reps for 2 sets. Standing hip extension with same ankle weights and TB x 10. Seated clam shell exercises agains buckley TB x 25 reps. Patient also managed NUStep x 5 minutes with a load/resistance of 10 without any difficulty. ASSESSMENT: Patient contiuing to demonstrate increasing tolerance for strengthening and balance exercises without undue complaint of back pain. At this time, patient's progression is limited by pending surgery on the low back area scheduled on 10/21/2019 at [facility]. It was explained to client that PT services are geared towards general conditioning, balance retraining, and staff training for functional maintenance program while trying to avoid any activities that may exacerbate back symptoms. RECOMMENDED FUNCTIONAL MAINTENANCE PROGRAM TO BE DONE WITH NURSING STAFF: Level surface ambulation of up to 450 feet (big loop x 3)using the FWW with SBA. NUStep x 5 minutes with a resistance/load of 10 to be done 1-2x/day. PLAN: Continue current POC. Tentative D/C on 10/09/2019 with a functional maintenance program to be put in place with nursing staff. Treatment time: 25 minutes for [id number] and 24 minutes for [id number] beginning at 9:46 AM. Keisha Bar PT, DPT, CLT [facility] [place], [place]
[2019-10-07] MEDS: Acetaminophen 325 MG TAB PO (13:18)
[2019-10-07 15:22] VITALS: BP 122/73; PULSE 64; RESP 17; TEMP 37.1; O2SAT 96
--- NOTE | 2019-10-07 17:21 | CMACTNOTE_ITS ---
Care Management Activity Note Harshal has a patient laptop he is enjoying using. He met with his Dialysis Nurse and reports having a nice visit with her. He is aware of the plan for him to discharge prior to surgery and is agreeable to seeking housing at this time. Harshal attended surgical appt at [facility] earlier this week. He reports surgery is now scheduled at [facility] on October 21, 2019. MERARI called [facility] Spine [facility] P#[phone], F#[phone], and spoke with Rossana to request sooner surgical appointment. Rossana reported Sabrina Gomez will call this fiction writer back. Sabrina called to report Harshal was entered into the earliest appointment and placed on the waitlist for cancellation. MERARI spoke with PT who reported Harshal will be discharged from PT on 10/09/19. MERARI spoke with Amarilys of [facility] and notified of the plan and lack of housing for discharge. CM provided multiple contacts for Harshal to outreach for housing including [facility], [employer] and [employer]. Anticipate Harshal will discharge on 10/09/19, if housing is not aquired, Harshal will discharge to the [facility].
--- NOTE | 2019-10-07 17:21 | PDOC.CMACT ---
Care Management Activity Note Harshal has a patient laptop he is enjoying using. He met with his Auto Service Station Attendant and reports having a nice visit with her. He is aware of the plan for him to discharge prior to surgery and is agreeable to seeking housing at this time. Harshal attended surgical appt at [facility] earlier this week. He reports surgery is now scheduled at [facility] on October 21, 2019. MERARI called [facility] Spine Clinic P#[phone], F#[phone], and spoke with Rossana to request sooner surgical appointment. Rossana reported Sabrina Gomez will call this casualty underwriter back. Sabrina called to report Harshal was entered into the earliest appointment and placed on the waitlist for cancellation. MERARI spoke with PT who reported Harshal will be discharged from PT on 10/09/19. MERARI spoke with Amarilys of [facility] and notified of the plan and lack of housing for discharge. CM provided multiple contacts for Harshal to outreach for housing including [facility], [employer] and [employer]. Anticipate Harshal will discharge on 10/09/19, if housing is not aquired, Harshal will discharge to the [facility].
[2019-10-07 23:28] VITALS: BP 105/70; PULSE 62; RESP 16; TEMP 36; O2SAT 96
[2019-10-08] MEDS: Levothyroxine 150 MCG TAB PO (05:56)
[2019-10-08] MEDS: buPROPion-CR 150 MG TABCR PO ×2 (07:41→19:41)
[2019-10-08] MEDS: Gabapentin 600 MG TAB 1200 MG PO ×3 (07:41→19:41)
[2019-10-08] MEDS: Nystatin 500000 UNITS/5 ML SUSP 5ML CUP PO ×3 (07:41→19:41)
[2019-10-08] MEDS: Folic Acid 1 MG TAB PO (07:42)
[2019-10-08] MEDS: Cyanocobalamin 500 MCG TAB 1000 MCG PO (07:42)
[2019-10-08] MEDS: DULoxetine 30 MG CAP PO (07:42)
[2019-10-08] MEDS: Pantoprazole 40 MG TABCR PO (07:42)
[2019-10-08] MEDS: Metoprolol CR 50 MG TABCR PO (07:42)
[2019-10-08] MEDS: Nicotine 14 MG/24 HR PATCH TD (07:44)
[2019-10-08 07:45] VITALS: BP 110/69; PULSE 63; RESP 16; TEMP 36.1; O2SAT 97
[2019-10-08] MEDS: Patch Removal 1 EACH TD (07:45)
[2019-10-08] MEDS: traMADol 50 MG TAB 100 MG PO ×3 (08:14→21:17)
--- NOTE | 2019-10-08 11:59 | W.PM.PROGNOT ---
Date of Service Date of service: 10/08/19 Time of Service: 11:59 Assessment and Plan Assessment and plan (1) Alcohol withdrawal: Status: Acute Assessment and plan: Successfully treated and resolved. (2) Ambulatory dysfunction: Status: Acute Assessment and plan: Undergoing PT. Will continue follow-up with [facility] as an outpatient. Working to ensure safety at time of discharge. (3) HTN (hypertension): Status: Chronic Assessment and plan: Continue home medications. (4) Bipolar disorder: Status: Chronic Assessment and plan: Noted and stable. Continue home regimen. Subjective Subjective Interval history since last seen: 54 year old alcohol man admitted from [facility] Emergency Department on 09/17 with a diagnosis of Hypothermia and altered mental status, went on to develop acute EtOH withdrawl - discharged to Swing Bed Level I status on 10/01 due to weakness and ambulatory dysfunction. Mr. Juarez has a past Medical History significant for EtOH Abuse with prior withdrawl and seizures, bipolar disorder, HTN, and Hypothyroidism. The patient was found unresponsive in a local parking lot, with bottles of alcohol and listerine in his possession. Work-up in the ED was significant for initial evidence of hypothermia, mildly elevated Lactate (2.7), mild hyponatremia, mildly elevated CPK (500-600 range), and a BAL of 242. UDS was also checked and negative, as were CT of the head and neck and knee xrays. He was admitted for further evaluation and treatment. The patient underwent a prolonged treatment for significant withdrawl, successfully treated and back to baseline. He was found to have ambulatory dysfunction following withdrawl, with reported weakness and several falls during his inpatient admission. He was transitioned to Swing Bed status, and is undergoing Physical Therapy. Was also evaluated as an outpatient by [facility] for his chronic spinal stenosis. His scheduled surgery was postponed due to his acute hospitalization. He feels well this morning and has no complaints. Exam Narrative Exam Narrative: General: Patient appears comfortable, AAOX3, NAD Psych: Normal mood and affect. Objective Objective Clinical Data: Vital Signs Temperature 36.1 C L 10/08/19 07:45 Temperature Source Tympanic 10/08/19 07:45 Pulse 63 10/08/19 07:45 Pulse Rhythm Regular 10/08/19 07:30 Respiratory Rate 16 10/08/19 07:45 Respiratory Effort Non-Labored 10/08/19 07:30 Respiratory Depth Normal 10/08/19 07:30 Respiratory Pattern Normal 10/08/19 07:30 Blood Pressure 110/69 10/08/19 07:45 Pulse Oximetry 97 10/08/19 07:45 Oxygen Delivery Method Room Air 10/08/19 07:45 Oxygen Flow Rate 0 10/08/19 07:45 Pain Level 8 10/08/19 08:14 Comment 10/01/19 23:19 Intake & Output 10/07/19 10/07/19 10/08/19 11:59 23:59 11:59 Intake Total 730 / 1210 480 / 1210 Output Total 300 / 300 Balance 730 / 1210 480 / 1210 -300 / -300 Weight 68.3 kg Intake: Oral 730 / 1210 480 / 1210 Output: Urine 300 / 300 Other: Urine Color Yellow Yellow Pale Urine Appearance Clear Clear Clear Urine Odor Normal Normal Comment scan before void was 243, after voiding 65 Stool Size Small Stool Characteristics Formed Voiding Methods Toilet Toilet Toilet Laboratory Results WBC 12.49 k/cumm (4.4-10.8) H 10/02/19 06:22 RBC 4.42 m/cumm (4.50-6.00) L 10/02/19 06:22 Hgb 13.8 g/dL (13.5-17.5) 10/02/19 06:22 Hct 41.4 % (40.0-50.0) 10/02/19 06:22 MCV 93.7 fL (80-95) 10/02/19 06:22 MCH 31.2 pg (27.0-33.0) 10/02/19 06:22 MCHC 33.3 g/dL (32.0-36.0) 10/02/19 06:22 RDW 13.8 % (11.8-14.1) 10/02/19 06:22 Plt Count 361 x1000/uL (130-400) 10/02/19 06:22 MPV 10.3 fL (8.0-11.0) 10/02/19 06:22
[2019-10-08 15:28] VITALS: BP 123/79; PULSE 69; RESP 18; TEMP 37.1; O2SAT 96
[2019-10-08 20:27] VITALS: BP 130/86; PULSE 60; RESP 18; TEMP 37; O2SAT 95
[2019-10-08] MEDS: Acetaminophen 325 MG TAB PO (21:16)
[2019-10-08] MEDS: Normal Saline Flush 10 ML SYR IVP (21:17)
[2019-10-09 02:17] VITALS: BP 120/79; PULSE 55; RESP 16; TEMP 35.8; O2SAT 96
[2019-10-09] MEDS: Levothyroxine 150 MCG TAB PO (06:16)
[2019-10-09 07:15] VITALS: BP 110/75; PULSE 57; RESP 16; TEMP 36.2; O2SAT 97
[2019-10-09] MEDS: traMADol 50 MG TAB 100 MG PO ×3 (07:59→20:49)
[2019-10-09] MEDS: Gabapentin 600 MG TAB 1200 MG PO ×3 (07:59→20:49)
[2019-10-09] MEDS: buPROPion-CR 150 MG TABCR PO ×2 (07:59→20:50)
[2019-10-09] MEDS: Folic Acid 1 MG TAB PO (07:59)
[2019-10-09] MEDS: Cyanocobalamin 500 MCG TAB 1000 MCG PO (07:59)
[2019-10-09] MEDS: DULoxetine 30 MG CAP PO (08:00)
[2019-10-09] MEDS: Pantoprazole 40 MG TABCR PO (08:00)
[2019-10-09] MEDS: Metoprolol CR 50 MG TABCR PO (08:00)
[2019-10-09] MEDS: Nystatin 500000 UNITS/5 ML SUSP 5ML CUP PO ×3 (08:01→20:49)
[2019-10-09] MEDS: Patch Removal 1 EACH TD (08:03)
[2019-10-09] MEDS: Nicotine 14 MG/24 HR PATCH TD (08:03)
--- NOTE | 2019-10-09 10:59 | W.PM.DS.N ---
Date of service: 10/09/19 Time of Service: 11:00 DS: Diagnosis Discharge Diagnosis (1) Alcohol withdrawal: Start date: 10/09/19 Start time: 11:00 Status: Acute Asessment and Plan: Resolved. Treated and back to baseline at this time. (2) Ambulatory dysfunction: Start date: 10/09/19 Start time: 11:01 Status: Acute Asessment and Plan: Discharged from PT at this time, will need to follow up with [facility] [place] [facility] as outpatient. (3) HTN (hypertension): Status: Chronic (4) Bipolar disorder: Status: Chronic Discharge Plan Disposition Patient Disposition: HOME Condition: Good Discharge Details Reason For Visit: AMBULATORY DYSFUNTION DUE TO SPINAL STENOSIS Admit Date/Time: 10/01/19 19:36 Admit Provider: Bobbi Tilley Attending Provider: Bobbi Tilley Primary Care Provider: Don Draper [facility] Hospital Course: 54 y.o male with PMH of ETOH abuse with D/Ts, alcohol withdrawal seizures, HTN, hypothyroidism, Chronic back pain d/t lumbar spinal stenosis with spondylosis and spondylolishtesis at L5-S1 and bipolar. He was admitted from [facility] ED to ICU on 09/17/2019 with hypothermia after being found in parking lot of [employer] intoxicated. While in ICU he underwent severe withdrawal without seizures. Scheduled librium was started with tapering dose. On 09/27/2019 he was transferred out of the ICU to m/s floor. He did not suffer any robins bite injury. He did have severe ambulatory dysfunction with several fall during inpatient admission, PT was implemented and ambulation improved. CT of lumbar spine and MRI of same region not revealing for worsening stenosis. He was discharged to swing bed level 1 for continue work and improvement of ambulatory status. Today he is being discharged home. He was discharged from PT with a functional maintenance program in place with nursing staff. He denies CP, SOB, N/V/D. Plan to have outpatient surgery for spinal stenosis with [facility]. Patient is being discharged. Home Meds and New Rx's Prescriptions: New lorazepam 1 mg Tablet 1 mg PO QID PRN PRNQty: 20 RF: 0 Continued multivitamin Tablet 1 tab PO DAILY RF: 0 nystatin 100,000 unit/mL Suspension 500,000 unit PO TID RF: 0 nicotine [Nicoderm CQ] 14 mg/24 hr Patch 24 Hour 1 patch TRANSDERMAL DAILY RF: 0 pantoprazole [Protonix] 40 mg Recon Soln 40 mg IV DAILY RF: 0 thiamine HCl (vitamin B1) 100 mg Tablet 100 mg PO DAILY RF: 0 acetaminophen 650 mg Tablet Extended Release 650 mg PO RF: 0 chlordiazepoxide HCl 25 mg Capsule 25 mg PO Q8H PRNRF: 0 docusate sodium [Colace] 100 mg Capsule 100 mg PO TID RF: 0 heparin (porcine) 5,000 unit/mL Solution 5,000 unit SUBCUT Q8H RF: 0 levothyroxine [Synthroid] 200 mcg Tablet 150 mcg PO DAILY RF: 0 Latuda 20 mg Tablet 80 mg PO DAILY RF: 0 bupropion HCl 150 mg Tablet Sustained-Release 12 Hr 150 mg PO BID RF: 0 gabapentin 600 mg Tablet 1,200 mg PO TID RF: 0 metoprolol succinate 50 mg Tablet Extended Release 24 Hr 50 mg PO DAILY RF: 0 cyanocobalamin (vitamin B-12) [Vitamin B-12] 1,000 mcg Tablet 1,000 mcg PO DAILY RF: 0 amlodipine 5 mg Tablet 5 mg PO DAILY RF: 0 tramadol 50 mg Tablet 50 mg PO Q6H PRNRF: 0 folic acid 1 mg Tablet 1 mg PO DAILY RF: 0 duloxetine [Cymbalta] 30 mg Capsule,Delayed Release(Dr/Ec) 30 mg PO DAILY RF: 0 Vyvanse 50 mg Capsule 50 mg PO DAILY RF: 0 Discharge Instructions Instructions: Mood Disorders (GEN), Alcohol Intoxication (GEN), Abuse of Alcohol (GEN), At-Risk Alcohol Use (GEN), Lumbar Spinal Stenosis (GEN), Alcohol Withdrawal (GEN), Anxiety (GEN), Alcohol Use Disorder (GEN) Additional Instructions: Follow up with [facility] to reschedule procedure for your spine. Abstain from alcohol Take all medications as prescribed Continue to work to regain strength and balance. Seek medical attention if you have Chest pain, shortness of breath, nausea, vomiting Follow up with [facility] and follow community instructions. Stand Alone Forms: Nursing Discharge Form Referrals: Don Draper [Primary Care Provider] - 10/14/19 1:40 am Activity:: Activity as Tolerated Equipment/Supplies:: No Equipment Needed Diet:: As Tolerated Discharge Orders Discharge Orders: Discharge Order (Routine); Ordered 10/09/19 Ordered By: Kathy Galaviz DS: Summary Status at Discharge Functional status at discharge: independent ambulation Overall status at discharge: patient is progressing back to baseline Mental Status: mental status grossly normal Speech and Movement: speech and movement normal Mood: congruent mood Affect: normal affect Exam Narrative Exam Narrative: General: Patient appears comfortable, AAOX3, NAD Resp: Clear, even unlabored Cardiac: RRR, no murmur GI: soft nontender bsx 4 Psych: Normal mood and affect. Psych Mental Status: mental status grossly normal Speech and Movement: speech and movement normal Mood: congruent mood Affect: normal affect DS: Data Vitals/I&O Vitals and I&O: Vital Signs Temperature 36.2 C L 10/09/19 07:15 Temperature Source Tympanic 10/09/19 07:15 Pulse 57 L 10/09/19 07:15 Pulse Rhythm Regular 10/09/19 07:50 Respiratory Rate 16 10/09/19 07:15 Respiratory Effort Non-Labored 10/09/19 07:50 Respiratory Depth Normal 10/09/19 07:50 Respiratory Pattern Normal 10/09/19 07:50 Blood Pressure 110/75 10/09/19 07:15 Pulse Oximetry 97 10/09/19 07:15 Oxygen Delivery Method Room Air 10/09/19 07:15 Oxygen Flow Rate 0 10/09/19 07:15 Pain Level 5 10/09/19 07:15 Comment 10/01/19 23:19 Intake & Output 10/08/19 10/08/19 10/09/19 11:59 23:59 11:59 Intake Total 600 / 1090 490 / 1090 240 / 240 Output Total 300 / 300 Balance 300 / 790 490 / 790 240 / 240 Weight 68.9 kg Intake: IV Oral 600 / 1080 480 / 1080 240 / 240 Output: Urine 300 / 300 Other: Urine Color Pale Yellow Urine Appearance Clear Clear Clear Urine Odor Normal Normal Comment scan before void was 243, after voiding 65 voided in toilet Voided in toilet Voiding Methods Toilet Toilet Toilet Data Completed and Pending Completed studies during hospitalization [Text1]: Exam(s) a CT:CT head wo EXAM: CT HEAD WO CLINICAL HISTORY: Found on floor in his room 220 TECHNIQUE: WO CONTRAST COMPARISON: CT HEAD AND CERVICAL SPINE WO from 09/17/2019 FINDINGS: There is patient motion artifact. No acute intracranial hemorrhage or skull fracture is present. The ventricles are intact. The basilar cisterns are patent. There is an area of encephalomalacia involving the left frontal lobe. There is mucosal thickening in the maxillary sinuses. The remaining visualized paranasal sinuses are clear. No fluid levels are seen in the sinuses. The mastoid air cells are well pneumatized. IMPRESSION: No acute intracranial process. Exam(s) a RAD:XR portable chest AP EXAM: XR PORTABLE CHEST AP INDICATION: Fever. COMPARISON: No exams were available for comparison TECHNIQUE: 2D digital imaging was performed. FINDINGS: The heart size and pulmonary vasculature are within normal limits. The lungs are clear. No effusion or pneumothorax is identified. There is elevation of the left hemidiaphragm. Degenerative changes are seen in the spine. There are old right rib fractures. IMPRESSION: No acute pulmonary process. Exam(s) a CT:CT lumbar spine wo EXAM: CT LUMBAR SPINE WO CLINICAL HISTORY: concern for cord impingement; h/o spinal stenosis TECHNIQUE: Noncontrast. FINDINGS: There is sacralization of L5. There is again noted to be L4 spondylolysis and mild L4-5 spondylolisthesis as well as severe degenerative disc changes at L4-5. This causes severe bilateral neural foraminal narrowing. No acute fracture is identified. There are mild declivities in the inferior endplates of T12 and L1, consistent with Schmorl's nodes. There is disc space narrowing at T11-12 and T12-L1. There is a small left paracentral disc herniation at T11. This mildly narrows the AP dimension of the central canal. A catheter is noted in the bladder. The aorta shows calcification but is normal in diameter. IMPRESSION: No evidence of acute fracture. Degenerative disc changes in the lower thoracic spine. Chronic L4 spondylolysis, spondylolisthesis and degenerative disc changes causing severe bilateral neural foraminal narrowing. Exam(s) PROCEDURE INFORMATION: Exam: CT Lumbar Spine Without Contrast Exam date and time: 09/26/2019 4:52 PM Clinical history: 54 years old, male; Other: Concern for cord impingement; H/o spinal stenosis TECHNIQUE: Imaging protocol: Computed tomography images of the lumbar spine without contrast. Radiation optimization: All CT scans at this facility use at least one of these dose optimization techniques: automated exposure control; mA and/or kV adjustment per patient size (includes targeted exams where dose is matched to clinical indication); or iterative reconstruction. COMPARISON: No relevant prior studies available. FINDINGS: Tubes, catheters and devices: Skinner catheter in the bladder Vertebrae: There is a bilateral spondylolysis defect of the L5-S1 level, with grade I/II spondylolisthesis. Discs/Spinal canal/Neural foramina: Central Focal disc herniation at T12-L1 (3:17). Broad-based disc bulge, facet hypertrophy, and ligament hypertrophy at L3/L4 and L4/L5 consistent with spinal stenosis. Recommend MRI for further evaluation. Bladder: Mild distention of the bladder. Clinical correlation is recommended. Soft tissues: Unremarkable. IMPRESSION: 1. Central Focal disc herniation at T12-L1 (3:17). Recommend MRI if clinically indicated 2. Broad-based disc bulge, facet hypertrophy, and ligament hypertrophy at L3/L4 and L4/L5 consistent with spinal stenosis. Recommend MRI for further evaluation. 3. There is a bilateral spondylolysis defect of the L5-S1 level, with grade I/II spondylolisthesis. 4. Mild distention of the bladder. Clinical correlation is recommended. Exam(s) a MRI:MR lumbar spine wo EXAM: MR LUMBAR SPINE WO CLINICAL HISTORY: progressive BLE weakness, spinal stenosis. TECHNIQUE: Multiplanar multisequence MRI was performed. XR PORTABLE CHEST AP from 09/25/2019 CT LUMBAR SPINE WO from 09/26/2019 FINDINGS: There is sacralization of L5. There are chronic bilateral L4 pars defects and L4-5 spondylolisthesis as well as severe degenerative disc changes. There is again noted be bony fragmentation anteriorly at the L4-5 disc space. Findings appear stable when compared with the previous chest abdomen and pelvic CT from 2018. There is no significant central canal stenosis at this level however there is severe bilateral neural foraminal narrowing, right greater than left. The L2 3 and L3 levels are unremarkable. There is moderate loss of disc height at L 1 2 and mild concentric disc bulging. There is no significant central canal stenosis or neural foraminal narrowing. At T12-L1 there are similar mild degenerative disc changes. At T11, there is a left paracentral disc protrusion which effaces the anterior CSF space but does not definitely impinge on the conus medullaris or exiting nerve root. There is no neural foraminal narrowing. IMPRESSION: Left paracentral disc protrusion at T11-12 causing mild narrowing of the AP dimension of the central canal. Stable L4-5 spondylolisthesis, with chronic L4 spondylolysis and severe degenerative disc changes causing severe bilateral neural foraminal narrowing. Exam(s) a MRI:MR thoracic spine wo EXAM: MR THORACIC SPINE WO CLINICAL HISTORY: spinal stenosis, progressive weakness. TECHNIQUE: Multiplanar multisequence MRI was performed. CT LUMBAR SPINE WO from 09/26/2019 FINDINGS: Hardware is again noted in the lower cervical spine. There is an upper to midthoracic scoliosis. There are stable mild anterior wedging of the T6 and T7 vertebral bodies. There is no abnormal segments to indicate an acute or subacute fracture. There are minimal endplate osteophytes at C6-7. The small left paracentral disc protrusion is seen at T11-12. Mild concentric disc bulging is seen at T12-L1. The cord signal appears normal. IMPRESSION: Small left paracentral disc protrusion at T11-12 and mild disc bulging at T12-L1. Exam(s) a RAD:XR elbow LT complete EXAM: XR ELBOW LT COMPLETE INDICATION: trauma, fall injury. COMPARISON: No exams were available for comparison TECHNIQUE: 2D digital imaging was performed. FINDINGS: No acute fracture or joint effusion is seen. An old fracture deformity of the distal third of the humeral shaft is partially included on the exam. IMPRESSION: No acute abnormality. Exam(s) a RAD:XR shoulder LT complete 2+V EXAM: XR SHOULDER LT COMPLETE 2+V INDICATION: trauma, shoulder injury. COMPARISON: No exams were available for comparison TECHNIQUE: 2D digital imaging was performed. FINDINGS: No acute fracture or dislocation is seen. The AC joint shows degenerative changes but no widening. Visualized portions of the left ribs appear intact. No pneumothorax is seen. There is deformity of the mid humeral shaft partially included on the exam which appears to represent an old fracture deformity. IMPRESSION: No acute abnormality. [facility] Medical History ADHD (Chronic) Alcoholism /alcohol abuse (Chronic) Bipolar disorder (Chronic) HTN (hypertension) (Chronic) Hypothyroid (Chronic) Surgical History H/O cervical spine surgery (Chronic) Family History Other Family history unobtainable due to patient's condition Social History Smoking/Tobacco Use Status: Current every day Tobacco Type: cigarettes Alcohol Intake: current Alcohol Intake frequency: 3 or more drinks per day Alcohol type: other Drug use: Never Substance use type: does not use Do you feel safe at home: Yes Do you feel safe in your relationship?: Yes
--- NOTE | 2019-10-09 15:16 | PDOC.CMPRO ---
Care Management Progress Note Harshal transitioned from SWB1 to SWB2 today. CM discussed planning with multiple staff members including the provider and Harshal, who was advocating for remaining at [facility] through the weekend. He reported speaking to Pastor Brito who declined his request to re-enter [facility]. CM provided additional resources for disposition. Harshal did not connect with providers on Saturday and being a holiday weekend, would be discharging to a lack of community based supports until Saturday. Harshal will remain at [facility] through the holiday weekend. He has a list of facilities to outreach to including [facility], [facility], [facility], [facility], [facility] transitional housing, [facility], [facility] etc. - MH Services (Omit if N/A) Current MH Services: [facility] (Medication Management with Mavis Mojica at [place])
[2019-10-09 15:56] VITALS: BP 153/91; PULSE 61; RESP 18; TEMP 37.2; O2SAT 97
[2019-10-09] MEDS: Acetaminophen 325 MG TAB PO (20:58)
[2019-10-10 04:15] VITALS: BP 102/59; PULSE 60; RESP 17; TEMP 36.8; O2SAT 97
[2019-10-10] MEDS: Levothyroxine 150 MCG TAB PO (05:41)
[2019-10-10 07:37] VITALS: BP 95/61; PULSE 62; RESP 17; TEMP 36.7; O2SAT 96
[2019-10-10] MEDS: Nicotine 14 MG/24 HR PATCH TD (09:05)
[2019-10-10] MEDS: Nystatin 500000 UNITS/5 ML SUSP 5ML CUP PO ×2 (09:05→13:59)
[2019-10-10] MEDS: DULoxetine 30 MG CAP PO (09:06)
[2019-10-10] MEDS: Gabapentin 600 MG TAB 1200 MG PO ×3 (09:06→20:10)
[2019-10-10] MEDS: Acetaminophen 325 MG TAB PO ×2 (09:06→20:10)
[2019-10-10] MEDS: Metoprolol CR 50 MG TABCR PO (09:06)
[2019-10-10] MEDS: Folic Acid 1 MG TAB PO (09:06)
[2019-10-10] MEDS: Pantoprazole 40 MG TABCR PO (09:06)
[2019-10-10] MEDS: buPROPion-CR 150 MG TABCR PO ×2 (09:06→20:10)
[2019-10-10] MEDS: Cyanocobalamin 500 MCG TAB 1000 MCG PO (09:07)
[2019-10-10] MEDS: traMADol 50 MG TAB 100 MG PO ×2 (12:53→20:10)
[2019-10-10] MEDS: Tamsulosin 0.4 MG CAPCR PO (17:44)
[2019-10-10 19:54] VITALS: BP 121/64; PULSE 67; RESP 18; TEMP 37.1; O2SAT 99
[2019-10-11] MEDS: Levothyroxine 150 MCG TAB PO (05:48)
[2019-10-11 07:15] VITALS: BP 108/69; PULSE 62; RESP 17; TEMP 36.7; O2SAT 96
[2019-10-11] MEDS: Patch Removal 1 EACH TD (08:36)
[2019-10-11] MEDS: Gabapentin 600 MG TAB 1200 MG PO ×3 (08:36→20:17)
[2019-10-11] MEDS: Nicotine 14 MG/24 HR PATCH TD (08:36)
[2019-10-11] MEDS: buPROPion-CR 150 MG TABCR PO ×2 (08:37→20:17)
[2019-10-11] MEDS: Metoprolol CR 50 MG TABCR PO (08:37)
[2019-10-11] MEDS: Folic Acid 1 MG TAB PO (08:37)
[2019-10-11] MEDS: Pantoprazole 40 MG TABCR PO (08:37)
[2019-10-11] MEDS: DULoxetine 30 MG CAP PO (08:37)
[2019-10-11] MEDS: Cyanocobalamin 500 MCG TAB 1000 MCG PO (08:37)
[2019-10-11] MEDS: Acetaminophen 325 MG TAB PO ×2 (13:48→20:17)
[2019-10-11] MEDS: traMADol 50 MG TAB 100 MG PO (13:49)
[2019-10-11 16:43] VITALS: BP 121/72; PULSE 61; RESP 18; TEMP 36.7; O2SAT 98
[2019-10-11] MEDS: Tamsulosin 0.4 MG CAPCR PO (17:06)
[2019-10-12 03:19] VITALS: BP 124/78; PULSE 78; RESP 18; TEMP 36.2; O2SAT 95
[2019-10-12] MEDS: Levothyroxine 150 MCG TAB PO (05:37)
[2019-10-12 07:12] VITALS: BP 107/75; PULSE 58; RESP 17; TEMP 36.9; O2SAT 98
[2019-10-12 07:30] VITALS: PULSE 65
[2019-10-12] MEDS: Nicotine 14 MG/24 HR PATCH TD (07:56)
[2019-10-12] MEDS: traMADol 50 MG TAB 100 MG PO ×3 (07:57→20:56)
[2019-10-12] MEDS: Gabapentin 600 MG TAB 1200 MG PO ×3 (07:57→20:56)
[2019-10-12] MEDS: buPROPion-CR 150 MG TABCR PO ×2 (07:58→20:57)
[2019-10-12] MEDS: Folic Acid 1 MG TAB PO (07:58)
[2019-10-12] MEDS: Pantoprazole 40 MG TABCR PO (07:58)
[2019-10-12] MEDS: Cyanocobalamin 500 MCG TAB 1000 MCG PO (07:58)
[2019-10-12] MEDS: DULoxetine 30 MG CAP PO (07:58)
[2019-10-12] MEDS: Metoprolol CR 50 MG TABCR PO (07:59)
[2019-10-12] MEDS: Patch Removal 1 EACH TD (07:59)
--- NOTE | 2019-10-12 09:28 | CMPROGNOTE_ITS ---
Care Management Progress Note CM spoke with Amarilys Hickey: [facility] RN regarding discharge planning and warm community hand off. Amarilys listed multiple barriers including the fact that Harshal is not local and his supports are in the [place] where there is no warming senior living. She did however offer other supports including [employer] (with possible monetary support from the community, Melina Richard at [employer] for voucher support (Office#[phone] provider number only), and [facility]. Harshal will remain in [facility] until his planned outpatient elective surgery on 10/21/19. CM will continue to attempt coordination of housing options for discharge back to the community post surgery. CM faxed referral to [facility] requesting wrap around service support coordination in the community as well as housing support.
[2019-10-12 14:42] VITALS: BP 133/75; PULSE 75; RESP 17; TEMP 36.7; O2SAT 95
[2019-10-12] MEDS: Tamsulosin 0.4 MG CAPCR PO (17:50)
[2019-10-12] MEDS: Acetaminophen 325 MG TAB PO (20:57)
[2019-10-12 23:35] VITALS: BP 96/66; PULSE 68; RESP 19; TEMP 36; O2SAT 95
[2019-10-13] MEDS: traMADol 50 MG TAB 100 MG PO ×3 (04:19→19:43)
[2019-10-13] MEDS: Levothyroxine 150 MCG TAB PO (06:42)
[2019-10-13 07:15] VITALS: BP 118/75; PULSE 65; RESP 20; TEMP 36.9; O2SAT 96
[2019-10-13] MEDS: Gabapentin 600 MG TAB 1200 MG PO ×3 (07:56→19:44)
[2019-10-13] MEDS: Folic Acid 1 MG TAB PO (07:57)
[2019-10-13] MEDS: Metoprolol CR 50 MG TABCR PO (07:57)
[2019-10-13] MEDS: Pantoprazole 40 MG TABCR PO (07:57)
[2019-10-13] MEDS: Cyanocobalamin 500 MCG TAB 1000 MCG PO (07:57)
[2019-10-13] MEDS: DULoxetine 30 MG CAP PO (07:57)
[2019-10-13] MEDS: Nicotine 14 MG/24 HR PATCH TD (07:57)
[2019-10-13] MEDS: buPROPion-CR 150 MG TABCR PO ×2 (07:57→19:43)
[2019-10-13] MEDS: Patch Removal 1 EACH TD (07:58)
[2019-10-13] MEDS: Acetaminophen 325 MG TAB PO ×2 (10:42→19:43)
[2019-10-13 16:17] VITALS: BP 133/84; PULSE 56; RESP 18; TEMP 36.7; O2SAT 97
[2019-10-13] MEDS: Tamsulosin 0.4 MG CAPCR PO (17:27)
[2019-10-13 23:59] VITALS: BP 110/70; PULSE 72; RESP 18; TEMP 37; O2SAT 97
[2019-10-14] MEDS: traMADol 50 MG TAB 100 MG PO ×3 (03:14→21:09)
[2019-10-14] MEDS: Levothyroxine 150 MCG TAB PO (05:59)
[2019-10-14 07:33] VITALS: BP 117/75; PULSE 70; RESP 18; TEMP 36.5; O2SAT 97
[2019-10-14] MEDS: Cyanocobalamin 500 MCG TAB 1000 MCG PO (08:34)
[2019-10-14] MEDS: Nicotine 14 MG/24 HR PATCH TD (08:34)
[2019-10-14] MEDS: Pantoprazole 40 MG TABCR PO (08:35)
[2019-10-14] MEDS: buPROPion-CR 150 MG TABCR PO ×2 (08:35→21:09)
[2019-10-14] MEDS: Gabapentin 600 MG TAB 1200 MG PO ×3 (08:35→21:09)
[2019-10-14] MEDS: Metoprolol CR 50 MG TABCR PO (08:35)
[2019-10-14] MEDS: DULoxetine 30 MG CAP PO (08:35)
[2019-10-14] MEDS: Folic Acid 1 MG TAB PO (08:35)
[2019-10-14] MEDS: Patch Removal 1 EACH TD (08:36)
[2019-10-14] MEDS: Acetaminophen 325 MG TAB PO ×2 (13:37→21:09)
[2019-10-14 16:12] VITALS: BP 112/66; PULSE 65; RESP 18; TEMP 36.8; O2SAT 98
[2019-10-14] MEDS: Tamsulosin 0.4 MG CAPCR PO (18:15)
[2019-10-15 00:06] VITALS: BP 103/68; PULSE 68; RESP 16; TEMP 37; O2SAT 94
[2019-10-15] MEDS: Levothyroxine 150 MCG TAB PO (05:22)
[2019-10-15 07:20] VITALS: BP 106/70; PULSE 62; RESP 16; TEMP 36.7; O2SAT 97
[2019-10-15] MEDS: Metoprolol CR 50 MG TABCR PO (08:43)
[2019-10-15] MEDS: Folic Acid 1 MG TAB PO (08:43)
[2019-10-15] MEDS: Gabapentin 600 MG TAB 1200 MG PO ×3 (08:43→20:17)
[2019-10-15] MEDS: buPROPion-CR 150 MG TABCR PO ×2 (08:44→20:17)
[2019-10-15] MEDS: Cyanocobalamin 500 MCG TAB 1000 MCG PO (08:44)
[2019-10-15] MEDS: DULoxetine 30 MG CAP PO (08:44)
[2019-10-15] MEDS: Pantoprazole 40 MG TABCR PO (08:44)
[2019-10-15] MEDS: traMADol 50 MG TAB 100 MG PO ×2 (08:45→14:32)
[2019-10-15] MEDS: Patch Removal 1 EACH TD (08:45)
[2019-10-15] MEDS: Acetaminophen 325 MG TAB PO (08:45)
[2019-10-15] MEDS: Nicotine 14 MG/24 HR PATCH TD (08:45)
--- NOTE | 2019-10-15 11:36 | PDOC.CMACT ---
- If Service Date Differs Date of service: 10/15/19 Time of Service: 11:36
[2019-10-15 15:37] VITALS: BP 103/69; PULSE 59; RESP 16; TEMP 36.2; O2SAT 96
--- NOTE | 2019-10-15 17:25 | NS.NUTBLAN_ITS ---
Date of service: 10/15/19 Time of Service: 17:26 Nutritional Consult ASSESSMENT: Mr. Juarez has been here on swing bed with very specific food requests of cheeseburger and oven fries and custard with many meals. He is ordered a Heart Healthy meal plan. Patient nutrition coordinators have been diligent at encouraging a variety of food choices especially vegetables and fruit and chicken/fish. He has not been agreeable to any foods except the above until today when he is willing to try chicken. No evidence of cholesterol issues. Comorbidity of hypertension. BMI 24 INTERVENTION: Patient Nutrition coordinators are encouraging appropriate foods to adhere to heart healthy food plan. At this time his we have switched to [employer] cheese which follows the heart healthy meal plan. MONITORING AND EVALUATION: Will continue to follow his food intake and adjust ingredients to help him meet his nutrition restrictions. Time Spent in Nutritional Counseling and Treatment: 0 minutes face to face
[2019-10-15] MEDS: Tamsulosin 0.4 MG CAPCR PO (17:54)
[2019-10-15 23:58] VITALS: BP 120/82; PULSE 59; RESP 16; TEMP 36.5; O2SAT 97
[2019-10-16] MEDS: Levothyroxine 150 MCG TAB PO (06:21)
[2019-10-16 07:20] VITALS: BP 138/89; PULSE 53; RESP 17; TEMP 36.6; O2SAT 98
[2019-10-16] MEDS: DULoxetine 30 MG CAP PO (08:10)
[2019-10-16] MEDS: Cyanocobalamin 500 MCG TAB 1000 MCG PO (08:11)
[2019-10-16] MEDS: Pantoprazole 40 MG TABCR PO (08:11)
[2019-10-16] MEDS: buPROPion-CR 150 MG TABCR PO ×2 (08:11→19:53)
[2019-10-16] MEDS: Gabapentin 600 MG TAB 1200 MG PO ×3 (08:11→19:53)
[2019-10-16] MEDS: Nicotine 14 MG/24 HR PATCH TD (08:12)
[2019-10-16] MEDS: traMADol 50 MG TAB 100 MG PO ×3 (08:12→23:00)
[2019-10-16] MEDS: Folic Acid 1 MG TAB PO (08:12)
[2019-10-16] MEDS: Patch Removal 1 EACH TD (08:14)
--- NOTE | 2019-10-16 14:52 | CHAPLAIN ---
Rev. Sharonda Hickman visited with Harshal yesterday (10/15) when she was here as derrick operator.
[2019-10-16 16:26] VITALS: BP 113/77; PULSE 64; RESP 18; TEMP 36.8; O2SAT 97
[2019-10-16] MEDS: Tamsulosin 0.4 MG CAPCR PO (17:57)
[2019-10-17 04:10] VITALS: BP 96/60; PULSE 71; RESP 17; TEMP 36.4; O2SAT 96
[2019-10-17] MEDS: traMADol 50 MG TAB 100 MG PO ×3 (06:30→21:02)
[2019-10-17] MEDS: Levothyroxine 150 MCG TAB PO (06:30)
[2019-10-17 07:45] VITALS: BP 126/80; PULSE 66; RESP 18; TEMP 36.7; O2SAT 98
[2019-10-17] MEDS: Nicotine 14 MG/24 HR PATCH TD (08:42)
[2019-10-17] MEDS: Metoprolol CR 50 MG TABCR PO (08:43)
[2019-10-17] MEDS: Gabapentin 600 MG TAB 1200 MG PO ×3 (08:43→21:00)
[2019-10-17] MEDS: Folic Acid 1 MG TAB PO (08:43)
[2019-10-17] MEDS: Patch Removal 1 EACH TD (08:43)
[2019-10-17] MEDS: DULoxetine 30 MG CAP PO (08:44)
[2019-10-17] MEDS: Pantoprazole 40 MG TABCR PO (08:44)
[2019-10-17] MEDS: buPROPion-CR 150 MG TABCR PO ×2 (08:44→21:02)
[2019-10-17] MEDS: Cyanocobalamin 500 MCG TAB 1000 MCG PO (08:44)
[2019-10-17 16:00] VITALS: BP 124/70; PULSE 65; RESP 17; TEMP 36.8; O2SAT 95
[2019-10-17] MEDS: Tamsulosin 0.4 MG CAPCR PO (17:36)
--- NOTE | 2019-10-17 18:42 | PDOC.CMACT ---
Care Management Activity Note Harshal continues to enjoy engaging with staff, and shares that he visited with a volunteer for almost an hour today. He enjoy watching videos on his laptop as well. Harshal is pleasant in interaction and reports he is currently ambulating at least three times a day with the support of a FWW. He is interested in more art activities which CM provided.
[2019-10-17 20:12] VITALS: BP 103/67; PULSE 70; RESP 18; TEMP 36.8; O2SAT 96
[2019-10-18] MEDS: Levothyroxine 150 MCG TAB PO (06:49)
[2019-10-18 08:35] VITALS: BP 105/63; PULSE 60; RESP 18; TEMP 36.5; O2SAT 98
[2019-10-18] MEDS: Gabapentin 600 MG TAB 1200 MG PO ×3 (08:50→20:03)
[2019-10-18] MEDS: Nicotine 14 MG/24 HR PATCH TD (08:50)
[2019-10-18] MEDS: Cyanocobalamin 500 MCG TAB 1000 MCG PO (08:51)
[2019-10-18] MEDS: DULoxetine 30 MG CAP PO (08:51)
[2019-10-18] MEDS: Metoprolol CR 50 MG TABCR PO (08:51)
[2019-10-18] MEDS: Folic Acid 1 MG TAB PO (08:51)
[2019-10-18] MEDS: Pantoprazole 40 MG TABCR PO (08:51)
[2019-10-18] MEDS: Patch Removal 1 EACH TD (08:52)
[2019-10-18] MEDS: buPROPion-CR 150 MG TABCR PO ×2 (09:17→20:03)
[2019-10-18] MEDS: traMADol 50 MG TAB 100 MG PO ×2 (10:54→20:03)
[2019-10-18 15:07] VITALS: BP 111/74; PULSE 69; RESP 18; TEMP 37; O2SAT 94
[2019-10-18] MEDS: Acetaminophen 325 MG TAB PO ×2 (15:10→20:03)
[2019-10-18] MEDS: Tamsulosin 0.4 MG CAPCR PO (17:29)
[2019-10-18 20:07] VITALS: BP 115/65; PULSE 61; RESP 16; TEMP 36.4; O2SAT 96
[2019-10-18 23:22] VITALS: BP 96/65; PULSE 57; RESP 16; TEMP 36.4; O2SAT 97
[2019-10-19] MEDS: Levothyroxine 150 MCG TAB PO (05:05)
[2019-10-19] MEDS: traMADol 50 MG TAB 100 MG PO ×3 (05:05→20:36)
[2019-10-19 07:10] VITALS: BP 104/68; PULSE 65; RESP 18; TEMP 36.6; O2SAT 95
[2019-10-19] MEDS: Nicotine 14 MG/24 HR PATCH TD (09:07)
[2019-10-19] MEDS: DULoxetine 30 MG CAP PO (09:08)
[2019-10-19] MEDS: buPROPion-CR 150 MG TABCR PO ×2 (09:08→20:35)
[2019-10-19] MEDS: Patch Removal 1 EACH TD (09:08)
[2019-10-19] MEDS: Folic Acid 1 MG TAB PO (09:08)
[2019-10-19] MEDS: Pantoprazole 40 MG TABCR PO (09:08)
[2019-10-19] MEDS: Cyanocobalamin 500 MCG TAB 1000 MCG PO (09:08)
[2019-10-19] MEDS: Metoprolol CR 50 MG TABCR PO (09:08)
[2019-10-19] MEDS: Gabapentin 600 MG TAB 1200 MG PO ×3 (09:12→20:35)
[2019-10-19 11:20] VITALS: BP 139/88; PULSE 64; RESP 18; TEMP 37.2; O2SAT 94
[2019-10-19 15:31] VITALS: BP 123/63; PULSE 63; RESP 18; TEMP 36.4; O2SAT 95
[2019-10-19] MEDS: Tamsulosin 0.4 MG CAPCR PO (17:48)
[2019-10-19 20:10] VITALS: BP 106/74; PULSE 68; RESP 16; TEMP 35.9; O2SAT 97
[2019-10-19] MEDS: Acetaminophen 325 MG TAB PO (20:35)
--- NOTE | 2019-10-19 21:08 | CMPROGNOTE_ITS ---
Care Management Progress Note MERARI met with Harshal to review goals. Harshal spoke with his sterilization technician who reported still awaiting the award letter for his SSDI, which he anticipated beginning 11/11/19. He also reported speaking with Emma at [facility] in [place] and listing her as his payee to ensure his housing costs are covered. He reported his checks will be sent to Emma until he can pay [employer] the $300 owed to them, permitting him to re-open an account for his income. Harshal shared concerns around his surgery, and was watching videos about the surgery on his laptop. He relayed the information he had gathered and shared his concerns around post operative pain management and mobility. CM permitted Harshal to process his concerns and provided validation and encouragement. CM spoke with [facility] at [facility] who reported Harshal is slated third in the OR schedule for 10/21/19 and would likely have surgery around 1100. CM to coordinate RCT transport to [facility] for 10/21/19 at 0900. [facility] reported that Harshal would be admitted there as the planned surgery is an extended procedure and will likely take more than four hours to complete. Plan for discharge prior to notification from [facility] regarding admission was for Harshal to be evaluated post-surgically and discharge to [facility] for housing support (likely motel voucher) with [facility] support until completion of housing coordination with his [place] service providers including Emma of [facility] and NATHANIEL Wood RN. CM notified Mildred Caputo/[place] [facility], Nursing Freight Hustler and MD of planning. Dr. Herrera made note to have Harshal's discharge prepared for 10/20/19.
--- NOTE | 2019-10-19 21:08 | PDOC.CMPRO ---
Care Management Progress Note MERARI met with Harshal to review goals. Harshal spoke with his civil lawyer who reported still awaiting the award letter for his SSDI, which he anticipated beginning 11/11/19. He also reported speaking with Emma at [facility] in [place] and listing her as his payee to ensure his housing costs are covered. He reported his checks will be sent to Emma until he can pay [employer] the $300 owed to them, permitting him to re-open an account for his income. Harshal shared concerns around his surgery, and was watching videos about the surgery on his laptop. He relayed the information he had gathered and shared his concerns around post operative pain management and mobility. CM permitted Harshal to process his concerns and provided validation and encouragement. CM spoke with Sp[facility] at [facility] who reported Harshal is slated third in the OR schedule for 10/21/19 and would likely have surgery around 1100. CM to coordinate RCT transport to [facility] for 10/21/19 at 0900. [facility] reported that Harshal would be admitted there as the planned surgery is an extended procedure and will likely take more than four hours to complete. Plan for discharge prior to notification from [facility] regarding admission was for Harshal to be evaluated post-surgically and discharge to [facility] for housing support (likely motel voucher) with VNA support until completion of housing coordination with his [place] service providers including Emma of [facility] and NATHANIEL Wood RN. CM notified Mildred Caputo/[place] [facility], Nursing Hand Heel Seat Fitter and MD of planning. Dr. Herrera made note to have Harshal's discharge prepared for 10/20/19.
[2019-10-19 23:39] VITALS: BP 115/74; PULSE 65; RESP 18; TEMP 36; O2SAT 95
[2019-10-20] MEDS: Levothyroxine 150 MCG TAB PO (05:28)
[2019-10-20 07:05] VITALS: BP 113/72; PULSE 64; RESP 18; TEMP 36.6; O2SAT 97
[2019-10-20] MEDS: Nicotine 14 MG/24 HR PATCH TD (08:03)
[2019-10-20] MEDS: Gabapentin 600 MG TAB 1200 MG PO ×3 (08:04→20:44)
[2019-10-20] MEDS: Metoprolol CR 50 MG TABCR PO (08:04)
[2019-10-20] MEDS: Folic Acid 1 MG TAB PO (08:04)
[2019-10-20] MEDS: DULoxetine 30 MG CAP PO (08:04)
[2019-10-20] MEDS: Cyanocobalamin 500 MCG TAB 1000 MCG PO (08:04)
[2019-10-20] MEDS: Pantoprazole 40 MG TABCR PO (08:04)
[2019-10-20] MEDS: buPROPion-CR 150 MG TABCR PO ×2 (08:04→20:44)
[2019-10-20] MEDS: Patch Removal 1 EACH TD (08:05)
[2019-10-20] MEDS: traMADol 50 MG TAB 100 MG PO (13:00)
[2019-10-20 15:35] VITALS: BP 113/69; PULSE 73; RESP 18; TEMP 36.4; O2SAT 97
--- NOTE | 2019-10-20 15:43 | CMPROGNOTE_ITS ---
- If Service Date Differs Date of service: 10/20/19 Time of Service: 15:43 Care Management Progress Note S/O: CM contacted [facility] to confirm plans for surgery tomorrow. Harshal is to arrive by noon and go to the East Entrance near the Emergence Room. He should take the elevator across from the entrance to the second floor. The day surgery center is on the second floor, immediately on the left after leaving the elevator. His procedure is scheduled for 1:00 PM. Harshal should shower with antimicrobial soap tonight. Harshal may have a normal intake until midnight. From midnight to 11 am he may have water or clear liquids such as apple juice or black tea or coffee. Harshal may take regularly scheduled medications tonight and tomorrow morning. He is to avoid vitamins and supplements however. [facility] is scheduled to pick Harshal up in the lobby of [facility] at 8:15 am. P: Harshal will be discharged tomorrow morning by 8:15 am. He will transport via [facility] to [facility]. He will be admitted to the hospital there and have surgery at 1 pm. He will remain overnight. Further discharge plans will be determined by staff at [facility]. Prior [facility] plan was for Harshal to relocate to [place] when able and seek housing there with the help of his community supports.
[2019-10-20] MEDS: Tamsulosin 0.4 MG CAPCR PO (19:20)
[2019-10-21 01:07] VITALS: BP 115/71; PULSE 71; RESP 18; TEMP 36.9; O2SAT 97
[2019-10-21] MEDS: Levothyroxine 150 MCG TAB PO (05:52)
[2019-10-21 07:27] VITALS: BP 158/102; PULSE 74; RESP 18; TEMP 37; O2SAT 97
[2019-10-21] MEDS: Pantoprazole 40 MG TABCR PO (07:37)
[2019-10-21] MEDS: Gabapentin 600 MG TAB 1200 MG PO (07:38)
[2019-10-21] MEDS: Folic Acid 1 MG TAB PO (07:38)
[2019-10-21] MEDS: Metoprolol CR 50 MG TABCR PO (07:38)
[2019-10-21] MEDS: DULoxetine 30 MG CAP PO (07:38)
[2019-10-21] MEDS: buPROPion-CR 150 MG TABCR PO (07:38)
--- NOTE | 2019-10-21 16:37 | PDOC.CMDIS ---
- If Service Date Differs Date of service: 10/21/19 Time of Service: 16:37 LACE Index Scoring Tool - Questions: Length of Stay (in days): 14 or more Acuity (Admit via E.D.?): Yes E.D. Visits: 3 - Answers: Total Score: 13 Risk of Readmission: High Risk Care Management Discharge Reason for Hospitalization: SW for continued rehab, surgical intervention coordination, disposition and service planning. Discharge Plan: Harshal will be discharged to [facility] today where he is scheduled to have spine surgery at 1pm. He will follow up with his provider and the [facility] plan of care. His previous plan involved relocation to [place] with the hopes of securing housing in that area. That was to be supported by his community resources. Patient/Family Education Needs: Discharge plan, limitations.
== END 2019-10-21 08:15 | disposition short-term general hospital (02) | DRG 552 ==
PROVIDERS: Internal Medicine; Admitting Provider Internal Medicine; PCP Physician Assistant; Visit Provider Internal Medicine
DX: M48.061 Spinal stenosis, lumbar region without neurogenic claudication (principal); F10.239 Alcohol dependence with withdrawal, unspecified; R26.2 Difficulty in walking, not elsewhere classified; F17.210 Nicotine dependence, cigarettes, uncomplicated; Z59.0 Homelessness; I10 Essential (primary) hypertension; F31.9 Bipolar disorder, unspecified; E03.9 Hypothyroidism, unspecified
CPT/HCPCS: 36415; 85027; 97110; 97162; 97165; 97530; 97535; 99239; 99306; 99308; J1644; J3490

== ENCOUNTER 2020-01-29 02:22 | Emergency (ER) | payer MEDICAID, SELFPAY ==
[2020-01-29 02:25] VITALS: BP 156/97; PULSE 83; RESP 16; TEMP 36.1; O2SAT 99
--- NOTE | 2020-01-29 02:27 | ED.GENADUL_ITS ---
Discharge Plan Disposition Patient Disposition: [facility] Condition: Stable Discharge Details Chief Complaint: ETOHWithdr Clinical Impression: Suicidal ideation, Alcohol abuse Primary Care Provider: Don Draper ED Provider: Catalina Harper Home Meds and New Rx's Prescriptions: No Action thiamine HCl (vitamin B1) 100 mg Tablet 100 mg PO DAILY RF: 0 tamsulosin [Flomax] 0.4 mg Capsule 0.4 mg PO DAILY RF: 0 lidocaine [Lidoderm] 5 % Adhesive Patch,Medicated 1 patch TOPICAL DAILY RF: 0 levothyroxine [Synthroid] 200 mcg Tablet 175 mcg PO DAILY RF: 0 bupropion HCl 150 mg Tablet Sustained-Release 12 Hr 150 mg PO BID RF: 0 gabapentin 600 mg Tablet 1,200 mg PO TID RF: 0 metoprolol succinate 50 mg Tablet Extended Release 24 Hr 50 mg PO DAILY RF: 0 cyanocobalamin (vitamin B-12) [Vitamin B-12] 1,000 mcg Tablet 1,000 mcg PO DAILY RF: 0 folic acid 1 mg Tablet 1 mg PO DAILY RF: 0 Vyvanse 50 mg Capsule 50 mg PO DAILY RF: 0 Discharge Data Discharge Date/Time-TO BE ENTERED AT DEPARTURE: 01/29/20 17:10 Medical Decision Making <Axel Miller MD - Last Filed: 02/01/20 23:33> Patient here with alcohol intoxication and suicidal ideation. Suspect the ideation is more related to intoxication and lack of housing. No physical complaints. If he is relating the truth about drinking only the last 3 or 4 days no need to worry about withdrawal. Will obtain laboratory studies. Will order CPSO. Will need mental health eval when more sober. 4am - Labs are fine. ETOH is 176. Will call mental health for evaluation. Medical Records Medical records reviewed: Yes I reviewed the patient's medical records. Lab Data Lab results reviewed: Yes I reviewed the patient's lab results. <Catalina Harper DO - Last Filed: 01/29/20 16:41> 0800 --please see Dr. Miller's note for initial presentation, exam and plan. Case endorsed to follow-up with care management and mental health regarding disposition. Working plan is for possible transfer to [place] for suicidal ideation. 1630 --patient accepted for transfer to [place]. Accepting physician Dr. Mchugh. Patient states he still has intermittent thoughts of suicide with a plan to either cut his wrists or take pills. Patient has received 2 doses of his scheduled gabapentin here. No acute events while in the ED. He has remained stable with no signs of alcohol withdrawal. HPI <Axel Miller MD - Last Filed: 02/01/20 23:33> General Mode of arrival: EMS . Date/Time Provider Initiated Documentation: 01/29/20 02:27 . Information obtained by: patient, EMS, RN notes reviewed and old records reviewed . HPI Narrative: Patient brought in by ambulance after he called for intoxication and feeling suicidal. Patient has history of alcoholism. He had back surgery at [facility] in October. He reports being sober for the last 3 months and tell the last 3 to 4 days he began drinking again. He has also left the residential facility where he had been staying. He reports that he wants to cut his wrist. He did not mention this to EMS or to nurse, just to me. He denies having fever, cough, chest pain, shortness of breath. He has continued back pain but better than before his surgery. I reviewed his notes from [facility] and he was just seen on the by the surgeon. Initially tells me he had 3 beers today. Changed his story and stated that it was at least a sixpack. Reports that he wants to go to [facility]. Related Data Home Medications Medication Instructions Recorded Confirmed levothyroxine [Synthroid] 175 mcg PO DAILY 08/31/18 01/29/20 Vyvanse 50 mg PO DAILY 08/18/19 01/29/20 bupropion HCl 150 mg PO BID 08/18/19 01/29/20 cyanocobalamin (vitamin B-12) 1,000 mcg PO DAILY 08/18/19 01/29/20 [Vitamin B-12] folic acid 1 mg PO DAILY 08/18/19 01/29/20 gabapentin 1,200 mg PO TID 08/18/19 01/29/20 metoprolol succinate 50 mg PO DAILY 08/18/19 01/29/20 thiamine HCl (vitamin B1) 100 mg PO DAILY 10/01/19 01/29/20 lidocaine [Lidoderm] 1 patch TOPICAL DAILY 01/29/20 01/29/20 tamsulosin [Flomax] 0.4 mg PO DAILY 01/29/20 01/29/20 Allergies Allergy/AdvReac Type Severity Reaction Status Date / Time carbamazepine [From Tegretol] Allergy Mild Skin Rash Unverified 01/29/20 03:08 General Stated Complaint: ETOHWithdr YURIDIA: 3 Review of Systems <Axel Miller MD - Last Filed: 02/01/20 23:33> Unobtainable due to mental status (alcohol intoxication) PFS <Axel Miller MD - Last Filed: 02/01/20 23:33> Medical History ADHD (Chronic) Alcoholism /alcohol abuse (Chronic) Bipolar disorder (Chronic) HTN (hypertension) (Chronic) Hypothyroid (Chronic) Surgical History H/O cervical spine surgery (Chronic) Previous back surgery (Chronic) 10/2019 Social History Smoking/Tobacco Use Status: Current every day Tobacco Type: cigarettes Alcohol Intake: current Alcohol Intake frequency: 3 or more drinks per day Alcohol type: other Drug use: Never Substance use type: does not use Do you feel safe at home: Yes Do you feel safe in your relationship?: Yes Exam <Axel Miller MD - Last Filed: 02/01/20 23:33> Narrative Exam Narrative: Vitals: Afebrile. Elevated blood pressure. Otherwise normal vitals and normal room air pulse oximetry. Const: WDWN male in NAD. HEENT: NC/AT. Normal facial exam. Eyes: Normal conjunctiva and sclera. Neck: Supple. Trachea midline. Lungs: Normal respiratory effort. Lungs are clear. Cor: RRR without murmur/gallop. Good radial pulses. GI: Soft. NT/ND. No guarding or rebound. Neuro: A+O x 3. Slurred speech, mentation, unsteady gait. Cranial nerves II - XII grossly intact. No gross motor or sensory deficit. Ext: No C/C/E. Skin: Warm and dry without rash. Course <Axel Miller MD - Last Filed: 02/01/20 23:33> Vital Signs Vital signs: Vital Signs Temperature 97 F L 01/29/20 02:25 Pulse 83 01/29/20 02:25 Respiratory Rate 16 01/29/20 02:25 Temperature 97 F L 01/29/20 02:25 Temperature Source Skin 01/29/20 02:25 Pulse 83 01/29/20 02:25 Respiratory Rate 16 01/29/20 02:25 Sign Out <Axel Miller MD - Last Filed: 02/01/20 23:33> Sign Out Data: Sign Out Comment: Patient has been screened by mental health and seen by care management. Working on placement. Has been cooperative overnight. Signed over to Dr. Harper. Last updated by Aexl Miller MD at 01/29/20 07:43
[2020-01-29 03:17] LABS: Abs Immature Grans 0.03 k/cumm (0.0-0.09); Absolute Basophil Count 0.14 k/cumm (0.0-0.2); Absolute Eosinophil Count 0.58 k/cumm (0.0-0.7); Absolute Lymphocyte Count 4.25 k/cumm (1.2-3.4); Absolute Monocyte Count 0.93 k/cumm (0.11-0.7); Absolute Neutrophil Count 4.39 k/cumm (1.2-6.7); Basophils % 1.4; Eosinophils % 5.6; HCT 44.5 % (40.0-50.0); HGB 14.6 g/dL (13.5-17.5); Immature Grans % 0.3 %; Lymphocytes % 41.2; Mean Corp. HGB Concentration 32.8 g/dL (32.0-36.0); Mean Corpuscular Hemoglobin 26.8 pg (27.0-33.0); Mean Corpuscular Volume 81.8 fL (80-95); Mean Platelet Volume 10.3 fL (8.0-11.0); Neutrophils % 42.5; Platelet Count 203 x1000/uL (130-400); RBC 5.44 m/cumm (4.50-6.00); RBC Distribution Width 14.8 % (11.8-14.1); White Blood Cell Count 10.32 k/cumm (4.4-10.8)
[2020-01-29 03:33] LABS: ALT 22 U/L (16-63); AST 19 U/L (15-37); Albumin 4.4 g/dL (3.4-5.0); Alkaline Phosphatase 79 U/L (46-116); Anion Gap 10.1 mmol/L (3-11); BUN 12 mg/dL (7-18); Bilirubin, Total 0.2 mg/dL (0.2-1.0); CO2 27.9 mmol/L (21.0-32.0); CREATININE 0.82 mg/dL (0.70-1.30); Calcium 8.9 mg/dL (8.5-10.1); Chloride 100 mmol/L (98-107); ETHANOL BLOOD 176.1 mg/dL (<3); Glucose 90 mg/dL (74-106); Potassium 4.3 mmol/L (3.5-5.1); Sodium 138 mmol/L (136-145)
[2020-01-29 03:45] LABS: Acetaminophen < 2 ug/mL (10-30)
[2020-01-29 03:55] LABS: *AMPHETAMINES SCREEN URINE Negative (Negative); *BARBITURATES SCREEN URINE Negative (Negative); *BENZODIAZEPINES SCREEN URINE Negative (Negative); Cannabinoids THC Negative (Negative); Cocaine Screen,Urine Negative (Negative); METHADONE URINE SCREEN Negative (Negative); OPIATES URINE SCREEN Negative (Negative)
[2020-01-29 03:58] LABS: Tricyclic Antidepressants Negative (Negative)
--- NOTE | 2020-01-29 07:49 | CMSP_ITS ---
- If Service Date Differs Date of service: 01/29/20 Time of Service: 07:49 Care Management Safety Plan CM met with Harshal at the bedside he states that he was discouraged with his situation, [place] [facility] and used alcohol. He was brought into the ED for acute intoxication while he was here admitted to he was feeling suicidal. He states several plans including slitting his wrist, sucking on an exhaust pipe or jumping off the bridge. He has a history of hypothermia r/t acute intoxication and he reports several attempts in the past. He has been staying at [facility] and does not want to stay there. He states he contacted a few days ago for admission and he has not receiving a return call. He would like to be transferred to [facility]. Harshal has a history of Bipolar, ADHD, Depression and Alcohol dependency. Harshal describes difficulty in having his medication filled due to lack of valid ID. he states that he has a prescription for Vyvance and has been able to obtain. Harshal does not have local support per his report he states he has struggled with Alcohol use since he was 18 years old. He currently does have services through [facility] and Lashanda Merlos NP is prescribing his medications. He is unsure when his next visit with her is. His family lives in out of state. He states that he wants to be sober but often self destructs and returns to alcohol. Harshal agrees with the safety plan reviewed with patient, , Primary nurse, and [facility], [facility] Diane Carballo RN plastering supervisor updated on plan. Harshal was assessed over telehealth coordinated by CM with [facility], CM remained present during assessment. [facility] will review the bed board and send referrals to psychiatric facilities accepting. CM faxed [facility] information related to visit including note, demographics and labs. Per patient is medically cleared for placement. Anticipate Harshal will remain in the ED until placement can be identified per provider. VOLUNTARY FOR INPATIENT PSYCHIATRIC STABILIZATION. Patient is appropriate in all interactions since arriving at [facility]; Pt has demonstrated appropriate coping and communication skills, has articulated his or her needs and concerns and is fully engaged during staff interactions. Safety plan has been established with patient, and care team, to adhere to patient goals, identify restrictions based on behavioral status, address nutrition, and determine allowed personal belongings, tools for hygiene and personal care. Determine level of activity including ambulation, level of supervision, visitors, and determine privileges based on behaviors and level of engagement by pt. SAFETY PLAN: 1. Will remain on suicide precautions. In Paper Clothes 2. Will remain in room under direct supervision of one-on-one staff at all times provided by CPSO; LAKIA, DORIAN yard foreman. 3. May have paper cups, plates, finger foods as well as a metal spoon with which to eat meals. [facility] staff will be responsible for accounting of utensils after meals. 4. Follow [facility] Management of the Admitted Behavioral Health Patient policy. 5. Comfort bath system only. 6. No personal belongings 7. Visitors-at the discretion of nursing 8. Activities: books, crayons and television if available, tablet during assessment and contact with mental health. 9. Bathroom privileges accompanied by CPSO 10. Phone: At the discretion of nursing 11. Due to VOLUNTARY status, if patient wishes to leave [facility], the [facility] concession worker must be contacted to re-evaluate patient prior to patient exiting the building. Patient is currently voluntarily at [facility] and seeking inpatient admission when a bed becomes available. [facility] Frontline Personnel Administrator will continue seeking placement. Please contact the Supervisor [employer]ing [employer] Web Marketing Manager ([phone]) and [facility] Personnel Administrator ([phone]) for any needed changes in the Safety Plan. Safety plan has been provided to interdepartmental care team.
[2020-01-29] MEDS: Gabapentin 400 MG CAP 1200 MG PO (09:40)
[2020-01-29] MEDS: Gabapentin 300 MG CAP 1200 MG PO (16:17)
[2020-01-29 17:09] VITALS: BP 114/68; PULSE 96; RESP 16; TEMP 36.4; O2SAT 94
[2020-01-29 17:13] VITALS: BP 114/68; PULSE 96; RESP 16; TEMP 36.4; O2SAT 94
--- NOTE | 2020-02-01 12:56 | PDOC.MHCN ---
Date of service: 01/29/20 Time of Service: 12:57 Mental Health Crisis Note Presenting Issue How did you arrive at the ED and why did you come: S arrived to the ER on 01.11.2020 via ambulance. This note is being done on 01.31 due to getting remote access to enter verified by [facility]. Precipitating Factors S reports that he is SI with plans to jumping in front of a bus, sucking on an exhaust pipe or I was sitting in the parking lot of [employer] with a knife in my hand contemplating slitting my wrists. He reported that he has also fallen off the sobriety wagon and began drinking on 01.24 daily 1/5 of liquor daily even though he said he only left his sober living arrangement just yesterday. His CARON at the time of his arrival was a .176. Disposition BEHAVIOR: Essie is engaged in the conversation but is extremely carlos and agitated. He does apologize for his behaviors but this does not stop them. He is laying in bed when the administrator health care facility enters and explains that we are doing our assessments via Zoom right now. He makes the comment Jaida your fired. 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 EYE CONTACT: Normal MOOD: Agitated AFFECT: Tired and flat APPETITE: S reports his appetite is non existent and that it is normal for him to only eat one meal a day. SLEEP(trouble falling/staying asleep: S reports 5-6 hours of sleep a night. Miriam Leary reported that they are trying to triage those waiting in ER rooms. They will have beds today and believe they will take him. Numerous check in calls made to [facility] today to check on the status of their acceptance and it was not until after 4pm that we got the green light to send S and that they would call within an hour to do a nurse to nurse. Signature Clinician's Name/Title: Jaida Crowe MS, [facility] Emergency Services Clinician
== END 2020-01-29 17:10 | disposition short-term general hospital (02) ==
PROVIDERS: Emergency Medicine; Emergency Provider Physician Assistant; PCP Physician Assistant
DX: F10.129 Alcohol abuse with intoxication, unspecified (principal); R45.851 Suicidal ideations; Y90.6 Blood alcohol level of 120-199 mg/100 ml; Z59.0 Homelessness; I10 Essential (primary) hypertension
CPT/HCPCS: 36415; 80053; 80307; 99285; 80320; 80329; 85025

== ENCOUNTER 2021-08-24 02:39 | Outpatient (CLI) | payer MEDICAID, SELFPAY ==
[2021-08-24 09:41] LABS: Abs Immature Grans 0.02 10^3/uL (0.0-0.06); Absolute Basophil Count 0.16 10^3/uL (0.0-0.2); Absolute Eosinophil Count 0.32 10^3/uL (0.0-0.7); Absolute Lymphocyte Count 1.99 10^3/uL (1.2-3.4); Absolute Monocyte Count 0.67 10^3/uL (0.1-0.8); Absolute Neutrophil Count 3.83 10^3/uL (1.2-6.7); Basophils % 2.3; Eosinophils % 4.6; HCT 43.3 % (40.0-50.0); HGB 14.1 g/dL (13.5-17.5); Immature Grans % 0.3; Lymphocytes % 28.5; MCH 30.4 pg (27.0-33.0); MCHC 32.6 % (32.0-36.0); MCV 93.3 fL (80-95); MPV 11.5 fL (8.0-11.0); Monocytes % 9.6; Neutrophils % 54.7; Nucleated RBC 0 %; Platelet Count 141 10^3/uL (130-400); RBC 4.64 10^6/uL (4.36-5.78); RDW 13.8 % (11.8-14.1); RDW-SD 47.5 fL; WBC 6.99 10^3/uL (4.4-10.8)
[2021-08-24 09:43] LABS: Bilirubin Negative (Negative); Blood Negative (Negative); Clarity Clear (Clear); Glucose Negative (Negative); Ketones Negative (Negative); Leukocyte Esterase Negative (Negative); Nitrite Negative (Negative); Specific Gravity 1.025 (1.005-1.025); Urobilinogen 0.2 EU/dL (Up TO 0.2)
[2021-08-24 09:52] LABS: INR 1.1 (0.9-1.1); Prothrombin Time 11.1 sec (9.3-11.0)
[2021-08-24 10:48] LABS: ALT 32 U/L (16-63); AST 19 U/L (15-37); Albumin 4.3 g/dL (3.4-5.0); Alkaline Phosphatase 74 U/L (46-116); Anion Gap 8.1 mmol/L (3-11); BUN 9 mg/dL (7-18); Bilirubin, Direct 0.1 mg/dL (0.0-0.2); Bilirubin, Total 0.5 mg/dL (0.2-1.0); CO2 28.9 mmol/L (21.0-32.0); CREATININE 1.1 mg/dL (0.70-1.30); Chloride 101 mmol/L (98-107); FREE T4 1.15 ng/dL (0.76-1.46); Glucose 118 mg/dL (74-106); Potassium 4.1 mmol/L (3.5-5.1); Sodium 138 mmol/L (136-145); TSH 5.96 uIU/mL (0.36-3.74); Total Protein 7.3 g/dL (6.4-8.2)
[2021-08-25 10:10] LABS: HBs Antibody, Quant <3.1 mIU/mL (See Note); Hepatitis B Surface Ab Negative (See Note)
[2021-08-25 10:25] LABS: Hepatitis B Surface Ag Negative (Negative)
[2021-08-25 10:57] LABS: HIV-1/2 Ag & Ab Screen Negative (Negative)
[2021-08-25 11:02] LABS: Hep B Core Antibody Negative (Negative)
[2021-08-25 11:23] LABS: Hep A Total Ab w Rflx IgM Negative (Negative)
[2021-08-25 11:43] LABS: Hepatitis C Ab w Rflx HCV PCR Reactive (Negative)
[2021-08-30 13:35] LABS: HCV RNA Qualitative Undetected (Undetected)
== END 2021-08-24 02:40 | disposition home or self-care (01) ==
LOC: LBO 02:39
PROVIDERS: PCP Physician Assistant
DX: R76.8 Other specified abnormal immunological findings in serum (principal); E03.9 Hypothyroidism, unspecified; N40.0 Benign prostatic hyperplasia without lower urinary tract symptoms
CPT/HCPCS: 36415; 80053; 80076; 81596; 86704; 86706; 86709; 86803; 87340; 87389; 87522; 81003; 84154; 84439; 84443; 85025; 85610

== ENCOUNTER 2021-08-25 02:24 | Outpatient (CLI) | payer MEDICAID, SELFPAY ==
[2021-08-28 11:30] LABS: ALT 22 U/L (7-55); ActiTest Grade A0; ActiTest Interpretation no activity; Alpha-2-Macroglobulin 176 mg/dL (100 - 280); Apoliprotein A1 126 mg/dL (>=120); Bilirubin, Total 0.4 mg/dL (<=1.2); FibroTest Interpretation minimal fibrosis; FibroTest Score 0.38; FibroTest Stage F1-F2; GGT 102 U/L (8 - 61); Haptoglobin 88 mg/dL (30 - 200)
== END 2021-08-25 02:25 | disposition home or self-care (01) ==
PROVIDERS: PCP Physician Assistant
DX: R76.8 Other specified abnormal immunological findings in serum (principal)
CPT/HCPCS: 81596

== ENCOUNTER 2021-09-25 19:01 | Observation (INO) | payer MEDICAID, SELFPAY ==
[2021-09-25] VITALS (14 sets, daily range): BP systolic 113–188; BP diastolic 78–114; PULSE 73–116; RESP 15–21; TEMP 36.8; O2SAT 94–100
--- NOTE | 2021-09-25 19:13 | ED.GENADUL_ITS ---
Discharge Plan Disposition Patient Disposition: [facility] INPATIENT Condition: Stable Discharge Details Clinical Impression: Alcoholism /alcohol abuse, Alcohol intoxication, Major depression Admit Date/Time: 09/26/21 17:26 Admit Provider: Garth Frausto Attending Provider: Garth Frausto Primary Care Provider: Don Draper ED Provider: Catalina Harper Discharge Data Discharge Date/Time-TO BE ENTERED AT DEPARTURE: 09/26/21 18:30 Medical Decision Making <PRISCILLA Ortiz - Last Filed: 09/29/21 17:29> Patient is a 56-year-old male, brought in by local police, with chief complaint of alcohol intoxication. Patient has been living at a sober living house. Has a history of alcohol abuse. States that he been sober for the past week. However, today he drank a bottle of mouthwash. Patient has been seen in the past after drinking mouthwash. He does report this is his drink of choice. At approximately 5 PM today staff found him drinking the bottle of mouthwash. They did contact local police. However, at that time the plan is for him to sleep it off. However, shortly after the patient then became verbally aggressive. Police went to attempt to de-escalate the situation and patient is clearly intoxicated. Patient had been being monitored while in the sober living facility. He did not suffer any falls or traumas. Was not ill or having any issues prior to drinking the bottle of mouthwash this evening. Patient denies any pain. Please states that now he is stumbling and appears quite intoxicated and they are concerned for his safety if he goes to bed for intoxicated persons under their care. Do not believe that he will qualify based on his current alcohol level. On exam, patient appears nontoxic. He appears intoxicated. His vital signs are stable. No objective evidence of trauma. Patient is answering questions appropriately despite his slurred speech. He is afebrile. No meningismus. Lungs are clear, normal cardiac exam. Abdomen benign. Patient has been under the watch of a sober living house with no trauma, ingestions, suicidality, recent illness, I do not feel that work-up such as imaging or labs is warranted at this time. However, patient alcohol via breathalyzer is 287 and patient does appear clinically intoxicated. Per mental health as well as [facility] department, patient is not safe to be at facility and has not able to be transferred elsewhere at this time. Patient initially slept in the department. Then ate dinner. More interactive. Becoming more belligerent. Continues to deny any physical ailment. Denies pain or trauma. Does not have any local support system. States his family is in [place]. Patient has received hydration. He is wanting to leave. Will attempt to ambulate to see if he will be safe to d/c to police custody until sober and safe. Patient ambulated, required a one person assist. Appears more sober than when he first arrived but still deem patient unsafe for d/c to police custody at this time. I see no evidence of focal weakness. Again, does not appear systemically ill. At the end of my shift, care transitioned to Dr. Johnston with disposition pending. Once patient is sober enough to walk independently, plan to d/c into police custody for safety. <Catalina Harper DO - Last Filed: 09/26/21 18:56> 0800 --please see previous providers note for initial presentation, exam, plan and course. Patient is sober and medically cleared. Case endorsed to follow-up with [facility] and [address] [place] [address] services this morning. Patient spoke with [facility]. The longterm house will potentially take patient back, but will need a clean urinalysis after [address] [facility] services will plan on disposition potentially hotel through recovery center. 0915 --Jaida from [facility] evaluated patient at bedside and feels that his presentation is concerning enough to warrant placement. Recommend [facility]. 1030 --patient had briefly discussed with nursing staff that he is not suicidal would like to go home. I discussed again with patient at bedside and he states he is suicidal, is concerned about going home as he may drink and take pills to end his life. He is agreeable to staying for placement. 1200 --screening labs obtained today as they were not obtained yesterday and they are unremarkable. Alcohol 5.4. Patient's blood pressure remains h ypertensive but he has a normal heart rate and does not appear diaphoretic or tremulous. He has minimal shaking of his hands with intention. He does have an IV. We will give a small bolus of fluids and a dose of Ativan although he does not demonstrate signs concerning for acute alcohol withdrawal. 1700 --bed now available on the floor. Patient reassessed and demonstrates no objective signs of acute alcohol withdrawal. 1730 -- Case discussed with hospitalist who accepts patient for admission. HPI <PRISCILLA Ortiz - Last Filed: 09/29/21 17:29> General Mode of arrival: wheelchair (brought in by police) . Date/Time Provider Initiated Documentation: 09/25/21 19:01 . Limitations to Documentation: other (intoxicated) . Information obtained by: patient, police, RN notes reviewed and old records reviewed . HPI Narrative: Patient is a 56-year-old male presenting today with chief complaint of intoxication. Patient brought in by local PD. Patient had been residing at a local sober living house. However, patient had a relapse and began drinking mouthwash this morning. Patient denies any suicidal or homicidal ideations. When patient became agitated and belligerent prompting the sober living house staff to contact police. Patient does not want discussed why he had a relapse. His course throughout the day was witnessed by staff. I found him drinking mouthwash. No trauma. No other ingestion. Related Data Home Medications Medication Instructions Recorded Confirmed levothyroxine [Synthroid] 150 mcg PO DAILY 08/31/18 09/26/21 bupropion HCl 150 mg PO BID 08/18/19 09/26/21 cyanocobalamin (vitamin B-12) 1,000 mcg PO DAILY 08/18/19 09/26/21 [Vitamin B-12] folic acid 1 mg PO DAILY 08/18/19 09/26/21 gabapentin 1,200 mg PO TID 08/18/19 09/26/21 metoprolol succinate 50 mg PO DAILY 08/18/19 09/26/21 thiamine HCl (vitamin B1) 100 mg PO DAILY 10/01/19 09/26/21 lidocaine [Lidoderm] 1 patch TOPICAL DAILY 01/29/20 09/26/21 tamsulosin [Flomax] 0.4 mg PO DAILY 01/29/20 09/26/21 Allergies Allergy/AdvReac Type Severity Reaction Status Date / Time carbamazepine [From Tegretol] Allergy Mild Skin Rash Unverified 01/29/20 03:08 General Stated Complaint: GenMedical YURIDIA: 4 Review of Systems <PRISCILLA Ortiz - Last Filed: 09/29/21 17:29> Narrative: Limited secondary to patient's intoxicated state. Constitutional Constitutional: Reports as per HPI, Denies chills, Denies fever(s) and Denies headache(s) ENT Ears, Nose, Mouth, and Throat: Denies headache(s) Cardiovascular Cardiovascular: Reports as per HPI, Denies chest pain and Denies dyspnea Respiratory Respiratory: Reports as per HPI, Denies cough and Denies dyspnea Neurologic Neurologic: Denies headache(s) Psychiatric Psychiatric: Denies homicidal ideation and Denies suicidal ideation [facility] <PRISCILLA Ortiz - Last Filed: 09/29/21 17:29> Active Problem List Suicidal ideation (Acute) Alcohol intoxication (Acute) Major depression (Chronic) Previous back surgery (Chronic) Ambulatory dysfunction (Acute) Discharge planning issues (Acute) Spinal stenosis of lumbar region (Acute) Fever (Acute) Alcohol withdrawal (Acute) Closed head injury (Acute) Discharge planning issues (Acute) DVT prophylaxis (Acute) Alcoholism /alcohol abuse (Chronic) H/O cervical spine surgery (Chronic) Hypothyroid (Chronic) HTN (hypertension) (Chronic) Bipolar disorder (Chronic) ADHD (Chronic) Family History Other Family history unobtainable due to patient's condition Social History Smoking/Tobacco Use Status: Current every day Tobacco Type: cigarettes Smoking risk assessment performed?: Yes Alcohol Intake: current Alcohol Intake frequency: 3 or more drinks per day Alcohol type: other Drug use: Never Substance use type: does not use Do you feel safe at home: Yes Do you feel safe in your relationship?: Yes Exam <PRISCILLA Ortiz - Last Filed: 09/29/21 17:29> Const General: healthy appearing, comfortable, no acute distress, well developed and intoxicated appearing Nutritional Appearance: average body habitus and well nourished Orientation: alert, awake and oriented x3 HENMT Head: normal to inspection, no palpable skull fracture, normocephalic and atraumatic Ears: hearing grossly normal bilaterally, external ears normal and TM's normal bilaterally General nose exam: external nose normal Mouth: oral mucosae normal, lip normal and tongue normal Throat: posterior oropharynx normal Eyes General: appearance normal, both eyes and all related structures Alignment and Position: alignment normal Periorbital: periorbital findings normal Eyelids: eyelids normal Conjunctivae: conjunctivae normal Pupils: PERRL EOM: EOM intact bilaterally Neck Neck: normal visual inspection, full ROM, trachea midline and supple Chest Chest: normal inspection of the chest, normal palpation of entire chest wall, no crepitus and no localized rib tenderness Resp Effort & Inspection: normal respiratory effort, able to speak in complete sentences and no respiratory distress Auscultation: clear to auscultation bilaterally, no rales, no rhonchi and no wheezes Cardio Rate: regular rate Rhythm: regular rhythm Heart Sounds: S1 normal and S2 normal GI Inspection: normal to inspection, no abdominal wall ecchymosis, no edema and non-distended Palpation: soft, not firm, no guarding, not rigid and nontender Auscultation: normal bowel sounds Back/Spine/Pelvis Cervical Spine: cervical ROM normal Thoracic/Lumbar Spine: thoracic and lumbar spine normal to inspection, thoraco- lumbar ROM normal, No thoraco-lumbar ROM limited, No thoraco-lumbar spasm and No thoracic spinal tenderness Skin General skin exam: no rashes or lesions noted Lesions: no lesions Rashes: no rashes Trauma: no lacerations or abrasions Wounds: no wounds Neuro General: patient alert, patient awake, patient oriented x3, tone normal and moves all extremities Cranial Nerves: CN's II-XI intact bilaterally Cognition: normal cognition Speech: speech normal Motor: muscle tone normal throughout and strength 5/5 throughout Sensory Exam: no sensory deficits noted (no saddle paresthesias) Extrem General: normal to inspection, full ROM, capillary refill normal, no pedal edema and no calf tenderness Psych Appearance: grossly normal and disheveled Mental Status: mental status grossly normal Speech and Movement: slurred speech Mood: irritable mood Affect: normal affect Attitude: cooperative Thought Process: normal Thought Content: normal Insight: limited Judgment: limited Course <PRISCILLA Ortiz - Last Filed: 09/29/21 17:29> Vital Signs Vital signs: Vital Signs Temperature 36.8 C 09/25/21 19:08 Pulse 74 09/25/21 19:08 Respiratory Rate 20 09/25/21 19:08 Pulse Oximetry 94 09/25/21 19:08 Temperature 36.8 C 09/25/21 19:08 Temperature Source Temporal Artery Scan 09/25/21 19:08 Pulse 74 09/25/21 19:08 Respiratory Rate 20 09/25/21 19:08 Pulse Oximetry 94 09/25/21 19:08 Oxygen Delivery Method Room Air 09/25/21 19:08 Oxygen Flow Rate 0 09/25/21 19:08 Pain Level 0 09/25/21 19:08
[2021-09-25] MEDS: Normal Saline 1,000 ML 1000 ML IV (19:56)
[2021-09-25] MEDS: Ondansetron 4 MG/2 ML VIAL IVP (19:59)
[2021-09-25] MEDS: Lactated Ringers 1,000 ML 1000 ML IV (23:20)
[2021-09-26] VITALS (50 sets, daily range): BP systolic 92–178; BP diastolic 54–99; PULSE 77–140; RESP 13–25; TEMP 36.8–37.2; O2SAT 90–100
--- NOTE | 2021-09-26 00:03 | NUR.NOTE ---
Nursing Note: Patient resting in bed with eyes closed. No signs of distress noted. Resp. even and nonlabored. Vitals remains stable.
--- NOTE | 2021-09-26 09:28 | PDOC.MHCN_ITS ---
Date of service: 09/26/21 Time of Service: 09:28 Mental Health Crisis Note Presenting Issue How did you arrive at the ED and why did you come: Pt arrived today unknown how for medical clearance after being found intoxicated by his roommates and passed out. Precipitating Factors Pt endorsed SI, drinking himself to and possible overdose of medications. He denied HI. No observed thought disturbances. Disposition BEHAVIOR: Pt is cooperative with the assessment. He is refusing other possible options i.e. hotel because he will be drunk in 10mins and probably take some pills too. EYE CONTACT: Eye contact is fair. MOOD: Mood is agitated and reported to be hopeless. AFFECT: Affect is flat. APPETITE: Pt reported he has not eaten in 3 days. SLEEP(trouble falling/staying asleep: Pt reported he is not sleeping. Plan [facility] will seek voluntary placement. Pt will remain at [facility] and screened daily until placement is found. Signature Clinician's Name/Title: Jaida Crowe MS, [facility] Emergency Services Clinician, [facility]
[2021-09-26] MEDS: Acetaminophen 325 MG TAB 650 MG PO (09:46)
--- NOTE | 2021-09-26 10:21 | NUR.NOTE ---
Per report pt was awaiting disposition. consulted due to SI statement. After consulting Jaida from , pt decided to seek voluntary placement for SI. Pt moved to a safe room with 1:1 sitter at 0945. YULY Talbot to take over care. Will continue to monitor.Nursing Note:
--- NOTE | 2021-09-26 11:38 | PDOC.CMSAFED ---
- If Service Date Differs Date of service: 09/26/21 Time of Service: 11:38 Care Management Safety Plan Status: Voluntary - Reason for Wait Reason for Wait: Inpatient Admission VOLUNTARY FOR INPATIENT PSYCHIATRIC STABILIZATION. Patient is appropriate in all interactions since arriving at [facility]; Pt has demonstrated appropriate coping and communication skills, has articulated his or her needs and concerns and is fully engaged during staff interactions. A huddle is done at approximately 11:[address] Harper, ED Provider, Anju, Nursing Act Tutor, Alden, Charge Nurse, Pat RN, Doug, contact assembler, and MERARI Beaver, in attendance. Safety plan has been established with patient, and care team, to adhere to patient goals, identify restrictions based on behavioral status, address nutrition, and determine allowed personal belongings, tools for hygiene and personal care. Determine level of activity including ambulation, level of supervision, visitors, and determine privileges based on behaviors and level of engagement by pt. SAFETY PLAN: 1. Will remain on suicide precautions. In Paper Clothes 2. Will remain in room under direct supervision of one-on-one staff at all times provided by [facility], [place], ASSISTANT UNIT FORESTER store leader. 3. May have paper cups, plates, finger foods as well as a cardboard spoon with which to eat meals. 4. Follow [facility] Management of the Admitted Behavioral Health Patient policy. 5. May shower with supervision and at RN discretion. 6. No personal belongings 7. Visitors-No visitors at this time 8. Activities: Soft cart items, music tablet, coloring book, crayons, television if available, and other activities at RN discretion. 9. Bathroom privileges with escort while in the ED; may use bathroom in room without limitation on Med/Surg. 10. Phone: May use hospital phone at RN discretion. 11. Due to VOLUNTARY status, if patient wishes to leave [facility], staff will contact [facility] Crisis Screener ([phone]) and On-Call Search Marketing Coordinator ([phone]) as soon as possible. In the event of elopement, notify [facility] Police ([phone]). Patient is currently voluntarily at [facility] and seeking inpatient admission when a bed becomes available. [facility] Frontline Manager Environmental Health will continue seeking placement. Please contact the Picture Frame Maker Search Marketing Coordinator ([phone]) and [facility] Manager Environmental Health ([phone]) for any needed changes in the Safety Plan. Safety plan has been provided to interdepartmental care team.
[2021-09-26 11:58] LABS: Source Nasal/Nares
[2021-09-26 11:59] LABS: Abs Immature Grans 0.04 10^3/uL (0.0-0.06); Absolute Basophil Count 0.12 10^3/uL (0.0-0.2); Absolute Eosinophil Count 0.04 10^3/uL (0.0-0.7); Absolute Lymphocyte Count 2.38 10^3/uL (1.2-3.4); Absolute Monocyte Count 0.85 10^3/uL (0.1-0.8); Absolute Neutrophil Count 6.28 10^3/uL (1.2-6.7); Basophils % 1.2; Eosinophils % 0.4; HCT 40.6 % (40.0-50.0); HGB 14.3 g/dL (13.5-17.5); Immature Grans % 0.4; Lymphocytes % 24.5; MCH 31.2 pg (27.0-33.0); MCHC 35.2 % (32.0-36.0); MCV 88.5 fL (80-95); MPV 10.9 fL (8.0-11.0); Monocytes % 8.8; Neutrophils % 64.7; Nucleated RBC 0 %; Platelet Count 162 10^3/uL (130-400); RBC 4.59 10^6/uL (4.36-5.78); RDW 12.8 % (11.8-14.1); RDW-SD 41.9 fL; WBC 9.71 10^3/uL (4.4-10.8)
[2021-09-26 12:12] LABS: ALT 30 U/L (16-63); AST 32 U/L (15-37); Albumin 4.4 g/dL (3.4-5.0); Alkaline Phosphatase 67 U/L (46-116); Anion Gap 10.4 mmol/L (3-11); BUN 6 mg/dL (7-18); Bilirubin, Total 0.6 mg/dL (0.2-1.0); CO2 27.6 mmol/L (21.0-32.0); CREATININE 0.7 mg/dL (0.70-1.30); Calcium 8.8 mg/dL (8.5-10.1); Chloride 100 mmol/L (98-107); ETHANOL BLOOD 5.4 mg/dL (<10); Glucose 92 mg/dL (74-106); Potassium 4.1 mmol/L (3.5-5.1); Sodium 138 mmol/L (136-145); Total Protein 7.3 g/dL (6.4-8.2)
[2021-09-26 12:18] LABS: *AMPHETAMINES SCREEN URINE Negative (Negative); *BARBITURATES SCREEN URINE Negative (Negative); *BENZODIAZEPINES SCREEN URINE Negative (Negative); Cannabinoids THC Negative (Negative); Cocaine Screen,Urine Negative (Negative); METHADONE URINE SCREEN Negative (Negative); OPIATES URINE SCREEN Negative (Negative)
--- NOTE | 2021-09-26 12:19 | PDOC.ERCMPRO ---
- If Service Date Differs Date of service: 09/26/21 Time of Service: 12:19 Care Management Progress Note S/O: Harshal is sitting up in bed when CM comes to meet with him. He is pleasant and easily engages in conversation. He shares how out of control his alcohol use has become, saying it's killing me. He also talks about being depressed and says he is on Wellbutrin for the depression but it isn't helping at all. Harshal expresses a desire to return to an inpatient facility for mood stabilization. A: Harshal is a 56 year old male admitted to [facility] for alcohol intoxication and depression. P: [facility] All other [facility] hospitals are full. Harshal will re reassessed daily by [facility] and will remain at [facility] voluntarily while [facility] seeks placement for him. CM will continue to follow. - Status Status: Voluntary - Reason for Wait Reason for Wait: Inpatient Admission
[2021-09-26 12:21] LABS: Tricyclic Antidepressants Negative (Negative)
[2021-09-26] MEDS: Folic Acid 1 MG TAB PO (13:45)
[2021-09-26] MEDS: Tamsulosin 0.4 MG CAPCR PO (13:45)
[2021-09-26] MEDS: buPROPion-XL 150 MG TABCR PO ×2 (13:45→19:29)
[2021-09-26] MEDS: Metoprolol CR 50 MG TABCR PO (13:45)
[2021-09-26] MEDS: LORazepam 2 MG/ML VIAL 0.5 MG IVP (14:12)
[2021-09-26] MEDS: Normal Saline 500 ML IV (14:12)
[2021-09-26] MEDS: Levothyroxine 150 MCG TAB PO (14:29)
[2021-09-26] MEDS: Gabapentin 400 MG CAP 1200 MG PO ×2 (14:29→19:29)
[2021-09-26] MEDS: Thiamine 100 MG TAB PO (14:30)
[2021-09-26] MEDS: Cyanocobalamin 500 MCG TAB 1000 MCG PO (14:30)
[2021-09-26 17:36] LABS: COVID-19 PCR Negative (Negative)
--- NOTE | 2021-09-26 21:16 | HPE_ITS ---
Date of service: 09/26/21 Time of Service: 21:16 Assessment and Plan Assessment and plan (1) Major depression: Status: Chronic Assessment and plan: He has a long history of severe depression. He believes that the current treatment with bupropion seems to suit him better than many of the other drugs have been used in the past. (2) Alcoholism /alcohol abuse: Status: Chronic Assessment and plan: This is an ongoing problem for him. He has been treated for this for many years. He is hoping to go back into alcohol treatment. He says he has a sponsor [employer]. He says 1 problem many tends to get into his that he gets bored and does not know what to do to passive times of the resorts to drinking alcohol. (3) Hypothyroid: Status: Chronic Assessment and plan: He will be continued on his levothyroxine. Will check TSH tomorrow. (4) Suicidal ideation: Status: Acute Assessment and plan: Mental health has been involved and he is willing to go to a psychiatric bed for voluntary placement. History of Present Illness History of Present Illness Chief Complaint: Suicidal ideation and alcoholism Narrative: This 56-year-old male has a long history of alcoholism and depression. He was born and raised in [place] but moved here in 2013 for a new beginning of his life. He says he cannot stay sober in [place]. However since being here he says he has been in and out of [facility] about 14 times. He was most recently in a sober house but started drinking alcohol by way of vodka, whiskey and mouthwash. He says he was recently sober for about 3 months and was treated at [facility] and then went to a sober house in [place] but then moved up here to a sober house. He was going to AA meetings about four 5 x 1 week some of which were by Zoom meetings. He started drinking alcohol 3 days ago at the sober house and tried to hide that I was unsuccessful. After coming here he was talking about 1 to commit suicide possibly by drinking an overdose of alcohol. The past he says he took diazepam and alcohol and almost killed himself at that time. That was in 2001. He was hospitalized here about 2 years ago for hypothermia after being intoxicated with alcohol. He says last 20 years have been quite messed up for him. He says he is retired as well as been disabled. He smokes tobacco about half pack per day and does not use any marijuana or other illegal drugs. He has family is caudal but no one around here that his family. His past history is significant for neck and back surgery. These have been done at [facility]. He has had persistent right foot drop and bilateral numbness of both hands along with burning sensations. He says a foot drop is not too bad as long as he does not drink. He follows quite easily if he does drink. He did receive a dose of lorazepam in the emergency department for some anxiousness. He hopes to go back to [facility]. He has had both coronavirus vaccines. His chronic medical problems include benign prostatic hypertrophy, chronic neuropathy and hypothyroidism. He also has chronic depression and alcoholism. Review of Systems Constitutional Constitutional: Reports chills, Denies fever(s), Reports poor appetite and Reports weakness Cardiovascular Cardiovascular: Denies chest pain, Denies palpitations and Denies dyspnea Respiratory Respiratory: Denies cough and Denies dyspnea Gastrointestinal Gastrointestinal: Denies abdominal pain, Denies heartburn, Denies diarrhea and Denies nausea Genitourinary Genitourinary: Denies dysuria and Denies urinary frequency Musculoskeletal Musculoskeletal: Reports numbness and Reports tingling Neurologic Neurologic: Reports burning sensations, Reports numbness, Reports tingling and Reports weakness Comments: right foot drop. Psychiatric Psychiatric: Reports depression, Reports hopelessness and Reports suicidal ideation Endocrine Endocrine: Denies palpitations [facility] Active Problem List (Updated 09/26/21 @ 21:30 by Garth Frausto MD) Suicidal ideation (Acute) Alcohol intoxication (Acute) Major depression (Chronic) Previous back surgery (Chronic) Ambulatory dysfunction (Acute) Discharge planning issues (Acute) Spinal stenosis of lumbar region (Acute) Fever (Acute) Alcohol withdrawal (Acute) Closed head injury (Acute) Discharge planning issues (Acute) DVT prophylaxis (Acute) Alcoholism /alcohol abuse (Chronic) H/O cervical spine surgery (Chronic) Hypothyroid (Chronic) HTN (hypertension) (Chronic) Bipolar disorder (Chronic) ADHD (Chronic) Family History Other Family history unobtainable due to patient's condition Social History Smoking/Tobacco Use Status: Current every day Tobacco Type: cigarettes Smoking risk assessment performed?: Yes Alcohol Intake: current Alcohol Intake frequency: 3 or more drinks per day Alcohol type: other Drug use: Never Substance use type: does not use Do you feel safe at home: Yes Do you feel safe in your relationship?: Yes Meds Allergies and Home Medications Allergies Allergy/AdvReac Type Severity Reaction Status Date / Time carbamazepine [From Tegretol] Allergy Mild Skin Rash Unverified 01/29/20 03:08 Home Medications Medication Instructions Recorded Confirmed Type levothyroxine [Synthroid] 150 mcg PO DAILY 08/31/18 09/26/21 History Vyvanse 50 mg PO DAILY 08/18/19 09/26/21 History bupropion HCl 150 mg PO BID 08/18/19 09/26/21 History cyanocobalamin (vitamin B-12) 1,000 mcg PO DAILY 08/18/19 09/26/21 History [Vitamin B-12] folic acid 1 mg PO DAILY 08/18/19 09/26/21 History gabapentin 1,200 mg PO TID 08/18/19 09/26/21 History metoprolol succinate 50 mg PO DAILY 08/18/19 09/26/21 History thiamine HCl (vitamin B1) 100 mg PO DAILY 10/01/19 09/26/21 History lidocaine [Lidoderm] 1 patch TOPICAL DAILY 01/29/20 09/26/21 History tamsulosin [Flomax] 0.4 mg PO DAILY 01/29/20 09/26/21 History Exam Const General: cooperative, no acute distress, disheveled and well hydrated Nutritional Appearance: average body habitus Orientation: alert, awake and oriented x3 Eyes Eyelids: eyelids normal Conjunctivae: conjunctivae normal Sclera: sclerae normal Neck Neck: normal visual inspection and no lymphadenopathy Thyroid: thyroid normal Resp Effort & Inspection: normal respiratory effort and able to speak in complete sentences Auscultation: no rales, no rhonchi and no wheezes Cardio Jugular venous pressure: no JVD Rate: regular rate Rhythm: regular rhythm Heart Sounds: S1 normal, S2 normal and no murmurs GI Palpation: soft, no hepatosplenomegaly and nontender Skin General skin exam: no rashes or lesions noted Neuro Cranial Nerves: CN's II-XI intact bilaterally Results Labs Result diagrams: 09/26/21 11:46 09/26/21 11:46 Labs: Laboratory Results - last 24 hr 09/26/21 09/26/21 09/26/21 11:43 11:46 11:46 WBC 9.71 RBC 4.59 Hgb 14.3 Hct 40.6 MCV 88.5 MCH 31.2 MCHC 35.2 RDW 12.8 Plt Count 162 MPV 10.9 Immature Gran % 0.4 Neutrophils % 64.7 Lymphocytes % 24.5 Monocytes % 8.8 Eosinophils % 0.4 Basophils % 1.2 Nucleated RBC % 0 Absolute Neutrophils 6.28 Absolute Lymphocytes 2.38 Absolute Monocytes 0.85 H Absolute Eosinophils 0.04 Absolute Basophils 0.12 Sodium 138 Potassium 4.1 Chloride 100 Carbon Dioxide 27.6 Anion Gap 10.4 BUN 6 L Creatinine 0.7 Estimated GFR/1.73 m2 >= 60.00 Glucose 92 Calcium 8.8 Total Bilirubin 0.6 AST 32 ALT 30 Alkaline Phosphatase 67 Total Protein 7.3 Albumin 4.4 Urine Opiates Screen Urine Methadone Screen Ur Barbiturates Screen Ur Tricyclics Screen Ur Amphetamines Screen U Benzodiazepines Scrn Urine Cocaine Screen Ur THC Screen Ethyl Alcohol 5.4 COVID-19 Source Nasal/Nares SARS-CoV-2 (PCR) Negative 09/26/21 11:57 WBC RBC Hgb Hct MCV MCH MCHC RDW Plt Count MPV Immature Gran % Neutrophils % Lymphocytes % Monocytes % Eosinophils % Basophils % Nucleated RBC % Absolute Neutrophils Absolute Lymphocytes Absolute Monocytes Absolute Eosinophils Absolute Basophils Sodium Potassium Chloride Carbon Dioxide Anion Gap BUN Creatinine Estimated GFR/1.73 m2 Glucose Calcium Total Bilirubin AST ALT Alkaline Phosphatase Total Protein Albumin Urine Opiates Screen Negative Urine Methadone Screen Negative Ur Barbiturates Screen Negative Ur Tricyclics Screen Negative Ur Amphetamines Screen Negative U Benzodiazepines Scrn Negative Urine Cocaine Screen Negative Ur THC Screen Negative Ethyl Alcohol COVID-19 Source SARS-CoV-2 (PCR) Last Vital Signs Temp 36.9 C 09/26/21 19:10 Pulse 85 09/26/21 19:10 Resp 18 09/26/21 19:10 BP 133/90 09/26/21 19:10 Pulse Ox 98 09/26/21 19:10 PAWSS Have you Been Recently Intoxicated or Drunk Within the Last 30 days?: Yes Have you Ever Experienced Previous Episodes of Alcohol Withdrawal?: Yes Have you ever Experienced Withdrawal Seizures?: Yes Have you ever Experienced Delirium Tremens(DT)s?: No Have you ever undergone Alcohol Rehabilitation Treatment (i.e, inpt ot outpatient treatment programs)?: Yes Have you ever Experienced Blackouts?: Yes Have you ever Combined Alcohol with other Downers within the last 90 days?: No Have you ever Combined Alcohol with any other Substance of Abuse during the last 90 days?: No Positive Blood Alcohol level on Presentation? [PCS.BAL]: No Evidence of Increased Autonomic Activity (i.e. HR>120, tremor, sweating, agitation, nausea)?: No Result: 5
[2021-09-26] MEDS: LORazepam 1 MG TAB PO/SL (22:14)
[2021-09-27 02:23] VITALS: BP 141/92; PULSE 72; RESP 18; TEMP 36.3; O2SAT 98
[2021-09-27] MEDS: Levothyroxine 50 MCG TAB (05:59)
[2021-09-27] MEDS: Levothyroxine 100 MCG TAB (05:59)
[2021-09-27 07:47] VITALS: BP 141/88; PULSE 83; RESP 16; TEMP 36.1; O2SAT 96
[2021-09-27] MEDS: buPROPion-XL 150 MG TABCR PO ×2 (07:53→19:58)
[2021-09-27] MEDS: Finasteride 5 MG TAB PO (07:54)
[2021-09-27] MEDS: Tamsulosin 0.4 MG CAPCR PO (07:54)
[2021-09-27] MEDS: LORazepam 1 MG TAB PO/SL ×2 (07:54→21:59)
[2021-09-27] MEDS: Thiamine 100 MG TAB PO (07:54)
[2021-09-27] MEDS: Metoprolol CR 50 MG TABCR PO (07:54)
[2021-09-27] MEDS: Cyanocobalamin 500 MCG TAB 1000 MCG PO (07:54)
[2021-09-27] MEDS: Lidocaine 5% Patch 1 PATCH TP (07:54)
[2021-09-27] MEDS: Gabapentin 400 MG CAP 1200 MG PO ×3 (08:08→19:59)
[2021-09-27] MEDS: Folic Acid 1 MG TAB PO (08:09)
[2021-09-27 08:37] LABS: Magnesium 1.9 mg/dL (1.8-2.4); TSH (W/Ref FT4) 1.56 uIU/mL (0.36-3.74)
--- NOTE | 2021-09-27 09:30 | RT.EKG_ITS ---
APPROVED REPORT Exam: Resting ECG Reason for Exam: psychiatriac placement Patient Location: I HR:74 bpm ECG Measurements Heart Rate 74 AXIS IA 146 P 54 QRSd 82 QRS -15 QT 357 T 51 QTc 395 Conclusion Sinus rhythm...normal P axis, V-rate 60- 99
--- NOTE | 2021-09-27 11:59 | PDOC.CMSAFE ---
- If Service Date Differs Date of service: 09/27/21 Time of Service: 11:59 Care Management Safety Plan Status: Voluntary - Reason for Wait Reason for Wait: Inpatient Admission VOLUNTARY FOR INPATIENT PSYCHIATRIC STABILIZATION. Patient is appropriate in all interactions since arriving at [facility]; Pt has demonstrated appropriate coping and communication skills, has articulated his needs and concerns and is fully engaged during staff interactions. A huddle was held at 2:15 today with Nursing supervisor fine grading/Ana Maria, RN Cooordinator/Zach Hill, MERARI Lopez and PAMELA/Precious and no changes were made to the safety plan. Safety plan has been established with patient, and care team, to adhere to patient goals, identify restrictions based on behavioral status, address nutrition, and determine allowed personal belongings, tools for hygiene and personal care. Determine level of activity including ambulation, level of supervision, visitors, and determine privileges based on behaviors and level of engagement by pt. SAFETY PLAN: 1. Will remain on suicide precautions. In Paper Clothes 2. Will remain in room under direct supervision of one-on-one staff at all times provided by CPSO, LAKIA, DORIAN outpatient coordinator. 3. May have paper cups, plates, finger foods as well as a cardboard spoon with which to eat meals. 4. Follow [facility] Management of the Admitted Behavioral Health Patient policy. 5. May shower with supervision and at RN discretion. 6. No personal belongings 7. Visitors-No visitors at this time 8. Activities: Soft cart items, music tablet, coloring book, crayons, television if available, and other activities at RN discretion. 9. Bathroom privileges may use bathroom in room without limitation on Med/Surg. 10. Phone: May use hospital phone at RN discretion. 11. Due to VOLUNTARY status, if patient wishes to leave [facility], staff will contact [facility] Crisis Screener ([phone]) and On-Call Head Machinist ([phone]) as soon as possible. In the event of elopement, notify [employer] Police ([phone]). Patient is currently voluntarily at [facility] and seeking inpatient admission when a bed becomes available. [facility] Frontline Public Safety Teacher will continue seeking placement. Please contact the Fisheries Diver Head Machinist ([phone]) and [facility] Public Safety Teacher ([phone]) for any needed changes in the Safety Plan. Safety plan has been provided to interdepartmental care team.
--- NOTE | 2021-09-27 12:01 | CMPROGNOTE_ITS ---
- If Service Date Differs Date of service: 09/27/21 Time of Service: 12:01 Care Management Progress Note S/O: Harshal was lying in bed when CM met with him. He was alert, pleasant, slightly anxious and open to conversation. He remains on CIWA, last score was a 2. Harshal shared that he has been staying at the [facility] X 3 months. Harshal reported that their coordinator Cong ([phone]), said he can go back there when he was ready, and told him he will keep his belongings safe in the meantime. He reported to CM that his halfway goal is to be stable but says lets be real, I can't promise that I will never drink again. [facility] will begin screening him daily when he is medically cleared by provider. CM will continue to follow. A: Harshal is a 56 year old male admitted to [facility] for alcohol intoxication and depression. P: [facility] hospitals are full. Harshal will be assessed by [facility] when he is medically cleared by provider. Harshal is agreeable to remain at [facility] voluntarily while [facility] seeks placement for him. CM will continue to follow. - Status Status: Voluntary - Reason for Wait Reason for Wait: Inpatient Admission
--- NOTE | 2021-09-27 12:01 | PDOC.CMPRO ---
- If Service Date Differs Date of service: 09/27/21 Time of Service: 12:01 Care Management Progress Note S/O: Harshal was lying in bed when CM met with him. He was alert, pleasant, slightly anxious and open to conversation. He remains on CIWA, last score was a 2. Harshal shared that he has been staying at the [facility] in [facility] X 3 months. Harshal reported that their coordinator Cong ([phone]), said he can go back there when he was ready, and told him he will keep his belongings safe in the meantime. He reported to CM that his usp goal is to be stable but says lets be real, I can't promise that I will never drink again. [facility] will begin screening him daily when he is medically cleared by provider. CM will continue to follow. A: Harshal is a 56 year old male admitted to [facility] for alcohol intoxication and depression. P: [facility] other [facility] hospitals are full. Harshal will be assessed by [facility] when he is medically cleared by provider. Harshal is agreeable to remain at [facility] voluntarily while [facility] seeks placement for him. CM will continue to follow. - Status Status: Voluntary - Reason for Wait Reason for Wait: Inpatient Admission
[2021-09-27 12:15] VITALS: BP 130/78; PULSE 54; RESP 14; TEMP 36.7; O2SAT 96
--- NOTE | 2021-09-27 14:30 | PGE_ITS ---
Date of Service Date of service: 09/27/21 Time of Service: Assessment and Plan Assessment and plan (1) Major depression: Start date: 09/27/21 Start time: Status: Chronic Assessment and plan: He has a long history of severe depression. He believes that the current treatment with bupropion seems to suit him better than many of the other drugs have been used in the past. Will continue hold vyvanze He is also having thoughts of SI [employer]PSO present. NOT MEDICALLY CLEARED at this point scoring on CIWA only 36 hours since last drink Lorazepam for w/d Qualifiers: Major depression recurrence: recurrent Active/Remission status: currently active Major depression episode severity: severe Psychotic features: without psychotic features Qualified Code(s): F33.2 - Major depressive disorder, recurrent severe without psychotic features (2) Alcoholism /alcohol abuse: Start date: 09/27/21 Start time: : Status: Chronic Assessment and plan: This is an ongoing problem for him. He has been treated for this for many years. He is hoping to go back into alcohol treatment. He says he has a sponsor [employer]. He says 1 problem his he tends to get into his head and he gets bored and does not know what to do to pass the time so he resorts to drinking alcohol. as above (3) Hypothyroid: Start date: 09/27/21 Start time: : Status: Chronic Assessment and plan: He will be continued on his levothyroxine. 1.56 radioactive iodione as a kid per patient Qualifiers: Hypothyroidism type: unspecified Qualified Code(s): E03.9 - Hypothyroidism, unspecified (4) Suicidal ideation: Start date: 09/27/21 Start time: :30 Status: Acute Assessment and plan: Once medically cleared will consult for bed placement CM aware. Dr. Herrera Subjective Subjective Patient reports: no new complaints Interval history since last seen: Sitting up in bed with [employer], having thoughts of SI. Last Drink was Saturday night. Scoring on CIWA. Not medically cleared at this time, per patient hx of sz w/d. Will continue monitoring Exam Const General: cooperative, no acute distress, disheveled and well hydrated Nutritional Appearance: average body habitus Orientation: alert, awake and oriented x3 Eyes Eyelids: eyelids normal Conjunctivae: conjunctivae normal Sclera: sclerae normal Neck Neck: normal visual inspection and no lymphadenopathy Thyroid: thyroid normal Resp Effort & Inspection: normal respiratory effort and able to speak in complete sentences Auscultation: no rales, no rhonchi and no wheezes Cardio Jugular venous pressure: no JVD Rate: regular rate Rhythm: regular rhythm Heart Sounds: S1 normal, S2 normal and no murmurs GI Palpation: soft, no hepatosplenomegaly and nontender Skin General skin exam: no rashes or lesions noted Neuro Cranial Nerves: CN's II-XI intact bilaterally Objective Last Vital Signs Temp 36.7 C 09/27/21 12:15 Pulse 54 L 09/27/21 12:15 Resp 14 09/27/21 12:15 BP 130/78 09/27/21 12:15 Pulse Ox 96 09/27/21 12:15 Laboratory Results - last 24 hr 09/26/21 09/27/21 11:43 06:34 Magnesium 1.9 TSH 1.56 SARS-CoV-2 (PCR) Negative PAWSS Have you Been Recently Intoxicated or Drunk Within the Last 30 days?: Yes Have you Ever Experienced Previous Episodes of Alcohol Withdrawal?: Yes Have you ever Experienced Withdrawal Seizures?: Yes Have you ever Experienced Delirium Tremens(DT)s?: No Have you ever undergone Alcohol Rehabilitation Treatment (i.e, inpt ot outpatient treatment programs)?: Yes Have you ever Experienced Blackouts?: Yes Have you ever Combined Alcohol with other Downers within the last 90 days?: No Have you ever Combined Alcohol with any other Substance of Abuse during the last 90 days?: No Positive Blood Alcohol level on Presentation? [PCS.BAL]: No Evidence of Increased Autonomic Activity (i.e. HR>120, tremor, sweating, agitation, nausea)?: No Result: 5
[2021-09-27 19:16] VITALS: BP 131/83; PULSE 72; RESP 18; TEMP 36.6; O2SAT 95
[2021-09-27 23:23] VITALS: BP 139/87; PULSE 72; RESP 18; TEMP 36.4; O2SAT 97
[2021-09-28 03:30] VITALS: BP 149/92; PULSE 74; RESP 18; TEMP 36.6; O2SAT 96
[2021-09-28] MEDS: Levothyroxine 150 MCG TAB PO (05:17)
[2021-09-28] MEDS: Lidocaine 5% Patch 1 PATCH TP (08:15)
[2021-09-28] MEDS: Gabapentin 400 MG CAP 1200 MG PO ×3 (08:17→20:39)
[2021-09-28] MEDS: buPROPion-XL 150 MG TABCR PO ×2 (08:18→20:39)
[2021-09-28] MEDS: Folic Acid 1 MG TAB PO (08:18)
[2021-09-28] MEDS: Finasteride 5 MG TAB PO (08:19)
[2021-09-28] MEDS: Tamsulosin 0.4 MG CAPCR PO (08:19)
[2021-09-28] MEDS: Thiamine 100 MG TAB PO (08:19)
[2021-09-28] MEDS: Metoprolol CR 50 MG TABCR PO (08:19)
[2021-09-28] MEDS: Cyanocobalamin 500 MCG TAB 1000 MCG PO (08:23)
[2021-09-28 08:40] VITALS: BP 139/91; PULSE 71; RESP 16; TEMP 37; O2SAT 94
--- NOTE | 2021-09-28 10:13 | PDOC.CMSAFE ---
- If Service Date Differs Date of service: 09/28/21 Time of Service: 10:13 Care Management Safety Plan Status: Voluntary - Reason for Wait Reason for Wait: Inpatient Admission VOLUNTARY FOR INPATIENT PSYCHIATRIC STABILIZATION. Patient is appropriate in all interactions since arriving at [facility]; Pt has demonstrated appropriate coping and communication skills, has articulated his needs and concerns and is fully engaged during staff interactions. Safety plan has been established with patient, and care team, to adhere to patient goals, identify restrictions based on behavioral status, address nutrition, and determine allowed personal belongings, tools for hygiene and personal care. Determine level of activity including ambulation, level of supervision, visitors, and determine privileges based on behaviors and level of engagement by pt. SAFETY PLAN: 1. Will remain on suicide precautions. In Paper Clothes 2. Will remain in room under direct supervision of one-on-one staff at all times provided by CPSO, SOLE SKIVER, ELECTION CLERK finishing supervisor plastic sheets. 3. May have paper cups, plates, finger foods as well as a cardboard spoon with which to eat meals. 4. Follow [facility] Management of the Admitted Behavioral Health Patient policy. 5. May shower with supervision and at RN discretion. 6. No personal belongings 7. Visitors-No visitors at this time 8. Activities: Soft cart items, music tablet, coloring book, crayons, television if available, and other activities at RN discretion. 9. Bathroom privileges may use bathroom in room without limitation on Med/Surg. 10. Phone: May use hospital phone at RN discretion. 11. Due to VOLUNTARY status, if patient wishes to leave [facility], staff will contact [facility] Crisis Screener ([phone]) and On-Call Tractor Mechanic Apprentice ([phone]) as soon as possible. In the event of elopement, notify [facility] Police ([phone]). Patient is currently voluntarily at [facility] and seeking inpatient admission when a bed becomes available. [facility] Frontline Instant Potato Processing Supervisor will continue seeking placement. Please contact the Hammerer Helper Tractor Mechanic Apprentice ([phone]) and [facility] Instant Potato Processing Supervisor ([phone]) for any needed changes in the Safety Plan. Safety plan has been provided to interdepartmental care team.
--- NOTE | 2021-09-28 10:17 | CMPROGNOTE_ITS ---
- If Service Date Differs Date of service: 09/28/21 Time of Service: 10:17 Care Management Progress Note S/O: Harshal was sitting up in bed when CM met with him. He was alert, oriented and easily engaged in conversation. He remains at [facility] voluntarily and shared with CM that he is safe here, and if he were to decide to leave he'd just go back to the hotel and consume alcohol. Per provider, Harshal is not medically clear today, as he is still scoring on the CIWA scale. He reports having a histo ry of seizures during withdrawal. When he is medically cleared [facility] will start assessing him daily. A: Harshal is a 56 year old male admitted to [facility] for alcohol intoxication and depression. P: [facility] hospitals are full. Harshal will be assessed by [facility] when he is medically cleared by provider. Harshal is agreeable to remain at [facility] voluntarily while [facility] seeks placement for him. CM will continue to follow. - Status Status: Voluntary - Reason for Wait Reason for Wait: Inpatient Admission
--- NOTE | 2021-09-28 10:17 | PDOC.CMPRO ---
- If Service Date Differs Date of service: 09/28/21 Time of Service: 10:17 Care Management Progress Note S/O: Harshal was sitting up in bed when CM met with him. He was alert, oriented and easily engaged in conversation. He remains at [facility] voluntarily and shared with CM that he is safe here, and if he were to decide to leave he'd just go back to the hotel and consume alcohol. Per provider, Harshal is not medically clear today, as he is still scoring on the CIWA scale. He reports having a history of seizures during withdrawal. When he is medically cleared [facility] will start assessing him daily. A: Harshal is a 56 year old male admitted to [facility] for alcohol intoxication and depression. P: [facility] All other [facility] hospitals are full. Harshal will be assessed by [facility] when he is medically cleared by provider. Harshal is agreeable to remain at [facility] voluntarily while [facility] seeks placement for him. CM will continue to follow. - Status Status: Voluntary - Reason for Wait Reason for Wait: Inpatient Admission
[2021-09-28 11:09] VITALS: BP 154/90; PULSE 74; RESP 16; TEMP 37; O2SAT 95
[2021-09-28] MEDS: Ibuprofen 800 MG TAB PO (12:04)
[2021-09-28] MEDS: LORazepam 1 MG TAB PO/SL (14:17)
--- NOTE | 2021-09-28 15:56 | PGE_ITS ---
Date of Service Date of service: 09/28/21 Time of Service: 15:56 Assessment and Plan Assessment and plan (1) Major depression: Start date: 09/28/21 Start time: 15:57 Status: Chronic Assessment and plan: He has a long history of severe depression. He believes that the current treatment with bupropion seems to suit him better than many of the other drugs have been used in the past. Will continue hold vyvanze He is also having thoughts of SI CPSO present. If no seizure activity overnight will be medically cleared in the morning Lorazepam for w/d Qualifiers: Major depression recurrence: recurrent Active/Remission status: currently active Major depression episode severity: severe Psychotic features: without psychotic features Qualified Code(s): F33.2 - Major depressive disorder, recurrent severe without psychotic features (2) Alcoholism /alcohol abuse: Start date: 09/28/21 Start time: 15:58 Status: Chronic Assessment and plan: This is an ongoing problem for him. He has been treated for this for many years. He is hoping to go back into alcohol treatment. He says he has a sponsor [employer]. He says 1 problem his he tends to get into his head and he gets bored and does not know what to do to pass the time so he resorts to drinking alcohol. as above (3) Hypothyroid: Start date: 09/28/21 Start time: 15:58 Status: Chronic Assessment and plan: He will be continued on his levothyroxine. 1.56 radioactive iodione as a kid per patient Qualifiers: Hypothyroidism type: unspecified Qualified Code(s): E03.9 - Hypothyroidism, unspecified (4) Suicidal ideation: Start date: 09/28/21 Start time: 15:58 Status: Acute Assessment and plan: Once medically cleared will consult for bed placement CM sy. Dr. Herrera Subjective Subjective Patient reports: no new complaints Interval history since last seen: Continues to have depression. No signs of w/d or seizure. If he continues to have no seizures will be medically cleared in the morning. Exam Const General: cooperative, no acute distress, disheveled and well hydrated Nutritional Appearance: average body habitus Orientation: alert, awake and oriented x3 Eyes Eyelids: eyelids normal Conjunctivae: conjunctivae normal Sclera: sclerae normal Neck Neck: normal visual inspection and no lymphadenopathy Thyroid: thyroid normal Resp Effort & Inspection: normal respiratory effort and able to speak in complete sentences Auscultation: no rales, no rhonchi and no wheezes Cardio Jugular venous pressure: no JVD Rate: regular rate Rhythm: regular rhythm Heart Sounds: S1 normal, S2 normal and no murmurs GI Palpation: soft, no hepatosplenomegaly and nontender Skin General skin exam: no rashes or lesions noted Neuro Cranial Nerves: CN's II-XI intact bilaterally Objective Last Vital Signs Temp 37.0 C 09/28/21 11:09 Pulse 74 09/28/21 11:09 Resp 16 09/28/21 11:09 BP 154/90 H 09/28/21 11:09 Pulse Ox 95 09/28/21 11:09 PAWSS Have you Been Recently Intoxicated or Drunk Within the Last 30 days?: Yes Have you Ever Experienced Previous Episodes of Alcohol Withdrawal?: Yes Have you ever Experienced Withdrawal Seizures?: Yes Have you ever Experienced Delirium Tremens(DT)s?: No Have you ever undergone Alcohol Rehabilitation Treatment (i.e, inpt ot outpatient treatment programs)?: Yes Have you ever Experienced Blackouts?: Yes Have you ever Combined Alcohol with other Downers within the last 90 days?: No Have you ever Combined Alcohol with any other Substance of Abuse during the last 90 days?: No Positive Blood Alcohol level on Presentation? [PCS.BAL]: No Evidence of Increased Autonomic Activity (i.e. HR>120, tremor, sweating, agitation, nausea)?: No Result: 5
[2021-09-28 19:13] VITALS: BP 138/90; PULSE 79; RESP 18; TEMP 36.4; O2SAT 96
[2021-09-28 23:05] VITALS: BP 106/70; PULSE 84; RESP 19; TEMP 36.9; O2SAT 96
[2021-09-29 03:18] VITALS: BP 100/64; PULSE 78; RESP 18; TEMP 36.6; O2SAT 98
[2021-09-29] MEDS: Levothyroxine 150 MCG TAB PO (06:19)
[2021-09-29 07:25] VITALS: BP 136/86; PULSE 70; RESP 16; TEMP 36.8; O2SAT 96
[2021-09-29] MEDS: Thiamine 100 MG TAB PO (07:47)
[2021-09-29] MEDS: Finasteride 5 MG TAB PO (07:47)
[2021-09-29] MEDS: Tamsulosin 0.4 MG CAPCR PO (07:47)
[2021-09-29] MEDS: Metoprolol CR 50 MG TABCR PO (07:47)
[2021-09-29] MEDS: Gabapentin 400 MG CAP 1200 MG PO ×2 (07:47→13:55)
[2021-09-29] MEDS: buPROPion-XL 150 MG TABCR PO (07:47)
[2021-09-29] MEDS: Cyanocobalamin 500 MCG TAB 1000 MCG PO (07:47)
[2021-09-29] MEDS: Folic Acid 1 MG TAB PO (07:47)
[2021-09-29 09:27] LABS: Anion Gap 9.2 mmol/L (3-11); BUN 13 mg/dL (7-18); CO2 26.8 mmol/L (21.0-32.0); CREATININE 0.8 mg/dL (0.70-1.30); Calcium 8.9 mg/dL (8.5-10.1); Chloride 98 mmol/L (98-107); Glucose 118 mg/dL (74-106); Potassium 4.8 mmol/L (3.5-5.1); Sodium 134 mmol/L (136-145)
[2021-09-29 11:08] VITALS: BP 121/80; PULSE 73; RESP 18; TEMP 36.6; O2SAT 96
--- NOTE | 2021-09-29 11:28 | PGE_ITS ---
Date of Service Date of service: 09/29/21 Time of Service: 08: Assessment and Plan Assessment and plan (1) Major depression: Start date: 09/29/21 Start time: 08: Status: Chronic Assessment and plan: He has a long history of severe depression. He believes that the current treatment with bupropion seems to suit him better than many of the other drugs have been used in the past. Will continue hold vyvanze He is also having thoughts of SI CPSO present. He has been medically cleared at this time. Qualifiers: Active/Remission status: currently active Major depression episode severity: severe Major depression recurrence: recurrent Psychotic features: without psychotic features Qualified Code(s): F33.2 - Major depressive disorder, recurrent severe without psychotic features (2) Alcoholism /alcohol abuse: Start date: 09/29/21 Start time: 08: Status: Chronic Assessment and plan: This is an ongoing problem for him. He has been treated for this for many years. He is hoping to go back into alcohol treatment. He says he has a sponsor [employer]. He says 1 problem his he tends to get into his head and he gets bored and does not know what to do to pass the time so he resorts to drinking alcohol. as above (3) Hypothyroid: Start date: 09/29/21 Start time: 08:25 Status: Chronic Assessment and plan: He will be continued on his levothyroxine. 1.56 radioactive iodione as a kid per patient Qualifiers: Hypothyroidism type: unspecified Qualified Code(s): E03.9 - Hypothyroidism, unspecified (4) Suicidal ideation: Start date: 09/29/21 Start time: 08:25 Status: Acute Assessment and plan: Medically cleared at this time. MERARI working on bed placement Dr. Herrera Subjective Subjective Patient reports: no new complaints Interval history since last seen: Patient doing well. No seizure after over 72 hours of last drink. He is medically cleared at this time and ready MH feli cement. CM is working on placement. Exam Const General: cooperative, no acute distress, disheveled and well hydrated Nutritional Appearance: average body habitus Orientation: alert, awake and oriented x3 Eyes Eyelids: eyelids normal Conjunctivae: conjunctivae normal Sclera: sclerae normal Neck Neck: normal visual inspection and no lymphadenopathy Thyroid: thyroid normal Resp Effort & Inspection: normal respiratory effort and able to speak in complete sentences Auscultation: no rales, no rhonchi and no wheezes Cardio Jugular venous pressure: no JVD Rate: regular rate Rhythm: regular rhythm Heart Sounds: S1 normal, S2 normal and no murmurs GI Palpation: soft, no hepatosplenomegaly and nontender Skin General skin exam: no rashes or lesions noted Neuro Cranial Nerves: CN's II-XI intact bilaterally Objective Last Vital Signs Temp 36.6 C 09/29/21 11:08 Pulse 73 09/29/21 11:08 Resp 18 09/29/21 11:08 BP 121/80 09/29/21 11:08 Pulse Ox 96 09/29/21 11:08 Laboratory Results - last 24 hr 09/29/21 09:12 Sodium 134 L Potassium 4.8 Chloride 98 Carbon Dioxide 26.8 Anion Gap 9.2 BUN 13 D Creatinine 0.8 Estimated GFR/1.73 m2 >= 60.00 Glucose 118 H Calcium 8.9 PAWSS Have you Been Recently Intoxicated or Drunk Within the Last 30 days?: Yes Have you Ever Experienced Previous Episodes of Alcohol Withdrawal?: Yes Have you ever Experienced Withdrawal Seizures?: Yes Have you ever Experienced Delirium Tremens(DT)s?: No Have you ever undergone Alcohol Rehabilitation Treatment (i.e, inpt ot outpatient treatment programs)?: Yes Have you ever Experienced Blackouts?: Yes Have you ever Combined Alcohol with other Downers within the last 90 days?: No Have you ever Combined Alcohol with any other Substance of Abuse during the last 90 days?: No Positive Blood Alcohol level on Presentation? [PCS.BAL]: No Evidence of Increased Autonomic Activity (i.e. HR>120, tremor, sweating, agitation, nausea)?: No Result: 5
--- NOTE | 2021-09-29 12:54 | DSE_ITS ---
Date of service: 09/29/21 Time of Service: 12:54 DS: Diagnosis Discharge Diagnosis (1) Major depression: Start date: 09/29/21 Start time: 12:54 Status: Chronic Asessment and Plan: With intent to harm himself by drinking and taking a whole pack of benadryl. He has been accepted to [facility] by Barbara Quarles. Transfer via [facility] (2) Alcoholism /alcohol abuse: Start date: 09/29/21 Start time: 13:04 Status: Chronic Asessment and Plan: Was at sober house and started drinking 1/2 gallon of alcohol on Saturday. ehtyl alcohol on admission was 5.4 (3) Hypothyroid: Start date: 09/29/21 Start time: 13:05 Status: Chronic Asessment and Plan: He will be continued on his levothyroxine. 1.56 radioactive iodione as a kid per patient (4) Suicidal ideation: Start date: 09/29/21 Start time: 13:05 Status: Acute Asessment and Plan: as above discussed with Dr. Herrera Discharge Plan Disposition Patient Disposition: [facility] Condition: Stable Discharge Details Reason For Visit: Major Depression,Suicidal Thoughts,Alcohol Abuse Admit Date/Time: 09/26/21 17:26 Admit Provider: Garth Frausto Attending Provider: Garth Frausto Primary Care Provider: Don Draper Hospital Course Hospital Course: Patient admitted to [facility] for SI, depression from sober house after drinking and having intent to harm himself, see diagnosis. He has history of w/d seizures therefore was monitored for over 72 hours. He scored as high as 9 while on CIWA. He never had any seizure or seizure activity. He was with a CPSO at all times. He is AAOx3 continues to have SI. He has been medically cleared today and accepted to [facility] for transfer. He will go via crossbar switch adjuster. Home Meds and New Rx's Prescriptions: Continued thiamine HCl (vitamin B1) 100 mg Tablet 100 mg PO DAILY RF: 0 tamsulosin [Flomax] 0.4 mg Capsule 0.4 mg PO DAILY RF: 0 lidocaine [Lidoderm] 5 % Adhesive Patch,Medicated 1 patch TOPICAL DAILY RF: 0 levothyroxine [Synthroid] 200 mcg Tablet 150 mcg PO DAILY RF: 0 bupropion HCl 150 mg Tablet Sustained-Release 12 Hr 150 mg PO BID RF: 0 gabapentin 600 mg Tablet 1,200 mg PO TID RF: 0 metoprolol succinate 50 mg Tablet Extended Release 24 Hr 50 mg PO DAILY RF: 0 cyanocobalamin (vitamin B-12) [Vitamin B-12] 1,000 mcg Tablet 1,000 mcg PO DAILY RF: 0 folic acid 1 mg Tablet 1 mg PO DAILY RF: 0 Discharge Instructions Instructions: Alcohol Intoxication (ED) Additional Instructions: Transfer to [facility] Referrals: Don Draper [Primary Care Provider] - Activity:: Activity as Tolerated Equipment/Supplies:: No Equipment Needed Diet:: As Tolerated Discharge Orders Discharge Orders: Discharge Order (Routine); Ordered 09/29/21 Ordered By: Kathy Galaviz DS: Summary Time Spent with Patient providing and/or coordinating discharge services: Less than 30 minutes Status at Discharge Functional status at discharge: independent ambulation Overall status at discharge: patient is not back to baseline Mental Status: other Speech and Movement: speech and movement normal Mood: other Affect: other Exam Const General: cooperative, no acute distress and well hydrated Nutritional Appearance: average body habitus Orientation: alert, awake and oriented x3 Eyes Eyelids: eyelids normal Conjunctivae: conjunctivae normal Sclera: sclerae normal Neck Neck: normal visual inspection and no lymphadenopathy Thyroid: thyroid normal Resp Effort & Inspection: normal respiratory effort and able to speak in complete sentences Auscultation: no rales, no rhonchi and no wheezes Cardio Jugular venous pressure: no JVD Rate: regular rate Rhythm: regular rhythm Heart Sounds: S1 normal, S2 normal and no murmurs GI Palpation: soft, no hepatosplenomegaly and nontender Skin General skin exam: no rashes or lesions noted Neuro Cranial Nerves: CN's II-XI intact bilaterally Psych Mental Status: other Speech and Movement: speech and movement normal Mood: other Affect: other DS: Data Vitals/I&O Vitals and I&O: Vital Signs Temperature 36.6 C 09/29/21 11:08 Temperature Source Tympanic 09/29/21 11:08 Pulse 73 09/29/21 11:08 Pulse Rhythm Regular 09/29/21 07:29 Pulse 99 H 09/26/21 12:20 Respiratory Rate 18 09/29/21 11:08 Respiratory Effort Non-Labored 09/29/21 07:29 Respiratory Depth Normal 09/29/21 07:29 Respiratory Pattern Normal 09/29/21 07:29 Blood Pressure 121/80 09/29/21 11:08 Blood Pressure Mean 111 09/26/21 08:49 Pulse Oximetry 96 09/29/21 11:08 Oxygen Delivery Method Room Air 09/29/21 11:08 Oxygen Flow Rate 0 09/29/21 11:08 Pain Level 3 09/29/21 11:08 Intake & Output 09/28/21 09/29/21 09/29/21 23:59 11:59 23:59 Intake Total 240 / 240 1440 / 1920 480 / 1920 Balance 240 / 240 1440 / 1920 480 / 1920 Intake: Oral 240 / 240 1440 / 1920 480 / 1920 Other: Urine Appearance Clear Clear Voiding Methods Toilet Toilet Data Completed and Pending Completed studies during hospitalization [Text1]: Exam(s) a MRI:MR lumbar spine wo EXAM: MR LUMBAR SPINE WO CLINICAL HISTORY: progressive BLE weakness, spinal stenosis. TECHNIQUE: Multiplanar multisequence MRI was performed. XR PORTABLE CHEST AP from 09/25/2019 CT LUMBAR SPINE WO from 09/26/2019 FINDINGS: There is sacralization of L5. There are chronic bilateral L4 pars defects and L4-5 spondylolisthesis as well as severe degenerative disc changes. There is again noted be bony fragmentation anteriorly at the L4-5 disc space. Findings appear stable when compared with the previous chest abdomen and pelvic CT from 2018. There is no significant central canal stenosis at this level however t here is severe bilateral neural foraminal narrowing, right greater than left. The L2 3 and L3 levels are unremarkable. There is moderate loss of disc height at L 1 2 and mild concentric disc bulging. There is no significant central canal stenosis or neural foraminal narrowing. At T12-L1 there are similar mild degenerative disc changes. At T11, there is a left paracentral disc protrusion which effaces the anterior CSF space but does not definitely impinge on the conus medullaris or exiting nerve root. There is no neural foraminal narrowing. IMPRESSION: Left paracentral disc protrusion at T11-12 causing mild narrowing of the AP dimension of the central canal. Stable L4-5 spondylolisthesis, with chronic L4 spondylolysis and severe degenerative disc changes causing severe bilateral n eural foraminal narrowing. Exam(s) a MRI:MR thoracic spine wo EXAM: MR THORACIC SPINE WO CLINICAL HISTORY: spinal stenosis, progressive weakness. TECHNIQUE: Multiplanar multisequence MRI was performed. CT LUMBAR SPINE WO from 09/26/2019 FINDINGS: Hardware is again noted in the lower cervical spine. There is an upper to midthoracic scoliosis. There are stable mild anterior wedging of the T6 and T7 vertebral bodies. There is no abnormal segments to indicate an acute or subacute fracture. There are minimal endplate osteophytes at C6-7. The small left paracentral disc protrusion is seen at T11-12. Mild concentric disc bulging is seen at T12-L1. The cord signal appears normal. IMPRESSION: Small left paracentral disc protrusion at T11-12 and mild disc bulging at T12- L1. Exam(s) a RAD:XR elbow LT complete EXAM: XR ELBOW LT COMPLETE INDICATION: trauma, fall injury. COMPARISON: No exams were available for comparison TECHNIQUE: 2D digital imaging was performed. FINDINGS: No acute fracture or joint effusion is seen. An old fracture deformity of the distal third of the humeral shaft is partially included on the exam. IMPRESSION: No acute abnormality. Exam(s) a RAD:XR shoulder LT complete 2+V EXAM: XR SHOULDER LT COMPLETE 2+V INDICATION: trauma, shoulder injury. COMPARISON: No exams were available for comparison TECHNIQUE: 2D digital imaging was performed. FINDINGS: No acute fracture or dislocation is seen. The AC joint shows degenerative changes but no widening. Visualized portions of the left ribs appear intact. No pneumothorax is seen. There is deformity of the mid humeral shaft partially included on the exam which appears to represent an old fracture deformity. IMPRESSION: No acute abnormality. Labs on day of discharge: Labs from last 24 hours 09/29/21 09:12 Sodium 134 L Potassium 4.8 Chloride 98 Carbon Dioxide 26.8 Anion Gap 9.2 BUN 13 D Creatinine 0.8 Estimated GFR/1.73 m2 >= 60.00 Glucose 118 H Calcium 8.9 PFSH Active Problem List Suicidal ideation (Acute) Alcohol intoxication (Acute) Major depression (Chronic) Previous back surgery (Chronic) Ambulatory dysfunction (Acute) Discharge planning issues (Acute) Spinal stenosis of lumbar region (Acute) Fever (Acute) Alcohol withdrawal (Acute) Closed head injury (Acute) Discharge planning issues (Acute) DVT prophylaxis (Acute) Alcoholism /alcohol abuse (Chronic) H/O cervical spine surgery (Chronic) Hypothyroid (Chronic) HTN (hypertension) (Chronic) Bipolar disorder (Chronic) ADHD (Chronic) Family History Other Family history unobtainable due to patient's condition Social History Smoking/Tobacco Use Status: Current every day Tobacco Type: cigarettes Smoking risk assessment performed?: Yes Alcohol Intake: current Alcohol Intake frequency: 3 or more drinks per day Alcohol type: other Drug use: Never Substance use type: does not use Do you feel safe at home: Yes Do you feel safe in your relationship?: Yes
--- NOTE | 2021-09-29 17:31 | PDOC.CMDIS ---
- If Service Date Differs Date of service: 09/29/21 Time of Service: 17:31 LACE Index Scoring Tool - Questions: Length of Stay (in days): 3 Acuity (Admit via E.D.?): Yes E.D. Visits: 1 - Answers: Total Score: 7 Risk of Readmission: Low Risk Care Management Discharge Reason for Hospitalization: Major depression, SI, alcohol abuse Discharge Plan: Harshal was accepted at [facility] for admission today. CM attempted to find transport via Property [employer] Equipment Clerk and EMS throughout the [facility], with no success. A huddle was held to discuss transport options with RN Wafer Batter Mixer, RN coordinator, CM, Hospitalist, and CNO. An exception was made to allow [facility] to transport the patient with a CPSO for support. He will follow up with his PCP and discharge plan of care. He is agreeable to voluntary inpatient psychiatric treatment. Patient/Family Education Needs: Review discharge instructions and limitations, discussion of self care needs including ask me three. Services Needed at Discharge: Psychiatric Facility ([facility]), Transportation - Disposition Disposition: [place] Transport via of: Private Vechicle ([facility] with [facility] CPSO support)
== END 2021-09-29 17:46 | disposition short-term general hospital (02) ==
LOC: ER 09-26 17:29 → MS 09-26 18:42
PROVIDERS: Nurse Practitioner Family; Admitting Provider Family Medicine; Emergency Provider Physician Assistant; PCP Physician Assistant; Visit Provider Family Medicine
DX: F33.2 Major depressive disorder, recurrent severe without psychotic features; R45.851 Suicidal ideations; E03.9 Hypothyroidism, unspecified; F10.229 Alcohol dependence with intoxication, unspecified; M48.061 Spinal stenosis, lumbar region without neurogenic claudication; I10 Essential (primary) hypertension; F90.9 Attention-deficit hyperactivity disorder, unspecified type; F17.210 Nicotine dependence, cigarettes, uncomplicated; M21.371 Foot drop, right foot; N40.0 Benign prostatic hyperplasia without lower urinary tract symptoms; G62.9 Polyneuropathy, unspecified; F10.239 Alcohol dependence with withdrawal, unspecified; Z20.822 Contact with and (suspected) exposure to COVID-19
CPT/HCPCS: 36415; 80048; 80053; 80307; 87635; 96361; 96374; 96376; 99285; 80320; 83735; 84443; 85025; 93005; 93010; 99217; 99219; 99224; 99225; G0378; J2060; J2405; J3490

== ENCOUNTER 2021-10-27 10:44 | Emergency (ER) | payer MEDICAID, SELFPAY ==
[2021-10-27] VITALS (42 sets, daily range): BP systolic 105–176; BP diastolic 64–103; PULSE 0–124; RESP 13–29; TEMP 36.4; O2SAT 95–98
--- NOTE | 2021-10-27 10:45 | RT.EKG_ITS ---
APPROVED REPORT Exam: Resting ECG Reason for Exam: chest pain Patient Location: E HR:108 bpm ECG Measurements Heart Rate 108 AXIS NV 163 P 76 QRSd 79 QRS 13 QT 356 T 69 QTc 434 Conclusion Sinus rhythm...normal P axis, V-rate 60- 99 Multiform ventricular premature complexes...short R-R, variable morphology Low voltage, extremity leads...all extremity leads <0.5mV Consider anteroseptal infarct...Q >30mS, dimin R, V1-V2 no stemi
--- NOTE | 2021-10-27 10:45 | DI.RAD_ITS ---
Exam(s) XR PORTABLE CHEST AP EXAM: XR PORTABLE CHEST AP CLINICAL HISTORY: chest pain TECHNIQUE: 2D digital imaging was performed of the chest. One image was obtained. An AP view was ob tained. COMPARISON: CR XR PORTABLE CHEST AP from 09/25/2019 FINDINGS: MEDIASTINUM: Normal. HEART: Normal. PULMONARY VASCULATURE: Normal. LUNGS: Clear. PLEURAL SPACE: No pleural effusion or pneumothorax. BONE:Within normal limits for the patient's age. Old healed right rib fractures. OTHER FINDINGS:Normal. IMPRESSION: No acute pulmonary findings. DATA REPOSITORY: RADIATION DOSE DELIVERED:
--- NOTE | 2021-10-27 10:53 | ED.GENADUL_ITS ---
Discharge Plan Disposition Patient Disposition: HOME Condition: Good Discharge Details Clinical Impression: Alcoholism Primary Care Provider: Don Draper ED Provider: Ned Johnston Home Meds and New Rx's Prescriptions: Continued thiamine HCl (vitamin B1) 100 mg Tablet 100 mg PO DAILY RF: 0 tamsulosin [Flomax] 0.4 mg Capsule 0.4 mg PO DAILY RF: 0 lidocaine [Lidoderm] 5 % Adhesive Patch,Medicated 1 patch TOPICAL DAILY RF: 0 levothyroxine [Synthroid] 200 mcg Tablet 150 mcg PO DAILY RF: 0 bupropion HCl 150 mg Tablet Sustained-Release 12 Hr 150 mg PO BID RF: 0 gabapentin 600 mg Tablet 1,200 mg PO TID RF: 0 metoprolol succinate 50 mg Tablet Extended Release 24 Hr 50 mg PO DAILY RF: 0 cyanocobalamin (vitamin B-12) [Vitamin B-12] 1,000 mcg Tablet 1,000 mcg PO DAILY RF: 0 folic acid 1 mg Tablet 1 mg PO DAILY RF: 0 Discharge Instructions Instructions: Abuse of Alcohol (DC) Additional Instructions: If you notice any worsening of your symptoms, or any new symptoms such as vomiting, diarrhea, fever, chills, shortness of breath, chest pain, numbness, weakness, or fainting , please return immediately to the emergency department for reevaluation. Please follow up with your primary care provider as soon as possible for reassessment and reevaluation. As always, it was a pleasure participating in your medical care today. Referrals: Don Draper [Primary Care Provider] - Discharge Data Discharge Date/Time-TO BE ENTERED AT DEPARTURE: 10/27/21 21:14 Medical Decision Making <PRISCILLA Orellana - Last Filed: 10/28/21 18:19> Patient initially presents with vague complaints including that of chest pain which she had for the past 2 years reportedly, no change today and then at the end of her conversation tells me that he recently was asked to evacuate his living arrangement at the [facility] Of note, I did evaluate patient for his chest pain with 1 troponin screening EKG and diagnostic labs actually which are within normal limits I do not see need for any additional intervention from a cardiac standpoint at this time Patient also has a normal lipase and x-ray and is medically cleared from my standpoint He did receive a banana bag infusion during his stay in the emergency room I therefore contacted care management and project coach both are involved in the care of this patient today Confirmed but patient is unable to be placed at any of her local facilities secondary to pain [place] issues and she does not have any local friends or family who are able to provide residential Patient was made aware that we do not have any for him available in the emergency room and that he is responsible for his own care He is alert, oriented, of decisional capacity despite having an alcohol level of 390, he is clinically sober at 300 and able to answer questions well My plan was to discharge the patient pending ambulatory trial and clinical sobriety however when patient was made aware that we do not have options for housing, he has been told staff and me that he was feeling suicidal and that if we discharged him from the hospital that he would do something bad He states he would kill himself When I asked him if he is experiencing this because of the situation he states that he cannot tell me When a friend, Mamie stated that she felt comfortable taking patient to her home to provide residential, patient states that he felt quite comfortable with that disposition and felt like she would like to be discharged home from the hospital and did not need hospitalization for suicidal ideation Patient was alert, oriented, and of decisional capacity at time of this reassessment and felt like he was safe for discharge should she in the care of his friend Care was been transferred to Dr. Sidney Johnston pending mental health assessment at their discretion Patient is calm and cooperative in the room, he is laughing and making jokes with staff I will leave further management and disposition to the direction of the transitioning provider in stable condition Medical Records Medical records reviewed: Yes I reviewed the patient's medical records. Lab Data Lab results reviewed: Yes I reviewed the patient's lab results. <Mata Campos MD - Last Filed: 10/28/21 08:44> Patient seen, examined, and discussed with PRISCILLA Hoyos. Patient is here with chest pain but notes actual reason is difficulty finding housing. I agree with treatment plan as discussed/documented. <Ned Johnston DO - Last Filed: 10/27/21 21:40> Case was signed out to me by my colleague Genet, please refer to her HPI, physical exam, assessment and plan. At time of signout we are pending reassessment of the patient. On my reassessment the patient demonstrates notable clinical sobriety. He now states he does not want to kill himself, he does not want to end his life, and he did not mean to say those comments. He states I really just need a place to go, I do not want to hurt myself, I just need some help. Unfortunately the patient had removed his ability to get help multiple residential houses and organizations here in the immediate area. We did contact the [facility] in [facility], and they agreed to take the patient down there. The patient was very optimistic about this plan, and would like to go there. He continues to deny any homicidal or suicidal ideations. He remained stable. The patient is able to speak clearly. There is no demonstration of any slurring of speech. There is evidence of clear decision making capacity. Patient is able to ambulate well without any difficulty. There are no signs of ataxia or stumbling motions. Patient will be discharged to [facility]. He will be brought prior CT. I have extensively reviewed the treatment plan and discharge instructions with the patient. I have addressed all patient concerns at this time. The patient was made aware of what symptoms to monitor for that would warrant a return to the emergency department. Discussed the plan with the patient, they demonstrate verbal understanding and agreement with our assessment and plan at this time. The documentation in this chart was dictated using [employer] dictation software. Please excuse any dictation errors. HPI <PRISCILLA Orellana - Last Filed: 10/28/21 18:19> General Mode of arrival: EMS . Date/Time Provider Initiated Documentation: 10/27/21 10:46 . Limitations to Documentation: other . Information obtained by: patient and EMS . HPI Narrative: This 56-year-old gentleman with history of depression, alcoholism, homelessness presents with reports of being on any alcohol binge for the past 5 days. He denies any falls or injuries. He states he is drinking a lot of whiskey daily, he is unsure as to how much. She states that he is also having some chest pain which has been going on for several days per patient. He denies any suicidal or homicidal ideation. He denies any shortness of breath or sweating associated. He denies any falls or injuries. He denies any blood in stool. Also reports cocaine use. Denies auditory visual hallucination he denies known exacerbating or alleviating factors. He states he is a longtime alcoholic. He was also was just discharged from [facility] where he was hospitalized for depression reportedly. Related Data Home Medications Medication Instructions Recorded Confirmed levothyroxine [Synthroid] 150 mcg PO DAILY 08/31/18 10/27/21 bupropion HCl 150 mg PO BID 08/18/19 10/27/21 cyanocobalamin (vitamin B-12) 1,000 mcg PO DAILY 08/18/19 10/27/21 [Vitamin B-12] folic acid 1 mg PO DAILY 08/18/19 10/27/21 gabapentin 1,200 mg PO TID 08/18/19 10/27/21 metoprolol succinate 50 mg PO DAILY 08/18/19 10/27/21 thiamine HCl (vitamin B1) 100 mg PO DAILY 10/01/19 10/27/21 lidocaine [Lidoderm] 1 patch TOPICAL DAILY 01/29/20 10/27/21 tamsulosin [Flomax] 0.4 mg PO DAILY 01/29/20 10/27/21 Allergies Allergy/AdvReac Type Severity Reaction Status Date / Time carbamazepine [From Tegretol] Allergy Mild Skin Rash Unverified 01/29/20 03:08 General YURIDIA: 4 Review of Systems <PRISCILLA Orellana - Last Filed: 10/28/21 18:19> All systems reviewed & are unremarkable except as noted in HPI and below PFSH <PRISCILLA Orellana - Last Filed: 10/28/21 18:19> All Active Problems (Updated 10/27/21 @ 21:10 by Ned Johnston DO) Alcoholism (Acute) Suicidal ideation (Acute) Alcohol intoxication (Acute) Major depression (Chronic) Previous back surgery (Chronic) 10/2019 Ambulatory dysfunction (Acute) Discharge planning issues (Acute) Spinal stenosis of lumbar region (Acute) Fever (Acute) Alcohol withdrawal (Acute) Closed head injury (Acute) Discharge planning issues (Acute) DVT prophylaxis (Acute) Alcoholism /alcohol abuse (Chronic) H/O cervical spine surgery (Chronic) Hypothyroid (Chronic) HTN (hypertension) (Chronic) Bipolar disorder (Chronic) ADHD (Chronic) Family History Other Family history unobtainable due to patient's condition Social History Smoking/Tobacco Use Status: Current every day Tobacco Type: cigarettes Smoking risk assessment performed?: Yes Alcohol Intake: current Alcohol Intake frequency: 3 or more drinks per day Alcohol type: other Drug use: Daily Substance use type: does not use Do you feel safe at home: Yes Do you feel safe in your relationship?: Yes Exam <PRISCILLA Orellana - Last Filed: 10/28/21 18:19> Const General: cooperative, comfortable, no acute distress and disheveled HENMT Head: normal to inspection Other: Oral mucosa moist, no visible sign of trauma Eyes Pupils: PERRL Neck Other: No midline tenderness Resp Effort & Inspection: normal respiratory effort Auscultation: clear to auscultation bilaterally Cardio Rate: regular rate Rhythm: regular rhythm GI Other: No abdominal tenderness Neuro General: patient alert and patient oriented x3 Other: GCS 15 Psych Other: Denies SI or HI Sign Out <PRISCILLA Orellana - Last Filed: 10/28/21 18:19> Sign Out Data: Sign Out Comment: pending disposition, ambulatory trial, and reassessment Last updated by Genet Bradford PA at 10/27/21 16:44
[2021-10-27 11:20] LABS: Abs Immature Grans 0.05 10^3/uL (0.0-0.06); Absolute Basophil Count 0.16 10^3/uL (0.0-0.2); Absolute Eosinophil Count 0.18 10^3/uL (0.0-0.7); Absolute Lymphocyte Count 3.73 10^3/uL (1.2-3.4); Absolute Monocyte Count 0.73 10^3/uL (0.1-0.8); Absolute Neutrophil Count 5.58 10^3/uL (1.2-6.7); Basophils % 1.5; Eosinophils % 1.7; HCT 48.7 % (40.0-50.0); HGB 16.9 g/dL (13.5-17.5); Immature Grans % 0.5; Lymphocytes % 35.8; MCH 31.4 pg (27.0-33.0); MCHC 34.7 % (32.0-36.0); MCV 90.4 fL (80-95); MPV 11.4 fL (8.0-11.0); Neutrophils % 53.5; Nucleated RBC 0 %; Platelet Count 139 10^3/uL (130-400); RBC 5.39 10^6/uL (4.36-5.78); RDW 12.5 % (11.8-14.1); RDW-SD 41.6 fL; WBC 10.43 10^3/uL (4.4-10.8)
[2021-10-27 11:35] LABS: ALT 37 U/L (16-63); AST 49 U/L (15-37); Albumin 4.4 g/dL (3.4-5.0); Alkaline Phosphatase 92 U/L (46-116); BUN 9 mg/dL (7-18); Bilirubin, Total 0.4 mg/dL (0.2-1.0); CREATININE 0.6 mg/dL (0.70-1.30); Calcium 8.2 mg/dL (8.5-10.1); Chloride 98 mmol/L (98-107); Glucose 139 mg/dL (74-106); Lipase 104 U/L (73-393); Magnesium 2.3 mg/dL (1.8-2.4); Potassium 4.5 mmol/L (3.5-5.1); Sodium 137 mmol/L (136-145); Troponin I < 50 ng/L (<or=60)
[2021-10-27 11:36] LABS: ETHANOL BLOOD 391.5 mg/dL (<10)
[2021-10-27] MEDS: Mylanta Suspension 30 ML CUP PO (11:59)
[2021-10-27] MEDS: Acetaminophen 325 MG TAB 650 MG PO (11:59)
--- NOTE | 2021-10-27 13:01 | NUR.NOTE ---
Pt removed IV, established new IV in R AC and secured with cobane. Nursing Note:
--- NOTE | 2021-10-27 15:11 | CMPROGNOTE_ITS ---
- If Service Date Differs Date of service: 10/27/21 Time of Service: 15:11 Care Management Progress Note Harshal presents in the ED with a blood alcohol level of 391.5. CM is asked to meet with Harshal to help him find somewhere he can be discharged to. Harshal was staying at the [facility] but was asked to vacate the premises this morning prior to coming to the hospital. CM contacts [employer] and learns that Harshal is ineligible for a motel voucher until after the of the year. MERARI also telephones [facility] in [place] and [facility] in [place] to inquire about bed availability but they are both full. MERARI then helps Harshal telephone several friends but not of them answer their phone. Harshal then states I can't be discharged to the street. Something bad is going to happen if you send me out on the street. I'm going to kill myself. CM questions Harshal as to whether he is having thoughts of harming himself as this is the first time he has mentioned it to which he replies Yes, I am. I've been telling everybody that something bad is going to happen if you send me out on the street. CM relays the conversation to the ED provider. An [facility] consult will be requested.
[2021-10-27 15:31] LABS: Bilirubin Negative (Negative); Blood Negative (Negative); Clarity Clear (Clear); Glucose Negative (Negative); Ketones Negative (Negative); Leukocyte Esterase Negative (Negative); Nitrite Negative (Negative); Urobilinogen 0.2 EU/dL (Up TO 0.2); pH 6.5 (5-8)
[2021-10-27 15:37] LABS: Bacteria Negative HPF (Negative); Crystals Negative HPF (Negative); Epithelial Cells Rare HPF (Negative); Mucus Negative (Negative); RBC Negative HPF (0-2); WBC Negative HPF (0-5)
[2021-10-27 15:38] LABS: C & S Indicated? No; Casts 0-2 Hyaline LPF (Negative)
--- NOTE | 2021-10-27 22:10 | NUR.NOTE ---
[facility] Authorization Form faxed to [facility] [phone].Nursing Note:
== END 2021-10-27 21:14 | disposition home or self-care (01) ==
PROVIDERS: Physician Assistant; Emergency Provider Student in an Organized Health Care Education/Training Program; PCP Physician Assistant
DX: F10.220 Alcohol dependence with intoxication, uncomplicated (principal); Y90.8 Blood alcohol level of 240 mg/100 ml or more; I10 Essential (primary) hypertension; R45.851 Suicidal ideations; Z59.00 Homelessness unspecified
CPT/HCPCS: 36415; 80053; 83690; 93005; 96365; 96366; 99284; 71045; 80320; 81003; 81015; 83735; 84484; 85025; 93010

== ENCOUNTER 2021-12-01 16:03 | Emergency (ER) | payer MEDICAID, SELFPAY ==
[2021-12-01 16:09] VITALS: BP 116/70; PULSE 90; RESP 12; TEMP 37.2; O2SAT 97
--- NOTE | 2021-12-01 16:28 | ED.GENADUL_ITS ---
Discharge Plan Disposition Patient Disposition: [facility] Condition: Stable Discharge Details Chief Complaint: ETOHWithdr Clinical Impression: Alcohol intoxication, Alcoholism Primary Care Provider: Don Draper ED Provider: Juan Hickey Home Meds and New Rx's Prescriptions: Continued thiamine HCl (vitamin B1) 100 mg Tablet 100 mg PO DAILY RF: 0 tamsulosin [Flomax] 0.4 mg Capsule 0.4 mg PO DAILY RF: 0 lidocaine [Lidoderm] 5 % Adhesive Patch,Medicated 1 patch TOPICAL DAILY RF: 0 levothyroxine [Synthroid] 200 mcg Tablet 150 mcg PO DAILY RF: 0 bupropion HCl 150 mg Tablet Sustained-Release 12 Hr 150 mg PO BID RF: 0 gabapentin 600 mg Tablet 1,200 mg PO TID RF: 0 metoprolol succinate 50 mg Tablet Extended Release 24 Hr 50 mg PO DAILY RF: 0 cyanocobalamin (vitamin B-12) [Vitamin B-12] 1,000 mcg Tablet 1,000 mcg PO DAILY RF: 0 folic acid 1 mg Tablet 1 mg PO DAILY RF: 0 Discharge Instructions Instructions: Alcohol Intoxication (ED) Additional Instructions: You underwent medical screening examination including laboratory analysis in the emergency department. You are medically stable for discharge from the emergency department. You may liberalize salt in the diet as your sodium was slightly low today. Continue your efforts to decrease alcohol use. Medical Decision Making 56-year-old male with a history of alcoholism, states he was recently discharged from inpatient treatment at [facility], relapsed yesterday with hard liquor and now presents to the hospital due to homelessness and feeling his mood depressed. Denies to me plan to kill himself. Medical screening examination performed including laboratory analysis. Patient's alcohol level is 251. LFTs are unremarkable, some evidence of beer [place] sodium of 130, potassium 3.3. Patient evaluated by [facility] human services. He will be placed in protective custody. Lab Data Lab results reviewed: Yes I reviewed the patient's lab results. Labs: Laboratory Results - last 24 hr 12/01/21 12/01/21 12/01/21 16:45 16:45 16:45 WBC 9.30 RBC 4.60 Hgb 14.3 Hct 43.0 MCV 93.5 MCH 31.1 MCHC 33.3 RDW 13.4 Plt Count 189 MPV 10.8 Immature Gran % 0.5 Neutrophils % 52.2 Lymphocytes % 37.5 Monocytes % 7.6 Eosinophils % 1.4 Basophils % 0.8 Nucleated RBC % 0 Absolute Neutrophils 4.85 Absolute Lymphocytes 3.49 H Absolute Monocytes 0.71 Absolute Eosinophils 0.13 Absolute Basophils 0.07 Sodium 130 L Potassium 3.3 L Chloride 92 L Carbon Dioxide 26.2 Anion Gap 11.8 H BUN 16 Creatinine 1.4 H Estimated GFR/1.73 m2 52.62 Glucose 99 Calcium 8.7 Magnesium 2.2 Total Bilirubin 0.3 AST 20 ALT 28 Alkaline Phosphatase 73 Total Protein 7.8 Albumin 4.4 Ethyl Alcohol 251.2 H COVID-19 Source 12/01/21 16:45 WBC RBC Hgb Hct MCV MCH MCHC RDW Plt Count MPV Immature Gran % Neutrophils % Lymphocytes % Monocytes % Eosinophils % Basophils % Nucleated RBC % Absolute Neutrophils Absolute Lymphocytes Absolute Monocytes Absolute Eosinophils Absolute Basophils Sodium Potassium Chloride Carbon Dioxide Anion Gap BUN Creatinine Estimated GFR/1.73 m2 Glucose Calcium Magnesium Total Bilirubin AST ALT Alkaline Phosphatase Total Protein Albumin Ethyl Alcohol COVID-19 Source Nasal/Nares HPI General Mode of arrival: ambulatory . Date/Time Provider Initiated Documentation: 12/01/21 16:08 . Limitations to Documentation: no limitations . Information obtained by: patient . History of Present Illness 56 year old M presents to the emergency department with the chief complaint of Alcoholism, homelessness, described as mild, Patient started experiencing this day(s) and it has been constant. No relieving factors improve symptom(s), No exacerbating factors reported . Patient notes no other symptoms.. Patient did receive the following treatments prior to arrival, none Related Data Home Medications Medication Instructions Recorded Confirmed levothyroxine [Synthroid] 150 mcg PO DAILY 08/31/18 10/27/21 bupropion HCl 150 mg PO BID 08/18/19 10/27/21 cyanocobalamin (vitamin B-12) 1,000 mcg PO DAILY 08/18/19 10/27/21 [Vitamin B-12] folic acid 1 mg PO DAILY 08/18/19 10/27/21 gabapentin 1,200 mg PO TID 08/18/19 10/27/21 metoprolol succinate 50 mg PO DAILY 08/18/19 10/27/21 thiamine HCl (vitamin B1) 100 mg PO DAILY 10/01/19 10/27/21 lidocaine [Lidoderm] 1 patch TOPICAL DAILY 01/29/20 10/27/21 tamsulosin [Flomax] 0.4 mg PO DAILY 01/29/20 10/27/21 Allergies Allergy/AdvReac Type Severity Reaction Status Date / Time carbamazepine [From Tegretol] Allergy Mild Skin Rash Unverified 12/01/21 16:18 General Stated Complaint: ETOHWithdr YURIDIA: 3 Review of Systems Narrative: Mood is depressed that he is homeless and continues to drink alcohol. No plan to kill himself. States he has been immunized x2 against COVID. Denies chest pain, abdominal pain. 6 systems reviewed and otherwise negative PFSH All Active Problems (Updated 12/01/21 @ 18:48 by Juan Hickey MD) Alcoholism (Acute) Suicidal ideation (Acute) Alcohol intoxication (Acute) Major depression (Chronic) Previous back surgery (Chronic) 10/2019 Ambulatory dysfunction (Acute) Discharge planning issues (Acute) Spinal stenosis of lumbar region (Acute) Fever (Acute) Alcohol withdrawal (Acute) Closed head injury (Acute) Discharge planning issues (Acute) DVT prophylaxis (Acute) Alcoholism /alcohol abuse (Chronic) H/O cervical spine surgery (Chronic) Hypothyroid (Chronic) HTN (hypertension) (Chronic) Bipolar disorder (Chronic) ADHD (Chronic) Family History Other Family history unobtainable due to patient's condition Social History Smoking/Tobacco Use Status: Current every day Tobacco Type: cigarettes Smoking risk assessment performed?: Yes Alcohol Intake: current Alcohol Intake frequency: 3 or more drinks per day Alcohol type: hard liquor and other Drug use: Never Substance use type: does not use Do you feel safe at home: Yes Do you feel safe in your relationship?: Yes Exam Narrative Exam Narrative: GEN: awake, alert, oriented 3. Pleasant, odor of alcohol HEAD: Normocephalic, atraumatic ENT: Mucous membranes moist, oropharynx unremarkable, External ear exam unremarkable EYES: PERRL, EOMI NECK: Full ROM, no RONIT, no menigismus CHEST/RESP: Nontender, clear to auscultation bilateral, no wheeze/rhonchi/rales CARDIOVASCULAR: RRR, no murmur, rub laila. 2+ Rad pulse bilateral ABDOMEN: Soft, nontender, no mass. +Bowel sounds EXT: Full ROM, no edema, no rash Neuro: Grossly normal neurologic exam, conversant, interactive. Psych: Speech fluent, thoughts congruent, affect normal Course Vital Signs Vital signs: Vital Signs Temperature 37.2 C 12/01/21 16:09 Pulse 90 12/01/21 16:09 Respiratory Rate 12 12/01/21 16:09 Blood Pressure 116/70 12/01/21 16:09 Pulse Oximetry 97 12/01/21 16:09 Temperature 37.2 C 12/01/21 16:09 Temperature Source Temporal Artery Scan 12/01/21 16:09 Pulse 90 12/01/21 16:09 Respiratory Rate 12 12/01/21 16:09 Respiratory Effort Non-Labored 12/01/21 16:15 Blood Pressure 116/70 12/01/21 16:09 Blood Pressure Position Sitting 12/01/21 16:09 Pulse Oximetry 97 12/01/21 16:09 Oxygen Delivery Method Room Air 12/01/21 16:09 Oxygen Flow Rate 0 12/01/21 16:09 Pain Level 0 12/01/21 16:09 PAWSS Have you Been Recently Intoxicated or Drunk Within the Last 30 days?: Yes Have you Ever Experienced Previous Episodes of Alcohol Withdrawal?: Yes Have you ever Experienced Withdrawal Seizures?: Yes Have you ever Experienced Delirium Tremens(DT)s?: Yes Have you ever undergone Alcohol Rehabilitation Treatment (i.e, inpt ot outpatient treatment programs)?: Yes Have you ever Experienced Blackouts?: Yes Have you ever Combined Alcohol with other Downers within the last 90 days?: No Have you ever Combined Alcohol with any other Substance of Abuse during the last 90 days?: Yes Positive Blood Alcohol level on Presentation? [PCS.BAL]: Yes Evidence of Increased Autonomic Activity (i.e. HR>120, tremor, sweating, agitation, nausea)?: No Result: 9
[2021-12-01 16:59] LABS: Abs Immature Grans 0.05 10^3/uL (0.0-0.06); Absolute Basophil Count 0.07 10^3/uL (0.0-0.2); Absolute Eosinophil Count 0.13 10^3/uL (0.0-0.7); Absolute Lymphocyte Count 3.49 10^3/uL (1.2-3.4); Absolute Monocyte Count 0.71 10^3/uL (0.1-0.8); Absolute Neutrophil Count 4.85 10^3/uL (1.2-6.7); Basophils % 0.8; Eosinophils % 1.4; HGB 14.3 g/dL (13.5-17.5); Immature Grans % 0.5; Lymphocytes % 37.5; MCH 31.1 pg (27.0-33.0); MCHC 33.3 % (32.0-36.0); MCV 93.5 fL (80-95); MPV 10.8 fL (8.0-11.0); Monocytes % 7.6; Neutrophils % 52.2; Nucleated RBC 0 %; Platelet Count 189 10^3/uL (130-400); RDW 13.4 % (11.8-14.1); RDW-SD 45.7 fL
[2021-12-01 17:00] LABS: Source Nasal/Nares
[2021-12-01 17:11] LABS: ETHANOL BLOOD 251.2 mg/dL (<10); Magnesium 2.2 mg/dL (1.8-2.4)
[2021-12-01 17:14] LABS: ALT 28 U/L (16-63); AST 20 U/L (15-37); Albumin 4.4 g/dL (3.4-5.0); Alkaline Phosphatase 73 U/L (46-116); Anion Gap 11.8 mmol/L (3-11); BUN 16 mg/dL (7-18); Bilirubin, Total 0.3 mg/dL (0.2-1.0); CO2 26.2 mmol/L (21.0-32.0); CREATININE 1.4 mg/dL (0.70-1.30); Calcium 8.7 mg/dL (8.5-10.1); Chloride 92 mmol/L (98-107); Estimated GFR 52.62 (mL/min/1.73m2); Glucose 99 mg/dL (74-106); Potassium 3.3 mmol/L (3.5-5.1); Sodium 130 mmol/L (136-145); Total Protein 7.8 g/dL (6.4-8.2)
[2021-12-01 20:23] LABS: COVID-19 PCR Negative (Negative)
== END 2021-12-01 19:26 | disposition home or self-care (01) ==
PROVIDERS: Emergency Provider Emergency Medicine; PCP Physician Assistant
DX: F10.229 Alcohol dependence with intoxication, unspecified (principal); Y90.8 Blood alcohol level of 240 mg/100 ml or more; Z20.822 Contact with and (suspected) exposure to COVID-19
CPT/HCPCS: 36415; 80053; 87635; 99283; 99285; 80320; 83735; 85025

== ENCOUNTER 2021-12-02 23:44 | Emergency (ER) | payer MEDICAID, SELFPAY ==
[2021-12-02 23:46] VITALS: BP 169/100; PULSE 71; RESP 18; TEMP 36.6; O2SAT 98
--- NOTE | 2021-12-02 23:46 | W.ED.GENAD ---
Discharge Plan Disposition Patient Disposition: HOME Condition: Stable Discharge Details Clinical Impression: Alcohol intoxication Primary Care Provider: Don Draper ED Provider: Ned Johnston Home Meds and New Rx's Prescriptions: Continued thiamine HCl (vitamin B1) 100 mg Tablet 100 mg PO DAILY RF: 0 tamsulosin [Flomax] 0.4 mg Capsule 0.4 mg PO DAILY RF: 0 lidocaine [Lidoderm] 5 % Adhesive Patch,Medicated 1 patch TOPICAL DAILY RF: 0 levothyroxine [Synthroid] 200 mcg Tablet 150 mcg PO DAILY RF: 0 bupropion HCl 150 mg Tablet Sustained-Release 12 Hr 450 mg PO TID RF: 0 gabapentin 600 mg Tablet 600 mg PO BID RF: 0 metoprolol succinate 50 mg Tablet Extended Release 24 Hr 50 mg PO DAILY RF: 0 cyanocobalamin (vitamin B-12) [Vitamin B-12] 1,000 mcg Tablet 1,000 mcg PO DAILY RF: 0 folic acid 1 mg Tablet 1 mg PO DAILY RF: 0 Discharge Instructions Instructions: Alcohol Intoxication (ED) Additional Instructions: Please diminish her alcohol intake. If you notice any worsening of your symptoms, or any new symptoms such as vomiting, diarrhea, fever, chills, shortness of breath, chest pain, numbness, weakness, or fainting , please return immediately to the emergency department for reevaluation. Please follow up with your primary care provider as soon as possible for reassessment and reevaluation. As always, it was a pleasure participating in your medical care today. Referrals: Don Draper [Primary Care Provider] - Medical Decision Making This is a 56-year-old male with a past medical history of notable chronic alcoholism, hypertension, bipolar, ADHD, who presents today for evaluation of intoxication. Patient was recently at the police station for intoxication from last night. He was discharged, went to [facility], and drank mouthwash there. He presents currently intoxicated via EMS. He denies homicidal or suicidal ideations. He denies taking any other intoxicants. No other complaints at this time. No complaints of drug use, chest pain, shortness of breath fever or chills. Physical exam demonstrates no evidence of trauma. He does appear intoxicated. No homicidal or suicidal ideations. We will medically screen. If the patient is medically cleared I feel he can go to the police station at this time for sobering. We will rehydrate in the meantime, and evaluate for any concerning etiologies. 12:34 AM Patient remained stable here in the ED. Vital signs stable. Patient was rehydrated with normal saline. Laboratory work-up demonstrates no acidosis. Electrolytes demonstrated potassium minimally low at 3.2, we will give 40 mEq of oral potassium. Sodium minimally low at 131, likely reflective of mild beer potomania. Mild anion gap elevation, but not in the setting of acidosis. Patient otherwise clinically stable. Appropriate for disposition to alcohol intoxication rg with police for continued monitoring there. I have extensively reviewed the treatment plan and discharge instructions with the patient. I have addressed all patient concerns at this time. The patient was made aware of what symptoms to monitor for that would warrant a return to the emergency department. Discussed the plan with the patient, they demonstrate verbal understanding and agreement with our assessment and plan at this time. The documentation in this chart was dictated using [employer] dictation software. Please excuse any dictation errors. HPI General Date/Time Provider Initiated Documentation: 12/02/21 23:46. HPI Narrative: This is a 56-year-old male with a past medical history of notable chronic alcoholism, hypertension, bipolar, ADHD, who presents today for evaluation of intoxication. Patient was recently at the police station for intoxication from last night. He was discharged, went to [facility], and drank mouthwash there. He presents currently intoxicated via EMS. He denies homicidal or suicidal ideations. He denies taking any other intoxicants. No other complaints at this time. No complaints of drug use, chest pain, shortness of breath fever or chills. Related Data Home Medications Medication Instructions Recorded Confirmed levothyroxine [Synthroid] 150 mcg PO DAILY 08/31/18 12/03/21 bupropion HCl 450 mg PO TID 08/18/19 12/03/21 cyanocobalamin (vitamin B-12) 1,000 mcg PO DAILY 08/18/19 10/27/21 [Vitamin B-12] folic acid 1 mg PO DAILY 08/18/19 10/27/21 gabapentin 600 mg PO BID 08/18/19 12/03/21 metoprolol succinate 50 mg PO DAILY 08/18/19 12/03/21 thiamine HCl (vitamin B1) 100 mg PO DAILY 10/01/19 12/03/21 lidocaine [Lidoderm] 1 patch TOPICAL DAILY 01/29/20 10/27/21 tamsulosin [Flomax] 0.4 mg PO DAILY 01/29/20 12/03/21 Allergies Allergy/AdvReac Type Severity Reaction Status Date / Time carbamazepine [From Tegretol] Allergy Mild Skin Rash Unverified 12/03/21 00:07 General YURIDIA: 3 Review of Systems All systems reviewed & are unremarkable except as noted in HPI and below PFSH All Active Problems (Updated 12/03/21 @ 00:31 by Ned Johnston DO) Alcoholism (Acute) Alcohol intoxication (Acute) Suicidal ideation (Acute) Alcohol intoxication (Acute) Major depression (Chronic) Previous back surgery (Chronic) 10/2019 Ambulatory dysfunction (Acute) Discharge planning issues (Acute) Spinal stenosis of lumbar region (Acute) Fever (Acute) Alcohol withdrawal (Acute) Closed head injury (Acute) Discharge planning issues (Acute) DVT prophylaxis (Acute) Alcoholism /alcohol abuse (Chronic) H/O cervical spine surgery (Chronic) Hypothyroid (Chronic) HTN (hypertension) (Chronic) Bipolar disorder (Chronic) ADHD (Chronic) Family History Other Family history unobtainable due to patient's condition Social History Smoking/Tobacco Use Status: Current every day Tobacco Type: cigarettes Smoking risk assessment performed?: Yes Alcohol Intake: current Alcohol Intake frequency: 3 or more drinks per day Alcohol type: hard liquor and other Drug use: Never Substance use type: does not use Do you feel safe at home: Yes Do you feel safe in your relationship?: Yes Exam Narrative Exam Narrative: 1.Const: Well-nourished, Well-developed, appearing stated age 2.Eyes: PERRL, no conjunctival injection, and symmetrical lids. 3.ENT: Atraumatic external nose and ears. Moist MM. Neck: Symmetric, trachea midline, No thyromegaly. 4.CVS: +S1/S2, No murmurs or gallops. Peripheral pulses 2+ and equal in all extremities. Brisk capillary refill in all extremities. 5.RESP: Unlabored respiratory effort. Clear to auscultation bilaterally. No wheezes rales or rhonchi 6.GI: Soft, Nontender/Nondistended, No hepatosplenomegaly. No guarding or rebound. 7.MSK: Normocephalic/Atraumatic, Extremities w/o deformity or ttp No cyanosis or clubbing, Normal movement of all extremities 8.Skin: Warm, Dry. No rashes or lesions. 9.Neuro: twist maker II-XII grossly intact. Sensation grossly intact, no focal neurologic deficits. 10.Psych: (AAO) x3. However notably intoxicated.
[2021-12-02] MEDS: Normal Saline 1,000 ML 1000 ML IV (23:55)
[2021-12-03 00:03] VITALS: PULSE 98; RESP 12; O2SAT 95
[2021-12-03 00:10] VITALS: PULSE 67; RESP 19
[2021-12-03 00:10] LABS: BE (Venous) 0 mmol/L (-2-3); HCO3 (Venous) 24 mmol/L (23-28); O2 Sat (Venous) 92 %; TCO2 (Venous) 21 mmol/L (24-29); pCO2 (Venous) 38 mmHg (41-51); pH (Venous) 7.41 (7.31-7.41); pO2 (Venous) 70 mmHg
[2021-12-03 00:19] LABS: ETHANOL BLOOD 293.3 mg/dL (<10)
[2021-12-03 00:20] VITALS: PULSE 71; RESP 14
[2021-12-03 00:23] LABS: ALT 26 U/L (16-63); AST 28 U/L (15-37); Albumin 4.4 g/dL (3.4-5.0); Alkaline Phosphatase 78 U/L (46-116); Anion Gap 13.9 mmol/L (3-11); BUN 9 mg/dL (7-18); Bilirubin, Total 0.4 mg/dL (0.2-1.0); CO2 24.1 mmol/L (21.0-32.0); CREATININE 0.7 mg/dL (0.70-1.30); Calcium 8.7 mg/dL (8.5-10.1); Chloride 93 mmol/L (98-107); Glucose 91 mg/dL (74-106); Magnesium 2.1 mg/dL (1.8-2.4); Sodium 131 mmol/L (136-145); Total Protein 8.1 g/dL (6.4-8.2)
[2021-12-03 00:27] LABS: Potassium 3.2 mmol/L (3.5-5.1)
[2021-12-03] MEDS: Potassium Chloride 20 MEQ TABCR 40 MEQ PO (00:38)
== END 2021-12-03 01:49 | disposition home or self-care (01) ==
LOC: ER 12-03 01:36
PROVIDERS: Emergency Provider Student in an Organized Health Care Education/Training Program; PCP Physician Assistant
DX: F10.220 Alcohol dependence with intoxication, uncomplicated (principal); E87.6 Hypokalemia; E87.1 Hypo-osmolality and hyponatremia; F10.20 Alcohol dependence, uncomplicated
CPT/HCPCS: 36415; 80053; 82805; 96360; 99284; 80320; 83735; 99283

== ENCOUNTER 2021-12-03 12:09 | Inpatient (IN) | payer MEDICAID, SELFPAY ==
[2021-12-03 12:20] VITALS: BP 154/99; PULSE 121; RESP 18; TEMP 35.2; O2SAT 95
--- NOTE | 2021-12-03 12:33 | ED.GENADUL_ITS ---
Discharge Plan Disposition Patient Disposition: [facility] INPATIENT Condition: Stable Discharge Details Clinical Impression: Alcoholism, Major depression Primary Care Provider: Don Draper ED Provider: Ned Johnston Home Meds and New Rx's Prescriptions: No Action thiamine HCl (vitamin B1) 100 mg Tablet 100 mg PO DAILY RF: 0 tamsulosin [Flomax] 0.4 mg Capsule 0.4 mg PO DAILY RF: 0 gabapentin 600 mg tablet 600 mg PO TID RF: 0 levothyroxine [Synthroid] 200 mcg Tablet 150 mcg PO DAILY RF: 0 bupropion HCl 150 mg Tablet Sustained-Release 12 Hr 150 mg PO TID RF: 0 metoprolol succinate 50 mg Tablet Extended Release 24 Hr 50 mg PO DAILY RF: 0 cyanocobalamin (vitamin B-12) [Vitamin B-12] 1,000 mcg Tablet 1,000 mcg PO DAILY RF: 0 folic acid 1 mg Tablet 1 mg PO DAILY RF: 0 Medical Decision Making <Juan Hickey MD - Last Filed: 12/03/21 14:52> 56-year-old male states he is homeless and alcoholic. States that has been the case since being discharged from inpatient treatment at what he states is [facility]. Has had recidivistic alcohol use up through last night [facility] with at least 1 day at local senior care for alcohol intoxication. States he now feels ongoing depression and thoughts of suicide by the drink himself to or taking overdose of pills. Patient's clothes were soaked and wet as she has been walking outside in freezing temperatures. The patient had fallen while walking the streets with minimal injury, abrasion to the right hand. There is no other injury. He underwent screening medical examination including laboratory analysis. Patient is legally sober with alcohol level of 0.05. He has had some previous low sodium which is improved today. LFTs reassuring. The patient's COVID test was negative on the . It is positive today. Following initial medical screen examination, patient evaluated by crisis services. He does meet criteria for voluntary admission to appropriate facility for dual diagnosis of depression and alcohol use. He was given Librium given a history of some symptomatic alcohol withdrawal in the past, and his daily medications were ordered. Lab Data Lab results reviewed: Yes I reviewed the patient's lab results. Labs: Laboratory Results - last 24 hr 12/03/21 12/03/21 12/03/21 13:00 13:00 13:00 WBC 14.40 H RBC 4.88 Hgb 15.3 Hct 45.2 MCV 92.6 MCH 31.4 MCHC 33.8 RDW 13.3 Plt Count 188 MPV 10.8 Immature Gran % 0.6 Neutrophils % 77.7 Lymphocytes % 11.7 Monocytes % 8.1 Eosinophils % 0.6 Basophils % 1.3 Nucleated RBC % 0 Absolute Neutrophils 11.19 H Absolute Lymphocytes 1.68 Absolute Monocytes 1.17 H Absolute Eosinophils 0.09 Absolute Basophils 0.19 Sodium 136 Potassium 4.3 D Chloride 97 L Carbon Dioxide 21.5 Anion Gap 17.5 H BUN 8 Creatinine 0.9 Estimated GFR/1.73 m2 >= 60.00 Glucose 84 Calcium 9.1 Total Bilirubin 0.7 AST 38 H ALT 36 Alkaline Phosphatase 80 Total Protein 8.2 Albumin 4.8 TSH 7.54 H Free T4 1.01 Salicylates 4.1 Acetaminophen < 2 Ethyl Alcohol 50.1 H COVID-19 Source 12/03/21 13:15 WBC RBC Hgb Hct MCV MCH MCHC RDW Plt Count MPV Immature Gran % Neutrophils % Lymphocytes % Monocytes % Eosinophils % Basophils % Nucleated RBC % Absolute Neutrophils Absolute Lymphocytes Absolute Monocytes Absolute Eosinophils Absolute Basophils Sodium Potassium Chloride Carbon Dioxide Anion Gap BUN Creatinine Estimated GFR/1.73 m2 Glucose Calcium Total Bilirubin AST ALT Alkaline Phosphatase Total Protein Albumin TSH Free T4 Salicylates Acetaminophen Ethyl Alcohol COVID-19 Source Nasal/Nares <Ned Johnston, - Last Filed: 12/03/21 20:22> Patient was signed out to me by my colleague Dr. Juan Hickey. Please refer to his HPI, physical exam, assessment and plan. At time of signout the plan was to look for placement for the patient as recommended by the mental health team. Patient is COVID-positive but otherwise asymptomatic. Screening chest x-ray was performed out of an abundance of caution. At this time patient remains voluntary and is seeking help. He was given Librium by Dr. Hickey and remained stable. Patient will be admitted to the floor for continued observation until placement is determined. Discussed the case with Dr. Bautista, he agrees with the assessment and plan. I have extensively reviewed the treatment plan with the patient. I have addressed all patient concerns at this time. I have also discussed the plan with the admitting physician and they agree with the current assessment and plan and have agreed to assume responsibility for the patient. All parties demonstrate verbal understanding and agreement with our assessment and plan at this time. The documentation in this chart was dictated using [email or web address] dictation software. Please excuse any dictation errors. HPI <Juan Hickey MD - Last Filed: 12/03/21 14:52> General Mode of arrival: EMS . Date/Time Provider Initiated Documentation: 12/03/21 12:11 . Limitations to Documentation: no limitations . Information obtained by: patient and EMS . History of Present Illness 56 year old M presents to the emergency department with the chief complaint of Depressed and suicidal, described as moderate, Quality is described as constant, Patient started experiencing this day(s) and it has been constant. No relieving factors improve symptom(s), No exacerbating factors reported . Patient notes denies headaches, shortness of breath and syncope. Patient did receive the following treatments prior to arrival, none Related Data Home Medications Medication Instructions Recorded Confirmed levothyroxine [Synthroid] 150 mcg PO DAILY 08/31/18 12/03/21 bupropion HCl 150 mg PO TID 08/18/19 12/03/21 cyanocobalamin (vitamin B-12) 1,000 mcg PO DAILY 08/18/19 12/03/21 [Vitamin B-12] folic acid 1 mg PO DAILY 08/18/19 12/03/21 metoprolol succinate 50 mg PO DAILY 08/18/19 12/03/21 thiamine HCl (vitamin B1) 100 mg PO DAILY 10/01/19 12/03/21 tamsulosin [Flomax] 0.4 mg PO DAILY 01/29/20 12/03/21 gabapentin 600 mg PO TID 12/03/21 12/03/21 Allergies Allergy/AdvReac Type Severity Reaction Status Date / Time carbamazepine [From Tegretol] Allergy Mild Skin Rash Unverified 12/03/21 00:07 General Stated Complaint: PsychEval YURIDIA: 2 Review of Systems <Juan Hickey MD - Last Filed: 12/03/21 14:52> Narrative: States last drink was yesterday. States he feels he needs admission for depression. History of same. Abrasion to the hand with his fall but no other injury. 8 systems reviewed and otherwise negative PFSH <Juan Hickey MD - Last Filed: 12/03/21 14:52> All Active Problems (Updated 12/03/21 @ 14:27 by Juan Hickey MD) Alcoholism (Acute) Alcohol intoxication (Acute) Suicidal ideation (Acute) Alcohol intoxication (Acute) Major depression (Chronic) Previous back surgery (Chronic) 10/2019 Ambulatory dysfunction (Acute) Discharge planning issues (Acute) Spinal stenosis of lumbar region (Acute) Fever (Acute) Alcohol withdrawal (Acute) Closed head injury (Acute) Discharge planning issues (Acute) DVT prophylaxis (Acute) Alcoholism /alcohol abuse (Chronic) H/O cervical spine surgery (Chronic) Hypothyroid (Chronic) HTN (hypertension) (Chronic) Bipolar disorder (Chronic) ADHD (Chronic) Family History Other Family history unobtainable due to patient's condition Social History Smoking/Tobacco Use Status: Current every day Tobacco Type: cigarettes Smoking risk assessment performed?: Yes Alcohol Intake: current Alcohol Intake frequency: 3 or more drinks per day Alcohol type: hard liquor and other Drug use: Never Substance use type: does not use Details: Patient states he drinks a half gallon Do you feel safe at home: Yes Do you feel safe in your relationship?: Yes Additional Social history: patient states he has no where to go and does not feel safe if he were to leave the hospital. Exam <Juan Hickey MD - Last Filed: 12/03/21 14:52> Narrative Exam Narrative: GEN: awake, alert, oriented 3. Pleasant, well groomed, interactive. HEAD: Normocephalic, atraumatic ENT: Mucous membranes moist, oropharynx unremarkable, External ear exam unremarkable EYES: PERRL, EOMI NECK: Full ROM, no RONIT, no menigismus CHEST/RESP: Nontender, clear to auscultation bilateral, no wheeze/rhonchi/rales CARDIOVASCULAR: RRR, no murmur, rub laila. 2+ Rad pulse bilateral ABDOMEN: Soft, nontender, no mass. +Bowel sounds EXT: Full ROM, discrete abrasion right hand Neuro: Grossly normal neurologic exam, conversant, interactive. Psych: Speech fluent, thoughts congruent, affect normal Course <Juan Hickey MD - Last Filed: 12/03/21 14:52> Vital Signs Vital signs: Vital Signs Temperature 35.2 C L 12/03/21 12:20 Pulse 121 H 12/03/21 12:20 Respiratory Rate 18 12/03/21 12:20 Blood Pressure 154/99 H 12/03/21 12:20 Pulse Oximetry 95 12/03/21 12:20 Temperature 35.2 C L 12/03/21 12:20 Temperature Source Oral 12/03/21 12:20 Pulse 121 H 12/03/21 12:20 Respiratory Rate 18 12/03/21 12:20 Respiratory Effort 12/03/21 12:27 Blood Pressure 154/99 H 12/03/21 12:20 Blood Pressure Position Sitting 12/03/21 12:20 Pulse Oximetry 95 12/03/21 12:20 Oxygen Delivery Method Room Air 12/03/21 12:20 Oxygen Flow Rate 0 12/03/21 12:20 Sign Out <Juan Hickey MD - Last Filed: 12/03/21 14:52> Sign Out Data: Sign Out Comment: Re-eval in AM. Depression, voluntary. COvid +. Librium given 12/03 Last updated by Juan Hickey MD at 12/03/21 18:41 PAWSS <Juan Hickey MD - Last Filed: 12/03/21 14:52> Have you Been Recently Intoxicated or Drunk Within the Last 30 days?: Yes Have you Ever Experienced Previous Episodes of Alcohol Withdrawal?: Yes Have you ever Experienced Withdrawal Seizures?: Unable to Obtain Have you ever Experienced Delirium Tremens(DT)s?: Yes Have you ever undergone Alcohol Rehabilitation Treatment (i.e, inpt ot outpatient treatment programs)?: Yes Have you ever Experienced Blackouts?: Yes Have you ever Combined Alcohol with other Downers within the last 90 days?: Yes Have you ever Combined Alcohol with any other Substance of Abuse during the last 90 days?: Unable to Obtain Evidence of Increased Autonomic Activity (i.e. HR>120, tremor, sweating, agitation, nausea)?: No Result: 5
[2021-12-03] MEDS: Normal Saline 1,000 ML 1000 ML IV (13:08)
[2021-12-03 13:11] LABS: Abs Immature Grans 0.09 10^3/uL (0.0-0.06); Absolute Lymphocyte Count 1.68 10^3/uL (1.2-3.4); Absolute Monocyte Count 1.17 10^3/uL (0.1-0.8); Basophils % 1.3; Eosinophils % 0.6; HCT 45.2 % (40.0-50.0); HGB 15.3 g/dL (13.5-17.5); Immature Grans % 0.6; Lymphocytes % 11.7; MCH 31.4 pg (27.0-33.0); MCHC 33.8 % (32.0-36.0); MCV 92.6 fL (80-95); MPV 10.8 fL (8.0-11.0); Monocytes % 8.1; Neutrophils % 77.7; Nucleated RBC 0 %; Platelet Count 188 10^3/uL (130-400); RBC 4.88 10^6/uL (4.36-5.78); RDW 13.3 % (11.8-14.1); RDW-SD 45.6 fL
[2021-12-03 13:17] LABS: Source Nasal/Nares
[2021-12-03 13:19] LABS: Absolute Basophil Count 0.19 10^3/uL (0.0-0.2); Absolute Eosinophil Count 0.09 10^3/uL (0.0-0.7); Absolute Neutrophil Count 11.19 10^3/uL (1.2-6.7)
[2021-12-03 13:28] LABS: Salicylate 4.1 mg/dL (<2.8)
[2021-12-03 13:29] LABS: Acetaminophen < 2 ug/mL (10-30)
--- NOTE | 2021-12-03 13:31 | NUR.NOTE ---
After using the urinal the patient got himself back into bed lying down. Sandra Mcpherson Nursing Note:
[2021-12-03 13:33] LABS: ALT 36 U/L (16-63); AST 38 U/L (15-37); Albumin 4.8 g/dL (3.4-5.0); Alkaline Phosphatase 80 U/L (46-116); Anion Gap 17.5 mmol/L (3-11); BUN 8 mg/dL (7-18); Bilirubin, Total 0.7 mg/dL (0.2-1.0); CO2 21.5 mmol/L (21.0-32.0); CREATININE 0.9 mg/dL (0.70-1.30); Calcium 9.1 mg/dL (8.5-10.1); Chloride 97 mmol/L (98-107); ETHANOL BLOOD 50.1 mg/dL (<10); Glucose 84 mg/dL (74-106); Potassium 4.3 mmol/L (3.5-5.1); Sodium 136 mmol/L (136-145); TSH (W/Ref FT4) 7.54 uIU/mL (0.36-3.74); Total Protein 8.2 g/dL (6.4-8.2)
[2021-12-03 13:50] LABS: FREE T4 1.01 ng/dL (0.76-1.46)
[2021-12-03] MEDS: Ondansetron 4 MG/2 ML VIAL IVP (14:01)
[2021-12-03 14:26] LABS: Bilirubin Negative (Negative); Blood Trace-intact (Negative); Clarity Clear (Clear); Glucose Negative (Negative); Ketones 15 mg/dL (Negative); Leukocyte Esterase Negative (Negative); Nitrite Negative (Negative); Specific Gravity >= 1.030 (1.005-1.025); Urobilinogen 0.2 EU/dL (Up TO 0.2)
[2021-12-03 14:32] LABS: WBC 0-2 HPF (0-5)
[2021-12-03 14:33] LABS: Bacteria Rare HPF (Negative); C & S Indicated? No; Casts 0-2 Hyaline LPF (Negative); Crystals Negative HPF (Negative); Epithelial Cells Rare HPF (Negative); Mucus Moderate (Negative)
[2021-12-03 14:36] LABS: *AMPHETAMINES SCREEN URINE Negative (Negative); *BARBITURATES SCREEN URINE Negative (Negative); *BENZODIAZEPINES SCREEN URINE Positive (Negative); Cannabinoids THC Positive (Negative); Cocaine Screen,Urine Negative (Negative); METHADONE URINE SCREEN Negative (Negative); OPIATES URINE SCREEN Negative (Negative)
[2021-12-03 14:37] LABS: Tricyclic Antidepressants Negative (Negative)
[2021-12-03 14:49] LABS: COVID-19 PCR POSITIVE (Negative)
[2021-12-03] MEDS: buPROPion 75 MG TAB 150 MG PO ×2 (15:12→19:58)
[2021-12-03] MEDS: Levothyroxine 150 MCG TAB PO (15:12)
[2021-12-03] MEDS: chlordiazePOXIDE 25 MG CAP 50 MG PO (15:13)
[2021-12-03] MEDS: Thiamine 100 MG TAB PO (15:13)
[2021-12-03] MEDS: Cyanocobalamin 500 MCG TAB 1000 MCG PO (15:13)
[2021-12-03] MEDS: Gabapentin 600 MG TAB PO ×2 (15:13→19:58)
[2021-12-03] MEDS: Folic Acid 1 MG TAB PO (15:26)
[2021-12-03] MEDS: Metoprolol CR 50 MG TABCR PO (15:26)
[2021-12-03 19:58] VITALS: BP 125/93; PULSE 84; RESP 18; TEMP 36.4; O2SAT 96
--- NOTE | 2021-12-03 20:00 | DI.RAD_ITS ---
Exam(s) XR PORTABLE CHEST AP EXAM: XR PORTABLE CHEST AP CLINICAL HISTORY: covid +. TECHNIQUE: 2D digital imaging was performed. COMPARISON: CR XR PORTABLE CHEST AP from 09/25/2019 CR XR PORTABLE CHEST AP from 10/27/2021 FINDINGS: Heart size is upper normal. The mediastinum is not widened. Healed right-sided rib fractures are noted. Right lung is clear. Elevation left hemidiaphragm is again noted and there is now infiltrate in left lower lobe retrocardi ac region. No obvious pleural effusions IMPRESSION: Left lower lobe infiltrate. Also chronically elevated left hemidiaphragm DATA REPOSITORY: RADIATION DOSE DELIVERED: All CT scans at this facility use at least one of these dose optimization techniques: automated exposure control; mA and/or kV adjustment per patient size (includes targeted e xams where dose is matched to clinical indication); or iterative reconstruction.
--- NOTE | 2021-12-03 20:19 | HPE_ITS ---
Date of service: 12/03/21 Time of Service: 20:19 Assessment and Plan Assessment and plan (1) Suicidal ideation: Status: Acute Assessment and plan: Suicidal ideation in setting of homelessness, depression and alcoholism. Suicidal: usual Bupropion and Gabapentin. Await mental health input Alcoholism: banana bag, scheduled Librium and CIWA Leukocytosis noted, unclear significance: recheck in AM Anion gap: likely from alcohol, will recheck in AM COVID: asymptomatic. Will check baseline CXR. Would consider MAB History of Present Illness History of Present Illness Chief Complaint: suicidal ideation, alcoholism Narrative: 56 male alcoholic, homeless, last drink yesterday, h/o depression. Here stating he feels like killing himself, either by drinking or taking pills. It is reported he was seen by mental health, suitable for voluntary admission. Medical work up of note for white count 13, anion gap 17, EtOH 50 and UDS positive benzops and THC. Patient is incidentally COVID positive. Patient reports h/o alcohol withdrawal, though details unclear. Denies cough, CP or SOB. In ER received Librium 50 PO. States he feels safe here and at this timer does not intend to harm himself. I was asked to admit. Review of Systems All systems reviewed & are unremarkable except as noted in HPI and below PFSH All Active Problems Alcoholism (Acute) Alcohol intoxication (Acute) Suicidal ideation (Acute) Alcohol intoxication (Acute) Major depression (Chronic) Previous back surgery (Chronic) 10/2019 Ambulatory dysfunction (Acute) Discharge planning issues (Acute) Spinal stenosis of lumbar region (Acute) Fever (Acute) Alcohol withdrawal (Acute) Closed head injury (Acute) Discharge planning issues (Acute) DVT prophylaxis (Acute) Alcoholism /alcohol abuse (Chronic) H/O cervical spine surgery (Chronic) Hypothyroid (Chronic) HTN (hypertension) (Chronic) Bipolar disorder (Chronic) ADHD (Chronic) Family History Other Family history unobtainable due to patient's condition Social History Smoking/Tobacco Use Status: Current every day Tobacco Type: cigarettes Smoking risk assessment performed?: Yes Alcohol Intake: current Alcohol Intake frequency: 3 or more drinks per day Alcohol type: hard liquor and other Drug use: Never Substance use type: does not use Details: Patient states he drinks a half gallon Do you feel safe at home: Yes Do you feel safe in your relationship?: Yes Additional Social history: patient states he has no where to go and does not feel safe if he were to leave the hospital. Meds Allergies and Home Medications Allergies Allergy/AdvReac Type Severity Reaction Status Date / Time carbamazepine [From Tegretol] Allergy Mild Skin Rash Unverified 12/03/21 00:07 Home Medications Medication Instructions Recorded Confirmed Type levothyroxine [Synthroid] 150 mcg PO DAILY 08/31/18 12/03/21 History bupropion HCl 150 mg PO TID 08/18/19 12/03/21 History cyanocobalamin (vitamin B-12) 1,000 mcg PO DAILY 08/18/19 12/03/21 History [Vitamin B-12] folic acid 1 mg PO DAILY 08/18/19 12/03/21 History metoprolol succinate 50 mg PO DAILY 08/18/19 12/03/21 History thiamine HCl (vitamin B1) 100 mg PO DAILY 10/01/19 12/03/21 History tamsulosin [Flomax] 0.4 mg PO DAILY 01/29/20 12/03/21 History gabapentin 600 mg PO TID 12/03/21 12/03/21 History Exam Narrative Exam Narrative: 125/93, 84, 36.4, 18, 96% RA. HEENT atraumatic; neck supple; lungs clear; heart RRR; abdomen soft and NT; extremities w/o edema; neuro Ox3, lucid, flat affect, moves all 4s Results Labs Result diagrams: 12/03/21 13:00 12/03/21 13:00 Labs: Laboratory Results - last 24 hr 12/03/21 12/03/21 12/03/21 13:00 13:00 13:00 WBC 14.40 H RBC 4.88 Hgb 15.3 Hct 45.2 MCV 92.6 MCH 31.4 MCHC 33.8 RDW 13.3 Plt Count 188 MPV 10.8 Immature Gran % 0.6 Neutrophils % 77.7 Lymphocytes % 11.7 Monocytes % 8.1 Eosinophils % 0.6 Basophils % 1.3 Nucleated RBC % 0 Absolute Neutrophils 11.19 H Absolute Lymphocytes 1.68 Absolute Monocytes 1.17 H Absolute Eosinophils 0.09 Absolute Basophils 0.19 Sodium 136 Potassium 4.3 D Chloride 97 L Carbon Dioxide 21.5 Anion Gap 17.5 H BUN 8 Creatinine 0.9 Estimated GFR/1.73 m2 >= 60.00 Glucose 84 Calcium 9.1 Total Bilirubin 0.7 AST 38 H ALT 36 Alkaline Phosphatase 80 Total Protein 8.2 Albumin 4.8 TSH 7.54 H Free T4 1.01 Urine Color Urine Clarity Urine pH Ur Specific Lockhart Urine Protein Urine Ketones Urine Blood Urine Nitrite Urine Bilirubin Urine Urobilinogen Ur Leukocyte Esterase Urine RBC Urine WBC Ur Epithelial Cells Urine Crystals Urine Bacteria Urine Casts Urine Mucus Ur Culture Indicated? Urine Glucose Salicylates 4.1 Urine Opiates Screen Urine Methadone Screen Acetaminophen < 2 Ur Barbiturates Screen Ur Tricyclics Screen Ur Amphetamines Screen U Benzodiazepines Scrn Urine Cocaine Screen Ur THC Screen Ethyl Alcohol 50.1 H COVID-19 Source SARS-CoV-2 (PCR) 12/03/21 12/03/21 12/03/21 13:15 14:10 14:10 WBC RBC Hgb Hct MCV MCH MCHC RDW Plt Count MPV Immature Gran % Neutrophils % Lymphocytes % Monocytes % Eosinophils % Basophils % Nucleated RBC % Absolute Neutrophils Absolute Lymphocytes Absolute Monocytes Absolute Eosinophils Absolute Basophils Sodium Potassium Chloride Carbon Dioxide Anion Gap BUN Creatinine Estimated GFR/1.73 m2 Glucose Calcium Total Bilirubin AST ALT Alkaline Phosphatase Total Protein Albumin TSH Free T4 Urine Color Yellow Urine Clarity Clear Urine pH 6.0 Ur Specific Lockhart >= 1.030 H Urine Protein 100 H Urine Ketones 15 H Urine Blood Trace-intact H Urine Nitrite Negative Urine Bilirubin Negative Urine Urobilinogen 0.2 Ur Leukocyte Esterase Negative Urine RBC 3-5 H Urine WBC 0-2 Ur Epithelial Cells Rare Urine Crystals Negative Urine Bacteria Rare Urine Casts 0-2 Hyaline Urine Mucus Moderate Ur Culture Indicated? No Urine Glucose Negative Salicylates Urine Opiates Screen Negative Urine Methadone Screen Negative Acetaminophen Ur Barbiturates Screen Negative Ur Tricyclics Screen Negative Ur Amphetamines Screen Negative U Benzodiazepines Scrn Positive A Urine Cocaine Screen Negative Ur THC Screen Positive A Ethyl Alcohol COVID-19 Source Nasal/Nares SARS-CoV-2 (PCR) POSITIVE A* Last Vital Signs Temp 36.4 C L 12/03/21 19:58 Pulse 84 12/03/21 19:58 Resp 18 01/23/22 19:58 BP 125/93 H 12/03/21 19:58 Pulse Ox 96 12/03/21 19:58 PAWSS Have you Been Recently Intoxicated or Drunk Within the Last 30 days?: Yes Have you Ever Experienced Previous Episodes of Alcohol Withdrawal?: Yes Have you ever Experienced Withdrawal Seizures?: Unable to Obtain Have you ever Experienced Delirium Tremens(DT)s?: Yes Have you ever undergone Alcohol Rehabilitation Treatment (i.e, inpt ot outpatient treatment programs)?: Yes Have you ever Experienced Blackouts?: Yes Have you ever Combined Alcohol with other Downers within the last 90 days?: Yes Have you ever Combined Alcohol with any other Substance of Abuse during the last 90 days?: Unable to Obtain Evidence of Increased Autonomic Activity (i.e. HR>120, tremor, sweating, agitation, nausea)?: No Result: 5
--- NOTE | 2021-12-03 20:51 | DI.VRAD_ITS ---
PROCEDURE INFORMATION: Exam: XR Chest Exam date and time: 12/03/2021 8:06 PM Age: 56 years old Clinical indication: Condition or disease; Patient HX: Covid + TECHNIQUE: Imaging protocol: XR of the chest. Views: 1 view. COMPARISON: CR XR PORTABLE CHEST AP 10/27/2021 11:30 AM FINDINGS: Lungs: There is new patchy left basilar airspace opacity. Also noted streaky opacity within the medial right lung base. No focal consolidation in the upper lobes. Pleural spaces: No visible pleural effusion. No pneumothorax. Heart/Mediastinum: Cardiomediastinal contours within normal limits. Diaphragm: Asymmetric elevation of the left hemidiaphragm, similar to prior. Bones/joints: Redemonstrated old healed right rib fractures. No acute osseous finding. IMPRESSION: 1. New patchy opacity in the left lung base concerning for infection versus atelectasis. 2. Streaky opacity in the medial right lung base suspected more likely to represent subsegmental atelectasis, however additional infection not excluded. Dictated and Authenticated by: Suraj Hart MD. Ordering:WARREN Marino MD
[2021-12-03 22:17] VITALS: BP 117/77; PULSE 82; RESP 20; TEMP 36.7; O2SAT 93
[2021-12-03] MEDS: chlordiazePOXIDE 25 MG CAP PO (22:28)
[2021-12-04] MEDS: MAGNESIUM SULFATE 8.12 MEQ, MULTIVITAMIN 10 ML, THIAMINE 100 MG, FOLIC ACID 1 MG in Nor... 168.867 MG IV (00:32)
[2021-12-04] MEDS: Normal Saline Flush 10 ML SYR IVP ×2 (00:32→17:24)
[2021-12-04 02:04] VITALS: BP 123/85; PULSE 86; RESP 20; TEMP 36.5; O2SAT 93
[2021-12-04 06:23] VITALS: BP 142/86; PULSE 65; RESP 20; TEMP 35.7; O2SAT 96
[2021-12-04 07:22] LABS: HCT 40.5 % (40.0-50.0); HGB 13.4 g/dL (13.5-17.5); MCH 31.3 pg (27.0-33.0); MCHC 33.1 % (32.0-36.0); MCV 94.6 fL (80-95); MPV 11.1 fL (8.0-11.0); Platelet Count 141 10^3/uL (130-400); RBC 4.28 10^6/uL (4.36-5.78); RDW 13.8 % (11.8-14.1); RDW-SD 48.1 fL
[2021-12-04 07:25] LABS: WBC 7.87 10^3/uL (4.4-10.8)
[2021-12-04 07:38] LABS: Anion Gap 8.4 mmol/L (3-11); BUN 20 mg/dL (7-18); CO2 26.6 mmol/L (21.0-32.0); CREATININE 0.9 mg/dL (0.70-1.30); Calcium 8.7 mg/dL (8.5-10.1); Chloride 104 mmol/L (98-107); Glucose 96 mg/dL (74-106); Potassium 3.8 mmol/L (3.5-5.1); Sodium 139 mmol/L (136-145)
[2021-12-04] MEDS: chlordiazePOXIDE 25 MG CAP PO ×4 (08:17→20:30)
[2021-12-04] MEDS: Metoprolol CR 50 MG TABCR PO (08:17)
[2021-12-04] MEDS: Gabapentin 600 MG TAB PO ×3 (08:17→20:31)
[2021-12-04] MEDS: Thiamine 100 MG TAB PO (08:17)
[2021-12-04] MEDS: Cyanocobalamin 500 MCG TAB 1000 MCG PO (08:17)
[2021-12-04] MEDS: Folic Acid 1 MG TAB PO (08:17)
[2021-12-04] MEDS: buPROPion 75 MG TAB 150 MG PO ×3 (08:18→20:30)
[2021-12-04] MEDS: REMDESIVIR 200 MG in Normal Saline 250 ML 250 MG IVPB (10:15)
[2021-12-04 12:00] VITALS: BP 151/99; PULSE 65; RESP 18; TEMP 36.7; O2SAT 95
[2021-12-04] MEDS: Acetaminophen 325 MG TAB 650 MG PO (12:10)
--- NOTE | 2021-12-04 15:27 | PGE_ITS ---
Date of Service Date of service: 12/04/21 Time of Service: 16:05 Assessment and Plan Assessment and plan (1) Pleuritic chest pain: Status: Acute Assessment and plan: Given diagnosis of COVID-19, will obtain D-dimer, troponin, procalcitonin (as does have an infiltrate on CXR), CRP, ferritin, EKG. I have ordered IS and acapella. Provide antitussives. (2) Suicidal ideation: Status: Acute Assessment and plan: Recurrent, persistent. The patient cannot be admitted to a psychiatric facility until his COVID-19 has resolved, per care management. Will continue suicide precautions and consult psychiatry. (3) COVID-19: Status: Acute Assessment and plan: With evidence of infiltrates on CXR. Not requiring oxygen but reports pleuritic chest pain and diarrhea. Checking procalcitonin, CRP, Ferritin, d-dimer. Started on prophylactic course of remdesivir. Supplement vitamin C, D, zinc. Concern for PE - f/u d-dimer, may need CTA. Encourage IS, acapella. (4) Alcoholism: Status: Acute Assessment and plan: Not currently withdrawing from alcohol while on cur rent librium dose. Monitor CIWA. Continue MVI, thiamine. (5) Major depression: Status: Chronic Assessment and plan: As above. Consult psychiatry Qualifiers: Active/Remission status: currently active Major depression episode severity: severe Major depression recurrence: recurrent Psychotic features: without psychotic features Qualified Code(s): F33.2 - Major depressive disorder, recurrent severe without psychotic features (6) DVT prophylaxis: Status: Acute Assessment and plan: SC enoxaparin - ppx dose as not here for COVID-19. (7) Discharge planning issues: Status: Acute Assessment and plan: Full code Currently awaiting a voluntary admission to a psychiatric bed. Subjective Subjective Interval history since last seen: I've been so freaking depressed. Reports relentless thoughts of self harm. Spoke with manager of disaster recovery today. Nothing's really changed. Drinking makes him feel better. He doesn't know what else to do. I don't want to do it (live for the next 15 years like this. I'm tired. I'm tired. Has been couch surfing. States he is losing friends over this. As far as COVID, he does not feel too bad. Reports a dry cough. I don't feel bad. Chest feels a little sore when he takes a breath. Got vaccinated x 2, has not yet gotten a booster. Nauseated, Diarrhea. Exam Narrative Exam Narrative: Today's visit happened over the phone due to stability of patient's condition and his diagnosis of COVID-19 General: Speaking in full sentenes without dyspnea/tachypnea. Sounds depressed, makes a number of statements expressing suicidal ideation. Objective Last Vital Signs Temp 36.7 C 12/04/21 12:00 Pulse 65 12/04/21 12:00 Resp 18 12/04/21 12:00 BP 151/99 H 12/04/21 12:00 Pulse Ox 95 12/04/21 12:00 Laboratory Results - last 24 hr 12/04/21 12/04/21 06:30 06:30 WBC 7.87 D RBC 4.28 L Hgb 13.4 L Hct 40.5 MCV 94.6 MCH 31.3 MCHC 33.1 RDW 13.8 Plt Count 141 MPV 11.1 H Sodium 139 Potassium 3.8 Chloride 104 Carbon Dioxide 26.6 Anion Gap 8.4 BUN 20 H D Creatinine 0.9 Estimated GFR/1.73 m2 >= 60.00 Glucose 96 Calcium 8.7 PAWSS Have you Been Recently Intoxicated or Drunk Within the Last 30 days?: Yes Have you Ever Experienced Previous Episodes of Alcohol Withdrawal?: Yes Have you ever Experienced Withdrawal Seizures?: Unable to Obtain Have you ever Experienced Delirium Tremens(DT)s?: Yes Have you ever undergone Alcohol Rehabilitation Treatment (i.e, inpt ot outpatient treatment programs)?: Yes Have you ever Experienced Blackouts?: Yes Have you ever Combined Alcohol with other Downers within the last 90 days?: Yes Have you ever Combined Alcohol with any other Substance of Abuse during the last 90 days?: Unable to Obtain Evidence of Increased Autonomic Activity (i.e. HR>120, tremor, sweating, agitation, nausea)?: No Result: 5
--- NOTE | 2021-12-04 15:30 | RT.EKG_ITS ---
APPROVED REPORT Exam: Resting ECG Reason for Exam: chest pain Patient Location: I HR:68 bpm ECG Measurements Heart Rate 68 AXIS SD 150 P 39 QRSd 85 QRS -13 QT 354 T 51 QTc 377 Conclusion Sinus rhythm...normal P axis, V-rate 60- 99
[2021-12-04 15:45] VITALS: BP 131/96; PULSE 69; RESP 20; TEMP 36.9; O2SAT 95
[2021-12-04 16:34] LABS: C-Reactive Protein 0.38 mg/dL (0.0-0.3); Troponin I < 50 ng/L (<or=60)
[2021-12-04 16:51] LABS: D-Dimer 402 ng/mlFEU (<500)
[2021-12-04 17:03] LABS: Ferritin 139 ng/mL (26-388)
[2021-12-04 17:06] LABS: Procalcitonin 0.1 ng/mL
[2021-12-04] MEDS: Ipratropium/Albuterol 4 GM 120 PUFF INH IH ×2 (17:24→20:31)
[2021-12-04] MEDS: Enoxaparin 40 MG/0.4 ML SYR SC (17:25)
--- NOTE | 2021-12-04 17:45 | PDOC.CMPRO ---
- If Service Date Differs Date of service: 12/04/21 Time of Service: 17:45 Care Management Progress Note S/O: Harshal is being closely monitored under Covid 19 precautions by a 1:1 due to his suicidal ideation. Per report, he remains on CIWA protocol, although his scores have been 0-1 since admission. CM reached out to [facility], who will wait until he is no longer on CIWA protocol to screen him. Per report, he does not have any Covid 19 symptoms, although he tested positive in the ED. CM connected him with a disaster recovery coordinator today, and he engaged, but was concerned about being discharged, as he feels that he would benefit from inpatient psychiatric stabilization. Per report, he feels safe while at the hospital, but does not think he can keep himself safe at home if discharged. His plan is to use alcohol and/or pills to overdose. requested a psychiatric consultation, which was coordinated for this evening at 8pm. CM will continue to follow. A: Harshal is a 56 year old male admitted to [facility] on 12/03/21 for SI, alcoholism, COVID. P: Harshal will be evaluated by [facility] once he is medically cleared to determine if he meets criteria for inpatient psychiatric stabilization vs returning to the community with a contract for safety. He is currently homeless, but has previously lived at [facility]. Transportation will be determined by disposition. He will follow up with his PCP and discharge plan of care. CM will continue to follow.
--- NOTE | 2021-12-04 18:11 | PDOC.CMSAFE ---
- If Service Date Differs Date of service: 12/04/21 Time of Service: 18:11 Care Management Safety Plan Status: Interim - Reason for Wait Reason for Wait: Inpatient Admission VOLUNTARY FOR INPATIENT PSYCHIATRIC STABILIZATION. Patient is appropriate in all interactions since arriving at [facility]; Pt has demonstrated appropriate coping and communication skills, has articulated his needs and concerns and is fully engaged during staff interactions. Safety plan has been established with patient, and care team, to adhere to patient goals, identify restrictions based on behavioral status, address nutrition, and determine allowed personal belongings, tools for hygiene and personal care. Determine level of activity including ambulation, level of supervision, visitors, and determine privileges based on behaviors and level of engagement by pt. SAFETY PLAN: 1. Will remain on suicide precautions. In Paper Clothes 2. Will remain in room under direct supervision of one-on-one staff at all times provided by [employer], MEDICAL TERRITORY MANAGER, TELECINE OPERATOR pattern shop supervisor. 3. May have paper cups, plates, finger foods as well as a cardboard spoon with which to eat meals. 4. Follow [facility] Management of the Admitted Behavioral Health Patient policy. 5. May shower with supervision and at RN discretion. 6. No personal belongings 7. Visitors-No visitors at this time 8. Activities: Soft cart items, music tablet, coloring book, crayons, television if available, and other activities at RN discretion. 9. Bathroom privileges may use bathroom in room without limitation on Med/Surg. 10. Phone: May use hospital phone at RN discretion. 11. Due to VOLUNTARY status, if patient wishes to leave [facility], staff will contact [facility] Crisis Screener ([phone]) and On-Call Applications Trainer ([phone]) as soon as possible. In the event of elopement, notify [facility] Police ([phone]). Patient is currently voluntarily at [facility] and seeking inpatient admission when a bed becomes available. [facility] Frontline Nailhead Setter will continue seeking placement. Please contact the Wheel Aligner Applications Trainer ([phone]) and [facility] Nailhead Setter ([phone]) for any needed changes in the Safety Plan. Safety plan has been provided to interdepartmental care team.
[2021-12-04] MEDS: Benzonatate 200 MG CAP PO (20:30)
[2021-12-04] MEDS: Ascorbic Acid 500 MG TAB 1000 MG PO (20:30)
--- NOTE | 2021-12-04 21:24 | W.PSYCHCONSU ---
Date of service: 12/04/21 Time of Service: 21:24 History of Present Illness History of Present Illness Chief Complaint: Relentless thoughts of ending my life Narrative: 4 hour telepsych consultation reqyested by Dr. Tilley for psychiatic evaluation and treatment recommendations. On exam, he reports a lifelong history of depression dating to childhood after the of his father at age 8. He reports that the last 12 months have been paarticularly difficult. He has been homeless and transient. He has also been drinking heavily (upto 1.5 liters of liquor per da). He has a history of withdrawal seizures as well as delirium tremens. He endorses prominent feelings of hopelessness and helplessness about his current situation. Prior to coming into the hospital, he reported having plans to get his presctipyions refilled and overdose on his medications in combination with alcohol. This plan was interrupted when he fell in the street and was brought to the ED by EMS. He reports thress serious suicide attempts inthe past, all by overdose. He has also had multiple medically supervised alcohol detoxes, some requiring ICU care. He denies any history of IV drug use. He also denies use of hard drugs, He smoke cannabis occasionall and smokes about 1/2 pack of cigarettes per day. He was recently admitted to [facility] psychiatry and sicharge about one week prior. He has had multiple medication trials in the past including prozac, paxil, zoloft, depakote, lithium, tegretol, lamictal, risperidone and olanzapine. The only medication he has consistently found helpful has been wellbutrin. He has had limited experiece with aumentation of combination approaches to treating depression. He has had periods of prolonged abstinence from alcohol use. He has used naltrexone in the past and genereally done well. He has been well connected to recovery supports in the past and done well is longer term structures programs such as sober house and residential treatment. Complicating his current situation are homeless, transience, chronic pain, and lack of established medical provider relationships. Assessment and Plan Assessment and plan (1) Alcoholism: Status: Acute Assessment and plan: Continue alcohol detox protocol Naltrexone 50 mg daily (consider restarting vivitrol if indicated) (2) Suicidal ideation: Status: Acute Assessment and plan: Continue safety protocols (3) Major depression: Status: Chronic Assessment and plan: D/C sertraline; start venlaxine XR 150 mg; after 3 days, incresase to 300 mg daily Continue bupropion 150 mg TID Disposition: inpatient psychiatry for further treatment, stabilization, and discharge planning Qualifiers: Major depression recurrence: recurrent Active/Remission status: currently active Major depression episode severity: severe Psychotic features: without psychotic features Qualified Code(s): F33.2 - Major depressive disorder, recurrent severe without psychotic features (4) COVID-19: Status: Acute Assessment and plan: As per protocols Review of Systems All systems reviewed & are unremarkable except as noted in HPI and below PFSH All Active Problems Discharge planning issues (Acute) DVT prophylaxis (Acute) Pleuritic chest pain (Acute) COVID-19 (Acute) Alcoholism (Acute) Alcohol intoxication (Acute) Suicidal ideation (Acute) Alcohol intoxication (Acute) Major depression (Chronic) Previous back surgery (Chronic) 10/2019 Ambulatory dysfunction (Acute) Discharge planning issues (Acute) Spinal stenosis of lumbar region (Acute) Fever (Acute) Alcohol withdrawal (Acute) Closed head injury (Acute) Discharge planning issues (Acute) DVT prophylaxis (Acute) Alcoholism /alcohol abuse (Chronic) H/O cervical spine surgery (Chronic) Hypothyroid (Chronic) HTN (hypertension) (Chronic) Bipolar disorder (Chronic) ADHD (Chronic) Family History Other Family history unobtainable due to patient's condition Social History Smoking/Tobacco Use Status: Current every day Tobacco Type: cigarettes Smoking risk assessment performed?: Yes Alcohol Intake: current Alcohol Intake frequency: 3 or more drinks per day Alcohol type: hard liquor and other Drug use: Never Substance use type: does not use Details: Patient states he drinks a half gallon Do you feel safe at home: Yes Do you feel safe in your relationship?: Yes Additional Social history: patient states he has no where to go and does not feel safe if he were to leave the hospital. Exam Narrative Exam Narrative: No apparent distress. Hospital garb. Adequate grooming. Speech is loud with gruff tone. Mood is depressed and irritable. Affect is mood congruent. Thought process is logical and coherent. Thought content is notable for hopelessness and helplessness, thoughts of suicide, with intent and plan. No psychosis noted. Intelligence is average. Insight and judgment are fair. Results Last Vital Signs Temp 36.9 C 12/04/21 15:45 Pulse 69 12/04/21 15:45 Resp 20 12/04/21 15:45 BP 131/96 H 12/04/21 15:45 Pulse Ox 95 12/04/21 15:45 Labs Result diagrams: 12/04/21 06:30 12/04/21 06:30 Labs: Laboratory Results - last 24 hr 12/04/21 12/04/21 12/04/21 06:30 06:30 16:05 WBC 7.87 D RBC 4.28 L Hgb 13.4 L Hct 40.5 MCV 94.6 MCH 31.3 MCHC 33.1 RDW 13.8 Plt Count 141 MPV 11.1 H D-Dimer Sodium 139 Potassium 3.8 Chloride 104 Carbon Dioxide 26.6 Anion Gap 8.4 BUN 20 H D Creatinine 0.9 Estimated GFR/1.73 m2 >= 60.00 Glucose 96 Calcium 8.7 Ferritin 139 Troponin I < 50 C-Reactive Protein 0.38 H Procalcitonin 12/04/21 12/04/21 16:05 16:05 WBC RBC Hgb Hct MCV MCH MCHC RDW Plt Count MPV D-Dimer 402 Sodium Potassium Chloride Carbon Dioxide Anion Gap BUN Creatinine Estimated GFR/1.73 m2 Glucose Calcium Ferritin Troponin I C-Reactive Protein Procalcitonin 0.1
[2021-12-04 23:33] VITALS: BP 132/92; PULSE 73; RESP 18; TEMP 36.4; O2SAT 94
[2021-12-05] MEDS: Acetaminophen 325 MG TAB 650 MG PO ×2 (04:09→11:22)
[2021-12-05 04:16] VITALS: BP 131/89; PULSE 68; RESP 18; TEMP 36.8; O2SAT 94
[2021-12-05 07:20] LABS: Abs Immature Grans 0.02 10^3/uL (0.0-0.06); Absolute Basophil Count 0.18 10^3/uL (0.0-0.2); Absolute Eosinophil Count 0.29 10^3/uL (0.0-0.7); Absolute Lymphocyte Count 1.78 10^3/uL (1.2-3.4); Absolute Monocyte Count 0.99 10^3/uL (0.1-0.8); Absolute Neutrophil Count 3.46 10^3/uL (1.2-6.7); Basophils % 2.7; Eosinophils % 4.3; HCT 38.3 % (40.0-50.0); HGB 12.5 g/dL (13.5-17.5); Immature Grans % 0.3; Lymphocytes % 26.5; MCH 31.3 pg (27.0-33.0); MCHC 32.6 % (32.0-36.0); MCV 95.8 fL (80-95); MPV 11.3 fL (8.0-11.0); Monocytes % 14.7; Neutrophils % 51.5; Nucleated RBC 0 %; Platelet Count 115 10^3/uL (130-400); RDW 13.4 % (11.8-14.1); RDW-SD 47.8 fL; WBC 6.72 10^3/uL (4.4-10.8)
[2021-12-05 07:42] LABS: INR 1.1 (0.9-1.1); Prothrombin Time 10.8 sec (9.3-11.0)
[2021-12-05 07:52] LABS: Anion Gap 9.8 mmol/L (3-11); BUN 21 mg/dL (7-18); C-Reactive Protein 0.62 mg/dL (0.0-0.3); CO2 25.2 mmol/L (21.0-32.0); CREATININE 1.1 mg/dL (0.70-1.30); Calcium 8.1 mg/dL (8.5-10.1); Chloride 101 mmol/L (98-107); Glucose 95 mg/dL (74-106); Magnesium 1.6 mg/dL (1.8-2.4); PHOSPHORUS 3.2 mg/dL (2.6-4.7); Potassium 4.1 mmol/L (3.5-5.1); Sodium 136 mmol/L (136-145)
[2021-12-05 08:12] LABS: D-Dimer 279 ng/mlFEU (<500)
[2021-12-05 08:32] LABS: Ferritin 126 ng/mL (26-388); Folate 17.9 ng/mL (8.6-20.0); Vitamin B12 767 pg/mL (193-986)
[2021-12-05] MEDS: Ascorbic Acid 500 MG TAB 1000 MG PO ×2 (08:56→20:35)
[2021-12-05] MEDS: buPROPion 75 MG TAB 150 MG PO ×3 (08:56→20:35)
[2021-12-05] MEDS: Benzonatate 200 MG CAP PO ×3 (08:56→20:35)
[2021-12-05] MEDS: Cyanocobalamin 500 MCG TAB 1000 MCG PO (08:57)
[2021-12-05] MEDS: chlordiazePOXIDE 25 MG CAP PO ×4 (08:57→20:35)
[2021-12-05] MEDS: Thiamine 100 MG TAB PO (08:58)
[2021-12-05] MEDS: Folic Acid 1 MG TAB PO (08:58)
[2021-12-05] MEDS: Metoprolol CR 50 MG TABCR PO (08:58)
[2021-12-05] MEDS: Gabapentin 600 MG TAB PO ×3 (08:58→20:36)
[2021-12-05] MEDS: REMDESIVIR 100 MG in Normal Saline 250 ML 250 MG IVPB (08:59)
[2021-12-05] MEDS: Normal Saline Flush 10 ML SYR IVP ×2 (08:59→20:36)
[2021-12-05] MEDS: Zinc Sulfate 220 MG TAB PO (09:01)
[2021-12-05] MEDS: Cholecalciferol (Vitamin D3) 1,000 UNIT TAB 2000 UNITS PO (09:01)
[2021-12-05] MEDS: Multivitamin TAB 1 TAB PO (09:01)
[2021-12-05] MEDS: Ipratropium/Albuterol 4 GM 120 PUFF INH IH ×4 (09:29→22:27)
[2021-12-05 09:30] VITALS: BP 140/100; PULSE 74; RESP 16; TEMP 36.9; O2SAT 96
[2021-12-05] MEDS: Venlafaxine 150 MG CAPCR PO (11:22)
[2021-12-05] MEDS: MAGNESIUM SULFATE 2 GM/50 ML BAG IVPB (11:22)
--- NOTE | 2021-12-05 14:24 | PDOC.MHPN2 ---
Date of service: 12/05/21 Time of Service: 13:30 Mental Health Progress Note Progress Note Progress Note: Presenting Issue: Pt arrive to ED via [facility] for endorsing SI. Precipitating Factors Client is homeless and abuses alcohol. He reports that he feels depressed and anxious, and is endorsing SI with a plan. Disposition * Behavior: Calm, cooperative, depressive presentation. *Eye Contact: Client maintains prolonged eye contact. *Mood: Client reports his mood is depressed and anxious. He reports SI with a plan to drink himself to or take pills, drink a fifth and in a snowbank. He reports why don't I just now...If I'm jenniffer I would. *Affect: Normal affect. *Appetite: Appetite was not assessed at this time. *Sleep(troubel falling/staying asleep): Sleep was not assessed at this time. Plan(please elaborate and include that physician is consulted with plan and/or placement): Due to acuity level, the pt is unable to safety plan home at this time. Pt will be assessed daily by [facility] until psychiatric placement is found, or the pt is able to safety plan back into the community. Due to positive covid results, we are unable to send [facility] until 12.08.21. Clinician's Name , Title, and Signature SHERRIE Peralta Make sure that you are photocopying and submitting this to [facility] records Dept. to be scanned into chart.
--- NOTE | 2021-12-05 16:55 | W.PM.PROGNOT ---
Date of Service Date of service: 12/05/21 Time of Service: 16:55 Assessment and Plan Assessment and plan (1) Suicidal ideation: Status: Acute Assessment and plan: Recurrent, persistent. Evaluated by Dr Jaramillo. Started on venlafaxine in addition to bupropion. Continue suicide precautions. Will need psychiatric placement. (2) COVID-19: Status: Acute Assessment and plan: With evidence of infiltrates on CXR. Stable. Not requiring O2. Pleuritic chest pain is due to COVID-19 - d-dimer negative, EKG negative.. Continue prophylactic course of remdesivir. Supplement vitamin C, D, zinc. Encourage IS, acapella,proning. (3) Pleuritic chest pain: Status: Acute Assessment and plan: Due to covid-19. PE ruled out with a negative d-dimer. (4) Alcoholism: Status: Acute Assessment and plan: Not currently withdrawing from alcohol while on current librium dose. Monitor CIWA. Continue MVI, thiamine. (5) Major depression: Status: Chronic Assessment and plan: As above. Qualifiers: Major depression recurrence: recurrent Active/Remission status: currently active Major depression episode severity: severe Psychotic features: without psychotic features Qualified Code(s): F33.2 - Major depressive disorder, recurrent severe without psychotic features (6) DVT prophylaxis: Status: Acute Assessment and plan: SC enoxaparin - ppx dose as not here for COVID-19. (7) Discharge planning issues: Status: Acute Assessment and plan: Full code Currently awaiting a voluntary admission to a psychiatric bed. Subjective Subjective Interval history since last seen: Evaluated by Dr Jaramillo. Liked him. Feels about the same. Feels it in the lungs. Coughing a little. A little of a runny nose. Nothing comes up when he coughs. Dry cough. Lungs are sore. No diarrhea. Constipated. Life is chaotic. No stability. He is willing to see what the new medication combination will do. Exam Narrative Exam Narrative: Patient was evaluated over the phone due to medical stability and his diagnosis of COVID-19. Sounded like he had nasal congestion. Fluent sensical speech. No dyspnea/tachypnea/cough while talking to me. Continues to express depressive/suicidal ideation. Objective Last Vital Signs Temp 36.9 C 12/05/21 09:30 Pulse 74 12/05/21 09:30 Resp 16 12/05/21 09:30 BP 140/100 H 12/05/21 09:30 Pulse Ox 96 12/05/21 09:30 Laboratory Results - last 24 hr 12/04/21 12/04/21 12/05/21 16:05 16:05 06:45 WBC RBC Hgb Hct MCV MCH MCHC RDW Plt Count MPV Immature Gran % Neutrophils % Lymphocytes % Monocytes % Eosinophils % Basophils % Nucleated RBC % Absolute Neutrophils Absolute Lymphocytes Absolute Monocytes Absolute Eosinophils Absolute Basophils PT INR D-Dimer Sodium 136 Potassium 4.1 Chloride 101 Carbon Dioxide 25.2 Anion Gap 9.8 BUN 21 H Creatinine 1.1 Estimated GFR/1.73 m2 >= 60.00 Glucose 95 Calcium 8.1 L Phosphorus 3.2 Magnesium 1.6 L Ferritin 139 126 C-Reactive Protein 0.62 H Vitamin B12 767 Folate 17.9 Procalcitonin 0.1 12/05/21 12/05/21 06:45 06:45 WBC 6.72 RBC 4.00 L Hgb 12.5 L Hct 38.3 L MCV 95.8 H MCH 31.3 MCHC 32.6 RDW 13.4 Plt Count 115 L MPV 11.3 H Immature Gran % 0.3 Neutrophils % 51.5 Lymphocytes % 26.5 Monocytes % 14.7 Eosinophils % 4.3 Basophils % 2.7 Nucleated RBC % 0 Absolute Neutrophils 3.46 Absolute Lymphocytes 1.78 Absolute Monocytes 0.99 H Absolute Eosinophils 0.29 Absolute Basophils 0.18 PT 10.8 INR 1.1 D-Dimer 279 Sodium Potassium Chloride Carbon Dioxide Anion Gap BUN Creatinine Estimated GFR/1.73 m2 Glucose Calcium Phosphorus Magnesium Ferritin C-Reactive Protein Vitamin B12 Folate Procalcitonin PAWSS Have you Been Recently Intoxicated or Drunk Within the Last 30 days?: Yes Have you Ever Experienced Previous Episodes of Alcohol Withdrawal?: Yes Have you ever Experienced Withdrawal Seizures?: Unable to Obtain Have you ever Experienced Delirium Tremens(DT)s?: Yes Have you ever undergone Alcohol Rehabilitation Treatment (i.e, inpt ot outpatient treatment programs)?: Yes Have you ever Experienced Blackouts?: Yes Have you ever Combined Alcohol with other Downers within the last 90 days?: Yes Have you ever Combined Alcohol with any other Substance of Abuse during the last 90 days?: Unable to Obtain Evidence of Increased Autonomic Activity (i.e. HR>120, tremor, sweating, agitation, nausea)?: No Result: 5
[2021-12-05] MEDS: Enoxaparin 40 MG/0.4 ML SYR SC (17:52)
--- NOTE | 2021-12-05 17:57 | CMPROGNOTE_ITS ---
- If Service Date Differs Date of service: 12/05/21 Time of Service: 17:57 Care Management Progress Note S/O: Harshal continues to be monitored closely due to his suicidal ideation. He met with [facility] today to be screened, as he is medically cleared, per MD. Per [facility], Harshal meets criteria to be held for inpatient psychiatric admission. He reports that his plan is to take pills, drink a fifth and in a snowbank. [facility] today to discuss their admission process for crys saumyajennifer's who have tested positive for Covid 19. BR stated that they will not accept a referral until he has completed his 5 days of quarantine, and he is not having Covid symptoms. Per RN, he is asymptomatic at this time for Covid. [facility] will continue to screen him daily, as he may be able to create a safety plan, if indicated, during his quarantine period. He is voluntary and agreeable to seeking inpatient admission at a psychiatric facility at this time. CM will continue to follow. A: Harshal is a 56 year old male admitted to [facility] on 12/03/21 for SI, alcoholism, COVID. P: Harshal was evaluated by [facility] and it was determined that he meets criteria for inpatient psychiatric stabilization. He is currently homeless, but has previously lived at [facility]. Transportation will be determined by disposition. He will follow up with his PCP and discharge plan of care. CM will continue to follow.
--- NOTE | 2021-12-05 18:37 | PDOC.CMSAFE ---
- If Service Date Differs Date of service: 12/05/21 Time of Service: 18:37 Care Management Safety Plan Status: Voluntary - Reason for Wait Reason for Wait: Inpatient Admission VOLUNTARY FOR INPATIENT PSYCHIATRIC STABILIZATION. Patient is appropriate in all interactions since arriving at [facility]; Pt has demonstrated appropriate coping and communication skills, has articulated his needs and concerns and is fully engaged during staff interactions. Safety plan has been established with patient, and care team, to adhere to patient goals, identify restrictions based on behavioral status, address nutrition, and determine allowed personal belongings, tools for hygiene and personal care. Determine level of activity including ambulation, level of supervision, visitors, and determine privileges based on behaviors and level of engagement by pt. SAFETY PLAN: 1. Will remain on suicide precautions. In Paper Clothes 2. Will remain in room under direct supervision of one-on-one staff at all times provided by CPSO, CONSTRUCTION ADMINISTRATOR, SUPERVISOR INTERNATIONAL RESERVATIONS sandstone inspector repairer. 3. May have paper cups, plates, finger foods as well as a cardboard spoon with which to eat meals. 4. Follow [facility] Management of the Admitted Behavioral Health Patient policy. 5. May shower with supervision and at RN discretion. 6. No personal belongings 7. Visitors-No visitors at this time 8. Activities: Soft cart items, music tablet, coloring book, crayons, television if available, and other activities at RN discretion. 9. Bathroom privileges may use bathroom in room without limitation on Med/Surg. 10. Phone: May use hospital phone at RN discretion. 11. Due to VOLUNTARY status, if patient wishes to leave [facility], staff will contact [facility] Crisis Screener ([phone]) and On-Call Acoustic Sensor Operator ([phone]) as soon as possible. In the event of elopement, notify [facility] Police ([phone]). Patient is currently voluntarily at [facility] and seeking inpatient admission when a bed becomes available. [facility] Frontline Sink Maker will continue seeking placement. Please contact the Freight Dispatcher Acoustic Sensor Operator ([phone]) and [facility] Sink Maker ([phone]) for any needed changes in the Safety Plan. Safety plan has been provided to interdepartmental care team.
[2021-12-05] MEDS: Levothyroxine 150 MCG TAB PO (19:29)
[2021-12-05] MEDS: Docusate Sodium 100 MG CAP PO (20:35)
[2021-12-05 20:49] VITALS: BP 154/96; PULSE 69; RESP 18; TEMP 37.2; O2SAT 93
[2021-12-06 06:22] VITALS: BP 148/96; PULSE 66; RESP 18; TEMP 36.6; O2SAT 91
[2021-12-06] MEDS: Levothyroxine 150 MCG TAB PO (06:25)
[2021-12-06] MEDS: Acetaminophen 325 MG TAB 650 MG PO (06:25)
[2021-12-06 07:28] LABS: Abs Immature Grans 0.04 10^3/uL (0.0-0.06); Absolute Basophil Count 0.19 10^3/uL (0.0-0.2); Absolute Eosinophil Count 0.39 10^3/uL (0.0-0.7); Absolute Monocyte Count 0.86 10^3/uL (0.1-0.8); Absolute Neutrophil Count 3.34 10^3/uL (1.2-6.7); Basophils % 2.5; Eosinophils % 5.1; HCT 44.2 % (40.0-50.0); HGB 14.5 g/dL (13.5-17.5); Immature Grans % 0.5; Lymphocytes % 37.6; MCHC 32.8 % (32.0-36.0); MCV 94.6 fL (80-95); MPV 11.3 fL (8.0-11.0); Monocytes % 11.1; Neutrophils % 43.2; Nucleated RBC 0 %; Platelet Count 129 10^3/uL (130-400); RBC 4.67 10^6/uL (4.36-5.78); RDW 13.2 % (11.8-14.1); RDW-SD 46.8 fL; WBC 7.72 10^3/uL (4.4-10.8)
[2021-12-06] MEDS: REMDESIVIR 100 MG in Normal Saline 250 ML 250 MG IVPB (07:40)
[2021-12-06] MEDS: Folic Acid 1 MG TAB PO (07:41)
[2021-12-06] MEDS: Normal Saline Flush 10 ML SYR IVP ×2 (07:41→21:40)
[2021-12-06] MEDS: Docusate Sodium 100 MG CAP PO ×2 (07:41→21:40)
[2021-12-06] MEDS: Benzonatate 200 MG CAP PO ×3 (07:41→21:40)
[2021-12-06] MEDS: buPROPion 75 MG TAB 150 MG PO ×3 (07:41→21:40)
[2021-12-06] MEDS: Metoprolol CR 50 MG TABCR PO (07:41)
[2021-12-06] MEDS: Gabapentin 600 MG TAB PO ×3 (07:42→21:40)
[2021-12-06] MEDS: Thiamine 100 MG TAB PO (07:42)
[2021-12-06] MEDS: Cholecalciferol (Vitamin D3) 1,000 UNIT TAB 2000 UNITS PO (07:42)
[2021-12-06] MEDS: Multivitamin TAB 1 TAB PO (07:42)
[2021-12-06] MEDS: Zinc Sulfate 220 MG TAB PO (07:42)
[2021-12-06] MEDS: Ascorbic Acid 500 MG TAB 1000 MG PO ×2 (07:42→21:40)
[2021-12-06] MEDS: chlordiazePOXIDE 25 MG CAP PO (07:42)
[2021-12-06] MEDS: Venlafaxine 150 MG CAPCR PO (07:42)
[2021-12-06] MEDS: Cyanocobalamin 500 MCG TAB 1000 MCG PO (07:42)
[2021-12-06] MEDS: Ipratropium/Albuterol 4 GM 120 PUFF INH IH ×4 (07:43→21:40)
[2021-12-06 07:45] LABS: ALT 27 U/L (16-63); AST 24 U/L (15-37); Albumin 4.2 g/dL (3.4-5.0); Alkaline Phosphatase 76 U/L (46-116); Anion Gap 9.4 mmol/L (3-11); BUN 17 mg/dL (7-18); Bilirubin, Direct 0.1 mg/dL (0.0-0.2); Bilirubin, Total 0.3 mg/dL (0.2-1.0); CO2 28.6 mmol/L (21.0-32.0); CREATININE 0.9 mg/dL (0.70-1.30); Calcium 8.6 mg/dL (8.5-10.1); Chloride 94 mmol/L (98-107); Glucose 87 mg/dL (74-106); Magnesium 1.9 mg/dL (1.8-2.4); Potassium 4.2 mmol/L (3.5-5.1); Sodium 132 mmol/L (136-145); Total Protein 7.7 g/dL (6.4-8.2)
[2021-12-06 07:48] LABS: INR 1.1 (0.9-1.1); Prothrombin Time 10.9 sec (9.3-11.0)
[2021-12-06 07:51] VITALS: BP 169/106; PULSE 58; RESP 16; TEMP 36.5; O2SAT 94
[2021-12-06 08:08] LABS: Ferritin 166 ng/mL (26-388)
--- NOTE | 2021-12-06 08:32 | RESPIRATORY ---
Gave pt combivent- did not know it was given prior to by nursing.
[2021-12-06 10:37] LABS: D-Dimer 319 ng/mlFEU (<500)
--- NOTE | 2021-12-06 11:37 | PHA.REVIEW ---
Pharmacy Admission Review - Admission Clinical Review (Last Reviewed 12/04/21 @ 21:36 by Autsin Jaramillo MD) Discharge planning issues (Acute) DVT prophylaxis (Acute) Pleuritic chest pain (Acute) COVID-19 (Acute) Alcoholism (Acute) Suicidal ideation (Acute) carbamazepine [From Tegretol] Allergy (Mild, Unverified 12/03/21 00:07) Skin Rash Resuscitation Status Full Code Height 5 ft 7 in Weight 69.4 kg - Renal Dosing Renal Dosing: BUN 17 mg/dL (7-18) 12/06/21 06:40 Creatinine 0.9 mg/dL (0.70-1.30) 12/06/21 06:40 Medications needing adjustments: Reviewed (SCr: 0.9, eCrCl: 86.00mL/min. All medications dosed appropriately.) - Anticoagulation Anticoagulation: Hgb 14.5 g/dL (13.5-17.5) 12/06/21 06:40 Hct 44.2 % (40.0-50.0) 12/06/21 06:40 Plt Count 129 10^3/uL (130-400) L 12/06/21 06:40 INR 1.1 (0.9-1.1) 12/06/21 06:40 Creatinine 0.9 mg/dL (0.70-1.30) 12/06/21 06:40 DVT Prophylaxis: Reviewed Medications: Enoxaparin (Enoxaparin 40mg SC Q24H) - Opiate Usage Evaluate Pain Scale/Pains Meds: Reviewed (Pain scale ratings 0-7. No opiates ordered. PRN APAP.) Scheduled Bowel Reg ordered if on Opiates?: No (MONICO Colace, PRN Senna) - Relevant Labs Sodium 132 mmol/L (136-145) L 12/06/21 06:40 Potassium 4.2 mmol/L (3.5-5.1) 12/06/21 06:40 Chloride 94 mmol/L (98-107) L 12/06/21 06:40 Phosphorus 3.2 mg/dL (2.6-4.7) 12/05/21 06:45 Magnesium 1.9 mg/dL (1.8-2.4) 12/06/21 06:40 C-Reactive Protein 0.90 mg/dL (0.0-0.3) H 12/06/21 06:40 Electrolytes, C-Reactive P, ESR: Reviewed - DM Control DM Control: Glucose 87 mg/dL (74-106) 12/06/21 06:40 Insulin Dosing: N/A - Heart Failure/NC Heart Failure/NC: Troponin I < 50 ng/L (<or=60) 12/04/21 16:05 EF%, RUPALI's, B-Blockers, Diuretics: Reviewed - BP Control BP Control: Blood Pressure 169/106 Blood Pressure 148/96 If elevated: Reviewed (Blood pressure elevated this admission. Home med Metoprolol succinate ER 50mg daily continued.) - Qtc Review If Elevated: N/A (QTc 377 on admission.) - IV to PO Switch IV Medications: Reviewed - Home Meds Home Med List reviewed: Reviewed Relevent Home Meds Not ordered & why?: Sertraline discontinued, Venlafaxine XR 150mg daily ordered (can be increased to 300mg daily on 12/08/21 per psych consult). - Current meds Current Medication Order Review: Reviewed - Comments Comments/Follow Ups: Continue to monitor labs, vitals and for medication changes.
[2021-12-06] MEDS: Senna TAB 1 TAB PO (12:02)
[2021-12-06 15:06] VITALS: BP 137/87; PULSE 62; TEMP 36.4
[2021-12-06] MEDS: Enoxaparin 40 MG/0.4 ML SYR SC (16:10)
--- NOTE | 2021-12-06 16:54 | W.PM.PROGNOT ---
Date of Service Date of service: 12/06/21 Time of Service: 17:19 Assessment and Plan Assessment and plan (1) Suicidal ideation: Status: Acute Assessment and plan: Recurrent, persistent. Evaluated by Dr Jaramillo. Continue venlafaxine in addition to bupropion. Continue suicide precautions. Will need psychiatric placement. (2) COVID-19: Status: Acute Assessment and plan: With evidence of infiltrates on CXR. Stable. Not requiring O2. Pleuritic chest pain is due to COVID-19 - d-dimer negative, EKG negative.. Finished prophylactic course of remdesivir. Supplement vitamin C, D, zinc. Encourage IS, acapella,proning. (3) Pleuritic chest pain: Status: Acute Assessment and plan: Due to covid-19. PE ruled out with a negative d-dimer. (4) Alcoholism: Status: Acute Assessment and plan: Not currently withdrawing from alcohol while tapering librium. Monitor CIWA. Continue MVI, thiamine. (5) Major depression: Status: Chronic Assessment and plan: As above. Qualifiers: Major depression recurrence: recurrent Active/Remission status: currently active Major depression episode severity: severe Psychotic features: without psychotic features Qualified Code(s): F33.2 - Major depressive disorder, recurrent severe without psychotic features (6) DVT prophylaxis: Status: Acute Assessment and plan: SC enoxaparin - ppx dose as not here for COVID-19. (7) Discharge planning issues: Status: Acute Assessment and plan: Full code Currently awaiting a voluntary admission to a psychiatric bed. Subjective Subjective Interval history since last seen: Still feeling Blah. About the same. This refers to his mental health and also covid. Stomach is a little queezy. Body is a little achy. A little headache. No SOB. Cough last night, but better today. Exam Narrative Exam Narrative: Patient was evaluated over the phone due to medical stability and his diagnosis of COVID-19. Sounded less congested. Fluent speech. No dyspnea/tachypnea/cough while talking to me. Continues to express depressive/suicidal ideation. Objective Last Vital Signs Temp 36.4 C L 12/06/21 15:06 Pulse 62 12/06/21 15:06 Resp 16 12/06/21 07:51 BP 137/87 12/06/21 15:06 Pulse Ox 94 12/06/21 07:51 Laboratory Results - last 24 hr 12/06/21 12/06/21 12/06/21 06:40 06:40 06:40 WBC 7.72 RBC 4.67 Hgb 14.5 Hct 44.2 MCV 94.6 MCH 31.0 MCHC 32.8 RDW 13.2 Plt Count 129 L MPV 11.3 H Immature Gran % 0.5 Neutrophils % 43.2 Lymphocytes % 37.6 Monocytes % 11.1 Eosinophils % 5.1 Basophils % 2.5 Nucleated RBC % 0 Absolute Neutrophils 3.34 Absolute Lymphocytes 2.90 Absolute Monocytes 0.86 H Absolute Eosinophils 0.39 Absolute Basophils 0.19 PT 10.9 INR 1.1 D-Dimer 319 Sodium 132 L Potassium 4.2 Chloride 94 L Carbon Dioxide 28.6 Anion Gap 9.4 BUN 17 Creatinine 0.9 Estimated GFR/1.73 m2 >= 60.00 Glucose 87 Calcium 8.6 Magnesium 1.9 Ferritin 166 Total Bilirubin 0.3 Conjugated Bilirubin 0.1 AST 24 ALT 27 Alkaline Phosphatase 76 C-Reactive Protein 0.90 H Total Protein 7.7 Albumin 4.2 PAWSS Have you Been Recently Intoxicated or Drunk Within the Last 30 days?: Yes Have you Ever Experienced Previous Episodes of Alcohol Withdrawal?: Yes Have you ever Experienced Withdrawal Seizures?: Unable to Obtain Have you ever Experienced Delirium Tremens(DT)s?: Yes Have you ever undergone Alcohol Rehabilitation Treatment (i.e, inpt ot outpatient treatment programs)?: Yes Have you ever Experienced Blackouts?: Yes Have you ever Combined Alcohol with other Downers within the last 90 days?: Yes Have you ever Combined Alcohol with any other Substance of Abuse during the last 90 days?: Unable to Obtain Evidence of Increased Autonomic Activity (i.e. HR>120, tremor, sweating, agitation, nausea)?: No Result: 5
--- NOTE | 2021-12-06 17:47 | PDOC.CMSAFE ---
- If Service Date Differs Date of service: 12/06/21 Time of Service: 17:47 Care Management Safety Plan Status: Voluntary - Reason for Wait Reason for Wait: Inpatient Admission VOLUNTARY FOR INPATIENT PSYCHIATRIC STABILIZATION. Patient is appropriate in all interactions since arriving at [facility]; Pt has demonstrated appropriate coping and communication skills, has articulated his needs and concerns and is fully engaged during staff interactions. Safety plan has been established with patient, and care team, to adhere to patient goals, identify restrictions based on behavioral status, address nutrition, and determine allowed personal belongings, tools for hygiene and personal care. Determine level of activity including ambulation, level of supervision, visitors, and determine privileges based on behaviors and level of engagement by pt. SAFETY PLAN: 1. Will remain on suicide precautions. In Paper Clothes 2. Will remain in room under direct supervision of one-on-one staff at all times provided by CPSO, STAMP CLASSIFIER, GENERAL CAR SUPERVISOR YARD supervisor nurse. 3. May have paper cups, plates, finger foods as well as a cardboard spoon with which to eat meals. 4. Follow [facility] Management of the Admitted Behavioral Health Patient policy. 5. May shower with supervision and at RN discretion. 6. No personal belongings 7. Visitors-No visitors at this time 8. Activities: Soft cart items, music tablet, coloring book, crayons, television if available, and other activities at RN discretion. 9. Bathroom privileges may use bathroom in room without limitation on Med/Surg. 10. Phone: May use hospital phone at RN discretion. 11. Due to VOLUNTARY status, if patient wishes to leave [facility], staff will contact [facility] Crisis Screener ([phone]) and On-Call Eastern Philosophy Professor ([phone]) as soon as possible. In the event of elopement, notify [facility] Police ([phone]). Patient is currently voluntarily at [facility] and seeking inpatient admission when a bed becomes available. [facility] Frontline Visual Aid Expert will continue seeking placement. Please contact the Farm Equipment Operator Eastern Philosophy Professor ([phone]) and [facility] Visual Aid Expert ([phone]) for any needed changes in the Safety Plan. Safety plan has been provided to interdepartmental care team.
--- NOTE | 2021-12-06 17:48 | CMPROGNOTE_ITS ---
- If Service Date Differs Date of service: 12/06/21 Time of Service: 17:48 Care Management Progress Note S/O: Harshal continues to be monitored closely due to his suicidal ideation. CM coordinated his screening with [facility], who reported that he continues to meet criteria for inpatient admission. [facility] will continue to screen him daily, as he may be able to create a safety plan, if indicated, during his quarantine period. He is voluntary and agreeable to seeking inpatient admission at a psychiatric facility at this time. CM will continue to follow. A: Harshal is a 56 year old male admitted to [facility] on 12/03/21 for SI, alcoholism, COVID. P: Harshal was evaluated by [facility] and it was determined that he meets criteria for inpatient psychiatric stabilization. He is currently homeless, but has previously lived at [facility]. Transportation will be determined by disposition. He will follow up with his PCP and discharge plan of care. CM will continue to follow.
[2021-12-06 22:16] VITALS: BP 110/79; PULSE 64; RESP 16; TEMP 37.1; O2SAT 94
[2021-12-07 00:50] LABS: Vitamin D 25 Total 9.6 ng/mL (30-100)
[2021-12-07] MEDS: Acetaminophen 325 MG TAB 650 MG PO ×2 (02:09→17:58)
[2021-12-07 06:00] VITALS: BP 148/98; PULSE 60; RESP 16; TEMP 35.8; O2SAT 95
[2021-12-07] MEDS: Levothyroxine 150 MCG TAB PO (06:06)
[2021-12-07] MEDS: Ipratropium/Albuterol 4 GM 120 PUFF INH IH ×4 (07:38→19:53)
[2021-12-07] MEDS: Benzonatate 200 MG CAP PO ×3 (07:39→19:51)
[2021-12-07] MEDS: Zinc Sulfate 220 MG TAB PO (07:39)
[2021-12-07] MEDS: Multivitamin TAB 1 TAB PO (07:39)
[2021-12-07] MEDS: buPROPion 75 MG TAB 150 MG PO ×3 (07:39→19:51)
[2021-12-07] MEDS: Gabapentin 600 MG TAB PO ×2 (07:39→13:26)
[2021-12-07] MEDS: Venlafaxine 150 MG CAPCR PO (07:39)
[2021-12-07] MEDS: Thiamine 100 MG TAB PO (07:39)
[2021-12-07] MEDS: Normal Saline Flush 10 ML SYR IVP (07:39)
[2021-12-07] MEDS: Cholecalciferol (Vitamin D3) 1,000 UNIT TAB 2000 UNITS PO (07:39)
[2021-12-07] MEDS: Docusate Sodium 100 MG CAP PO ×2 (07:40→19:51)
[2021-12-07] MEDS: Folic Acid 1 MG TAB PO (07:40)
[2021-12-07] MEDS: Cyanocobalamin 500 MCG TAB 1000 MCG PO (07:40)
[2021-12-07] MEDS: Ascorbic Acid 500 MG TAB 1000 MG PO ×2 (07:40→19:51)
[2021-12-07] MEDS: Metoprolol CR 50 MG TABCR PO (07:40)
[2021-12-07 07:47] VITALS: BP 147/101; PULSE 57; RESP 18; TEMP 36.4; O2SAT 94
--- NOTE | 2021-12-07 15:09 | MHPN_ITS ---
Date of service: 12/07/21 Time of Service: 12:20 Mental Health Progress Note Progress Note Progress Note: Presenting Issue: Client present with persistent SI with intent and plan. Client also is postive for covid. Precipitating Factors Disposition * Behavior: Cooperative *Eye Contact: Consistent *Mood: Depressed and hopless *Affect: Congruent with mood *Appetite:Fine *Sleep(troubel falling/staying asleep): no problem reported Plan(please elaborate and include that physician is consulted with plan and/or placement):Client is seeking voluntary placement for metal health in-patient treatment. Client can not be moved until negative covid test. Clinician's Name , Title, and Signature Luca Gonzales BA Make sure that you are photocopying and submitting this to [facility] records Dept. to be scanned into chart.
--- NOTE | 2021-12-07 15:17 | CMSP_ITS ---
- If Service Date Differs Date of service: 12/07/21 Time of Service: 15:17 Care Management Safety Plan Status: Voluntary - Reason for Wait Reason for Wait: Inpatient Admission, Outpatient Resources VOLUNTARY FOR INPATIENT PSYCHIATRIC STABILIZATION. Patient is appropriate in all interactions since arriving at [facility]; Pt has demonstrated appropriate coping and communication skills, has articulated his needs and concerns and is fully engaged during staff interactions. Safety plan has been established with patient, and care team, to adhere to patient goals, identify restrictions based on behavioral status, address nutrition, and determine allowed personal belongings, tools for hygiene and personal care. Determine level of activity including ambulation, level of supervision, visitors, and determine privileges based on behaviors and level of engagement by pt. SAFETY PLAN: 1. Will remain on suicide precautions. In Paper Clothes 2. Will remain in room under direct supervision of one-on-one staff at all times provided by CPSO, VP CLINICAL RESEARCH, PROFILE TRIMMER monitoring and evaluation advisor. 3. May have paper cups, plates, finger foods as well as a cardboard spoon with which to eat meals. 4. Follow [facility] Management of the Admitted Behavioral Health Patient policy. 5. May shower with supervision and at RN discretion. 6. No personal belongings 7. Visitors-No visitors at this time 8. Activities: Soft cart items, music tablet, coloring book, crayons, television if available, and other activities at RN discretion. 9. Bathroom privileges may use bathroom in room without limitation on Med/Surg. 10. Phone: May use hospital phone at RN discretion. 11. Due to VOLUNTARY status, if patient wishes to leave [facility], staff will contact [facility] Crisis Screener ([phone]) and On-Call Body Sander ([phone]) as soon as possible. In the event of elopement, notify [facility] Police ([phone]). Patient is currently voluntarily at [facility] and seeking inpatient admission when a bed becomes available. [facility] Frontline Filter Assembler will continue seeking placement. Please contact the Senior Analyst Body Sander ([phone]) and [facility] Filter Assembler ([phone]) for any needed changes in the Safety Plan. Safety plan has been provided to interdepartmental care team.
[2021-12-07] MEDS: Enoxaparin 40 MG/0.4 ML SYR SC (16:05)
--- NOTE | 2021-12-07 16:27 | CMSP_ITS ---
- If Service Date Differs Date of service: 12/07/21 Time of Service: 16:27 Care Management Safety Plan Status: Voluntary - Reason for Wait Reason for Wait: Inpatient Admission, Outpatient Resources VOLUNTARY FOR INPATIENT PSYCHIATRIC STABILIZATION. Patient is appropriate in all interactions since arriving at [facility]; Pt has demonstrated appropriate coping and communication skills, has articulated his needs and concerns and is fully engaged during staff interactions. Safety plan has been established with patient, and care team, to adhere to patient goals, identify restrictions based on behavioral status, address nutrition, and determine allowed personal belongings, tools for hygiene and personal care. Determine level of activity including ambulation, level of supervision, visitors, and determine privileges based on behaviors and level of engagement by pt. CM called to COVID unit as RN Keyanna reportedly found Harshal with extra medication (collecting) and powder/residue from suspected crushing and snorting. Review of current safety plan and increased precautions discussed include RN to ensure medication compliance, CPSO in room, within an arms length away at all times, and bathroom door to remain open. RN discretion with all privileges encouraged. Reviewed with YULY Hernandez CC. SAFETY PLAN: 1. Will remain on suicide precautions. In Paper Clothes 2. Will remain in room with direct supervision inside patient room of one-on-one staff at all times provided by CPSO, LAKIA, TANK CLEANER ortho tech. 3. May have paper cups, plates, finger foods as well as a cardboard spoon with which to eat meals. 4. Follow [facility] Management of the Admitted Behavioral Health Patient policy. 5. May shower with supervision and at RN discretion. 6. No personal belongings 7. Visitors-No visitors at this time 8. Activities: Soft cart items, music tablet, coloring book, crayons, television if available, and other activities at RN discretion. 9. Bathroom available in room, door to remain open as patient remains in COVID precaution room and was found to be stashing and crushing medication. 10. Phone: May use [place] hospital phone at RN discretion. 11. Due to VOLUNTARY status, if patient wishes to leave [facility], staff will contact [facility] Crisis Screener ([phone]) and On-Call Sider Mechanic ([phone]) as soon as possible. In the event of elopement, notify [facility] Police ([phone]). Patient is currently voluntarily at [facility] and seeking inpatient admission when a bed becomes available. [facility] Frontline Network Contractor will continue seeking placement. Please contact the Resource Room Teacher Sider Mechanic ([phone]) and [facility] Network Contractor ([phone]) for any needed changes in the Safety Plan. Safety plan has been provided to interdepartmental care team.
--- NOTE | 2021-12-07 16:57 | W.PM.PROGNOT ---
Date of Service Date of service: 12/07/21 Time of Service: 16:57 Assessment and Plan Assessment and plan (1) Suicidal ideation: Status: Acute Assessment and plan: Recurrent, persistent. Evaluated by Dr Jaramillo. Continue venlafaxine in addition to bupropion. We will ensure the patient is not hoarding his medications. I worry that the patient was planning on a suicide attempt, though the patient does not admit it. Continue suicide precautions. Will need psychiatric placement. (2) COVID-19: Status: Acute Assessment and plan: Clinically has resolved. Infiltrates on CXR. Stable. Not requiring O2. Pleuritic chest pain is due to COVID-19 - d-dimer negative, EKG negative.. Finished prophylactic course of remdesivir. Supplement vitamin C, D, zinc. Encourage IS, acapella,proning. Repeat COVID-19 PCR to see if precautions can be d/c'ed. (3) Pleuritic chest pain: Status: Acute Assessment and plan: Due to covid-19. PE ruled out with a negative d-dimer. (4) Alcoholism: Status: Acute Assessment and plan: Continue to taper librium. Increase gabapentin. Continue to monitor on CIWA. Continue MVI, thiamine. (5) Major depression: Status: Chronic Assessment and plan: As above. Qualifiers: Active/Remission status: currently active Major depression episode severity: severe Major depression recurrence: recurrent Psychotic features: without psychotic features Qualified Code(s): F33.2 - Major depressive disorder, recurrent severe without psychotic features (6) DVT prophylaxis: Status: Acute Assessment and plan: SC enoxaparin - ppx dose as not here for COVID-19. (7) Discharge planning issues: Status: Acute Assessment and plan: Full code Currently awaiting a voluntary admission to a psychiatric bed. Subjective Subjective Interval history since last seen: Harshal was found to have been hiding his welbuterin pills in his socks - 4 pills were found. The patient said I thought I would just take them later together - works better than way. Still has pleuritic CP. Cough is gone. Nasal congestion is gone. Feels jittery - thinks it's due to alcohol withdrawal. Exam Narrative Exam Narrative: Patient was evaluated over the phone due to medical stability and his diagnosis of COVID-19. Sounded sad. Fluent speech. No dyspnea/tachypnea/cough. Objective Last Vital Signs Temp 36.4 C L 12/07/21 07:47 Pulse 57 L 12/07/21 07:47 Resp 18 12/07/21 07:47 BP 147/101 H 12/07/21 07:47 Pulse Ox 94 12/07/21 07:47 Laboratory Results - last 24 hr 12/05/21 06:45 25-OH Vitamin D Total 9.6 L PAWSS Have you Been Recently Intoxicated or Drunk Within the Last 30 days?: Yes Have you Ever Experienced Previous Episodes of Alcohol Withdrawal?: Yes Have you ever Experienced Withdrawal Seizures?: Unable to Obtain Have you ever Experienced Delirium Tremens(DT)s?: Yes Have you ever undergone Alcohol Rehabilitation Treatment (i.e, inpt ot outpatient treatment programs)?: Yes Have you ever Experienced Blackouts?: Yes Have you ever Combined Alcohol with other Downers within the last 90 days?: Yes Have you ever Combined Alcohol with any other Substance of Abuse during the last 90 days?: Unable to Obtain Evidence of Increased Autonomic Activity (i.e. HR>120, tremor, sweating, agitation, nausea)?: No Result: 5
[2021-12-07 16:58] VITALS: BP 156/106; PULSE 60; RESP 18; TEMP 36.6; O2SAT 94
[2021-12-07] MEDS: Gabapentin 300 MG CAP 900 MG PO (19:51)
[2021-12-07 19:55] VITALS: RESP 16; O2SAT 95
[2021-12-07 20:00] VITALS: BP 138/89; PULSE 74; RESP 16; TEMP 36.8; O2SAT 95
[2021-12-08 00:15] VITALS: BP 135/99; PULSE 64; RESP 16; TEMP 36.5; O2SAT 96
[2021-12-08] MEDS: Levothyroxine 150 MCG TAB PO (06:21)
[2021-12-08 07:44] VITALS: BP 150/100; PULSE 54; RESP 16; TEMP 36.2; O2SAT 94
[2021-12-08] MEDS: buPROPion 75 MG TAB 150 MG PO ×3 (07:45→21:15)
[2021-12-08] MEDS: Gabapentin 300 MG CAP 900 MG PO ×3 (07:45→21:15)
[2021-12-08] MEDS: Ipratropium/Albuterol 4 GM 120 PUFF INH IH ×4 (07:45→21:22)
[2021-12-08] MEDS: Cholecalciferol (Vitamin D3) 1,000 UNIT TAB 2000 UNITS PO (07:45)
[2021-12-08] MEDS: Benzonatate 200 MG CAP PO ×3 (07:46→21:14)
[2021-12-08] MEDS: Cyanocobalamin 500 MCG TAB 1000 MCG PO (07:46)
[2021-12-08] MEDS: Multivitamin TAB 1 TAB PO (07:46)
[2021-12-08] MEDS: Metoprolol CR 50 MG TABCR PO (07:46)
[2021-12-08] MEDS: Docusate Sodium 100 MG CAP PO ×2 (07:46→21:15)
[2021-12-08] MEDS: Thiamine 100 MG TAB PO (07:46)
[2021-12-08] MEDS: Zinc Sulfate 220 MG TAB PO (07:46)
[2021-12-08] MEDS: Folic Acid 1 MG TAB PO (07:46)
[2021-12-08] MEDS: Venlafaxine 150 MG CAPCR PO (07:46)
[2021-12-08] MEDS: Ascorbic Acid 500 MG TAB 1000 MG PO ×2 (07:46→21:15)
[2021-12-08 08:05] LABS: Source Nasal/Nares
[2021-12-08 08:55] LABS: COVID-19 PCR POSITIVE (Negative)
--- NOTE | 2021-12-08 13:01 | PDOC.MHCN ---
Date of service: 12/08/21 Time of Service: 11:45 Mental Health Crisis Note Presenting Issue How did you arrive at the ED and why did you come: Client arrived at the ED via [place] for SI. Precipitating Factors Client is still endorsing SI with a plan and high intent. No HI. Disposition BEHAVIOR: Client was calm and cooperative. EYE CONTACT: Client made good eye contact. MOOD: Client described his mood as depressed, hopeless, and confused. AFFECT: Normal affect. APPETITE: Client reports eating well. SLEEP(trouble falling/staying asleep: Client reports sleeping well. Plan Due to lack of support and persistent thoughts of SI, with high intent and multiple plans the client is unable to safety plan home at this time. He will remain at [facility] on voluntary status until psychiatric placement is found or he is able to safety plan back into the community. Referrals are being sent today, as today is 5 days post first positive covid test. Signature Clinician's Name/Title: Sandra Clarke, ESC
--- NOTE | 2021-12-08 14:55 | CMSP_ITS ---
- If Service Date Differs Date of service: 12/08/21 Time of Service: 14:55 Care Management Safety Plan Status: Voluntary - Reason for Wait Reason for Wait: Inpatient Admission VOLUNTARY FOR INPATIENT PSYCHIATRIC STABILIZATION. Patient is appropriate in all interactions since arriving at [facility]; Pt has demonstrated appropriate coping and communication skills, has articulated his needs and concerns and is fully engaged during staff interactions. A huddle was held at 14:30 with Anju, Nursing Yard Cleaner, Elke, Coordinator, and MERARI Beaver. Safety plan has been established with patient, and care team, to adhere to patient goals, identify restrictions based on behavioral status, address nutrition, and determine allowed personal belongings, tools for hygiene and personal care. Determine level of activity including ambulation, level of supervision, visitors, and determine privileges based on behaviors and level of engagement by pt. Harshal was found to have extra medication (collecting) and powder/residue from suspected crushing and snorting on 12/07/2021. Due to this behavior, increased precautions have been put in place including RN to ensure medication compliance, CPSO in room, within an arms length away at all times, and bathroom door to remain open. RN discretion with all privileges encouraged. SAFETY PLAN: 1. Will remain on suicide precautions. In Paper Clothes 2. Will remain in room with direct supervision inside patient room of one-on-one staff at all times provided by CPSO, BATTING MACHINE OPERATOR INSULATION, LINE SERVER potato sorter. 3. May have paper cups, plates, finger foods as well as a cardboard spoon with which to eat meals. 4. Follow [facility] Management of the Admitted Behavioral Health Patient policy. 5. May shower with supervision and at RN discretion. 6. No personal belongings 7. Visitors-No visitors at this time 8. Activities: Soft cart items, music tablet, coloring book, crayons, television if available, and other activities at RN discretion. 9. Bathroom available in room, door to remain open as patient remains in COVID precaution room and was found to be stashing and crushing medication. 10. Phone: May use [employer] hospital phone at RN discretion. 11. Due to VOLUNTARY status, if patient wishes to leave [facility], staff will contact [facility] Crisis Screener ([phone]) and On-Call Manager Medicare Marketing ([phone]) as soon as possible. In the event of elopement, notify [facility] Police ([phone]). Patient is currently voluntarily at [facility] and seeking inpatient admission when a bed becomes available. [facility] Frontline Manager Operations will continue seeking placement. Please contact the Systems Coordinator Manager Medicare Marketing ([phone]) and [facility] Manager Operations ([phone]) for any needed changes in the Safety Plan. Safety plan has been provided to interdepartmental care team.
--- NOTE | 2021-12-08 15:00 | PDOC.CMPRO ---
- If Service Date Differs Date of service: 12/08/21 Time of Service: 15:00 Care Management Progress Note S/O: Harshal met with Sandra [facility] Health Navigator, via zoom today for a screening. He continues to report significant depression, hopelessness, and suicidal thoughts with intent and plan. He continues to meet criteria for a voluntary psychiatric hospitalization. Yesterday, it was discovered that Harshal was hiding medication in his socks and when confronted by staff as to what his intent was with respect to the medication, Harshal reportedly gave conflicting stories. He will continue to be closely monitored to ensure his safety and will meet with [facility] via telehealth daily. CM will continue to follow. A: Harshal is a 56 year old male admitted to [facility] on 12/03/21 for SI, alcoholism, COVID. P: A [facility] review. Harshal will remain at [facility] voluntarily and will be reevaluated by [facility] daily. He is currently homeless, but has previously lived at [facility]. Transportation will be determined by disposition. He will follow up with his PCP and discharge plan of care. CM will continue to follow. - Status Status: Voluntary - Reason for Wait Reason for Wait: Inpatient Admission
[2021-12-08] MEDS: Enoxaparin 40 MG/0.4 ML SYR SC (16:39)
[2021-12-08] MEDS: Acetaminophen 325 MG TAB 650 MG PO (16:40)
[2021-12-08 16:42] VITALS: BP 158/103; PULSE 59; RESP 16; TEMP 37; O2SAT 93
--- NOTE | 2021-12-08 18:45 | W.PM.PROGNOT ---
Date of Service Date of service: 12/08/21 Time of Service: 18:46 Assessment and Plan Assessment and plan (1) Suicidal ideation: Status: Acute Assessment and plan: Recurrent, persistent. Evaluated by Dr Jaramillo on this admission. Continue venlafaxine in addition to bupropion. Continue suicide precautions. Awaiting psychiatric placement on voluntary basis. (2) COVID-19: Status: Acute Assessment and plan: The patient again reports nasal congestion and cough today. Will monitor O2 sats, which have been perfectly adequate so far. Infiltrates on CXR. Pleuritic chest pain is due to COVID-19 - d-dimer negative, EKG negative.. Finished prophylactic course of remdesivir. Supplement vitamin C, D, zinc. Does have antitussives. Encourage IS, acapella,proning. Repeat PCR is positive on day 6; however, per new CDC guidelines the patient may still be able to come off of full precautions - will defer to infection control. (3) Pleuritic chest pain: Status: Acute Assessment and plan: Due to covid-19. PE ruled out with a negative d-dimer. (4) Alcoholism: Status: Acute Assessment and plan: Continue Librium taper. Continue to titrate gabapentin up. Continue to monitor on CIWA. Continue MVI, thiamine. (5) Major depression: Status: Chronic Assessment and plan: As above. Qualifiers: Major depression recurrence: recurrent Active/Remission status: currently active Major depression episode severity: severe Psychotic features: without psychotic features Qualified Code(s): F33.2 - Major depressive disorder, recurrent severe without psychotic features (6) DVT prophylaxis: Status: Acute Assessment and plan: SC enoxaparin - ppx dose as not here for COVID-19. (7) Discharge planning issues: Status: Acute Assessment and plan: Full code Currently awaiting a voluntary admission to a psychiatric bed. Subjective Subjective Interval history since last seen: I'm Hanging in there. Congested in the lungs and coughing today. Cough is productive. He does not know what the color is. Not short of breath. Getting inhaler. Nose is a little bit stuffy. No nausea. No diarrhea. Working with IS. Does not know how to use acapella. Still feels depressed and hopeless. Still thinking about suicide. I always do. Exam Narrative Exam Narrative: Patient was evaluated over the phone due to medical stability and his diagnosis of COVID-19. He did not sound congested to me. He does sound depressed. Fluent speech, appropriate content. No dyspnea/tachypnea/cough. Objective Last Vital Signs Temp 37 C 12/08/21 16:42 Pulse 59 L 12/08/21 16:42 Resp 16 12/08/21 16:42 BP 158/103 H 12/08/21 16:42 Pulse Ox 93 12/08/21 16:42 Laboratory Results - last 24 hr 12/08/21 07:48 COVID-19 Source Nasal/Nares SARS-CoV-2 (PCR) POSITIVE A* PAWSS Have you Been Recently Intoxicated or Drunk Within the Last 30 days?: Yes Have you Ever Experienced Previous Episodes of Alcohol Withdrawal?: Yes Have you ever Experienced Withdrawal Seizures?: Unable to Obtain Have you ever Experienced Delirium Tremens(DT)s?: Yes Have you ever undergone Alcohol Rehabilitation Treatment (i.e, inpt ot outpatient treatment programs)?: Yes Have you ever Experienced Blackouts?: Yes Have you ever Combined Alcohol with other Downers within the last 90 days?: Yes Have you ever Combined Alcohol with any other Substance of Abuse during the last 90 days?: Unable to Obtain Evidence of Increased Autonomic Activity (i.e. HR>120, tremor, sweating, agitation, nausea)?: No Result: 5
[2021-12-08] MEDS: guaiFENesin 600 MG TABCR PO (21:14)
[2021-12-08] MEDS: Normal Saline Flush 10 ML SYR IVP (21:17)
[2021-12-08 21:31] VITALS: BP 136/96; PULSE 64; RESP 16; TEMP 36.5; O2SAT 95
--- NOTE | 2021-12-08 21:50 | PDOC.CMSAFE ---
- If Service Date Differs Date of service: 12/08/21 Time of Service: 21:50 Care Management Safety Plan Status: Voluntary - Reason for Wait Reason for Wait: Inpatient Admission VOLUNTARY FOR INPATIENT PSYCHIATRIC STABILIZATION. Patient is appropriate in all interactions since arriving at [facility]; Pt has demonstrated appropriate coping and communication skills, has articulated his needs and concerns and is fully engaged during staff interactions. At the request of Ernestine, nursing line supervisor, the safety plan is revised to allow the CPSO to sit in the hallway and to provide direct supervision of patient through the door's window. Revised safety plan has been established with patient, and care team, to adhere to patient goals, identify restrictions based on behavioral status, address nutrition, and determine allowed personal belongings, tools for hygiene and personal care. Determine level of activity including ambulation, level of supervision, visitors, and determine privileges based on behaviors and level of engagement by pt. Harshal was found to have extra medication (collecting) and powder/residue from suspected crushing and snorting on 12/07/2021. Due to this behavior, increased precautions have been put in place including RN to ensure medication compliance and bathroom door to remain open. RN discretion with all privileges encouraged. SAFETY PLAN: 1. Will remain on suicide precautions. In Paper Clothes 2. Will remain in room under direct supervision of one-on-one staff at all times provided by CPSO, NOTCH MACHINE OPERATOR, CLIENT RELATION SPECIALIST grain origination specialist. 3. May have paper cups, plates, finger foods as well as a cardboard spoon with which to eat meals. 4. Follow [facility] Management of the Admitted Behavioral Health Patient policy. 5. May shower with supervision and at RN discretion. 6. No personal belongings 7. Visitors-No visitors at this time 8. Activities: Soft cart items, music tablet, coloring book, crayons, television if available, and other activities at RN discretion. 9. Bathroom available in room, door to remain open as patient remains in COVID precaution room and was found to be stashing and crushing medication. 10. Phone: May use [employer] hospital phone at RN discretion. 11. Due to VOLUNTARY status, if patient wishes to leave [facility], staff will contact [facility] Crisis Screener ([phone]) and On-Call Surveillance Systems Analyst ([phone]) as soon as possible. In the event of elopement, notify [facility] Police ([phone]). Patient is currently voluntarily at [facility] and seeking inpatient admission when a bed becomes available. [facility] Frontline Director Of Field Coordination will continue seeking placement. Please contact the Fleet Maintenance Manager Surveillance Systems Analyst ([phone]) and [facility] Director Of Field Coordination ([phone]) for any needed changes in the Safety Plan. Safety plan has been provided to interdepartmental care team.
--- NOTE | 2021-12-09 03:15 | NUR.NOTE ---
Nursing Note: At 0 Pt attempt to hide pills - librium and wellbutrin pills in between his right upper gum and cheek. Instructed pt to gargle and spit into cup. Pt open his mouth again to recheck and ensure all medications was swallowed. Educates pt to swallow all medications, and avoid hiding pills. This nurse inspect pt's socks, and scrub pocket. This nurse found a pill in pt's top scrub pocket. Replace pt's top and bottom scrubs to new one. Discard pt's old scrubs, and emptied trash can. Pt is cooperative during inspection. Notified charge nurse.
[2021-12-09] MEDS: Levothyroxine 150 MCG TAB PO (05:24)
[2021-12-09 05:48] VITALS: BP 141/80; PULSE 62; RESP 16; TEMP 36.4; O2SAT 93
[2021-12-09 07:56] LABS: HCT 41.3 % (40.0-50.0); HGB 13.6 g/dL (13.5-17.5); MCH 31.3 pg (27.0-33.0); MCHC 32.9 % (32.0-36.0); MCV 95.2 fL (80-95); MPV 11.8 fL (8.0-11.0); Platelet Count 107 10^3/uL (130-400); RBC 4.34 10^6/uL (4.36-5.78); RDW 13.1 % (11.8-14.1); RDW-SD 46.1 fL; WBC 8.89 10^3/uL (4.4-10.8)
[2021-12-09] MEDS: Ipratropium/Albuterol 4 GM 120 PUFF INH IH ×4 (08:20→20:52)
[2021-12-09] MEDS: buPROPion 75 MG TAB 150 MG PO ×3 (08:42→20:21)
[2021-12-09] MEDS: Gabapentin 300 MG CAP 900 MG PO ×3 (08:42→20:21)
[2021-12-09] MEDS: Zinc Sulfate 220 MG TAB PO (08:43)
[2021-12-09] MEDS: Cyanocobalamin 500 MCG TAB 1000 MCG PO (08:43)
[2021-12-09] MEDS: Docusate Sodium 100 MG CAP PO ×2 (08:43→20:54)
[2021-12-09] MEDS: guaiFENesin 600 MG TABCR PO ×2 (08:43→20:54)
[2021-12-09] MEDS: Benzonatate 200 MG CAP PO ×3 (08:43→20:54)
[2021-12-09] MEDS: Venlafaxine 150 MG CAPCR PO (08:43)
[2021-12-09] MEDS: Cholecalciferol (Vitamin D3) 1,000 UNIT TAB 2000 UNITS PO (08:43)
[2021-12-09] MEDS: Multivitamin TAB 1 TAB PO (08:44)
[2021-12-09] MEDS: Thiamine 100 MG TAB PO (08:44)
[2021-12-09] MEDS: Ascorbic Acid 500 MG TAB 1000 MG PO ×2 (08:44→20:51)
[2021-12-09] MEDS: Folic Acid 1 MG TAB PO (08:44)
[2021-12-09] MEDS: Metoprolol CR 50 MG TABCR PO (08:44)
[2021-12-09 08:57] VITALS: BP 130/84; PULSE 60; RESP 19; TEMP 36.5; O2SAT 91
--- NOTE | 2021-12-09 09:07 | NUR.NOTE ---
Nursing Note: At this time, patient laying in his bed awaiting medication. Charge nurse contacted pharmacy and was told that Wellbutrin, Effexor, Librium, and Gabapentin can all be crushed or capsules opened. Patient made aware of this new way to take medications. Patient is cooperative and compliant with taking these medications in apple sauce. Patient stated this is crazy. Patient educated on the importance of taking medication appropriately as prescribed.
--- NOTE | 2021-12-09 11:08 | PDOC.CMSAFE ---
- If Service Date Differs Date of service: 12/09/21 Time of Service: 11:08 Care Management Safety Plan Status: Voluntary - Reason for Wait Reason for Wait: Inpatient Admission VOLUNTARY FOR INPATIENT PSYCHIATRIC STABILIZATION. Patient is appropriate in all interactions since arriving at [facility]; Pt has demonstrated appropriate coping and communication skills, has articulated his needs and concerns and is fully engaged during staff interactions. At the request of nursing ammunition supervisor, the safety plan is revised to allow the CPSO to sit in the hallway and to provide direct supervision of patient through the door's window. Revised safety plan has been established with patient, and care team, to adhere to patient goals, identify restrictions based on behavioral status, address nutrition, and determine allowed personal belongings, tools for hygiene and personal care. Determine level of activity including ambulation, level of supervision, visitors, and determine privileges based on behaviors and level of engagement by pt. Harshal was found to have extra medication (collecting) and powder/residue from suspected crushing and snorting on 12/07/2021. Due to this behavior, increased precautions have been put in place including RN to ensure medication compliance and bathroom door to remain open. RN discretion with all privileges encouraged. SAFETY PLAN: 1. Will remain on suicide precautions. In Paper Clothes 2. Will remain in room under direct supervision of one-on-one staff at all times provided by CPSO, LAKIA, HAT FORMER information technology administrator. 3. May have paper cups, plates, finger foods as well as a cardboard spoon with which to eat meals. 4. Follow [facility] Management of the Admitted Behavioral Health Patient policy. 5. May shower with supervision and at RN discretion. 6. No personal belongings 7. Visitors-No visitors at this time 8. Activities: Soft cart items, music tablet, coloring book, crayons, television if available, and other activities at RN discretion. 9. Bathroom available in room, door to remain open as patient remains in COVID precaution room and was found to be stashing and crushing medication. 10. Phone: May use [employer] hospital phone at RN discretion. 11. Due to VOLUNTARY status, if patient wishes to leave [facility], staff will contact [facility] Crisis Screener ([phone]) and On-Call Tank Cleaning Supervisor ([phone]) as soon as possible. In the event of elopement, notify [facility] Police ([phone]). Patient is currently voluntarily at [facility] and seeking inpatient admission when a bed becomes available. [facility] Frontline Product Safety Coordinator will continue seeking placement. Please contact the Service Station Operator Tank Cleaning Supervisor ([phone]) and [facility] Product Safety Coordinator ([phone]) for any needed changes in the Safety Plan. Safety plan has been provided to interdepartmental care team.
--- NOTE | 2021-12-09 11:09 | CMPROGNOTE_ITS ---
- If Service Date Differs Date of service: 12/09/21 Time of Service: 11:09 Care Management Progress Note S/O: Harshal remains on Covid 19 precautions, therefore CM was not able to meet with him in person. He continues to be asymptomatic for Covid. Per report, his CIWA protocol has been discontinued, therefore the librium and ativan will also be discontinued. CM coordinated a zoom visit with him and Nereyda [facility]. Nereyda reports that there are no beds at [facility] at this time. If there are no beds tomorrow, she plans to discuss creating a contract for safety in the community with close follow up from [facility], if he is willing to participate. Due to the concern for Harshal hoarding/crushing his medications, they will now be crushed and mixed with apple sauce. Harshal continues to express SI with intent and plan. CM will continue to follow. A: Harshal is a 56 year old male admitted to [facility] on 12/03/21 for SI, alcoholism, COVID. P: A referral is faxed to [facility] for review. Harshal will remain at [facility] voluntarily and will be reevaluated by [facility] daily. He is currently h omeless, but has previously lived at [place]. Transportation will be determined by disposition. He will follow up with his PCP and discharge plan of care. CM will continue to follow.
--- NOTE | 2021-12-09 13:00 | W.PM.PROGNOT ---
Date of Service Date of service: 12/09/21 Time of Service: 13:00 Assessment and Plan Assessment and plan (1) Suicidal ideation: Status: Acute Assessment and plan: Recurrent, persistent. Evaluated by Dr Jaramillo on this admission. Continue venlafaxine in addition to bupropion. Continue suicide precautions. Awaiting psychiatric placement on voluntary basis. (2) COVID-19: Status: Acute Assessment and plan: Patient reports cough and sputum production. He remains afebrile with a normal total white cell count. He is already on scheduled doses of Combivent as well as as needed albuterol. I will start him on a 5-day course of doxycycline and a 5-day course of prednisone. Patient completed 3 day course of Remdesivir (12/04-12/06). He has not required any oxygen supplementation so far. will continue to monitor and encourage him to use his Acapella and his I.S. His PCR remains positive. Will keep him in isolation for now until his PCR is either negative or he has been in isolation for 10 days (his first positive was on 12/03, therefore end isolation on 01/10. (3) Alcoholism: Status: Acute Assessment and plan: DC CIWA monitoring as the patient has been scoring a 0 for the past 3 days. DC his Librium. Continue his gabapentin. Continue his antidepressants including his Wellbutrin and Effexor. Medications to be crushed and mixed with applesauce or pudding and directly observed (4) Major depression: Status: Chronic Assessment and plan: As above. Qualifiers: Major depression recurrence: recurrent Active/Remission status: currently active Major depression episode severity: severe Psychotic features: without psychotic features Qualified Code(s): F33.2 - Major depressive disorder, recurrent severe without psychotic features (5) DVT prophylaxis: Status: Acute Assessment and plan: SC enoxaparin - ppx dose as not here for COVID-19. (6) Discharge planning issues: Status: Acute Assessment and plan: Full code Currently awaiting a voluntary admission to a psychiatric bed. Subjective Subjective Interval history since last seen: Harshal has been seen to pocketed his pills and save them and then crushed his Wellbutrin and tried snorting it. His medications are now being crushed and mixed with applesauce or pudding and directly observed intake. Harshal complains of a cough that is now become productive of thick mucus. He remains afebrile with a normal total white blood cell count. Chest x-ray on admission suggested a left lower lobe infiltrate however he is not been on any antibiotics for this. Procalcitonin level on admission was normal. I showed him how to adjust his acapella and encouraged him to use this and the incentive spirometer. I will put him on a 5-day course of doxycycline 100 mg p.o. twice daily for bronchitis. He is already on Combivent Respimat inhaler qid along with as needed albuterol inhaler. Exam Narrative Exam Narrative: Middle-aged white male sitting up in bed watching TV. He is alert oriented person place time circumstance in no acute respiratory distress not requiring any oxygen Lungs with scattered bilateral basilar rhonchi and expiratory wheezes Heart is regular rate and rhythm no murmur rub or gallop Abdomen soft nontender nondistended Lower extremities without peripheral cyanosis or edema Objective Last Vital Signs Temp 36.5 C 12/09/21 08:57 Pulse 60 12/09/21 08:57 Resp 19 12/09/21 08:57 BP 130/84 12/09/21 08:57 Pulse Ox 91 L 12/09/21 08:57 Laboratory Results - last 24 hr 12/09/21 07:30 WBC 8.89 RBC 4.34 L Hgb 13.6 Hct 41.3 MCV 95.2 H MCH 31.3 MCHC 32.9 RDW 13.1 Plt Count 107 L MPV 11.8 H PAWSS Have you Been Recently Intoxicated or Drunk Within the Last 30 days?: Yes Have you Ever Experienced Previous Episodes of Alcohol Withdrawal?: Yes Have you ever Experienced Withdrawal Seizures?: Unable to Obtain Have you ever Experienced Delirium Tremens(DT)s?: Yes Have you ever undergone Alcohol Rehabilitation Treatment (i.e, inpt ot outpatient treatment programs)?: Yes Have you ever Experienced Blackouts?: Yes Have you ever Combined Alcohol with other Downers within the last 90 days?: Yes Have you ever Combined Alcohol with any other Substance of Abuse during the last 90 days?: Unable to Obtain Evidence of Increased Autonomic Activity (i.e. HR>120, tremor, sweating, agitation, nausea)?: No Result: 5
[2021-12-09] MEDS: Acetaminophen 325 MG TAB 650 MG PO (13:10)
[2021-12-09] MEDS: predniSONE 20 MG TAB 60 MG PO (14:22)
[2021-12-09 16:28] VITALS: BP 130/96; PULSE 61; RESP 19; TEMP 36.6; O2SAT 93
[2021-12-09] MEDS: Enoxaparin 40 MG/0.4 ML SYR SC (16:55)
[2021-12-09] MEDS: Normal Saline Flush 10 ML SYR IVP (20:22)
[2021-12-09 20:25] VITALS: RESP 16; O2SAT 93
[2021-12-09] MEDS: Doxycycline Hyclate 100 MG CAP PO (20:54)
[2021-12-09 21:00] VITALS: BP 132/82; PULSE 77; RESP 16; TEMP 36.6; O2SAT 94
[2021-12-10] MEDS: Levothyroxine 150 MCG TAB PO (05:08)
[2021-12-10 05:09] VITALS: BP 154/99; PULSE 84; RESP 17; TEMP 36.4; O2SAT 92
--- NOTE | 2021-12-10 08:00 | DI.CT_ITS ---
Exam(s) CT CHEST PE CTA EXAM: CT CHEST PE CTA CLINICAL HISTORY: hypoxemia, COVID 19. TECHNIQUE: Imaging Protocol: Axial CT angiography was performed with multi-slice acquisition and mu lti-planar and/or 3D reconstructions. CONTRAST MATERIAL: Intravenous: Omnipaque 350 Contrast volume:100 cc FINDINGS: Pulmonary Arteries: No evidence of filling defect to suggest pulmonary emboli. Tracheobronchial tree: Patent where visualized. Mediastinum and Brit: No dominant adenopathy or fluid collection. Pulmonary parenchyma: No consolidation or dominant measurable mass. Emphysema greatest upper lobes. Pleura: No effusion or pneumothorax. Heart: The heart is not dilated. Small pericardial effusion. Aorta: Thoracic aorta non-dilated. No aneurysm. No dissection. Upper abdomen: Unremarkable. Bones: Old midthoracic compression fractures and old right rib fractures. No acute fracture is ident ified. IMPRESSION: No evidence of pulmonary embolism. Emphysema. No evidence of infiltrates. Small pericardial effusio n. RADIATION DOSE DELIVERED: 353.94mGy.cm Total DLP DATA REPOSITORY: All CT scans at this facility are submitted to the National Radiology Data Registry (NRDR) Dose Index Registry (DIR) with the [employer] (ACR). RADIATION OPTIMIZATION: All CT scans at this facility use at least one of these dose optimization te chniques: automated exposure control; mA and/or kV adjustment per patient size (includes targeted exa ms where dose is matched to clinical indication); or iterative reconstruction.
[2021-12-10 08:03] VITALS: BP 155/93; PULSE 64; RESP 18; TEMP 36.3; O2SAT 93
[2021-12-10] MEDS: Ascorbic Acid 500 MG TAB 1000 MG PO ×2 (08:04→21:30)
[2021-12-10] MEDS: Cholecalciferol (Vitamin D3) 1,000 UNIT TAB 2000 UNITS PO (08:04)
[2021-12-10] MEDS: buPROPion 75 MG TAB 150 MG PO ×3 (08:04→21:31)
[2021-12-10] MEDS: Benzonatate 200 MG CAP PO ×3 (08:04→21:31)
[2021-12-10] MEDS: Doxycycline Hyclate 100 MG CAP PO ×2 (08:05→21:32)
[2021-12-10] MEDS: Venlafaxine 150 MG CAPCR PO (08:05)
[2021-12-10] MEDS: Cyanocobalamin 500 MCG TAB 1000 MCG PO (08:05)
[2021-12-10] MEDS: Metoprolol CR 50 MG TABCR PO (08:05)
[2021-12-10] MEDS: Folic Acid 1 MG TAB PO (08:05)
[2021-12-10] MEDS: guaiFENesin 600 MG TABCR PO ×2 (08:05→21:32)
[2021-12-10] MEDS: predniSONE 20 MG TAB 60 MG PO (08:05)
[2021-12-10] MEDS: Multivitamin TAB 1 TAB PO (08:05)
[2021-12-10] MEDS: Ipratropium/Albuterol 4 GM 120 PUFF INH IH ×4 (08:05→21:32)
[2021-12-10] MEDS: Thiamine 100 MG TAB PO (08:05)
[2021-12-10] MEDS: Docusate Sodium 100 MG CAP PO ×2 (08:05→21:31)
[2021-12-10] MEDS: Gabapentin 300 MG CAP 900 MG PO ×3 (08:05→21:32)
[2021-12-10] MEDS: Zinc Sulfate 220 MG TAB PO (08:06)
[2021-12-10 08:53] LABS: Abs Immature Grans 0.14 10^3/uL (0.0-0.06); Absolute Basophil Count 0.06 10^3/uL (0.0-0.2); Absolute Lymphocyte Count 2.29 10^3/uL (1.2-3.4); Basophils % 0.4; Eosinophils % 0.8; HGB 14.3 g/dL (13.5-17.5); Immature Grans % 0.9; Lymphocytes % 14.9; MCH 31.8 pg (27.0-33.0); MCV 93.5 fL (80-95); MPV 11.3 fL (8.0-11.0); Monocytes % 6.5; Neutrophils % 76.5; Nucleated RBC 0 %; Platelet Count 120 10^3/uL (130-400); RBC 4.49 10^6/uL (4.36-5.78); RDW 12.7 % (11.8-14.1); WBC 15.34 10^3/uL (4.4-10.8)
[2021-12-10 08:54] LABS: BE 1 mmol/L (-2-3); HCO3 25 mmol/L (22-26); TCO2 27 mmol/L (23-27); pCO2 41 mmHg (35-45); pH 7.41 (7.35-7.45); pO2 71 mmHg (80-105); sO2 94 % (95-98)
[2021-12-10 08:55] LABS: FIO2L 2 L; Site Right Radial
[2021-12-10 08:57] LABS: Absolute Eosinophil Count 0.12 10^3/uL (0.0-0.7); Absolute Neutrophil Count 11.74 10^3/uL (1.2-6.7)
[2021-12-10 09:14] LABS: ALT 25 U/L (16-63); AST 12 U/L (15-37); Albumin 4.2 g/dL (3.4-5.0); Alkaline Phosphatase 71 U/L (46-116); Anion Gap 7.5 mmol/L (3-11); BUN 17 mg/dL (7-18); Bilirubin, Total 0.4 mg/dL (0.2-1.0); C-Reactive Protein 0.24 mg/dL (0.0-0.3); CO2 27.5 mmol/L (21.0-32.0); CREATININE 0.9 mg/dL (0.70-1.30); Calcium 9.1 mg/dL (8.5-10.1); Chloride 94 mmol/L (98-107); Glucose 105 mg/dL (74-106); LDH 182 U/L (85-227); Potassium 3.8 mmol/L (3.5-5.1); Sodium 129 mmol/L (136-145); Total Protein 7.9 g/dL (6.4-8.2)
[2021-12-10 09:23] LABS: D-Dimer 228 ng/mlFEU (<500)
[2021-12-10 09:24] LABS: Procalcitonin < 0.1 ng/mL
[2021-12-10] MEDS: Normal Saline Flush 10 ML SYR IVP (09:25)
[2021-12-10] MEDS: Omnipaque 350 MG/ML 100 ML BTL IJ (09:27)
[2021-12-10 09:44] LABS: Ferritin 157 ng/mL (26-388)
--- NOTE | 2021-12-10 09:45 | DI.VRAD_ITS ---
PROCEDURE INFORMATION: Exam: CTA Chest With Contrast Exam date and time: 12/10/2021 8:07 AM Age: 56 years old Clinical indication: Other: Hypoxemia, covid-19 TECHNIQUE: Imaging protocol: Computed tomographic angiography of the chest with contrast. 3D rendering (Not supervised by radiologist): MIP and/or 3D reconstructed images were created by the technologist. Radiation optimization: All CT scans at this facility use at least one of these dose optimization techniques: automated exposure control; mA and/or kV adjustment per patient size (includes targeted exams where dose is matched to clinical indication); or iterative reconstruction. Contrast material: OMNIPAQUE 350; Contrast volume: 100 ml; Contrast route: INTRAVENOUS (IV); COMPARISON: CT Private^TRAUMA CAP (Adult) 08/28/2018 9:20 PM FINDINGS: Pulmonary arteries: No evidence of pulmonary embolus to the segmental level. Aorta: No aneurysm of the aorta. No dissection of the aorta. Lungs: Mild panlobular emphysematous changes Pleural spaces: Unremarkable. No pneumothorax. No pleural effusion. Heart: Small pericardial effusion Lymph nodes: Unremarkable. No enlarged lymph nodes. Bones/joints: Posterior cervical fusion. Healing posterior right rib fractures. Compression fractures of unknown age in the midthoracic spine Soft tissues: Unremarkable. IMPRESSION: 1. No evidence of pulmonary embolus to the segmental level. 2. No aneurysm of the aorta. 3. No dissection of the aorta. Dictated and Authenticated by: Main Mckeon MD. [facility]ing[facility] Sharon Hernandez MD
[2021-12-10] MEDS: Dexamethasone 10 MG/ML VIAL IVP (09:59)
[2021-12-10] MEDS: REMDESIVIR 200 MG in Normal Saline 250 ML 250 MG IVPB (09:59)
[2021-12-10] MEDS: cefTRIAXone 1 GM/50 ML BAG IV (11:30)
--- NOTE | 2021-12-10 12:35 | PDOC.CMSAFE ---
- If Service Date Differs Date of service: 12/10/21 Time of Service: 12:35 Care Management Safety Plan Status: Interim - Reason for Wait Reason for Wait: Inpatient Admission VOLUNTARY FOR INPATIENT PSYCHIATRIC STABILIZATION. Patient is appropriate in all interactions since arriving at [facility]; Pt has demonstrated appropriate coping and communication skills, has articulated his needs and concerns and is fully engaged during staff interactions. Harshal is currently requiring O2, and is receiving IV antibiotics, therefore he is not medically cleared. [facility] screening will be placed on hold until he becomes medically cleared. [facility] will require new referrals once he is medically cleared. At the request of nursing supervisor accounts receivable, the safety plan is revised to allow the CPSO to sit in the hallway and to provide direct supervision of patient through the door's window. Revised safety plan has been established with patient, and care team, to adhere to patient goals, identify restrictions based on behavioral status, address nutrition, and determine allowed personal belongings, tools for hygiene and personal care. Determine level of activity including ambulation, level of supervision, visitors, and determine privileges based on behaviors and level of engagement by pt. Harshal was found to have extra medication (collecting) and powder/residue from suspected crushing and snorting on 12/07/2021. Due to this behavior, increased precautions have been put in place including RN to ensure medication compliance and bathroom door to remain open. RN discretion with all privileges encouraged. SAFETY PLAN: 1. Will remain on suicide precautions. In Paper Clothes 2. Will remain in room under direct supervision of one-on-one staff at all times provided by CPSO, CIRCULAR SHEAR OPERATOR, STOCK BLENDER offset press operator. 3. May have paper cups, plates, finger foods as well as a cardboard spoon with which to eat meals. 4. Follow [facility] Management of the Admitted Behavioral Health Patient policy. 5. May shower with supervision and at RN discretion. 6. No personal belongings 7. Visitors-No visitors at this time 8. Activities: Soft cart items, music tablet, coloring book, crayons, television if available, and other activities at RN discretion. 9. Bathroom available in room, door to remain open as patient remains in COVID precaution room and was found to be stashing and crushing medication. 10. Phone: May use [employer] phone at RN discretion. 11. Due to VOLUNTARY status, if patient wishes to leave [facility], staff will contact [facility] Crisis Screener ([phone]) and On-Call Cigarette Package Examiner ([phone]) as soon as possible. In the event of elopement, notify [facility] Police ([phone]). Patient is currently voluntarily at [facility] and seeking inpatient admission when a bed becomes available. [facility] Frontline Staff Nurse Midwife will continue seeking placement. Please contact the Recreational Programs Director Cigarette Package Examiner ([phone]) and [facility] Staff Nurse Midwife ([phone]) for any needed changes in the Safety Plan. Safety plan has been provided to interdepartmental care team.
--- NOTE | 2021-12-10 12:38 | CMPROGNOTE_ITS ---
- If Service Date Differs Date of service: 12/10/21 Time of Service: 12:38 Care Management Progress Note S/O: Harshal is currently requiring supplemental O2, and is receiving IV antibiotics, therefore he is no longer medically cleared. CM informed [facility], who will hold their daily assessments until he becomes medically cleared. [facility], who were both considering him for admission, were informed of his status change, and will require new referrals once he is medically cleared. CM will continue to follow. A: Harshal is a 56 year old male admitted to [facility] on 12/03/21 for SI, alcoholism, COVID. P: Harshal is currently not medically cleared, therefore his inpatient psychiatric admission is on hold. New referrals will need to be sent to [facility] once he becomes medically cleared. Harshal will remain at [facility] voluntarily and will be reevaluated by [facility] daily. He is currently homeless, but has previously lived at [facility]. Transportation will be determined by disposition. He will follow up with his PCP and discharge plan of care. CM will continue to follow.
[2021-12-10 13:22] VITALS: O2SAT 95
--- NOTE | 2021-12-10 14:21 | PGE_ITS ---
Date of Service Date of service: 12/10/21 Time of Service: 14:21 Assessment and Plan Assessment and plan (1) Suicidal ideation: Status: Acute Assessment and plan: Recurrent, persistent. Evaluated by Dr Jaramillo on this admission. Continue venlafaxine in addition to bupropion. Continue suicide precautions. Awaiting psychiatric placement on voluntary basis. Continue with direct patient observer (2) Major depression: Status: Chronic Assessment and plan: As above. Qualifiers: Major depression recurrence: recurrent Active/Remission status: cur rently active Major depression episode severity: severe Psychotic features: without psychotic features Qualified Code(s): F33.2 - Major depressive disorder, recurrent severe without psychotic features (3) Acute bronchitis: Status: Acute Assessment and plan: Continue Combivent 4 times daily along with as needed albuterol MDI. We will change his Decadron back to prednisone limited scheduling 5 days. Continue antibiotic treatment with Rocephin and doxycycline. (4) COVID-19: Status: Acute Assessment and plan: Continue Remdesivir, DC Decadron, continue to monitor and encourage him to use his Acapella and his I.S. His PCR remains positive. Will keep him in isolation for now until his PCR is either negative or he has been in isolation for 10 days (his first positive was on 12/03, therefore end isolation on 01/10. Continue prophylactic Lovenox (5) Alcoholism: Status: Acute Assessment and plan: CIWA protocol Librium was discontinued yesterday. Continue his gabapentin. Continue his antidepressants including his Wellbutrin and Effexor. Medications to be crushed and mixed with applesauce or pudding and directly observed (6) DVT prophylaxis: Status: Acute Assessment and plan: SC enoxaparin - ppx dose as not here for COVID-19. (7) Discharge planning issues: Status: Acute Assessment and plan: Full code Currently awaiting a voluntary admission to a psychiatric bed. Subjective Subjective Interval history since last seen: Last night patient patient became hypoxemic and went on supplemental oxygen at 2 lpm. He has harsh cough. I put him on doxycycline and prednisone and combivent yesterday. Because of his positive COVID-19 status and the fact that a CT of the chest was not done on admission, I sent him down for CTA chest to both rule out PE as well as look for ground glass pneumonia. Fortunately both were not found. He does have emphysema. I think that his harsh productive cough and worsening hypoxemia is d/t bronchitis and possible mucous pluggging. He is better this afternoon and does not feel dyspneic. He has been using his I.S. but not much use of his Vibra-pep (acapella). I advised him that he needs to use this more. With respect to his COVID-19 treatment, I resumed Remdesivir treatment and put him on decadron although now that we found that he does not have the ground glass pneumonic changes, I think we can treat him more for acute purulent bronchitis. Exam Narrative Exam Narrative: Middle-aged white male lying in semirecumbent position on his bed watching TV. No acute distress. Able to speak with me in complete paragraphs no accessory respiratory muscle use. Currently is on room air. Lungs with some scattered bilateral rhonchi and expiratory wheezes Heart regular rate and rhythm Abdomen soft nontender nondistended Extremities without peripheral edema Objective Last Vital Signs Temp 36.3 C L 12/10/21 08:03 Pulse 64 12/10/21 08:03 Resp 18 12/10/21 08:03 BP 155/93 H 12/10/21 08:03 Pulse Ox 95 12/10/21 13:22 Laboratory Results - last 24 hr 12/10/21 12/10/21 12/10/21 08:03 08:04 08:30 WBC RBC Hgb Hct MCV MCH MCHC RDW Plt Count MPV Immature Gran % Neutrophils % Lymphocytes % Monocytes % Eosinophils % Basophils % Nucleated RBC % Absolute Neutrophils Absolute Lymphocytes Absolute Monocytes Absolute Eosinophils Absolute Basophils D-Dimer Sample Site Right Radial ABG Sample Site Cancelled ABG pH 7.41 ABG pCO2 41 ABG pO2 71 L ABG HCO3 25 ABG Total CO2 27 ABG O2 Saturation 94 L ABG Base Excess 1 Oxygen Liter Flow Cancelled FiO2 Cancelled FiO2 (liters per min) 2 Sodium Potassium Chloride Carbon Dioxide Anion Gap BUN Creatinine Estimated GFR/1.73 m2 Glucose Calcium Ferritin Total Bilirubin AST ALT Alkaline Phosphatase Lactate Dehydrogenase C-Reactive Protein Cancelled Total Protein Albumin Procalcitonin Patient ABO/Rh Antibody Screen 12/10/21 12/10/21 12/10/21 08:40 08:40 08:40 WBC 15.34 H D RBC 4.49 Hgb 14.3 Hct 42.0 MCV 93.5 MCH 31.8 MCHC 34.0 RDW 12.7 Plt Count 120 L MPV 11.3 H Immature Gran % 0.9 Neutrophils % 76.5 Lymphocytes % 14.9 Monocytes % 6.5 Eosinophils % 0.8 Basophils % 0.4 Nucleated RBC % 0 Absolute Neutrophils 11.74 H Absolute Lymphocytes 2.29 Absolute Monocytes 1.00 H Absolute Eosinophils 0.12 Absolute Basophils 0.06 D-Dimer 228 Sample Site ABG Sample Site ABG pH ABG pCO2 ABG pO2 ABG HCO3 ABG Total CO2 ABG O2 Saturation ABG Base Excess Oxygen Liter Flow FiO2 FiO2 (liters per min) Sodium 129 L Potassium 3.8 Chloride 94 L Carbon Dioxide 27.5 Anion Gap 7.5 BUN 17 Creatinine 0.9 Estimated GFR/1.73 m2 >= 60.00 Glucose 105 Calcium 9.1 Ferritin 157 Total Bilirubin 0.4 AST 12 L ALT 25 Alkaline Phosphatase 71 Lactate Dehydrogenase 182 C-Reactive Protein 0.24 Total Protein 7.9 Albumin 4.2 Procalcitonin Patient ABO/Rh Antibody Screen 12/10/21 12/10/21 08:40 08:40 WBC RBC Hgb Hct MCV MCH MCHC RDW Plt Count MPV Immature Gran % Neutrophils % Lymphocytes % Monocytes % Eosinophils % Basophils % Nucleated RBC % Absolute Neutrophils Absolute Lymphocytes Absolute Monocytes Absolute Eosinophils Absolute Basophils D-Dimer Sample Site ABG Sample Site ABG pH ABG pCO2 ABG pO2 ABG HCO3 ABG Total CO2 ABG O2 Saturation ABG Base Excess Oxygen Liter Flow FiO2 FiO2 (liters per min) Sodium Potassium Chloride Carbon Dioxide Anion Gap BUN Creatinine Estimated GFR/1.73 m2 Glucose Calcium Ferritin Total Bilirubin AST ALT Alkaline Phosphatase Lactate Dehydrogenase C-Reactive Protein Total Protein Albumin Procalcitonin < 0.1 Patient ABO/Rh O Positive Antibody Screen NEGATIVE PAWSS Have you Been Recently Intoxicated or Drunk Within the Last 30 days?: Yes Have you Ever Experienced Previous Episodes of Alcohol Withdrawal?: Yes Have you ever Experienced Withdrawal Seizures?: Unable to Obtain Have you ever Experienced Delirium Tremens(DT)s?: Yes Have you ever undergone Alcohol Rehabilitation Treatment (i.e, inpt ot outpatient treatment programs)?: Yes Have you ever Experienced Blackouts?: Yes Have you ever Combined Alcohol with other Downers within the last 90 days?: Yes Have you ever Combined Alcohol with any other Substance of Abuse during the last 90 days?: Unable to Obtain Evidence of Increased Autonomic Activity (i.e. HR>120, tremor, sweating, agitation, nausea)?: No Result: 5
[2021-12-10 15:56] VITALS: BP 136/91; PULSE 80; RESP 18; TEMP 36.8; O2SAT 97
[2021-12-10] MEDS: Enoxaparin 40 MG/0.4 ML SYR SC (18:25)
[2021-12-10] MEDS: Atorvastatin 40 MG TAB PO (21:31)
[2021-12-10] MEDS: Famotidine 20 MG TAB PO (21:32)
[2021-12-10 23:15] VITALS: BP 130/89; PULSE 76; RESP 18; TEMP 36.8; O2SAT 97
[2021-12-11] MEDS: Levothyroxine 150 MCG TAB PO (06:30)
[2021-12-11 07:52] LABS: Abs Immature Grans 0.22 10^3/uL (0.0-0.06); Absolute Lymphocyte Count 2.76 10^3/uL (1.2-3.4); Basophils % 0.3; Eosinophils % 0.4; HGB 13.8 g/dL (13.5-17.5); Immature Grans % 1.2; MCH 31.7 pg (27.0-33.0); MCHC 33.7 % (32.0-36.0); Monocytes % 9.6; Neutrophils % 73.5; Nucleated RBC 0 %; Platelet Count 145 10^3/uL (130-400); RBC 4.36 10^6/uL (4.36-5.78); RDW 12.9 % (11.8-14.1); RDW-SD 44.5 fL; WBC 18.38 10^3/uL (4.4-10.8)
[2021-12-11 07:53] LABS: Absolute Basophil Count 0.06 10^3/uL (0.0-0.2); Absolute Eosinophil Count 0.07 10^3/uL (0.0-0.7); Absolute Monocyte Count 1.76 10^3/uL (0.1-0.8); Absolute Neutrophil Count 13.51 10^3/uL (1.2-6.7)
[2021-12-11] MEDS: Docusate Sodium 100 MG CAP PO ×2 (08:10→19:59)
[2021-12-11] MEDS: Ascorbic Acid 500 MG TAB 1000 MG PO ×2 (08:10→19:58)
[2021-12-11] MEDS: Doxycycline Hyclate 100 MG CAP PO ×2 (08:10→19:59)
[2021-12-11] MEDS: buPROPion 75 MG TAB 150 MG PO ×3 (08:10→19:59)
[2021-12-11] MEDS: cefTRIAXone 1 GM/50 ML BAG IV (08:10)
[2021-12-11] MEDS: Cyanocobalamin 500 MCG TAB 1000 MCG PO (08:10)
[2021-12-11] MEDS: Cholecalciferol (Vitamin D3) 1,000 UNIT TAB 2000 UNITS PO (08:10)
[2021-12-11] MEDS: Benzonatate 200 MG CAP PO ×3 (08:10→19:58)
[2021-12-11 08:11] LABS: Diff Comment Diff Reviewed; RBC Morphology Normal
[2021-12-11] MEDS: Ipratropium/Albuterol 4 GM 120 PUFF INH IH ×4 (08:11→20:47)
[2021-12-11] MEDS: Folic Acid 1 MG TAB PO (08:11)
[2021-12-11] MEDS: Multivitamin TAB 1 TAB PO (08:11)
[2021-12-11] MEDS: Metoprolol CR 50 MG TABCR PO (08:11)
[2021-12-11] MEDS: Famotidine 20 MG TAB PO ×2 (08:11→19:59)
[2021-12-11] MEDS: Venlafaxine 150 MG CAPCR PO (08:11)
[2021-12-11] MEDS: Thiamine 100 MG TAB PO (08:11)
[2021-12-11] MEDS: Normal Saline Flush 10 ML SYR IVP (08:11)
[2021-12-11] MEDS: Gabapentin 300 MG CAP 900 MG PO ×3 (08:11→20:00)
[2021-12-11] MEDS: guaiFENesin 600 MG TABCR PO ×2 (08:11→19:58)
[2021-12-11] MEDS: predniSONE 20 MG TAB 40 MG PO (08:11)
[2021-12-11 08:12] VITALS: BP 157/91; PULSE 62; RESP 18; TEMP 36.3; O2SAT 95
[2021-12-11] MEDS: Zinc Sulfate 220 MG TAB PO (08:12)
[2021-12-11 08:22] LABS: D-Dimer 198 ng/mlFEU (<500)
[2021-12-11 08:44] LABS: ALT 20 U/L (16-63); AST 9 U/L (15-37); Alkaline Phosphatase 65 U/L (46-116); Anion Gap 9.5 mmol/L (3-11); BUN 19 mg/dL (7-18); Bilirubin, Total 0.3 mg/dL (0.2-1.0); C-Reactive Protein 0.35 mg/dL (0.0-0.3); CO2 27.5 mmol/L (21.0-32.0); CREATININE 0.9 mg/dL (0.70-1.30); Calcium 8.9 mg/dL (8.5-10.1); Chloride 95 mmol/L (98-107); Creatine Kinase 55 U/L (39-308); Glucose 82 mg/dL (74-106); Potassium 4.3 mmol/L (3.5-5.1); Sodium 132 mmol/L (136-145); Total Protein 7.7 g/dL (6.4-8.2)
[2021-12-11] MEDS: REMDESIVIR 100 MG in Normal Saline 250 ML 250 MG IVPB (09:32)
[2021-12-11 11:03] LABS: HIV-1/2 Ag & Ab Screen Negative (Negative)
[2021-12-11 12:35] LABS: HBs Antibody, Qual Negative (See Note); HBs Antibody, Quant <3.1 mIU/mL (See Note); Hepatitis B Core Antibody Negative (Negative); Hepatitis B surface Ag Negative (Negative); Hepatitis C Ab w Rflx HCV PCR Reactive (Negative)
--- NOTE | 2021-12-11 15:15 | CMSP_ITS ---
- If Service Date Differs Date of service: 12/11/21 Time of Service: 15:16 Care Management Safety Plan Status: Voluntary - Reason for Wait Reason for Wait: Inpatient Admission, Medical Clearance VOLUNTARY FOR INPATIENT PSYCHIATRIC STABILIZATION. Patient is appropriate in all interactions since arriving at [facility]; Pt has demonstrated appropriate coping and communication skills, has articulated his needs and concerns and is fully engaged during staff interactions. Harshal is currently requiring O2, and is receiving IV antibiotics, therefore he is not medically cleared. [facility] screening will be placed on hold until he becomes medically cleared. [facility] will require new referrals once he is medically cleared. At the request of nursing locomotive supervisor, the safety plan is revised to allow the CPSO to sit in the hallway and to provide direct supervision of patient through the door's window. Revised safety plan has been established with patient, and care team, to adhere to patient goals, identify restrictions based on behavioral status, address nutrition, and determine allowed personal belongings, tools for hygiene and personal care. Determine level of activity including ambulation, level of supervision, visitors, and determine privileges based on behaviors and level of engagement by pt. Harshal was found to have extra medication (collecting) and powder/residue from suspected crushing and snorting on 12/07/2021. Due to this behavior, increased precautions have been put in place including RN to ensure medication compliance and bathroom door to remain open. RN discretion with all privileges encouraged. SAFETY PLAN: 1. Will remain on suicide precautions. In Paper Clothes 2. Will remain in room under direct supervision of one-on-one staff at all times provided by CPSO, CRAYON SAWYER, SEEDLING PULLER fresh work wrapper layer. 3. May have paper cups, plates, finger foods as well as a cardboard spoon with which to eat meals. 4. Follow [facility] Management of the Admitted Behavioral Health Patient policy. 5. May shower with supervision and at RN discretion. 6. No personal belongings 7. Visitors-No visitors at this time 8. Activities: Soft cart items, music tablet, coloring book, crayons, television if available, and other activities at RN discretion. 9. Bathroom available in room, door to remain open as patient remains in COVID precaution room and was found to be stashing and crushing medication. 10. Phone: May use [employer] phone at RN discretion. 11. Due to VOLUNTARY status, if patient wishes to leave [facility], staff will contact [facility] Crisis Screener ([phone]) and On-Call [place] Technician ([phone]) as soon as possible. In the event of elopement, notify [facility] Police ([phone]). Patient is currently voluntarily at [facility] and seeking inpatient admission when a bed becomes available. [facility] Frontline Travel Clerk will continue seeking placement. Please contact the Instructor Adjunct Surgical Technician [place] Technician ([phone]) and [facility] Travel Clerk ([phone]) for any needed changes in the Safety Plan. Safety plan has been provided to interdepartmental care team.
[2021-12-11 15:24] VITALS: BP 155/95; PULSE 66; RESP 16; TEMP 36.4; O2SAT 94
--- NOTE | 2021-12-11 15:28 | PDOC.CMPRO ---
- If Service Date Differs Date of service: 12/11/21 Time of Service: 15:28 Care Management Progress Note S/O: Harshal is improving but is not considered medically cleared yet. He is no longer requiring supplemental oxygen but continues on antibiotics and on IV Remdesivir. Once medically cleared, new referrals will be submitted to [facility] and [facility] for review. Harshal spoke with a Chemical Recovery Operator by telephone today and per the Chemical Recovery Operator, Harshal identified his lack of housing as his biggest concern. CM will continue to follow. A: Harshal is a 56 year old male admitted to [facility] on 12/03/21 for SI, alcoholism, COVID. P: Harshal is currently not medically cleared, therefore his inpatient psychiatric admission is on hold. New referrals will need to be sent to [facility] and [facility] once he is medically stable. Harshal will remain at [facility] voluntarily and will be reevaluated by [facility] daily. He is currently homeless, but has previously lived at [facility]. Transportation will be determined by disposition. He will follow up with his PCP and discharge plan of care. CM will continue to follow. - Status Status: Voluntary - Reason for Wait Reason for Wait: Medical Clearance
--- NOTE | 2021-12-11 16:41 | PGE_ITS ---
Date of Service Date of service: 12/11/21 Time of Service: 16:41 Assessment and Plan Assessment and plan (1) Suicidal ideation: Status: Acute Assessment and plan: Recurrent, persistent. Evaluated by Dr Jaramillo on this admission. Continue venlafaxine in addition to bupropion. Continue suicide precautions. Awaiting psychiatric placement on voluntary basis. Continue with direct patient observer (2) Major depression: Status: Chronic Assessment and plan: As above. Qualifiers: Major depression recurrence: recurrent Active/Remission status: cur rently active Major depression episode severity: severe Psychotic features: without psychotic features Qualified Code(s): F33.2 - Major depressive disorder, recurrent severe without psychotic features (3) Acute bronchitis: Status: Acute Assessment and plan: As his CT scan did not show any groundglass opacifications and he is not hypoxemic and he has no lobar consolidation I discontinued IV Rocephin but will continue him on doxycycline. I will put him on 3 days of Omnicef which should complete a 5-day course of cephalosporins and doxycycline. He still encouraged to use his incentive spirometer and his Vibra- pep. He has been put back on a short course of prednisone. (4) COVID-19: Status: Acute Assessment and plan: Continue Remdesivir, DC Decadron, continue to monitor and encourage him to use his Acapella and his I.S. His PCR remains positive. Will keep him in isolation for now until his PCR is either negative or he has been in isolation for 10 days (his first positive was on 12/03, therefore end isolation on 12/14. Continue prophylactic Lovenox. Last dose of Remdesivir is on 12/14. (5) Alcoholism: Status: Acute Assessment and plan: CIWA protocol Librium was discontinued over the weekend. Continue his gabapentin. Continue his antidepressants including his Wellbutrin and Effexor. Medications to be crushed and mixed with applesauce or pudding and directly observed (6) DVT prophylaxis: Status: Acute Assessment and plan: SC enoxaparin - ppx dose as not here for COVID-19. (7) Discharge planning issues: Status: Acute Assessment and plan: Full code Currently awaiting a voluntary admission to a psychiatric bed pending ending of his Covid isolation (to end on 12/14). Subjective Subjective Patient reports: no new complaints and feels better; denies shortness of breath Interval history since last seen: Cough a little more productive of sputum. He says he sent off a sample to be cultured. No chest pain and no dyspnea Exam Narrative Exam Narrative: Middle-aged white male sitting up on his bed watching TV. No acute respiratory distress. Able to speak in full paragraphs. Lungs with some faint bibasilar rales no rhonchi or wheezing. Much better air exchange today. Heart regular rate and rhythm Abdomen soft nondistended Extremities without peripheral cyanosis or edema. Objective Last Vital Signs Temp 36.4 C L 12/11/21 15:24 Pulse 66 12/11/21 15:24 Resp 16 12/11/21 15:24 BP 155/95 H 12/11/21 15:24 Pulse Ox 94 12/11/21 15:24 Laboratory Results - last 24 hr 12/10/21 12/10/21 12/11/21 08:40 08:40 06:50 WBC RBC Hgb Hct MCV MCH MCHC RDW Plt Count MPV Immature Gran % Neutrophils % Lymphocytes % Monocytes % Eosinophils % Basophils % Nucleated RBC % Absolute Neutrophils Absolute Lymphocytes Absolute Monocytes Absolute Eosinophils Absolute Basophils RBC Morphology D-Dimer Sodium 132 L Potassium 4.3 Chloride 95 L Carbon Dioxide 27.5 Anion Gap 9.5 BUN 19 H Creatinine 0.9 Estimated GFR/1.73 m2 >= 60.00 Glucose 82 Calcium 8.9 Total Bilirubin 0.3 AST 9 L ALT 20 Alkaline Phosphatase 65 Creatine Kinase 55 C-Reactive Protein 0.35 H Total Protein 7.7 Albumin 4.0 Hep Bs Antigen Negative Hep Bs Antibody Negative Hep Bs Antibody, Quant <3.1 Hep B Core Total Ab Negative Hepatitis C Antibody Reactive A HIV 1&2 Ag/Ab, 4th Gen Negative 12/11/21 12/11/21 06:50 06:50 WBC 18.38 H RBC 4.36 Hgb 13.8 Hct 41.0 MCV 94.0 MCH 31.7 MCHC 33.7 RDW 12.9 Plt Count 145 MPV 12.0 H Immature Gran % 1.2 Neutrophils % 73.5 Lymphocytes % 15.0 Monocytes % 9.6 Eosinophils % 0.4 Basophils % 0.3 Nucleated RBC % 0 Absolute Neutrophils 13.51 H Absolute Lymphocytes 2.76 Absolute Monocytes 1.76 H Absolute Eosinophils 0.07 Absolute Basophils 0.06 RBC Morphology Normal D-Dimer 198 Sodium Potassium Chloride Carbon Dioxide Anion Gap BUN Creatinine Estimated GFR/1.73 m2 Glucose Calcium Total Bilirubin AST ALT Alkaline Phosphatase Creatine Kinase C-Reactive Protein Total Protein Albumin Hep Bs Antigen Hep Bs Antibody Hep Bs Antibody, Quant Hep B Core Total Ab Hepatitis C Antibody HIV 1&2 Ag/Ab, 4th Gen PAWSS Have you Been Recently Intoxicated or Drunk Within the Last 30 days?: Yes Have you Ever Experienced Previous Episodes of Alcohol Withdrawal?: Yes Have you ever Experienced Withdrawal Seizures?: Unable to Obtain Have you ever Experienced Delirium Tremens(DT)s?: Yes Have you ever undergone Alcohol Rehabilitation Treatment (i.e, inpt ot outpatient treatment programs)?: Yes Have you ever Experienced Blackouts?: Yes Have you ever Combined Alcohol with other Downers within the last 90 days?: Yes Have you ever Combined Alcohol with any other Substance of Abuse during the last 90 days?: Unable to Obtain Evidence of Increased Autonomic Activity (i.e. HR>120, tremor, sweating, agitation, nausea)?: No Result: 5
[2021-12-11] MEDS: Enoxaparin 40 MG/0.4 ML SYR SC (17:45)
--- NOTE | 2021-12-11 19:31 | NUR.NOTE ---
I agree with Meera Varela's assessments Nursing Note:
[2021-12-11 19:49] LABS: Legionella Ag Detection Urine Negative (Negative)
[2021-12-11] MEDS: Atorvastatin 40 MG TAB PO (19:59)
[2021-12-12 02:10] VITALS: PULSE 66
[2021-12-12] MEDS: Levothyroxine 150 MCG TAB PO (07:05)
[2021-12-12 07:20] LABS: Abs Immature Grans 0.36 10^3/uL (0.0-0.06); Absolute Basophil Count 0.12 10^3/uL (0.0-0.2); Absolute Lymphocyte Count 4.03 10^3/uL (1.2-3.4); Absolute Neutrophil Count 8.73 10^3/uL (1.2-6.7); Basophils % 0.8; Eosinophils % 2.3; HGB 14.2 g/dL (13.5-17.5); Immature Grans % 2.4; Lymphocytes % 26.7; MCH 30.9 pg (27.0-33.0); MCHC 32.3 % (32.0-36.0); MCV 95.7 fL (80-95); MPV 11.4 fL (8.0-11.0); Monocytes % 9.9; Neutrophils % 57.9; Nucleated RBC 0 %; RDW 13.2 % (11.8-14.1); WBC 15.08 10^3/uL (4.4-10.8)
[2021-12-12 07:21] LABS: Absolute Eosinophil Count 0.35 10^3/uL (0.0-0.7); Absolute Monocyte Count 1.49 10^3/uL (0.1-0.8)
[2021-12-12 07:33] LABS: ALT 21 U/L (16-63); AST 11 U/L (15-37); Albumin 3.9 g/dL (3.4-5.0); Alkaline Phosphatase 68 U/L (46-116); Anion Gap 6.7 mmol/L (3-11); BUN 20 mg/dL (7-18); Bilirubin, Total 0.3 mg/dL (0.2-1.0); C-Reactive Protein 0.08 mg/dL (0.0-0.3); CO2 31.3 mmol/L (21.0-32.0); CREATININE 1.1 mg/dL (0.70-1.30); Calcium 8.9 mg/dL (8.5-10.1); Chloride 94 mmol/L (98-107); Creatine Kinase 35 U/L (39-308); Glucose 83 mg/dL (74-106); Potassium 4.3 mmol/L (3.5-5.1); Sodium 132 mmol/L (136-145); Total Protein 7.3 g/dL (6.4-8.2)
[2021-12-12 07:42] LABS: Diff Comment Agrees w/ Instrument; Platelet Count 158 10^3/uL (130-400); RBC Morphology Normal
[2021-12-12] MEDS: predniSONE 20 MG TAB 40 MG PO (07:50)
[2021-12-12] MEDS: REMDESIVIR 100 MG in Normal Saline 250 ML 250 MG IVPB (07:51)
[2021-12-12 07:52] LABS: D-Dimer 215 ng/mlFEU (<500)
[2021-12-12] MEDS: Cyanocobalamin 500 MCG TAB 1000 MCG PO (07:52)
[2021-12-12] MEDS: Multivitamin TAB 1 TAB PO (07:53)
[2021-12-12] MEDS: Ascorbic Acid 500 MG TAB 1000 MG PO ×2 (07:53→20:40)
[2021-12-12] MEDS: Famotidine 20 MG TAB PO ×2 (07:53→20:39)
[2021-12-12] MEDS: Cholecalciferol (Vitamin D3) 1,000 UNIT TAB 2000 UNITS PO (07:53)
[2021-12-12] MEDS: Docusate Sodium 100 MG CAP PO ×2 (07:53→20:39)
[2021-12-12] MEDS: Benzonatate 200 MG CAP PO ×3 (07:53→20:40)
[2021-12-12] MEDS: Venlafaxine 150 MG CAPCR PO (07:53)
[2021-12-12] MEDS: guaiFENesin 600 MG TABCR PO ×2 (07:53→20:40)
[2021-12-12] MEDS: Folic Acid 1 MG TAB PO (07:53)
[2021-12-12] MEDS: Gabapentin 300 MG CAP 900 MG PO ×3 (07:54→20:39)
[2021-12-12] MEDS: Thiamine 100 MG TAB PO (07:54)
[2021-12-12] MEDS: Zinc Sulfate 220 MG TAB PO (07:54)
[2021-12-12] MEDS: Doxycycline Hyclate 100 MG CAP PO ×2 (07:54→20:39)
[2021-12-12] MEDS: buPROPion 75 MG TAB 150 MG PO ×3 (07:54→20:39)
[2021-12-12] MEDS: Metoprolol CR 50 MG TABCR PO (07:55)
[2021-12-12] MEDS: Normal Saline Flush 10 ML SYR IVP (07:55)
--- NOTE | 2021-12-12 09:17 | CMPROGNOTE_ITS ---
- If Service Date Differs Date of service: 12/12/21 Time of Service: 09:17 Care Management Progress Note S/O:Harshal is no longer requiring supplemental oxygen and is saturating at 94% on room air. He completed his course of Remdesevir today but remains on oral steroids and antibiotics. Harshal's precautions may be discontinued on 12/14/21 which is day 10 following first positive test. He is essentially asymptomatic from Covid at this point. Once isolation can be d/c'd and Harshal is medically cleared, new referrals will be submitted to [facility] and [facility] for review. CM was unable to meet with Harshal in person and 3 attempts to call into his room were unsuccessful. A: Harshal is a 56 year old male admitted to [facility] on 12/03/21 for SI, alcoholism, COVID. P: Harshal is currently not medically cleared as he still requires isolation, therefore his inpatient psychiatric admission is on hold. New referrals will need to be sent to [facility] and [place] once he becomes medically cleared. Harshal will remain at [facility] voluntarily and will be reevaluated by [facility] daily. He is currently homeless, but has previously lived at [facility]. Transportation will be determined by disposition. He will follow up with his PCP and discharge plan of care. CM will continue to follow.
--- NOTE | 2021-12-12 09:18 | PDOC.CMSAFE ---
- If Service Date Differs Date of service: 12/12/21 Time of Service: 09:18 Care Management Safety Plan Status: Voluntary - Reason for Wait Reason for Wait: Inpatient Admission, Medical Clearance VOLUNTARY FOR INPATIENT PSYCHIATRIC STABILIZATION. Patient is appropriate in all interactions since arriving at [facility]; Pt has demonstrated appropriate coping and communication skills, has articulated his needs and concerns and is fully engaged during staff interactions. Harshal is not currently requiring O2, has completed his course of Remdesevir and his antibiotics and steroids are being given orally. His isolation may be discontinued on 12/14/21 at which point [facility] will require new referrals. At the request of nursing field pipelines supervisor, the safety plan is revised to allow the CPSO to sit in the hallway and to provide direct supervision of patient through the door's window. Revised safety plan has been established with patient, and care team, to adhere to patient goals, identify restrictions based on behavioral status, address nutrition, and determine allowed personal belongings, tools for hygiene and personal care. Determine level of activity including ambulation, level of supervision, visitors, and determine privileges based on behaviors and level of engagement by pt. Harshal was found to have extra medication (collecting) and powder/residue from suspected crushing and snorting on 12/07/2021. Due to this behavior, increased precautions have been put in place including RN to ensure medication compliance and bathroom door to remain open. RN discretion with all privileges encouraged. SAFETY PLAN: 1. Will remain on suicide precautions. In Paper Clothes 2. Will remain in room under direct supervision of one-on-one staff at all times provided by CPSO, PROCESS IMPROVEMENT CONSULTANT, ELECTRIC MOTOR CONTROLS ASSEMBLER personal computer network engineer. 3. May have paper cups, plates, finger foods as well as a cardboard spoon with which to eat meals. 4. Follow [facility] Management of the Admitted Behavioral Health Patient policy. 5. May shower with supervision and at RN discretion. 6. No personal belongings 7. Visitors-No visitors at this time 8. Activities: Soft cart items, music tablet, coloring book, crayons, television if available, and other activities at RN discretion. 9. Bathroom available in room, door to remain open as patient remains in COVID precaution room and was found to be stashing and crushing medication. 10. Phone: May use [employer] phone at RN discretion. 11. Due to VOLUNTARY status, if patient wishes to leave [facility], staff will contact [facility] Crisis Screener ([phone]) and On-Call Fire Protection Designer ([phone]) as soon as possible. In the event of elopement, notify [facility] Police ([phone]). Patient is currently voluntarily at [facility] and seeking inpatient admission when a bed becomes available. [facility] Frontline Parking Lot Chauffeur will continue seeking placement. Please contact the Franchise Broker Fire Protection Designer ([phone]) and [facility] Parking Lot Chauffeur ([phone]) for any needed changes in the Safety Plan. Safety plan has been provided to interdepartmental care team.
[2021-12-12] MEDS: Cefdinir 300 MG CAP PO (10:58)
[2021-12-12 11:06] LABS: Source Nasal/Nares
[2021-12-12 11:07] LABS: COVID-19 PCR POSITIVE (Negative)
[2021-12-12] MEDS: Ipratropium/Albuterol 4 GM 120 PUFF INH IH ×4 (12:02→20:42)
[2021-12-12] MEDS: Enoxaparin 40 MG/0.4 ML SYR SC (14:04)
--- NOTE | 2021-12-12 14:14 | W.PM.PROGNOT ---
Date of Service Date of service: 12/12/21 Time of Service: 14:14 Assessment and Plan Assessment and plan (1) Suicidal ideation: Status: Acute Assessment and plan: Patient continues to express feelings of self worthlessness and depression. He desires to go to [place] to deal with his alcoholism and depression. the timing of transfer is going to depend on his no longer being infectious from COVID. His PCR test is still positive w/ a low enough cycling time that Dr. Moe feels that he is still contagious. (2) Major depression: Status: Chronic Assessment and plan: continue Effexor and Wellbutrin Qualifiers: Major depression recurrence: recurrent Active/Remission status: currently active Major depression episode severity: severe Psychotic features: without psychotic features Qualified Code(s): F33.2 - Major depressive disorder, recurrent severe without psychotic features (3) Acute bronchitis: Status: Acute Assessment and plan: continue prednisone, omnicef and doxycycline x 5 days total (d#4 doxy, d#1 omnicef however he had couple days of Ceftriaxone therefore will only need 3 days of omnicef). (4) COVID-19: Status: Acute Assessment and plan: continue Remdesivir through 2/3 but may need to continue beyond that. Not ill enough to need baricitinib. cont. use of Acapella and IS (5) Alcoholism: Status: Acute Assessment and plan: CIWA protocol Librium was discontinued over the weekend. Continue his gabapentin. Continue his antidepressants including his Wellbutrin and Effexor. Medications to be crushed and mixed with applesauce or pudding and directly observed (6) DVT prophylaxis: Status: Acute Assessment and plan: SC enoxaparin - ppx dose as not here for COVID-19. (7) Discharge planning issues: Status: Acute Assessment and plan: Full code Currently awaiting a voluntary admission to a psychiatric bed pending ending of his Covid isolation (unclear as to when this may occur). Subjective Subjective Interval history since last seen: Overall patient is improving. He is not short of breath. Cough is improved. No chest discomfort. Unfortunately his nasal swab for SARS-CoV-[address] Moe's message given to the nurse auto mechanic supervisor his cycling time remains high and he still potentially infectious. I will recheck his PCR test in 2 days to see if it is coming down. For now he remains in respiratory isolation. He remains on Remdesivir through December 14. Exam Narrative Exam Narrative: Alert and oriented x3 sitting up at the bedside drinking a cup of coffee. Lungs are clear anteriorly posteriorly some fine rales no rhonchi or wheezes Heart is regular rate and rhythm without murmur rub or gallop Extremities without peripheral cyanosis or edema no calf tenderness or swelling. Objective Last Vital Signs Temp 36.4 C L 12/11/21 15:24 Pulse 66 12/12/21 02:10 Resp 16 12/11/21 15:24 BP 155/95 H 12/11/21 15:24 Pulse Ox 94 12/11/21 15:24 Laboratory Results - last 24 hr 12/10/21 12/12/21 12/12/21 13:45 07:10 07:10 WBC 15.08 H RBC 4.60 Hgb 14.2 Hct 44.0 MCV 95.7 H MCH 30.9 MCHC 32.3 RDW 13.2 Plt Count 158 MPV 11.4 H Immature Gran % 2.4 Neutrophils % 57.9 Lymphocytes % 26.7 Monocytes % 9.9 Eosinophils % 2.3 Basophils % 0.8 Nucleated RBC % 0 Absolute Neutrophils 8.73 H Absolute Lymphocytes 4.03 H Absolute Monocytes 1.49 H Absolute Eosinophils 0.35 Absolute Basophils 0.12 RBC Morphology Normal D-Dimer Sodium 132 L Potassium 4.3 Chloride 94 L Carbon Dioxide 31.3 Anion Gap 6.7 BUN 20 H Creatinine 1.1 Estimated GFR/1.73 m2 >= 60.00 Glucose 83 Calcium 8.9 Total Bilirubin 0.3 AST 11 L ALT 21 Alkaline Phosphatase 68 Creatine Kinase 35 L C-Reactive Protein 0.08 Total Protein 7.3 Albumin 3.9 COVID-19 Source SARS-CoV-2 (PCR) Urine Legionella Ag Negative 12/12/21 12/12/21 07:10 08:20 WBC RBC Hgb Hct MCV MCH MCHC RDW Plt Count MPV Immature Gran % Neutrophils % Lymphocytes % Monocytes % Eosinophils % Basophils % Nucleated RBC % Absolute Neutrophils Absolute Lymphocytes Absolute Monocytes Absolute Eosinophils Absolute Basophils RBC Morphology D-Dimer 215 Sodium Potassium Chloride Carbon Dioxide Anion Gap BUN Creatinine Estimated GFR/1.73 m2 Glucose Calcium Total Bilirubin AST ALT Alkaline Phosphatase Creatine Kinase C-Reactive Protein Total Protein Albumin COVID-19 Source Nasal/Nares SARS-CoV-2 (PCR) POSITIVE A* Urine Legionella Ag PAWSS Have you Been Recently Intoxicated or Drunk Within the Last 30 days?: Yes Have you Ever Experienced Previous Episodes of Alcohol Withdrawal?: Yes Have you ever Experienced Withdrawal Seizures?: Unable to Obtain Have you ever Experienced Delirium Tremens(DT)s?: Yes Have you ever undergone Alcohol Rehabilitation Treatment (i.e, inpt ot outpatient treatment programs)?: Yes Have you ever Experienced Blackouts?: Yes Have you ever Combined Alcohol with other Downers within the last 90 days?: Yes Have you ever Combined Alcohol with any other Substance of Abuse during the last 90 days?: Unable to Obtain Evidence of Increased Autonomic Activity (i.e. HR>120, tremor, sweating, agitation, nausea)?: No Result: 5
[2021-12-12 15:17] LABS: Streptococcus Pneumoniae Ag, U Negative (Negative)
[2021-12-12] MEDS: Atorvastatin 40 MG TAB PO (20:40)
[2021-12-12 21:17] VITALS: BP 155/99; PULSE 79; RESP 18; TEMP 36.1; O2SAT 94
[2021-12-12 22:41] LABS: Mycoplasma Pneumoniae PCR Negative; Specimen source Sputum
[2021-12-13] MEDS: Cefdinir 300 MG CAP PO ×3 (02:21→19:23)
[2021-12-13 05:38] VITALS: BP 157/99; PULSE 57; RESP 18; TEMP 36.7; O2SAT 94
[2021-12-13] MEDS: Levothyroxine 150 MCG TAB PO (06:04)
[2021-12-13] MEDS: Ipratropium/Albuterol 4 GM 120 PUFF INH IH ×3 (08:15→19:26)
[2021-12-13] MEDS: Venlafaxine 150 MG CAPCR PO (09:16)
[2021-12-13] MEDS: Cholecalciferol (Vitamin D3) 1,000 UNIT TAB 2000 UNITS PO (09:16)
[2021-12-13] MEDS: Famotidine 20 MG TAB PO ×2 (09:16→19:24)
[2021-12-13] MEDS: Gabapentin 300 MG CAP 900 MG PO ×3 (09:16→19:22)
[2021-12-13] MEDS: buPROPion 75 MG TAB 150 MG PO ×3 (09:16→19:23)
[2021-12-13] MEDS: Doxycycline Hyclate 100 MG CAP PO ×2 (09:16→19:22)
[2021-12-13] MEDS: Thiamine 100 MG TAB PO (09:17)
[2021-12-13] MEDS: Benzonatate 200 MG CAP PO ×3 (09:17→19:24)
[2021-12-13] MEDS: Folic Acid 1 MG TAB PO (09:17)
[2021-12-13] MEDS: Metoprolol CR 50 MG TABCR PO (09:17)
[2021-12-13] MEDS: guaiFENesin 600 MG TABCR PO ×2 (09:17→19:24)
[2021-12-13] MEDS: Cyanocobalamin 500 MCG TAB 1000 MCG PO (09:17)
[2021-12-13] MEDS: predniSONE 20 MG TAB 40 MG PO (09:17)
[2021-12-13] MEDS: Ascorbic Acid 500 MG TAB 1000 MG PO ×2 (09:17→19:23)
[2021-12-13] MEDS: Multivitamin TAB 1 TAB PO (09:17)
[2021-12-13] MEDS: Docusate Sodium 100 MG CAP PO ×2 (09:17→19:24)
[2021-12-13] MEDS: Zinc Sulfate 220 MG TAB PO (09:17)
[2021-12-13] MEDS: Normal Saline Flush 10 ML SYR IVP (09:18)
[2021-12-13] MEDS: REMDESIVIR 100 MG in Normal Saline 250 ML 250 MG IVPB (09:18)
[2021-12-13 12:54] LABS: HCV RNA Qualitative Undetected (Undetected)
[2021-12-13] MEDS: Enoxaparin 40 MG/0.4 ML SYR SC (14:52)
[2021-12-13 15:12] VITALS: BP 99/55; RESP 16; TEMP 36.7; O2SAT 93
--- NOTE | 2021-12-13 15:21 | CMPROGNOTE_ITS ---
- If Service Date Differs Date of service: 12/13/21 Time of Service: 15:21 Care Management Progress Note S/O: Harshal remains under Covid restrictions, therefore is not able to meet with him at this time. CM coordinated a meeting with [facility] staff, chante Segovia, who feels that he continues to meet criteria for inpatient hospitalization. CM sent an updated referral to [facility], [facility], and [facility] for review. CM asked if Harshal could be reviewed by [facility] in order to contract for safety and return to the community. He is able to receive housing through economic services now, as his suspension was set to be lifted on 12/12/21, and he states that homelessness is his trigger for SI. Per report, his plan is to drink himself to and take an overdose of medications. CM asked [facility] if they could arrange his meds to be delivered weekly, in order to deter him from saving too many pi lls. He has been connected with a chief engineer drilling and recovery to assist with drinking cessation. CM will continue to follow. A: Harshal is a 56 year old male admitted to [facility] on 12/03/21 for SI, alcoholism, COVID. P: Harshal continues to meet criteria for inpatient psychiatric hospitalization, per report. Harshal will remain at [facility] voluntarily and will be reevaluated by [facility] daily. He is currently homeless, but has previously lived at [facility]. Transportation will be determined by disposition. He will follow up with his PCP and discharge plan of care. CM will continue to follow.
--- NOTE | 2021-12-13 15:27 | PDOC.CMSAFE ---
- If Service Date Differs Date of service: 12/13/21 Time of Service: 15:27 Care Management Safety Plan Status: Voluntary - Reason for Wait Reason for Wait: Inpatient Admission VOLUNTARY FOR INPATIENT PSYCHIATRIC STABILIZATION. Patient is appropriate in all interactions since arriving at [facility]; Pt has demonstrated appropriate coping and communication skills, has articulated his needs and concerns and is fully engaged during staff interactions. Harshal is not currently requiring O2, has completed his course of Remdesevir and his antibiotics and steroids are being given orally. His isolation may be discontinued on 12/14/21 at which point [place], [facility], and [facility] will require new referrals. At the request of nursing supervisor water softener service, the safety plan is revised to allow the CPSO to sit in the hallway and to provide direct supervision of patient through the door's window. Revised safety plan has been established with patient, and care team, to adhere to patient goals, identify restrictions based on behavioral status, address nutrition, and determine allowed personal belongings, tools for hygiene and personal care. Determine level of activity including ambulation, level of supervision, visitors, and determine privileges based on behaviors and level of engagement by pt. Harshal was found to have extra medication (collecting) and powder/residue from suspected crushing and snorting on 12/07/2021. Due to this behavior, increased precautions have been put in place including RN to ensure medication compliance and bathroom door to remain open. RN discretion with all privileges encouraged. SAFETY PLAN: 1. Will remain on suicide precautions. In Paper Clothes 2. Will remain in room under direct supervision of one-on-one staff at all times provided by CPSO, BINDERY MACHINE SETTER/SET UP OPERATOR, PEDIATRIC PATHOLOGIST optometry professor. 3. May have paper cups, plates, finger foods as well as a cardboard spoon with which to eat meals. 4. Follow [facility] Management of the Admitted Behavioral Health Patient policy. 5. May shower with supervision and at RN discretion. 6. No personal belongings 7. Visitors-No visitors at this time 8. Activities: Soft cart items, music tablet, coloring book, crayons, television if available, and other activities at RN discretion. 9. Bathroom available in room, door to remain open as patient remains in COVID precaution room and was found to be stashing and crushing medication. 10. Phone: May use [employer] phone at RN discretion. 11. Due to VOLUNTARY status, if patient wishes to leave [facility], staff will contact [facility] Crisis Screener ([phone]) and On-Call Maritime Pilot ([phone]) as soon as possible. In the event of elopement, notify [facility] Police ([phone]). Patient is currently voluntarily at [facility] and seeking inpatient admission when a bed becomes available. [facility] Frontline Metallography Teacher will continue seeking placement. Please contact the Optimization Manager Maritime Pilot ([phone]) and [facility] Metallography Teacher ([phone]) for any needed changes in the Safety Plan. Safety plan has been provided to interdepartmental care team.
--- NOTE | 2021-12-13 15:59 | W.PM.PROGNOT ---
Date of Service Date of service: 12/13/21 Time of Service: 15:59 Assessment and Plan Assessment and plan (1) Suicidal ideation: Status: Acute Assessment and plan: patient still depressed. he is eager to be transferred to [place]. I told him that his referral was put on hold over the weekend when he was on oxygen but that now that he is medically stable, I will ask CM to find out what their policy is regarding COVID. If no inpatient psychiatric facility can accept him then we may need [facility] to arrange an outpatient safety plan including putting his meds in a pill pack and give short supply i.e. weekly (2) Major depression: Status: Chronic Assessment and plan: continue Effexor and Wellbutrin Qualifiers: Active/Remission status: currently active Major depression episode severity: severe Major depression recurrence: recurrent Psychotic features: without psychotic features Qualified Code(s): F33.2 - Major depressive disorder, recurrent severe without psychotic features (3) Acute bronchitis: Status: Acute Assessment and plan: continue prednisone, omnicef and doxycycline x 5 days total (including iv rocephin which was started on 12/10).. (4) COVID-19: Status: Acute Assessment and plan: continue Remdesivir through 12/14. cont. use of Acapella and IS (5) Alcoholism: Status: Acute Assessment and plan: CIWA protocol Librium was discontinued over the weekend. Continue his gabapentin. Continue his antidepressants including his Wellbutrin and Effexor. Medications to be crushed and mixed with applesauce or pudding and directly observed (6) DVT prophylaxis: Status: Acute Assessment and plan: SC enoxaparin - ppx dose as not here for COVID-19. (7) Discharge planning issues: Status: Acute Assessment and plan: Full code Currently awaiting a voluntary admission to a psychiatric bed pending ending of his Covid isolation (unclear as to when this may occur). Subjective Subjective Interval history since last seen: Patient with no new complaints. No shortness of breath no chest pain. Cough is minimally productive of some clear mucus. Finish out course of Omnicef and doxycycline and prednisone for acute purulent bronchitis. He is finishing a 5 day course of Remdesivir for his COVID-[address] of his chest did not show any PE nor any ground glass opacifications. He has emphysema. Unfortunately his PCR remains positive and his cycling time is decreased (meaning probable more viral particle shedding). I spoke w/ Dr. Moe, pathology, he recommends not repeating his PCR and not relying on the cycling time in terms of disposition planning but find out the mental health facilities policies. Harshal continues to have suicidal ideation and has indicated that he will probably go back to drinking if he is released into the community. By CDC guidelines, he should be able to come out of isolation after 10 days which would be tomorrow, however, Dr. Moe recommends keeping him in isolation while he is here at [facility]. Exam Narrative Exam Narrative: Middle-aged white male sitting up on his bed alert oriented lungs are clear to auscultation with some prolonged expiratory phase posteriorly some fine rales at the bases no rhonchi or wheezing Heart regular rate and rhythm Tenderness soft nondistended nontender Extremities without edema Objective Last Vital Signs Temp 36.7 C 12/13/21 15:12 Pulse 57 L 12/13/21 05:38 Resp 16 12/13/21 15:12 BP 99/55 L 12/13/21 15:12 Pulse Ox 93 12/13/21 15:12 Laboratory Results - last 24 hr 12/10/21 12/10/21 12/11/21 08:40 13:45 08:03 HCV RNA Qual (PCR) Undetected Hepatitis C RNA Quant Not Applicable M. pneumoniae Source Sputum M. pneumoniae (PCR) Negative Ur Strep pneumoniae Ag Negative PAWSS Have you Been Recently Intoxicated or Drunk Within the Last 30 days?: Yes Have you Ever Experienced Previous Episodes of Alcohol Withdrawal?: Yes Have you ever Experienced Withdrawal Seizures?: Unable to Obtain Have you ever Experienced Delirium Tremens(DT)s?: Yes Have you ever undergone Alcohol Rehabilitation Treatment (i.e, inpt ot outpatient treatment programs)?: Yes Have you ever Experienced Blackouts?: Yes Have you ever Combined Alcohol with other Downers within the last 90 days?: Yes Have you ever Combined Alcohol with any other Substance of Abuse during the last 90 days?: Unable to Obtain Evidence of Increased Autonomic Activity (i.e. HR>120, tremor, sweating, agitation, nausea)?: No Result: 5
[2021-12-13] MEDS: Atorvastatin 40 MG TAB PO (19:23)
[2021-12-13 19:55] VITALS: BP 131/91; PULSE 78; RESP 18; TEMP 37.1; O2SAT 92
[2021-12-13 23:42] VITALS: BP 144/93; PULSE 70; RESP 18; TEMP 36.6; O2SAT 94
--- NOTE | 2021-12-14 00:48 | NUR.NOTE ---
Nursing Note: cpso went into room because she had a feeling something wasnt right, when entering bathroom cpso looked around tub, to then come to find out pt had a crushed up pill under the shampoo in the tub on the side and 2 pills he was going to snort in the soap le in the shower. informed nurse and searched room for anymore. cc also notified
--- NOTE | 2021-12-14 00:57 | NUR.NOTE ---
Pt found attempting to crush /snort medications. Pt education given with poor effect. denies hording medication Nursing Note:
[2021-12-14] MEDS: Levothyroxine 150 MCG TAB PO (05:51)
[2021-12-14] MEDS: Ipratropium/Albuterol 4 GM 120 PUFF INH IH ×4 (08:11→21:09)
[2021-12-14] MEDS: Zinc Sulfate 220 MG TAB PO (08:18)
[2021-12-14] MEDS: Cholecalciferol (Vitamin D3) 1,000 UNIT TAB 2000 UNITS PO (08:18)
[2021-12-14] MEDS: Benzonatate 200 MG CAP PO ×3 (08:18→21:08)
[2021-12-14] MEDS: guaiFENesin 600 MG TABCR PO ×2 (08:19→21:08)
[2021-12-14] MEDS: Venlafaxine 150 MG CAPCR PO (08:19)
[2021-12-14] MEDS: Cefdinir 300 MG CAP PO ×2 (08:19→21:08)
[2021-12-14] MEDS: Famotidine 20 MG TAB PO ×2 (08:19→21:08)
[2021-12-14] MEDS: Gabapentin 300 MG CAP 900 MG PO ×3 (08:19→21:08)
[2021-12-14] MEDS: Docusate Sodium 100 MG CAP PO ×2 (08:19→21:08)
[2021-12-14] MEDS: Doxycycline Hyclate 100 MG CAP PO ×2 (08:19→21:09)
[2021-12-14] MEDS: buPROPion 75 MG TAB 150 MG PO ×3 (08:19→21:08)
[2021-12-14] MEDS: Cyanocobalamin 500 MCG TAB 1000 MCG PO (08:20)
[2021-12-14] MEDS: Ascorbic Acid 500 MG TAB 1000 MG PO ×2 (08:20→21:07)
[2021-12-14] MEDS: predniSONE 20 MG TAB 40 MG PO (08:20)
[2021-12-14] MEDS: REMDESIVIR 100 MG in Normal Saline 250 ML 250 MG IVPB (08:20)
[2021-12-14] MEDS: Metoprolol CR 50 MG TABCR PO (08:20)
[2021-12-14] MEDS: Thiamine 100 MG TAB PO (08:20)
[2021-12-14] MEDS: Multivitamin TAB 1 TAB PO (08:20)
[2021-12-14] MEDS: Folic Acid 1 MG TAB PO (08:20)
[2021-12-14] MEDS: Normal Saline Flush 10 ML SYR IVP (08:21)
[2021-12-14 11:10] VITALS: BP 147/95; PULSE 63; RESP 17; TEMP 36.9; O2SAT 91
--- NOTE | 2021-12-14 12:39 | MHPN_ITS ---
Date of service: 12/13/21 Time of Service: 10:25 Mental Health Progress Note Progress Note Progress Note: Presenting Issue: Persitent thoughts of suicide with plan. Reports 7 for intent. Precipitating Factors Disposition * Behavior: Appropriate and cooperative *Eye Contact:Consistent *Mood:Depressed and Hopeless *Affect: Congruent with mood *Appetite: Fair *Sleep(troubel falling/staying asleep): None reported Plan(please elaborate and include that physician is consulted with plan and/or placement):Client is voluntarily seeking placement for in-patient mental health. Referrals have been made to [facility], and [facility]. Clinician's Name , Title, and Signature Luca Gonzales BA Make sure that you are photocopying and submitting this to [facility] records Dept. to be scanned into chart.
[2021-12-14 14:32] VITALS: BP 147/95; PULSE 66; RESP 17; TEMP 37.3; O2SAT 92
--- NOTE | 2021-12-14 15:02 | PDOC.MHPN2 ---
Date of service: 12/14/21 Time of Service: 12:15 Mental Health Progress Note Progress Note Progress Note: Presenting Issue: Persistent Suicidal thoughts with plan. Reports intent of 7 out of 10 for intent to act on thoughts. Precipitating Factors Disposition * Behavior:appropriate and cooperative *Eye Contact: Consistent *Mood:Depressed and hopeless *Affect: normal *Appetite:Fair *Sleep(troubel falling/staying asleep): None reported. Plan(please elaborate and include that physician is consulted with plan and/or placement):Clients referral is under review at [facility] awaiting updates about covid status. Referral has also been sent to [facility] care bed. Clinician's Name , Title, and Signature Luca Gonzales BA Make sure that you are photocopying and submitting this to [facility] records Dept. to be scanned into chart.
[2021-12-14] MEDS: Enoxaparin 40 MG/0.4 ML SYR SC (15:13)
--- NOTE | 2021-12-14 16:13 | PGE_ITS ---
Date of Service Date of service: 12/14/21 Time of Service: 16:13 Assessment and Plan Assessment and plan (1) Suicidal ideation: Status: Acute Assessment and plan: patient still depressed. he is eager to be transferred to [place]. I have called I.D. at [facility] and spoke w/ Dr. Vaughn who indicated that if the patient is past the 10 day isolation period recommended by the CDC and his symptoms have resolved then there is no need to continue w/ quarantine. Although the patient is an alcoholic, this is not considered a one of the conditions of immunocompromised state per CDC guideline that would require 21 days of isolation. Similar to Dr. Suraj Moe's recommendations, he would not continue to use the PCR test to determine when the patient can come out of isolation as the test could remain positive for several weeks. I will ask care managers to reach out to [facility] and to [facility] and to [facility] and to [facility] to put out referrals for psychiatric t reatment of this patient as the patient is now medically stable. (2) Major depression: Status: Chronic Assessment and plan: continue Effexor and Wellbutrin Qualifiers: Major depression recurrence: recurrent Active/Remission status: currently active Major depression episode severity: severe Psychotic features: without psychotic features Qualified Code(s): F33.2 - Major depressive disorder, recurrent severe without psychotic features (3) Acute bronchitis: Status: Acute Assessment and plan: patient has now completed his course of treatment w/ prednisone and doxcycline and omnicef and he is currently asymptomatic (4) COVID-19: Status: Acute Assessment and plan: patient completed his course of Remdesivir and currently is asymptomatic and per ID and CDC guidelines can come out of isolation. (5) Alcoholism: Status: Acute Assessment and plan: CIWA protocol Librium was discontinued over the weekend. Continue his gabapentin. Continue his antidepressants including his Wellbutrin and Effexor. Medications to be crushed and mixed with applesauce or pudding and directly observed (6) DVT prophylaxis: Status: Acute Assessment and plan: SC enoxaparin - ppx dose as not here for COVID-19. (7) Discharge planning issues: Status: Acute Assessment and plan: Full code Currently awaiting a voluntary admission to a psychiatric bed. Subjective Subjective Interval history since last seen: Harshal has no acute complaints. No dyspnea. Minimal cough. He is bored waiting to here whether or not he will be able to go to a mental health facility. He indicates that he would like help w/ his depression and alcoholism. Exam Narrative Exam Narrative: Middle-aged white male sitting up on his bed alert oriented lungs are clear to auscultation with some prolonged expiratory phase posteriorly some fine rales at the bases no rhonchi or wheezing Heart regular rate and rhythm Tenderness soft nondistended nontender Extremities without edema Objective Last Vital Signs Temp 37.3 C 12/14/21 14:32 Pulse 66 12/14/21 14:32 Resp 17 12/14/21 14:32 BP 147/95 H 12/14/21 14:32 Pulse Ox 92 12/14/21 14:32 Laboratory Results - last 24 hr 12/14/21 08:30 COVID-19 Source Cancelled SARS-CoV-2 (PCR) Cancelled PAWSS Have you Been Recently Intoxicated or Drunk Within the Last 30 days?: Yes Have you Ever Experienced Previous Episodes of Alcohol Withdrawal?: Yes Have you ever Experienced Withdrawal Seizures?: Unable to Obtain Have you ever Experienced Delirium Tremens(DT)s?: Yes Have you ever undergone Alcohol Rehabilitation Treatment (i.e, inpt ot outpatient treatment programs)?: Yes Have you ever Experienced Blackouts?: Yes Have you ever Combined Alcohol with other Downers within the last 90 days?: Yes Have you ever Combined Alcohol with any other Substance of Abuse during the last 90 days?: Unable to Obtain Evidence of Increased Autonomic Activity (i.e. HR>120, tremor, sweating, agitation, nausea)?: No Result: 5
--- NOTE | 2021-12-14 17:24 | PDOC.CMPRO ---
- If Service Date Differs Date of service: 12/14/21 Time of Service: 17:24 Care Management Progress Note S/O: Harshal remains on Covid 19 precautions, although he has surpassed his 10 day quarantine. Per MD, he has completed his treatment for Covid, and continues to be asymptomatic, therefore he is medically cleared to go to an inpatient psychiatric facility. He was screened by [facility] today, who stated that he continues to meet criteria for voluntary inpatient admission at a psychiatric facility. [facility] requested updated information today, and is reviewing his referral. CM will continue to follow. A: Harshal is a 56 year old male admitted to [facility] on 12/03/21 for SI, alcoholism, COVID. P: Harshal continues to meet criteria for inpatient psychiatric hospitalization, per report. Harshal will remain at [facility] voluntarily and will be reevaluated by [facility] daily. He is currently homeless, but has previously lived at [facility]. Transportation will be determined by disposition. He will follow up with his PCP and discharge plan of care. CM will continue to follow.
--- NOTE | 2021-12-14 17:28 | CMSP_ITS ---
- If Service Date Differs Date of service: 12/14/21 Time of Service: 17:28 Care Management Safety Plan Status: Voluntary - Reason for Wait Reason for Wait: Inpatient Admission VOLUNTARY FOR INPATIENT PSYCHIATRIC STABILIZATION. Patient is appropriate in all interactions since arriving at [facility]; Pt has demonstrated appropriate coping and communication skills, has articulated his needs and concerns and is fully engaged during staff interactions. Harshal is not currently requiring O2, has completed his course of Remdesevir and his antibiotics and steroids are being given orally. His isolation may be discontinued on 12/14/21 at which point [place], [facility], and [place] will require new referrals. At the request of nursing property maintenance supervisor, the safety plan is revised to allow the CPSO to sit in the hallway and to provide direct supervision of patient through the door's window. Revised safety plan has been established with patient, and care team, to adhere to patient goals, identify restrictions based on behavioral status, address nutrition, and determine allowed personal belongings, tools for hygiene and personal care. Determine level of activity including ambulation, level of supervision, visitors, and determine privileges based on behaviors and level of engagement by pt. Harshal was found to have extra medication (collecting) and powder/residue from suspected crushing and snorting on 12/07/2021. Due to this behavior, increased precautions have been put in place including RN to ensure medication compliance and bathroom door to remain open. RN discretion with all privileges encouraged. SAFETY PLAN: 1. Will remain on suicide precautions. In Paper Clothes 2. Will remain in room under direct supervision of one-on-one staff at all times provided by CPSO, BUSINESS APPLICATIONS ANALYST, TALENT ACQUISITION RELATIONSHIP MANAGER director public service. 3. May have paper cups, plates, finger foods as well as a cardboard spoon with which to eat meals. 4. Follow [facility] Management of the Admitted Behavioral Health Patient policy. 5. May shower with supervision and at RN discretion. 6. No personal belongings 7. Visitors-No visitors at this time 8. Activities: Soft cart items, music tablet, coloring book, crayons, television if available, and other activities at RN discretion. 9. Bathroom available in room, door to remain open as patient remains in COVID precaution room and was found to be stashing and crushing medication. 10. Phone: May use [employer] phone at RN discretion. 11. Due to VOLUNTARY status, if patient wishes to leave [facility], staff will contact [facility] Crisis Screener ([phone]) and On-Call [employer] ([phone]) as soon as possible. In the event of elopement, notify [facility] Police ([phone]). Patient is currently voluntarily at [facility] and seeking inpatient admission when a bed becomes available. [facility] Frontline Director Of Vital Statistics will continue seeking placement. Please contact the Rn Ent [employer] [place] ([phone]) and [facility] Director Of Vital Statistics ([phone]) for any needed changes in the Safety Plan. Safety plan has been provided to interdepartmental care team.
[2021-12-14 20:58] VITALS: BP 163/97; PULSE 66; RESP 18; TEMP 36.9; O2SAT 93
[2021-12-14] MEDS: Atorvastatin 40 MG TAB PO (21:07)
[2021-12-15 06:20] VITALS: BP 159/91; PULSE 59; RESP 16; TEMP 36; O2SAT 93
[2021-12-15] MEDS: Levothyroxine 150 MCG TAB PO (06:27)
[2021-12-15] MEDS: Ipratropium/Albuterol 4 GM 120 PUFF INH IH ×2 (08:22→12:39)
[2021-12-15] MEDS: Ascorbic Acid 500 MG TAB 1000 MG PO (09:00)
[2021-12-15] MEDS: Benzonatate 200 MG CAP PO ×2 (09:00→13:05)
[2021-12-15] MEDS: Cyanocobalamin 500 MCG TAB 1000 MCG PO (09:01)
[2021-12-15] MEDS: Docusate Sodium 100 MG CAP PO (09:01)
[2021-12-15] MEDS: Folic Acid 1 MG TAB PO (09:01)
[2021-12-15] MEDS: Famotidine 20 MG TAB PO (09:01)
[2021-12-15] MEDS: Cholecalciferol (Vitamin D3) 1,000 UNIT TAB 2000 UNITS PO (09:01)
[2021-12-15] MEDS: buPROPion 75 MG TAB 150 MG PO ×2 (09:01→13:05)
[2021-12-15] MEDS: Multivitamin TAB 1 TAB PO (09:02)
[2021-12-15] MEDS: Gabapentin 300 MG CAP 900 MG PO ×2 (09:02→13:05)
[2021-12-15] MEDS: guaiFENesin 600 MG TABCR PO (09:02)
[2021-12-15] MEDS: Metoprolol CR 50 MG TABCR PO (09:02)
[2021-12-15] MEDS: Thiamine 100 MG TAB PO (09:02)
[2021-12-15] MEDS: Venlafaxine 150 MG CAPCR PO (09:03)
[2021-12-15] MEDS: Zinc Sulfate 220 MG TAB PO (09:03)
--- NOTE | 2021-12-15 14:56 | DSE_ITS ---
Date of service: 12/15/21 Time of Service: 14:56 DS: Diagnosis Discharge Diagnosis (1) Suicidal ideation: Status: Acute Asessment and Plan: 56-year-old with suicidal ideation. He presented on 12/03/2021 stating he was either going to kill himself by drinking himself to or taking pills. He was seen by mental health and found suitable for voluntary admission to a psych facility. Medical work-up included a white count of 13,000 alcohol level 50 urine drug screen positive benzos and THC. He was incidentally found to be Covid positive. He had no symptoms. He was monitored on the Medr floor for 11 days. Fully isolated during his Covid recovery and is discharged to [facility] for further psych follow-up. (2) Major depression: Status: Acute Asessment and Plan: Venlafaxine was added to his regimen. (3) Acute bronchitis: Status: Resolved Asessment and Plan: As needed albuterol and cough suppressants were given during his admission but discontinued at discharge. (4) COVID-19: Status: Resolved Asessment and Plan: He completed 10 days of isolation. He did not require Covid therapeutic. He does not require supplemental oxygenation. He is taken off precautions. (5) Alcoholism: Status: Acute Asessment and Plan: He did not display alcohol withdrawal symptoms during this admission. He did not require any treatment for alcohol withdrawal. Discharge Plan Disposition Patient Disposition: [facility] Condition: Stable Discharge Details Reason For Visit: Suicidal Ideation,Alcoholism,COVID Admit Date/Time: 12/03/21 20:32 Admit Provider: Iván Bautista Attending Provider: Iván Bautista Primary Care Provider: Don Draper Hospital Course Hospital Course: 56 yo male admitted with suicidal ideation. Incidental finding of COVID + . No treatment required. Completed 10 day isolation. Off precautions. No alcohol w/d symptoms. Adjusted psych meds, added venlafaxine. Home Meds and New Rx's Prescriptions: New albuterol sulfate [Ventolin HFA] 90 mcg/actuation Hfa Aerosol Inhaler 2 puff inhalation Q4H PRN PRNQty: 8.5 RF: 2 atorvastatin 40 mg Tablet 40 mg PO QPM Qty: 30 RF: 2 famotidine 20 mg Tablet 20 mg PO BID Qty: 60 RF: 2 multivitamin [Multiple Vitamins] Tablet 1 tab PO DAILY Qty: 30 RF: 2 venlafaxine 150 mg Capsule,Extended Release 24hr 150 mg PO DAILY Qty: 30 RF: 2 thiamine mononitrate (vit B1) [Vitamin B-1 (mononitrate)] 100 mg Tablet 100 mg PO DAILY Qty: 30 RF: 2 Continued thiamine HCl (vitamin B1) 100 mg Tablet 100 mg PO DAILY RF: 0 tamsulosin [Flomax] 0.4 mg Capsule 0.8 mg PO DAILY RF: 0 gabapentin 600 mg tablet 1,200 mg PO TID RF: 0 levothyroxine [Synthroid] 200 mcg Tablet 150 mcg PO DAILY RF: 0 bupropion HCl 150 mg Tablet Sustained-Release 12 Hr 150 mg PO TID RF: 0 metoprolol succinate 50 mg Tablet Extended Release 24 Hr 50 mg PO DAILY RF: 0 cyanocobalamin (vitamin B-12) [Vitamin B-12] 1,000 mcg Tablet 1,000 mcg PO DAILY RF: 0 folic acid 1 mg Tablet 1 mg PO DAILY RF: 0 Discharge Instructions Instructions: Help Prevent Suicide in Older Adults (GEN), Suicide Prevention (GEN) Stand Alone Forms: Nursing Discharge Form Activity:: Activity as Tolerated Diet:: As Tolerated DS: Summary Summary Time spent discussing smoking cessation with patient: 3 to 10 minutes Time Spent with Patient providing and/or coordinating discharge services: Greater than 30 minutes Status at Discharge Functional status at discharge: independent ambulation Overall status at discharge: patient is not back to baseline Mental Status: mental status grossly normal Speech and Movement: speech and movement normal Mood: dysthymic mood Affect: normal affect Exam Narrative Exam Narrative: On the day of discharge he was sitting up in bed watching TV. He displayed a full affect. His speech was clear he. He did not have any respiratory difficulty. He had no cough. His vital signs were stable. Psych Mental Status: mental status grossly normal Speech and Movement: speech and movement normal Mood: dysthymic mood Affect: normal affect DS: Data Vitals/I&O Vitals and I&O: Vital Signs Temperature 36.0 C L 12/15/21 06:20 Temperature Source Tympanic 12/15/21 06:20 Pulse 59 L 12/15/21 06:20 Pulse Rhythm Regular 12/15/21 11:11 Respiratory Rate 16 12/15/21 06:20 Respiratory Effort 12/15/21 11:11 Respiratory Depth Normal 12/15/21 11:11 Respiratory Pattern Irregular 12/15/21 11:11 Blood Pressure 159/91 H 12/15/21 06:20 Blood Pressure Position Sitting 12/03/21 12:20 Pulse Oximetry 93 12/15/21 06:20 Oxygen Delivery Method Room Air 12/15/21 06:20 Oxygen Flow Rate 0 12/15/21 06:20 Pain Level 0 12/15/21 06:20 Comment 12/14/21 11:10 Intake & Output 12/14/21 12/15/21 12/15/21 23:59 11:59 23:59 Other: Urine Appearance Clear Clear Comment pT stated that he did void. pt flushed toilet Stool Size Small Stool Characteristics Soft Formed Voiding Methods Toilet Toilet PFSH All Active Problems (Updated 12/15/21 @ 15:18 by Arie Gupta MD) Alcoholism (Acute) Suicidal ideation (Acute) Alcohol intoxication (Acute) Major depression (Acute) Ambulatory dysfunction (Acute) Alcohol withdrawal (Acute) Medical History (Updated 12/15/21 @ 15:18 by Arie Gupta MD) ADHD Bipolar disorder Closed head injury HTN (hypertension) Hypothermia Hypothyroid Spinal stenosis of lumbar region Surgical History (Updated 12/15/21 @ 15:18 by Arie Gupta MD) H/O cervical spine surgery Previous back surgery 10/2019 Family History Other Family history unobtainable due to patient's condition Social History Smoking/Tobacco Use Status: Current every day Tobacco Type: cigarettes Smoking risk assessment performed?: Yes Alcohol Intake: current Alcohol Intake frequency: 3 or more drinks per day Alcohol type: hard liquor and other Drug use: Never Substance use type: does not use Details: Patient states he drinks a half gallon Do you feel safe at home: Yes Do you feel safe in your relationship?: Yes Additional Social history: patient states he has no where to go and does not feel safe if he were to leave the hospital.
[2021-12-15 15:18] VITALS: BP 147/95; PULSE 74; RESP 12; TEMP 36; O2SAT 95
--- NOTE | 2021-12-15 16:10 | PDOC.MHCN ---
Date of service: 12/15/21 Time of Service: 11:00 Mental Health Crisis Note Presenting Issue How did you arrive at the ED and why did you come: Client arrive via ambulance for SI. Precipitating Factors Client is still presenting SI with a plan and high intent. Disposition BEHAVIOR: Client was calm, cooperative, and engaged in assessment. EYE CONTACT: Client made great eye contact. MOOD: Client describes his mood as alright..hanging in there. He reports he feels hopeless and anxious about his future and next steps. AFFECT: Normal/appropriate APPETITE: Client reports he is eating well. SLEEP(trouble falling/staying asleep: Client reports difficulty sleeping. He states that he has been falling asleep around 3 or 4am, and waking up at 730am. Plan Client will remain at [facility] due to SI with a plan. Client does not have any natural supports, or safe place to go. He is need of both mental health and substance use treatment. Client will remain at [facility] voluntarily until placement becomes available or he is able to safety plan home. Referrals to [facility], [facility], and [facility] have been sent. [facility] will not accept a covid positive pt. [facility] stated he is not their top priority as he was just there and is low acuity. [facility] are still reviewing his referral. [facility] care bed is full. Clinician told client he needs to use the hospital phone to try and connect with economic services and [employer]. Signature Clinician's Name/Title: Sandra Clarke, SHERRIE
--- NOTE | 2021-12-15 18:37 | CMDISCH_ITS ---
- If Service Date Differs Date of service: 12/15/21 Time of Service: 18:37 LACE Index Scoring Tool - Questions: Length of Stay (in days): 7 - 13 Acuity (Admit via E.D.?): Yes E.D. Visits: 5 - Answers: Total Score: 12 Risk of Readmission: High Risk Care Management Discharge Reason for Hospitalization: SI, alcoholism, COVID Discharge Plan: Harshal transferred to [facility] today for inpatient psychiatric stabilization. He was transported via [employer], coordinated by CM. He will follow up with his PCP, [facility], and his discharge plan of care. Patient/Family Education Needs: Review discharge instructions and limitations, discussion of self care needs including ask me three. Services Needed at Discharge: Psychiatric Facility ([place]), Transportation ([employer]) - Disposition Disposition: [place] Transport via of: [employer] ([place])
== END 2021-12-15 15:47 | disposition short-term general hospital (02) | DRG 885 ==
LOC: ER 20:22 → MS 21:43
PROVIDERS: Emergency Medicine; Internal Medicine; Admitting Provider General Practice; Emergency Provider Student in an Organized Health Care Education/Training Program; PCP Physician Assistant; Visit Provider General Practice
DX: F33.2 Major depressive disorder, recurrent severe without psychotic features (principal); U07.1 COVID-19; R45.851 Suicidal ideations; F10.20 Alcohol dependence, uncomplicated; Z59.02 Unsheltered homelessness; M48.061 Spinal stenosis, lumbar region without neurogenic claudication; E03.9 Hypothyroidism, unspecified; I10 Essential (primary) hypertension; F90.9 Attention-deficit hyperactivity disorder, unspecified type; F17.210 Nicotine dependence, cigarettes, uncomplicated; R19.7 Diarrhea, unspecified; W18.39XA Other fall on same level, initial encounter; R07.81 Pleurodynia; J20.9 Acute bronchitis, unspecified; J43.9 Emphysema, unspecified; R09.02 Hypoxemia; T68.XXXA Hypothermia, initial encounter; X31.XXXA Exposure to excessive natural cold, initial encounter
CPT/HCPCS: 36415; 71275; 80048; 80053; 80076; 80307; 82306; 82550; 82803; 82805; 84145; 85027; 86704; 86706; 86803; 86850; 86900; 86901; 87340; 87389; 87449; 87522; 87635; 94640; 96361; 96374; 99284; 99285; 99406; J1650; Q3014; 36600; 71045; 80320; 80329; 81003; 81015; 82607; 82728; 82746; 83615; 83735; 84100; 84439; 84443; 84484; 85025; 85379; 85610; 86140; 87070; 87205; 87581; 87899; 93005; 93010; 94667; 99221; 99231; 99232; 99233; 99239; J0248; J0696; J1100; J2405; J3490; J7512